=== PATIENT | female | born 1950 | race Caucasian/White ===

== ENCOUNTER 2018-04-22 16:20 | Inpatient (IN) ==
[2018-04-22] MEDS ORDERED: Morphine Inj 4 MG/ML Vial IV.PUSH ONE ×2 (17:26→19:42)
[2018-04-22] MEDS ORDERED: Sod Chloride 0.9% Inj 1,000 ML IV.SIG ONE ×2 (17:26→19:05)
[2018-04-22 17:47] LABS: Baso # (Auto) 0.1 th/mm3 (0.0-0.2); Baso % (Auto) 0.5 % (0.0-2.0); Eos # (Auto) 0.5 th/mm3 (0.0-0.4); Eos % (Auto) 2.9 % (0.0-4.0); Hematocrit 35.6 % (35.0-46.0); Hemoglobin 11.8 gm/dL (11.6-15.3); Lymph # (Auto) 0.8 th/mm3 (1.0-4.8); Lymph % (Auto) 5.2 % (9.0-44.0); Mean Corpuscular HGB Conc 33.1 % (32.0-36.0); Mean Corpuscular Hemoglobin 27.6 pg (27.0-34.0); Mean Corpuscular Volume 83.3 fL (80.0-100.0); Mean Platelet Volume 8.6 fL (7.0-11.0); Mono # (Auto) 0.9 th/mm3 (0.0-0.9); Mono % (Auto) 5.7 % (0.0-8.0); Neut # (Auto) 13.2 th/mm3 (1.8-7.7); Neut % (Auto) 85.7 % (16.0-70.0); Platelet Count 235 th/mm3 (150-450); Red Blood Count 4.27 mil/mm3 (4.00-5.30); Red Cell Distribution Width 14.3 % (11.6-17.2); White Blood Count 15.4 th/mm3 (4.0-11.0)
[2018-04-22 18:40] LABS: Alanine Aminotransferase 31 U/L (10-53)
[2018-04-22 18:42] LABS: Alkaline Phosphatase 118 U/L (45-117); Total Protein 6.7 g/dL (6.4-8.2)
[2018-04-22 18:46] LABS: Bacteria,Urine Rare /hpf; Bilirubin,Urine Negative (Negative); Clarity,Urine Turbid (Clear); Color,Urine Amber (Yellw/Straw); Glucose,Urine (UA) 50 mg/dL (Negative); Leukocyte Esterase,Urine Negative (Negative); Nitrite,Urine Negative (Negative); Specific Gravity,Urine 1.024 (1.002-1.035)
[2018-04-22 18:52] LABS: Albumin 2.7 g/dL (3.4-5.0); Anion Gap 14 meq/L (5-15); Aspartate Aminotransferase 235 U/L (15-37); Blood Urea Nitrogen 43 mg/dL (7-18); Calcium 10.7 mg/dL (8.5-10.1); Carbon Dioxide 20.8 meq/L (21.0-32.0); Chloride 103 meq/L (98-107); Glomerular Filtration Rate 25 mL/min (>89); Glucose,Random 86 mg/dL (74-106); Lipase 77 U/L (73-393); Potassium 3.9 meq/L (3.5-5.1); Sodium 138 meq/L (136-145)
--- NOTE | 2018-04-22 19:17 | ED ---
HPI General Chief Complaint: Abdominal Pain Stated Complaint: Evac/Abd Pain Time Seen by Provider: 04/22/18 17:02 Source: patient Mode of arrival: ambulatory Limitations: no limitations History of Present Illness HPI narrative: Patient is a 67-year-old female, recently diagnosed with cervical cancer, who presents with complaint of abdominal pain. She states that she was diagnosed with cervical cancer after pelvic exam 2 months ago and has been unable to see a marketing reporting analyst specialist. She has had worsening abdominal pain and states she just cannot take it anymore. She has started to have nausea and nonbilious, nonbloody emesis over the last several days and has not had a bowel movement in the last 5 days. She is still passing flatus. No fever nor chills. No chest pain or shortness of breath. MD complaint: abdominal pain Onset (ago): month(s) Pain Consistency: constant Location: diffuse Severity: mild Quality: fullness Radiation: none Migration to: no migration Relieving factors: nothing Exacerbating factors: nothing Associated symptoms: denies other symptoms Related Data Home Medications Medication Instructions Recorded Confirmed oxycodone 10 mg PO Q4-6H PRN 04/22/18 04/22/18 Allergies Allergy/AdvReac Type Severity Reaction Status Date / Time penicillin G Allergy Severe causes Verified 04/22/18 16:55 hives Sulfa (Sulfonamide Allergy Severe hives Verified 04/22/18 16:55 Antibiotics) Review of Systems ROS: all other systems reviewed are negative Constitutional Denies chills and Denies fever(s) Eyes Denies blurry vision ENT Denies nasal congestion Cardiovascular Denies chest pain Respiratory Denies dyspnea Gastrointestinal Reports abdominal pain, Denies diarrhea, Reports nausea and Reports vomiting Genitourinary Denies dysuria Musculoskeletal Denies back pain Integumentary/Breasts Denies rash Neurologic Denies headache(s) Psychiatric Reports anxiety and Denies confusion Endocrine Reports fatigue PMF Medical History Medical History Breast CA (Acute) Cervical ca (Acute) Gallstone (Acute) Surgical History Surgical History S/P breast lumpectomy (Acute) S/P dilatation and curettage (Acute) Family History Family History Other Diabetes mellitus Social History Social History Substance History: No History of Abuse Second Hand Smoke Exposure: No Smoking Status: Never smoker How Often Do You Have a Drink Containing Alcohol: Never Recent Travel in [facility] within the Last 8 Weeks: No Recent Out of Country Travel within the Last 8 Weeks: No Substance Abuse Detail Marijuana: Substance Use Status: Active Route Used Substance Abuse: By Mouth Immunization History Tetanus Immunization: Unsure Hx Influenza Vaccine This Season: No Exam Narrative Exam Narrative: GENERAL: Well-appearing female in no acute distress SKIN: Focused skin assessment warm/dry. No rashes. HEAD: Atraumatic. Normocephalic. EYES: Pupils equal and round. No scleral icterus. No injection or drainage. ENT: No nasal bleeding or discharge. Mucous membranes pink and moist. NECK: Trachea midline. No JVD. CARDIOVASCULAR: Regular rate and rhythm. No murmur appreciated. RESPIRATORY: No accessory muscle use. Clear to auscultation. Breath sounds equal bilaterally. GASTROINTESTINAL: Abdomen soft, tenderness present in the lower abdomen, mass palpated, nondistended. Hepatic and splenic margins not palpable. MUSCULOSKELETAL: No obvious deformities. No clubbing. No cyanosis. No edema. NEUROLOGICAL: Awake and alert. No obvious cranial nerve deficits. Motor grossly within normal limits. Normal speech. PSYCHIATRIC: Anxious and tearful Course Initial Documented Vital Signs Temperature 98.1 F 04/22/18 16:56 Pulse Rate 91 H 04/22/18 16:56 Respiratory Rate 17 04/22/18 16:56 Blood Pressure 146/86 H 04/22/18 16:56 Pulse Oximetry 94 L 04/22/18 16:56 Last Documented Vital Signs Temperature 98.5 F 04/23/18 05:35 Pulse Rate 80 04/23/18 03:00 Respiratory Rate 18 04/23/18 05:35 Blood Pressure 161/92 H 04/23/18 05:35 Pulse Oximetry 95 04/23/18 05:35 Sign Out Sign Out Data: Patient Sign Out occurred on 04/22/18 at 19:39. Patient's care was discussed, and care was transferred from Guillermina Smith MD to Lisa Belle. Sign Out Comment: CT pending. Plan for admission. Last updated by Guillermina Smith MD at 04/22/18 19:20 Medical Decision Making MDM Narrative Medical decision making narrative: Patient is a 67-year-old female recently diagnosed with cervical cancer who presents with complaint of worsening abdominal pain, nausea, vomiting and constipation. Labs revealed leukocytosis and an elevated creatinine consistent with acute kidney injury. CT pending at time of checkup. Differential Diagnosis Differential Diagnosis: Differential diagnosis includes but is not limited to small bowel obstruction, impaction, cancer pain. Medical Records Medical records reviewed: Yes I reviewed the patient's medical records. Lab Data Lab results reviewed: Yes I reviewed the patient's lab results. Lab results narrative: Labs revealed leukocytosis and acute kidney injury. Result diagrams: 04/23/18 04:57 04/22/18 17:34 Lab Results 04/22/18 04/22/18 04/22/18 Range/Units 17:33 17:34 17:34 WBC 15.4 H (4.0-11.0) th/mm3 RBC 4.27 (4.00-5.30) mil/mm3 Hgb 11.8 (11.6-15.3) gm/dL Hct 35.6 (35.0-46.0) % MCV 83.3 (80.0-100.0) fL MCH 27.6 (27.0-34.0) pg MCHC 33.1 (32.0-36.0) % RDW 14.3 (11.6-17.2) % Plt Count 235 (150-450) th/mm3 MPV 8.6 (7.0-11.0) fL Prelim Diff (Auto) Neut % (Auto) 85.7 H (16.0-70.0) % Lymph % (Auto) 5.2 L (9.0-44.0) % Banks % (Auto) 5.7 (0.0-8.0) % Eos % (Auto) 2.9 (0.0-4.0) % Baso % (Auto) 0.5 (0.0-2.0) % Neut # (Auto) 13.2 H (1.8-7.7) th/mm3 Lymph # (Auto) 0.8 L (1.0-4.8) th/mm3 [place] # (Auto) 0.9 (0.0-0.9) th/mm3 Eos # (Auto) 0.5 H (0.0-0.4) th/mm3 Baso # (Auto) 0.1 (0.0-0.2) th/mm3 WBC Differential . Differential Comment Auto diff final Sodium 138 (136-145) meq/L Potassium 3.9 (3.5-5.1) meq/L Chloride 103 (98-107) meq/L Carbon Dioxide 20.8 L (21.0-32.0) meq/L Anion Gap 14 (5-15) meq/L BUN 43 H (7-18) mg/dL Creatinine 2.02 H (0.50-1.00) mg/dL Estimated GFR 25 L (>89) mL/min Random Glucose 86 (74-106) mg/dL Calcium 10.7 H (8.5-10.1) mg/dL Total Bilirubin 0.3 (0.2-1.0) mg/dL AST 235 H (15-37) U/L ALT 31 (10-53) U/L Alkaline Phosphatase 118 H (45-117) U/L Total Protein 6.7 (6.4-8.2) g/dL Albumin 2.7 L (3.4-5.0) g/dL Lipase 77 (73-393) U/L Urine Color Mame (Yellw/Straw) Urine Clarity Turbid H (Clear) Urine pH 6.0 (5.0-8.5) Ur Specific [place] 1.024 (1.002-1.035) Urine Protein 100 H (Neg-Trace) mg/dL Urine Glucose (UA) 50 (Negative) mg/dL Urine Ketones Trace H (Negative) mg/dL Urine Occult Blood Large H (Negative) Urine Nitrate Negative (Negative) Urine Bilirubin Negative (Negative) Urine Urobilinogen Less than 2 (Less than 2) mg/dL Ur Leukocyte Esterase Negative (Negative) Urine RBC (0-3) /hpf Urine WBC (0-5) /hpf Urine Bacteria Rare H (None) /hpf Micro UA Comment Culture indicated Urine Culture Comments Culture indicated 04/23/18 Range/Units 04:57 WBC 13.3 H (4.0-11.0) th/mm3 RBC 3.94 L (4.00-5.30) mil/mm3 Hgb 10.8 L (11.6-15.3) gm/dL Hct 33.2 L (35.0-46.0) % MCV 84.2 (80.0-100.0) fL MCH 27.5 (27.0-34.0) pg MCHC 32.7 (32.0-36.0) % RDW 14.4 (11.6-17.2) % Plt Count 220 (150-450) th/mm3 MPV 8.1 (7.0-11.0) fL Prelim Diff (Auto) Slide review pending Neut % (Auto) 77.7 H (16.0-70.0) % Lymph % (Auto) 8.0 L (9.0-44.0) % Banks % (Auto) 7.5 (0.0-8.0) % Eos % (Auto) 3.9 (0.0-4.0) % Baso % (Auto) 2.9 H (0.0-2.0) % Neut # (Auto) 10.3 H (1.8-7.7) th/mm3 Lymph # (Auto) 1.1 (1.0-4.8) th/mm3 [place] # (Auto) 1.0 H (0.0-0.9) th/mm3 Eos # (Auto) 0.5 H (0.0-0.4) th/mm3 Baso # (Auto) 0.4 H (0.0-0.2) th/mm3 WBC Differential Differential Comment . Sodium (136-145) meq/L Potassium (3.5-5.1) meq/L Chloride (98-107) meq/L Carbon Dioxide (21.0-32.0) meq/L Anion Gap (5-15) meq/L BUN (7-18) mg/dL Creatinine (0.50-1.00) mg/dL Estimated GFR (>89) mL/min Random Glucose (74-106) mg/dL Calcium (8.5-10.1) mg/dL Total Bilirubin (0.2-1.0) mg/dL AST (15-37) U/L ALT (10-53) U/L Alkaline Phosphatase (45-117) U/L Total Protein (6.4-8.2) g/dL Albumin (3.4-5.0) g/dL Lipase (73-393) U/L Urine Color (Yellw/Straw) Urine Clarity (Clear) Urine pH (5.0-8.5) Ur Specific [place] (1.002-1.035) Urine Protein (Neg-Trace) mg/dL Urine Glucose (UA) (Negative) mg/dL Urine Ketones (Negative) mg/dL Urine Occult Blood (Negative) Urine Nitrate (Negative) Urine Bilirubin (Negative) Urine Urobilinogen (Less than 2) mg/dL Ur Leukocyte Esterase (Negative) Urine RBC (0-3) /hpf Urine WBC (0-5) /hpf Urine Bacteria (None) /hpf Micro UA Comment Urine Culture Comments Imaging Data Radiologist's impression: Abdomen/Pelvis CT 04/22/18 17:26 CONCLUSION: 1. Enlarged uterus and cervix. 2. Retroperitoneal metastatic lymphadenopathy. 3. Metastatic disease of the visualized lung bases. 4. Metastatic lytic lesion of the right pubic bone with a nondisplaced pathologic fracture. 5. Large mass or blood/debris in the urinary bladder. 6. 17 mm hypodensity of the liver is probably benign. There has slight fatty infiltration. 7. Large gallstone without associated complication. Discharge Plan Discharge Disposition Patient Disposition: 30 Still Patient Discharge Condition Condition: Stable Discharge Details Diagnosis: KALI (acute kidney injury) Physicians Team ED Provider: Lisa Belle Primary Care Provider: UNKNOWN, Attending Provider: Brock Smiley Other Providers: Hernan Lux ; [employer] Status ED Status: Left Department Discharge Information Discharge Date/Time: 04/23/18 01:22
--- NOTE | 2018-04-22 19:49 | CT ---
EXAM DATE: 04/22/2018 7:24 PM EDT AGE/SEX: 67 years / Female INDICATIONS: Pelvic pain for five days. CLINICAL DATA: This is the patient's initial encounter. Patient reports that signs and symptoms have been present for 4 - 6 days and indicates a pain score of 5/10. MEDICAL/SURGICAL HISTORY: Carcinoma, breast. Carcinoma, cervical. . Lumpectomy. RADIATION DOSE: 15.48 CTDI (mGy) COMPARISON: No prior exams available for comparison. TECHNIQUE: Multiple contiguous axial images were obtained through the abdomen. Images were obtained using multiple row detector helical technique. Using automated exposure control and adjustment of the mA and/or kV according to patient size, radiation dose was kept as low as reasonably achievable to o btain optimal diagnostic quality images. DICOM format image data is available electronically for rev iew and comparison. FINDINGS: Multiple nodules are seen in the visualized lung bases measuring up to 18 mm on the left and up to 24 mm on the right. 22 mm paraesophageal lymph node is seen just above the GE junction. 17 mm hypodensity seen at the dome of the right hepatic lobe, probably benign. Liver is mild fatty in filtrated but no other focal hepatic lesions are demonstrated. Noncontrast appearance of the spleen, pancreas and adrenal glands within normal limits. Intermediate attenuation mass measuring approximately 11 mm seen posteriorly upper pole of the left k idney. The kidneys are otherwise within normal limits. Enlarged aortocaval lymph nodes are present measuring up to 36 mm in size. There is iliac lymphadenop athy as well, for example on the left measuring 29 x 40 mm on series 2 image 56. Uterus and cervix enlarged. No well-defined mass. There is intermediate attenuation material or mass within the urinary bladder measuring 3.9 x 6.8 x 2.2 cm. Mesenteric lymph node versus a peritoneal nodule seen in the right lower quadrant measures 1.2 cm. No obstruction or acute inflammatory changes are seen of the gastrointestinal tract. No free fluid or free air. 2 cm gallstone. No associated inflammatory changes. No duct stone or ductal dilatation. Ill-defined lytic lesion seen of the right pubic bone just lateral to the symphysis measuring approxi mately 3.6 cm. There is an associated nondisplaced pathologic fracture evident on series 601 image 59 . No other perceptible bone lesion. CONCLUSION: 1. Enlarged uterus and cervix. 2. Retroperitoneal metastatic lymphadenopathy. 3. Metastatic disease of the visualized lung bases. 4. Metastatic lytic lesion of the right pubic bone with a nondisplaced pathologic fracture. 5. Large mass or blood/debris in the urinary bladder. 6. 17 mm hypodensity of the liver is probably benign. There has slight fatty infiltration. 7. Large gallstone without associated complication. Electronically signed by: Michi Griffiths MD 04/22/2018 7:47 PM EDT
[2018-04-22] MEDS ORDERED: Bisacodyl 10 MG Supp RECTAL PRN (21:00)
[2018-04-22] MEDS ORDERED: Temazepam 15 MG Capsule PO PRN (21:00)
--- NOTE | 2018-04-22 21:18 | P.HP ---
History of Present Illness Service: [facility] Primary Care Physician: UNKNOWN History of Present Illness: 67-year-old female with a known history of cervical cancer presents to the emergency department for the evaluation of pelvic pain and vaginal bleeding. The patient reports she had a D&C with her mail deliverer at which time she was diagnosed with cervical cancer. She reports she has been trying to see Dr. Worley however has been unable to do so secondary to issues with referrals. The patient reports that she has started to have nausea and vomiting over the past several days and last bowel movement was 5 days ago. She denies any fevers or chills. No chest pain or shortness of breath. Severe abdominal/ pelvic pain. No diarrhea. No lateralizing signs/symptoms. The patient reports low back pain for the last 2-3 days. Review of Systems All other systems reviewed negative except as stated in [facility] - History History Provided By: Patient - Medical History Medical History: Medical History (Last Reviewed 04/22/18 @ 19:12 by Guillermina Smith MD) Breast CA Cervical ca - Surgical History Surgical History: Surgical History (Last Reviewed 04/22/18 @ 19:12 by Guillermina Smith MD) S/P breast lumpectomy - Family History Family History: Family History (Last Updated 04/22/18 @ 21:11 by Gabbie Gomez MD) Other Diabetes mellitus - Tobacco History Second Hand Smoke Exposure: No Tobacco Use In Past 30 Days: No Smoking Status: Never smoker - Alcohol History How Often Do You Have a Drink Containing Alcohol: Never - Substance Use History Substance History: No History of Abuse - Substance Use Type Marijuana Status: Active Route Used: By Mouth - Travel History Recent Travel in the [place] Within the Last 8 Weeks: No Recent Travel Out of the Country Within the Last 8 Weeks: No - Immunization History Tetanus Immunization: Unsure Hx Influenza Vaccine This Season: No Medications and Allergies Active Medications: Active Medications Acetaminophen (Tylenol) 650 mg PO Q4H PRN PRN Reason: Temp > 100.4 Al Hydroxide/Mg Hydroxide (Milk Of Magnesia Liq) 30 ml PO Q12H PRN PRN Reason: Mild Constipation Bisacodyl (Dulcolax Supp) 10 mg RECTAL DAILY PRN PRN Reason: SEVERE CONSITIPATION Hydromorphone HCl (Dilaudid Pf Inj) 1 mg IV.PUSH Q4H PRN PRN Reason: breakthrough pain Ceftriaxone Sodium 1,000 mg/ (Sodium Chloride) 100 mls @ 200 mls/hr IV.SIG Q24H ALOK Sodium Chloride (Ns Inj) 1,000 mls @ 100 mls/hr IV.CONT .Q10H ALOK Lactulose (Lactulose Liq) 30 ml PO DAILY PRN PRN Reason: SEVERE CONSITIPATION Ondansetron HCl (Zofran Inj) 4 mg IV.PUSH Q6H PRN PRN Reason: NAUSEA OR VOMITING Oxycodone HCl (Roxicodone) 10 mg PO Q4H PRN PRN Reason: pain 6-10 Senna/Docusate Sodium (Marta-Colace) 1 tab PO BID ALOK Sennosides (Senokot) 17.2 mg PO Q12H PRN PRN Reason: Moderate Constipation Sodium Chloride (Ns Flush) 2 ml IV.FLUSH PRN PRN PRN Reason: FLUSH AFTER USING IV ACCESS Temazepam (Restoril) 15 mg PO HS PRN PRN Reason: INSOMNIA Allergies Allergy/AdvReac Type Severity Reaction Status Date / Time penicillin G Allergy Severe causes Verified 04/22/18 16:55 hives Sulfa (Sulfonamide Allergy Severe hives Verified 04/22/18 16:55 Antibiotics) Home Medications Medication Instructions Recorded Confirmed Type oxycodone 10 mg PO Q4-6H PRN 04/22/18 04/22/18 History Exam Vital signs: Vital Signs 04/22/18 16:56 04/22/18 17:45 04/22/18 18:00 Temperature 98.1 F Pulse Rate 91 H 83 Respiratory Rate 17 16 17 Blood Pressure 146/86 H 169/80 H Pulse Oximetry 94 L 93 L 04/22/18 19:34 Temperature Pulse Rate 87 Respiratory Rate 18 Blood Pressure 165/89 H Pulse Oximetry 94 L Intake & Output 04/22/18 04/22/18 04/23/18 06:59 18:59 06:59 Weight 87.09 kg Narrative: Gen.: No acute distress Head: Normocephalic. Atraumatic. EENT: Pupils equal round and reactive to light. Nose without drainage. Airway intact. Throat without injection. Cardiovascular: Regular rate and rhythm. No murmurs, rubs or gallops. Respiratory: Lungs clear to auscultation bilaterally. No wheezes or rhonchi. Abdomen: Soft, tender to palpation worse in the pelvic region, nondistended. No peritoneal signs. Musculoskeletal: No gross deformities. No edema. Skin: No obvious rashes or erythema. Neuro: Sensory and motor grossly intact. Cranial nerves II through XII grossly intact. Results - Labs CBC & Chem 7: 04/22/18 17:34 04/22/18 17:34 Labs: Laboratory Results - last 24 hr 04/22/18 04/22/18 04/22/18 17:33 17:34 17:34 WBC 15.4 H RBC 4.27 Hgb 11.8 Hct 35.6 MCV 83.3 MCH 27.6 MCHC 33.1 RDW 14.3 Plt Count 235 MPV 8.6 Neut % (Auto) 85.7 H Lymph % (Auto) 5.2 L [place] % (Auto) 5.7 Eos % (Auto) 2.9 Baso % (Auto) 0.5 Neut # (Auto) 13.2 H Lymph # (Auto) 0.8 L [place] # (Auto) 0.9 Eos # (Auto) 0.5 H Baso # (Auto) 0.1 WBC Differential . Differential Comment Auto diff final Sodium 138 Potassium 3.9 Chloride 103 Carbon Dioxide 20.8 L Anion Gap 14 BUN 43 H Creatinine 2.02 H Estimated GFR 25 L Random Glucose 86 Calcium 10.7 H Total Bilirubin 0.3 AST 235 H ALT 31 Alkaline Phosphatase 118 H Total Protein 6.7 Albumin 2.7 L Lipase 77 Urine Color Mame Urine Clarity Turbid H Urine pH 6.0 Ur Specific [employer] 1.024 Urine Protein 100 H Urine Glucose (UA) 50 Urine Ketones Trace H Urine Occult Blood Large H Urine Nitrate Negative Urine Bilirubin Negative Urine Urobilinogen Less than 2 Ur Leukocyte Esterase Negative Urine RBC Urine WBC Urine Bacteria Rare H Micro UA Comment Culture indicated Urine Culture Comments Culture indicated - Imaging Impressions Abdomen/Pelvis CT 04/22/18 17:26 CONCLUSION: 1. Enlarged uterus and cervix. 2. Retroperitoneal metastatic lymphadenopathy. 3. Metastatic disease of the visualized lung bases. 4. Metastatic lytic lesion of the right pubic bone with a nondisplaced pathologic fracture. 5. Large mass or blood/debris in the urinary bladder. 6. 17 mm hypodensity of the liver is probably benign. There has slight fatty infiltration. 7. Large gallstone without associated complication. Caprini VTE Risk Assessment Caprini VTE Risk Assessment: Moderate/High Risk (score >= 2) Caprini Risk Assessment Model: Point Value = 1 Point Value = 2 Point Value = 3 Point Value = 5 Age 41-60 Minor surgery BMI > 25 kg/m2 Swollen legs Varicose veins or History of unexplained or recurrent spontaneous Oral contraceptives or hormone replacement Sepsis (< 1 month) Serious lung disease, including pneumonia (< 1 month) Abnormal pulmonary function Acute myocardial infarction Congestive heart failure (< 1 month) History of inflammatory bowel disease Medical patient at bed rest Age 61-74 Arthroscopic surgery Major open surgery (> 45 min) Laparoscopic surgery (> 45 min) Malignancy Confined to bed (> 72 hours) Immobilizing plaster cast Central venous access Age >= 75 History of VTE Family history of VTE Factor V Leiden Prothrombin 22243L Lupus anticoagulant Anticardiolipin antibodies Elevated serum homocysteine Heparin-induced thrombocytopenia Other congenital or acquired thrombophilia Stroke (< 1 month) Elective arthroplasty Hip, pelvis, or leg fracture Acute spinal cord injury (< 1 month) Prophylaxis Regimen: Total Risk Factor Score Risk Level Prophylaxis Regimen 0-1 Low Early ambulation 2 Moderate Order ONE of the following: *Sequential Compression Device (SCD) *Heparin 5000 units SQ BID 3-4 Higher Order ONE of the following medications: *Heparin 5000 units SQ TID *Enoxaparin/Lovenox 40 mg SQ daily (WT < 150 kg, CrCl > 30 mL/min) *Enoxaparin/Lovenox 30 mg SQ daily (WT < 150 kg, CrCl > 10-29 mL/min) *Enoxaparin/Lovenox 30 mg SQ BID (WT < 150 kg, CrCl > 30 mL/min) AND/OR *Sequential Compression Device (SCD) 5 or more Highest Order ONE of the following medications: *Heparin 5000 units SQ TID (Preferred with Epidurals) *Enoxaparin/Lovenox 40 mg SQ daily (WT < 150 kg, CrCl > 30 mL/min) *Enoxaparin/Lovenox 30 mg SQ daily (WT < 150 kg, CrCl > 10-29 mL/min) *Enoxaparin/Lovenox 30 mg SQ BID (WT < 150 kg, CrCl > 30 mL/min) AND *Sequential Compression Device (SCD) Assessment and Plan - Plan Assessment/plan: 1. Cervical cancer with metastatic disease Patient reports she has not previously had imaging done. T of the abdomen/ pelvis significant for retroperitoneal metastatic lymphadenopathy, metastatic disease of the visualized lung bases, metastatic lytic lesion of the right pubic bone with nondisplaced pathologic fracture and a large mass in the urinary bladder. The patient was made aware of her CT scan findings. Oncology consulted, preferred service delivery consultant Dr. Worley, appreciate recommendations 2. Urinary tract infection UA consistent with UTI Rocephin Urine culture pending 3. Acute kidney injury Creatinine 2.02, no baseline for comparison IV fluid hydration Monitor renal function 4. Pain control Oxycodone 10 mg every 4 hours as needed 1 mg Dilaudid for breakthrough pain FEN N.p.o. after midnight Electrolytes: Monitor and replete as needed NS at 100 cc/hour Holding pharmacologic anticoagulation for possible procedure
[2018-04-22] MEDS: Sod Chloride 0.9% Inj 1,000 ML IV.CONT SCH (22:02)
[2018-04-22] MEDS: Senna/Docusate Sodium 8.6/50 MG Tablet PO SCH (22:03)
[2018-04-23] MEDS: HYDROmorphone PF Inj 2 MG/ML Vial IV.PUSH PRN ×5 (01:23→21:43)
[2018-04-23 06:34] LABS: Baso # (Auto) 0.4 th/mm3 (0.0-0.2); Baso % (Auto) 2.9 % (0.0-2.0); Eos # (Auto) 0.5 th/mm3 (0.0-0.4); Eos % (Auto) 3.9 % (0.0-4.0); Hematocrit 33.2 % (35.0-46.0); Hemoglobin 10.8 gm/dL (11.6-15.3); Lymph # (Auto) 1.1 th/mm3 (1.0-4.8); Mean Corpuscular HGB Conc 32.7 % (32.0-36.0); Mean Corpuscular Hemoglobin 27.5 pg (27.0-34.0); Mean Corpuscular Volume 84.2 fL (80.0-100.0); Mean Platelet Volume 8.1 fL (7.0-11.0); Mono % (Auto) 7.5 % (0.0-8.0); Neut # (Auto) 10.3 th/mm3 (1.8-7.7); Neut % (Auto) 77.7 % (16.0-70.0); Platelet Count 220 th/mm3 (150-450); Red Blood Count 3.94 mil/mm3 (4.00-5.30); Red Cell Distribution Width 14.4 % (11.6-17.2); White Blood Count 13.3 th/mm3 (4.0-11.0)
[2018-04-23 06:59] LABS: Carbon Dioxide 21.1 meq/L (21.0-32.0)
[2018-04-23 07:46] LABS: Eosinophils 3 % (0-4); Lymphocytes 5 % (9-44); Monocytes 4 % (0-8); Platelet Estimate Normal (Normal); Platelet Morphology Normal (Normal)
[2018-04-23] MEDS: Senna/Docusate Sodium 8.6/50 MG Tablet PO SCH (08:17)
[2018-04-23] MEDS: Sod Chloride 0.9% Inj 1,000 ML IV.CONT SCH ×2 (08:30→20:16)
--- NOTE | 2018-04-23 15:04 | MB ---
cc: Hernan Lux MD, Kelly L MD DATE: 04/23/2018 REASON FOR CONSULTATION: New diagnosis of cervical cancer. PATIENT PROFILE: The patient is a 67-year-old white female. She is . Her of lung cancer. She was born in [place], [place]. She has 2 children, both sons. She lives alone. Her companions are a Kazakh Humphrey, cat, and 2 parrots. She stopped smoking 20 years ago and had smoked 1/2 a pack of cigarettes per day for approximately 20 years. 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 HISTORY OF PRESENT ILLNESS: The patient's history dates back to approximately 3 months ago when she developed suprapubic discomfort. She was treated for a urinary tract infection by her primary care physician. The discomfort did not resolve and worsened. She then underwent a pelvic examination by her primary care physician and was found to have an abnormal cervix. She was referred to Ondina Blanco, who is a educational audiologist. Dr. Blanco planned on doing a biopsy of the cervix, but according to the patient, she was not able to do this, but did a Pap smear approximately 2 months ago which identified a cervical cancer. I do not have the pathology report. The patient was subsequently referred to Dr. Worley. There were issues with insurance and paperwork which delayed the appointment. During the past week she is having significant vaginal bleeding and the pain has worsened. For this reason, she went to the emergency room and a consultation was placed with oncology. PAST SURGICAL HISTORY: 1. Approximately 2 months ago D and C and Pap smear establishing diagnosis of cervical cancer. 2. Approximately 10 years ago the patient had a right lumpectomy performed by Dr. Noam Bartholomew. She states that she was found to have a small breast cancer and did not require any treatment, including radiation. 3. Tonsillectomy. PAST MEDICAL HISTORY: No previous medical problems. MEDICATIONS: She takes multiple vitamins. ALLERGIES: PENICILLIN AND SULFA. FAMILY HISTORY: Mother at age 87 of old age. Father at age 82 of myocardial infarction. The patient has a sister who smoked and of lung cancer at the age of 74. REVIEW OF SYSTEMS: Notable only for the recent events with the suprapubic pain and vaginal bleeding. There is no upper abdominal pain, shortness of breath, chest pain, cough. LABORATORY DATA: When the patient presented to the emergency room she had imaging studies which included a CT scan of the abdomen and pelvis. I have personally reviewed these findings. This was done without IV contrast due to an elevated creatinine. She was found to have multiple nodules in the lung bases measuring up to 18 mm on the left and 24 mm on the right. There is a 22 mm paraesophageal lymph node. There appears to be a single metastatic lesion involving the liver. There are enlarged aortocaval lymph nodes measuring up to 36 mm. There is iliac lymphadenopathy as well, measuring up to 40 mm. The uterus and cervix are large, forming what appears to be almost a single mass measuring 3.9 x 6.8 x 2.2 cm. There is an ill-defined lytic lesion in the right pubic bone lateral to the symphysis measuring 3.6 cm. There is no mention of any ureteral obstruction. There was an 11 mm mass in the upper pole of the left kidney. LABORATORY STUDIES: Hemoglobin today 10.8, white count 13,000, platelets 220,000. Differential was unremarkable. BUN 41, creatinine is 1.9. AST 235, ALT 31, alkaline phosphatase 118, albumin 2.7. PHYSICAL EXAMINATION: GENERAL: The patient appears well, she is overweight. VITAL SIGNS: Blood pressure 160/95, O2 saturation 93%, respiratory rate 18, pulse 90, afebrile. HEENT: Head is normocephalic. Sclerae and conjunctivae are normal. Oropharynx unremarkable. NECK: There is no cervical, supraclavicular, axillary, or inguinal adenopathy. BREASTS: Without masses. HEART: Regular rate and rhythm. LUNGS: Clear. ABDOMEN: Soft. There is a suprapubic mass which is palpable and tender and I believe is an extension of the cervix and uterus. EXTREMITIES: Reveals trace edema. MUSCULOSKELETAL: No bone pain. NEUROLOGIC: No focal weakness. Cognition and affect are normal. ASSESSMENT AND PLAN: The patient is a 67-year-old female with stage IV cervical cancer. I suspect this is a squamous cell cancer, but it will be necessary to obtain the pathology. She has significant locally advanced disease with bleeding and will probably require radiation therapy with chemotherapy and then further chemotherapy after this with a [place] and taxane based regimen plus or minus avastin. She may also eventually be a candidate for immunotherapy. In order to expedite things I have contacted the gynecologic oncology service and spoke with Mat Anderson. I have placed a consultation with radiation oncology, interventional radiology for a port, and I have ordered a CT scan of the thorax without contrast. MD OANH Ennis/devi , 02:33 PM , 02:46 PM [email or web address]
--- NOTE | 2018-04-23 16:00 | P.PNIM ---
Subjective Interval history: Patient reports lower abdominal pain is under control. Denies any chest pain shortness of breath. Physical Exam Vital signs: Vital Signs 04/22/18 16:56 04/22/18 17:45 04/22/18 18:00 Temperature 98.1 F Pulse Rate 91 H 83 Respiratory Rate 17 16 17 Blood Pressure 146/86 H 169/80 H Pulse Oximetry 94 L 93 L 04/22/18 19:34 04/22/18 21:00 04/23/18 01:38 Temperature 98.6 F Pulse Rate 87 87 84 Respiratory Rate 18 18 16 Blood Pressure 165/89 H 163/92 H Pulse Oximetry 94 L 97 95 04/23/18 01:53 04/23/18 03:00 04/23/18 05:35 Temperature 98.5 F Pulse Rate 80 Respiratory Rate 16 18 Blood Pressure 161/92 H Pulse Oximetry 95 04/23/18 07:35 04/23/18 12:00 Temperature 98.1 F 98.9 F Pulse Rate 85 89 Respiratory Rate 16 18 Blood Pressure 155/87 H 166/96 H Pulse Oximetry 96 93 L Intake & Output 04/22/18 04/23/18 04/23/18 18:59 06:59 18:59 Intake Total 1000 / 1000 1100 / 1100 1000 / 1000 Balance 1000 / 1000 1100 / 1100 1000 / 1000 Weight 87.09 kg 87.1 kg 90.6 kg Intake: IV 1000 / 1000 1100 / 1100 1000 / 1000 NS Inj 1,000 ML @ 100 mls/hr IV 1000 / 1000 .CONT .Q10H ALOK Rx#:[id number] NS Inj 1,000 ML @ Wide Open IV. 1000 / 1000 1000 / 1000 SIG BOLUS ONE Rx#:[id number] Rocephin Inj 1,000 MG In NS Inj 100 / 100 100 ML @ 200 mls/hr IV.SIG Q24H ALOK Rx#:[id number] Other: # Voids 1 Date of Last Bowel Movement 04/18/18 Weight On Admission 87.1 kg Narrative: GENERAL: Patient sitting up in bed. Appears comfortable. SKIN: Warm and dry. HEAD: Normocephalic. EYES: No scleral icterus. No injection or drainage. NECK: Supple, trachea midline. No JVD. CARDIOVASCULAR: Regular rate and rhythm without murmurs, gallops, or rubs. RESPIRATORY: Breath sounds equal bilaterally. No accessory muscle use. GASTROINTESTINAL: Abdomen soft, non-tender, nondistended. Some mild discomfort in the lower abdomen. MUSCULOSKELETAL: No cyanosis, or edema. BACK: Nontender without obvious deformity. No CVA tenderness. Results - Labs CBC & Chem 7: 04/23/18 04:57 04/23/18 04:57 Laboratory Results - last 24 hr 04/22/18 04/22/18 04/22/18 17:33 17:34 17:34 WBC 15.4 H RBC 4.27 Hgb 11.8 Hct 35.6 MCV 83.3 MCH 27.6 MCHC 33.1 RDW 14.3 Plt Count 235 MPV 8.6 Prelim Diff (Auto) Neut % (Auto) 85.7 H Lymph % (Auto) 5.2 L [place] % (Auto) 5.7 Eos % (Auto) 2.9 Baso % (Auto) 0.5 Neut # (Auto) 13.2 H Lymph # (Auto) 0.8 L [place] # (Auto) 0.9 Eos # (Auto) 0.5 H Baso # (Auto) 0.1 WBC Differential . Seg Neuts % (Manual) Band Neuts % (Manual) Lymphocytes % (Manual) Monocytes % (Manual) Eosinophils % (Manual) Abs Neuts (Manual) Differential Comment Auto diff final Platelet Estimate Platelet Morphology Sodium 138 Potassium 3.9 Chloride 103 Carbon Dioxide 20.8 L Anion Gap 14 BUN 43 H Creatinine 2.02 H Estimated GFR 25 L Random Glucose 86 Calcium 10.7 H Total Bilirubin 0.3 AST 235 H ALT 31 Alkaline Phosphatase 118 H Total Protein 6.7 Albumin 2.7 L Lipase 77 Urine Color Mame Urine Clarity Turbid H Urine pH 6.0 Ur Specific Crawford 1.024 Urine Protein 100 H Urine Glucose (UA) 50 Urine Ketones Trace H Urine Occult Blood Large H Urine Nitrate Negative Urine Bilirubin Negative Urine Urobilinogen Less than 2 Ur Leukocyte Esterase Negative Urine RBC Urine WBC Urine Bacteria Rare H Micro UA Comment Culture indicated Urine Culture Comments Culture indicated 04/23/18 04/23/18 04:57 04:57 WBC 13.3 H RBC 3.94 L Hgb 10.8 L Hct 33.2 L MCV 84.2 MCH 27.5 MCHC 32.7 RDW 14.4 Plt Count 220 MPV 8.1 Prelim Diff (Auto) Slide review pending Neut % (Auto) 77.7 H Lymph % (Auto) 8.0 L [place] % (Auto) 7.5 Eos % (Auto) 3.9 Baso % (Auto) 2.9 H Neut # (Auto) 10.3 H Lymph # (Auto) 1.1 [place] # (Auto) 1.0 H Eos # (Auto) 0.5 H Baso # (Auto) 0.4 H WBC Differential Manual diff final Seg Neuts % (Manual) 75 H Band Neuts % (Manual) 13 H Lymphocytes % (Manual) 5 L Monocytes % (Manual) 4 Eosinophils % (Manual) 3 Abs Neuts (Manual) 11.7 H Differential Comment . Platelet Estimate Normal Platelet Morphology Normal Sodium 141 Potassium 4.0 Chloride 108 H Carbon Dioxide 21.1 Anion Gap 12 BUN 41 H Creatinine 1.90 H Estimated GFR 26 L Random Glucose 79 Calcium 10.0 Total Bilirubin AST ALT Alkaline Phosphatase Total Protein Albumin Lipase Urine Color Urine Clarity Urine pH Ur Specific Crawford Urine Protein Urine Glucose (UA) Urine Ketones Urine Occult Blood Urine Nitrate Urine Bilirubin Urine Urobilinogen Ur Leukocyte Esterase Urine RBC Urine WBC Urine Bacteria Micro UA Comment Urine Culture Comments Microbiology 04/22/18 17:33 Clean Catch Urine Urine Culture - Preliminary Immature growth - reincubate - Imaging Impressions Abdomen/Pelvis CT 04/22/18 17:26 CONCLUSION: 1. Enlarged uterus and cervix. 2. Retroperitoneal metastatic lymphadenopathy. 3. Metastatic disease of the visualized lung bases. 4. Metastatic lytic lesion of the right pubic bone with a nondisplaced pathologic fracture. 5. Large mass or blood/debris in the urinary bladder. 6. 17 mm hypodensity of the liver is probably benign. There has slight fatty infiltration. 7. Large gallstone without associated complication. Assessment and Plan - Plan //Cervical cancer with metastatic disease Patient reports she has not previously had imaging done. T of the abdomen/ pelvis significant for retroperitoneal metastatic lymphadenopathy, metastatic disease of the visualized lung bases, metastatic lytic lesion of the right pubic bone with nondisplaced pathologic fracture and a large mass in the urinary bladder. The patient was made aware of her CT scan findings. Oncology consulted, preferred cassandra consultant Dr. Worley, appreciate recommendations = Appreciate oncology assistance. Port placement, CT chest, radiation oncology consult. Continue pain management. //Urinary tract infection UA consistent with UTI Rocephin Urine culture pending = Continue antibiotics and follow-up urine culture //Acute kidney injury Creatinine 2.02, no baseline for comparison IV fluid hydration Monitor renal function = Slight improvement. Creatinine 1.9. Continue IV fluids. //Pain control Oxycodone 10 mg every 4 hours as needed 1 mg Dilaudid for breakthrough pain FEN N.p.o. after midnight Electrolytes: Monitor and replete as needed NS at 100 cc/hour Holding pharmacologic anticoagulation for possible procedure Discharge Planning: Pending oncology clearance.
--- NOTE | 2018-04-23 17:12 | CT ---
EXAM DATE: 04/23/2018 5:06 PM EDT AGE/SEX: 67 years / Female INDICATIONS: Shortness of breath. CLINICAL DATA: This is the patient's initial encounter. Patient reports that signs and symptoms have been present for 1 day and indicates a pain score of 0/10. MEDICAL/SURGICAL HISTORY: Carcinoma, breast. Carcinoma, cervical. . lumpectomy RADIATION DOSE: 9.59 CTDI (mGy) COMPARISON: No prior exams available for comparison. TECHNIQUE: Multiple contiguous axial images were obtained through the chest without contrast. Image s were obtained in suspended respiration using multiple row detector helical technique. Using automa keo exposure control and adjustment of the mA and/or kV according to patient size, radiation dose was kept as low as reasonably achievable to obtain optimal diagnostic quality images. DICOM format imag e data is available electronically for review and comparison. FINDINGS: Lungs: There are multiple pulmonary nodules are of both lung jorgensen consistent with diffuse pulmonar y metastatic disease. There is a right hilar mass measuring 2.5 cm. No acute pulmonary infiltrates ar e demonstrated. Mediastinum: There is diffuse mediastinal adenopathy. Prominent subcarinal adenopathy is demonstrate d. There is diffuse right hilar adenopathy. This is all consistent with neoplastic disease. Pleurae: No evidence of pleural effusions. Axillae: Unremarkable. Bony Structures: Bony degenerative changes. No grossly lytic or blastic lesions. Miscellaneous: The examination was extended to include the upper abdomen, and both adrenal glands ar e normal in size and configuration. Gallstone in the gallbladder. Diffuse para-aortic adenopathy. CONCLUSION: 1. Diffuse bilateral lung metastatic disease. 2. Diffuse hilar and mediastinal adenopathy consistent with neoplastic disease. 3. Diffuse para-aortic adenopathy in the abdomen. Electronically signed by: Jason Selby MD 04/23/2018 5:10 PM EDT
[2018-04-24] MEDS: Senna/Docusate Sodium 8.6/50 MG Tablet PO SCH ×3 (01:10→22:25)
[2018-04-24] MEDS: HYDROmorphone PF Inj 2 MG/ML Vial IV.PUSH PRN ×5 (01:37→22:10)
[2018-04-24] MEDS: Sod Chloride 0.9% Inj 1,000 ML IV.CONT SCH ×3 (04:30→20:39)
[2018-04-24 06:56] LABS: Baso # (Auto) 0.4 th/mm3 (0.0-0.2); Baso % (Auto) 2.7 % (0.0-2.0); Eos # (Auto) 0.8 th/mm3 (0.0-0.4); Eos % (Auto) 5.5 % (0.0-4.0); Hematocrit 32.1 % (35.0-46.0); Hemoglobin 10.7 gm/dL (11.6-15.3); Lymph % (Auto) 7.4 % (9.0-44.0); Mean Corpuscular HGB Conc 33.2 % (32.0-36.0); Mean Corpuscular Hemoglobin 27.8 pg (27.0-34.0); Mean Corpuscular Volume 83.7 fL (80.0-100.0); Mean Platelet Volume 7.9 fL (7.0-11.0); Mono # (Auto) 1.2 th/mm3 (0.0-0.9); Mono % (Auto) 8.3 % (0.0-8.0); Neut # (Auto) 10.7 th/mm3 (1.8-7.7); Neut % (Auto) 76.1 % (16.0-70.0); Platelet Count 216 th/mm3 (150-450); Red Blood Count 3.84 mil/mm3 (4.00-5.30); Red Cell Distribution Width 14.6 % (11.6-17.2)
[2018-04-24 07:13] LABS: Albumin 2.3 g/dL (3.4-5.0); Calcium 10.2 mg/dL (8.5-10.1); Carbon Dioxide 19.9 meq/L (21.0-32.0); Phosphorus 4.7 mg/dL (2.5-4.9); Potassium 4.3 meq/L (3.5-5.1)
[2018-04-24 08:18] LABS: Eosinophils 3 % (0-4); Lymphocytes 5 % (9-44); Monocytes 5 % (0-8); Promyelocyte 3 % (0-0)
[2018-04-24 08:19] LABS: Platelet Estimate Normal (Normal); Platelet Morphology Normal (Normal)
--- NOTE | 2018-04-24 09:10 | P.CON ---
History of Present Illness Service: dish person/onc Consult date: 04/24/18 Requesting Physician: Hernan Lux Reason for Consult: vaginal bleeding, enlarge cervix/uterus Primary Care Provider: UNKNOWN Chief Complaint: vaginal bleeding and pelvic pain History of Present Illness: This is a 67 year old female who presented to [facility] for abdominal/pelvic pain and vaginal bleeding. She states that she was seen and evaluated by Dr. Blanco where bx was attempted but not completed, but she states a pap smear done at the time of exam shown cancer arising from the cervix. She was referred to dish person/onc but we have yet to receive referral. She states pain and vaginal bleeding started a week ago. She also reports nausea/vomiting and constipation X 5 days. Mrs. Casanova also reports that it has been about 5 years since her last dish person exam, with no PMH of abnormal pap smears. She presented to her PCP to update physical and pap, and her PCP referred her to CARDIAC CATH TECHNICIAN because of the concern of abnormal findings during exam. Patient has PMH of breast cancer treated with lumpectomy. She admits she is not up to date on MMGs. Patient is seen in consultation for the above findings. She states her pain is controlled at this time but she still did have some vomiting yesterday. She states she is still having vaginal bleeding, bright red blood and it is constant. She was recently tx for UTI but that did not help the bleeding. She denies fevers. She was seen by Dr. Lux in Hem/Onc and he has ordered infusa port placement and radiation consult. I explained the results of CT scans, that it shown the uterus and cervix to be enlarged. Ct also comments of mass in bladder and adenopathy including mets to lungs, possible liver and adenopathy to mediastinum. I explained that we need to confirm where the primary sit is coming from, because cancers that arise from bladder, cervix, uterus or recurrent breast cancer are not necessarily treated the same. I will contact our referral dept and see if her information is awaiting approval and/or Dr. Blanco's office for records. If we can get the information we need to appropriately treat then we will discuss with her treatment recommendation. I explained that Dr. Worley may have to gain more information by taking her for EUA, D&C, cystoscopy and scope of the rectum as well to determine primary site. Patient is agreeable. Discussion ensured and questions answered. Review of Systems All other systems reviewed negative except as stated in HPI PMFSH - History History Provided By: Patient - Medical History Medical History: Medical History (Last Reviewed 04/23/18 @ 09:50 by Earle Rodríguez) Breast CA Cervical ca Gallstone - Surgical History Surgical History: Surgical History (Last Reviewed 04/23/18 @ 09:51 by Earle Rodríguez) S/P breast lumpectomy S/P dilatation and curettage - Family History Family History: Family History (Last Reviewed 04/23/18 @ 09:51 by Earle Rodríguez) Other Diabetes mellitus - Tobacco History Second Hand Smoke Exposure: No Tobacco Use In Past 30 Days: No Smoking Status: Never smoker - Alcohol History How Often Do You Have a Drink Containing Alcohol: Never - Substance Use History Substance History: No History of Abuse - Substance Use Type Marijuana Status: Active Route Used: By Mouth - Travel History Recent Travel in the [facility] Within the Last 8 Weeks: No Recent Travel Out of the Country Within the Last 8 Weeks: No - Immunization History Tetanus Immunization: Unsure Hx Influenza Vaccine This Season: No Medications and Allergies Active Medications: Active Medications Acetaminophen (Tylenol) 650 mg PO Q4H PRN PRN Reason: Temp > 100.4 Al Hydroxide/Mg Hydroxide (Milk Of Magnesia Liq) 30 ml PO Q12H PRN PRN Reason: Mild Constipation Bisacodyl (Dulcolax Supp) 10 mg RECTAL DAILY PRN PRN Reason: SEVERE CONSITIPATION Hydromorphone HCl (Dilaudid Pf Inj) 1 mg IV.PUSH Q4H PRN PRN Reason: breakthrough pain Last Admin: 04/24/18 06:23 Dose: 1 mg Ceftriaxone Sodium 1,000 mg/ (Sodium Chloride) 100 mls @ 200 mls/hr IV.SIG Q24H ALOK Last Admin: 04/23/18 20:20 Dose: 125 mls/hr Sodium Chloride (Ns Inj) 1,000 mls @ 100 mls/hr IV.CONT .Q10H ALOK Last Admin: 04/24/18 06:31 Dose: 100 mls/hr Lactulose (Lactulose Liq) 30 ml PO DAILY PRN PRN Reason: SEVERE CONSITIPATION Ondansetron HCl (Zofran Inj) 4 mg IV.PUSH Q6H PRN PRN Reason: NAUSEA OR VOMITING Last Admin: 04/24/18 06:23 Dose: 4 mg Oxycodone HCl (Roxicodone) 10 mg PO Q4H PRN PRN Reason: pain 6-10 Last Admin: 04/23/18 08:17 Dose: 10 mg Senna/Docusate Sodium (Marta-Colace) 1 tab PO BID ALOK Last Admin: 04/24/18 01:10 Dose: Not Given Sennosides (Senokot) 17.2 mg PO Q12H PRN PRN Reason: Moderate Constipation Sodium Chloride (Ns Flush) 2 ml IV.FLUSH PRN PRN PRN Reason: FLUSH AFTER USING IV ACCESS Last Admin: 04/24/18 01:38 Dose: 2 ml Temazepam (Restoril) 15 mg PO HS PRN PRN Reason: INSOMNIA Allergies Allergy/AdvReac Type Severity Reaction Status Date / Time penicillin G Allergy Severe causes Verified 04/22/18 16:55 hives Sulfa (Sulfonamide Allergy Severe hives Verified 04/22/18 16:55 Antibiotics) Home Medications Medication Instructions Recorded Confirmed Type oxycodone 10 mg PO Q4-6H PRN 04/22/18 04/22/18 History Physical Exam Vital signs: Vital Signs 04/23/18 09:00 04/23/18 12:00 04/23/18 16:00 Temperature 98.9 F Pulse Rate 96 H 84 97 H Respiratory Rate 18 Blood Pressure 166/96 H Pulse Oximetry 93 L 04/23/18 19:52 04/23/18 19:53 04/23/18 22:57 Temperature 96.9 F L Pulse Rate 90 93 H 130 H Respiratory Rate Blood Pressure 165/92 H Pulse Oximetry 94 L 04/23/18 23:21 04/24/18 00:55 04/24/18 04:00 Temperature 97.9 F 97 F L Pulse Rate 98 H 90 89 Respiratory Rate 18 16 Blood Pressure 163/92 H 156/92 H Pulse Oximetry 97 97 04/24/18 04:02 04/24/18 07:26 Temperature Pulse Rate 89 90 Respiratory Rate Blood Pressure Pulse Oximetry Intake & Output 04/23/18 04/24/18 04/24/18 18:59 06:59 18:59 Intake Total 1999 1240 / 1240 Output Total 200 / 200 Balance 1800 / 1799 1240 / 1240 Weight 90.6 kg 90.6 kg Intake: IV 1999 1000 / 1000 NS Inj 1,000 ML @ 100 mls/hr IV 1999 1000 / 1000 .CONT .Q10H ALOK Rx#:[id number] Oral 240 / 240 Output: Urine 200 / 200 Other: # Voids 7 Date of Last Bowel Movement 04/18/18 04/18/18 # Bowel Movements 0 - Constitutional no acute distress - Routine HEENT Exam Head: Present: normocephalic, atraumatic Eye: Present: EOMI, PERRL, normal accommodation - Routine Neck Exam Present: supple - Routine Respiratory Exam Present: CTA bilaterally - Routine Cardiovascular Exam Present: RRR - Routine Abdominal Exam Present: soft, tenderness - Routine Skin Exam Present: intact - Routine Neurological Exam Present: alert, oriented X3 - Detailed Neurological Exam: Coma Scale Eye Opening: Spontaneous Verbal Response: Oriented - Routine Psychiatric Exam Present: normal affect, normal thought process Assessment and Plan - Assessment (1) KALI (acute kidney injury) Code(s): N17.9 - Acute kidney failure, unspecified Status: Acute Plan: continue hydration \ creat worse overnight, consider urology consult patient is currently NPO for possible port placement will need significant improvement in creat to start IV chemotherapy (2) Vaginal bleeding, abnormal Code(s): N93.9 - Abnormal uterine and vaginal bleeding, unspecified Status: Acute Plan: concerning for cervical cancer will obtain records from Dr. Blanco may need EUA D&C cysto/procto to determine primary site future management determined by pathology results infusa port to be placed today radiation consulted to help with treatment options and management of vaginal bleeding. Thank you Dr. Lux for consult, will continue to follow.
[2018-04-24 09:33] LABS: Activated Partial Thrombo Time 25.4 sec (24.3-30.1); INR 1.2 Ratio; Prothrombin Time 12.1 sec (9.8-11.6)
[2018-04-24] MEDS ORDERED: Promethazine 25 MG Supp RECTAL PRN (10:47)
[2018-04-24] MEDS ORDERED: Vancomycin Inj 1,000 MG in Sodium Chlor 0.9% Inj 250 ML IV.SIG SCH (12:00)
[2018-04-24] MEDS ORDERED: Sod Chloride 0.9% Inj 1,000 ML IV.SIG ONE (13:26)
[2018-04-24] MEDS ORDERED: fentaNYL Citrate Inj 250 MCG/5 ML Ampul ONE (14:00)
[2018-04-24] MEDS ORDERED: Lidocaine 1%/Epinephrine 1:100,000 Inj 20 ML Vial ONE (14:06)
[2018-04-24] MEDS ORDERED: *Heparin Central Flush 100 UNIT/ML 5 ML Vial PERIprocedural ONLY IV.FLUSH ONE (14:07)
[2018-04-24] MEDS ORDERED: Heparin Central Flush 100 UNIT/ML 5 ML Vial IV.FLUSH PRN ×2 (15:00)
--- NOTE | 2018-04-24 15:03 | P.RAD ---
Post Procedure Progress Note - Pre Procedure Diagnosis (1) Cervical cancer - Post Procedure Diagnosis (1) Cervical cancer - Procedure Information Procedure Date: 04/24/18 Supervising Radiologist: Carlin Persaud MD Estimated blood loss (mL): 3 Anesthesia: Local, Conscious Sedation - Plan of Activity Patient to Unit: ROPU Patient Condition: Fair Additional Comments: Port placed via the left IJ Catheter in good position OK for use See PACS Report for procedural detail/treatment.
--- NOTE | 2018-04-24 15:30 | MB ---
cc: Irma Worley MD,Hernan Smiley,Brock Barcenas MD DATE: 04/24/2018 PHYSICIANS REQUESTING CONSULT: Dr. Brock Smiley and Dr. Hernan Lux REASON FOR CONSULTATION: Postmenopausal bleeding, recent abnormal Pap smear, radiographically and clinically abnormal appearing uterus and cervix. HISTORY OF PRESENT ILLNESS: She is seen. Her findings are reviewed. She is counseled by me and examined by me in conjunction with our nurse practitioner (Mat Anderson). I agree with her findings, assessment, and plan of care. This is a 67-year-old female who reports that she was feeling reasonably well 4-5 weeks ago, was doing water aerobics and did not have much in the way of symptomatology. However, during the last few weeks, she has had progressive hematuria and pain with urination. She has had postmenopausal bleeding. She has had constipation, but without noticing bright red blood or melenic stool change. She was seen recently and started on antibiotic, which has decreased her urinary symptoms some, but has not resolved the pain or the bleeding. She was referred to Dr. Ondina Blanco who is office report suggests a grossly abnormal-appearing cervix that is suspicious for neoplasm. She had an atypical glandular cell Pap smear, but the endocervical curetting itself was benign. We have no results regarding biopsies from the cervix. Her symptoms worsened. She presented and is now admitted to the hospital for further evaluation and management. Imaging of the chest shows mediastinal hilar and bilateral pulmonary nodules, all highly suspicious for metastatic disease. CT scan of the abdomen and pelvis show the uterus and cervix to be markedly enlarged with an abnormal contour to the lower uterine segment and cervix. There is retroperitoneal pelvic adenopathy and fixed enlarged periaortic adenopathy measuring just below 4 cm in greatest dimension. There is also a lytic lesion in the right pubic bone. Other objective findings include abnormal labs will renal function today abnormal at 51 and 3.76, for BUN and creatinine. AST elevated at 235. CBC shows a white count of 14,000, H and H of 10.7 and 32.1, INR 1.2. The past medical history, surgical history, medications, family history, review of systems were all as are documented in the chart. Nothing additional to add, although she reports it has been an estimated 5 years since her prior gynecologic exam until recently. She also is a bit tearful when recalling that her from lung cancer, but she was grateful for the rapid transition as he passed just approximately 1 week after he was diagnosed. Mixed information in some part of the record which suggests she had a diagnosis of cervix cancer 2 months ago. Most recent evaluation notes and biopsies do not confirm this. It is unclear if she was evaluated elsewhere. She also had a lumpectomy for local breast cancer that did not require any additional treatment. She also has a history of gallstone which was seen on imaging. FAMILY HISTORY: Diabetes. PHYSICAL EXAMINATION: VITAL SIGNS: She is afebrile, pulse 67-98, respirations 18, blood pressure 165/93, O2 saturations 97% on room air. GENERAL: She was resting comfortably, actually sleeping when I met to wake her, but she has some mild discomfort, in no acute distress at the moment. Breathing unlabored. HEENT: Pupils equal, round and reactive to light. Extraocular movements intact. NECK: No overt supraclavicular or cervical adenopathy on preliminary exam. LUNGS: Clear to auscultation bilaterally. CARDIOVASCULAR: Regular rate and rhythm. ABDOMEN: There is some tenderness in the right and left lower quadrant, most noted in the right. Discomfort on deep exam without overt rebound or guarding. PELVIC: Deferred until examination under anesthesia. EXTREMITIES: Nontender. No palpable cords. Time was spent in discussing with her reviewing the findings in her case to date. The reason for [employer] oncology consultation is explained. I summarized the findings and concerns thus far. I explained that her constellation of findings is suspicious for malignancy with the possibility of it arising from the gynecologic organs. However, as of now, we do not have confirmation of malignancy on any records that we have available and we need to clarify the diagnosis to try and clarify the origin of the problem, as imaging suggests it is fairly extensive. I recommended an examination under anesthesia. We can get an optimal exam without discomfort to her, obtain cervical biopsies, possible dilation and curettage, look in the bladder to evaluate the anatomy, get a biopsy in the bladder if it appears abnormal as CAT scan would suggest, and also a rigid proctosigmoidoscopy. The rationale for each of those steps was explained. That will help clarify if this appears to be originating from the gynecologic organs, from the bladder, or elsewhere. It will also help clarify to what extent it has extended within the pelvis, and I explained that imaging suggests that it is extended to the abdomen in the retroperitoneum and into the lungs and mediastinum. She is asking questions regarding prognosis and outcome. I explained that additional information is needed before we could try to address those questions. I explained that there are different probabilities with respect to how different types of cancers might response to treatment, and the treatment may vary depending on the diagnosis and extent of the problem. She has already been set for a venous access port, which is scheduled later today and we have this aforementioned procedure scheduled tomorrow afternoon at 1 p.m. Discussion ensued. Questions were answered. She understands it is an information gathering only procedure. It will not treat the problem, but will help give us information to guide decision making and treatment recommendations. She expressed good understanding and agrees. ASSESSMENT: 1. Enlarged abnormal-appearing cervix, with postmenopausal bleeding and reportedly recent abnormal Pap smear. 2. Retroperitoneal adenopathy. Mediastinal, hilar, and pulmonary nodules, all suspicious for widespread metastatic disease. 4. Mass or blood clot within the bladder with a recent history of hematuria in addition to postmenopausal bleeding 5. Pain, decreased performance status, failure to thrive. 6. Abnormal renal function with some mild hydronephrosis on the CAT scan, but quite possibly due to bilateral extrinsic compression to some extent from the pelvic mass. 7. Extensive discussion. PLAN: 1. Continue present management. Grateful for excellent medical care. 2. Move forward with venous access port placement as scheduled this afternoon. 3. N.p.o. after midnight with plans for examination under anesthesia, cervix biopsies, fractional dilation and curettage, cystoscopy, proctoscopy with additional biopsies as needed. Scheduled tomorrow afternoon at 1 p.m. MD ANNABELLE Monten[place]/segun , 01:47 PM , 02:04 PM
--- NOTE | 2018-04-24 16:07 | P.PNIM ---
Subjective Interval history: patient sein in ROPU s/o Moe placement. reportas continued low abd pain. reports hematuria, denies difficulty urinating. Physical Exam Vital signs: Vital Signs 04/23/18 19:52 04/23/18 19:53 04/23/18 22:57 Temperature 96.9 F L Pulse Rate 90 93 H 130 H Respiratory Rate Blood Pressure 165/92 H Pulse Oximetry 94 L 04/23/18 23:21 04/24/18 00:55 04/24/18 04:00 Temperature 97.9 F 97 F L Pulse Rate 98 H 90 89 Respiratory Rate 18 16 Blood Pressure 163/92 H 156/92 H Pulse Oximetry 97 97 04/24/18 04:02 04/24/18 07:26 04/24/18 09:18 Temperature 97.4 F L Pulse Rate 89 90 67 Respiratory Rate 18 Blood Pressure 165/93 H Pulse Oximetry 97 04/24/18 12:03 04/24/18 12:04 04/24/18 15:16 Temperature 97.9 F Pulse Rate 98 H 100 H Respiratory Rate 18 20 Blood Pressure 149/82 H Pulse Oximetry 92 L 04/24/18 15:46 Temperature Pulse Rate 91 H Respiratory Rate 20 Blood Pressure 151/78 H Pulse Oximetry 96 Intake & Output 04/23/18 04/24/18 04/24/18 18:59 06:59 18:59 Intake Total 1999 1340 / 1340 Output Total 200 / 200 Balance 1800 / 1800 1340 / 1340 Weight 90.6 kg 90.6 kg Intake: IV 1999 1100 / 1100 NS Inj 1,000 ML @ 100 mls/hr IV 1999 1000 / 1000 .CONT .Q10H [facility]OK Rx#:[id number] Rocephin Inj 1,000 MG In NS Inj 100 / 100 100 ML @ 200 mls/hr IV.SIG Q24H [facility]OK Rx#:[id number] Oral 240 / 240 Output: Urine 200 / 200 Other: # Voids 7 Date of Last Bowel Movement 04/18/18 04/18/18 # Bowel Movements 0 Narrative: GENERAL: Patient sitting up in bed. Appears comfortable. SKIN: Warm and dry. HEAD: Normocephalic. EYES: No scleral icterus. No injection or drainage. NECK: Supple, trachea midline. No JVD. CARDIOVASCULAR: Regular rate and rhythm without murmurs, gallops, or rubs. RESPIRATORY: Breath sounds equal bilaterally. No accessory muscle use. GASTROINTESTINAL: Abdomen soft, non-tender, nondistended. Some mild discomfort in the lower abdomen, as before. MUSCULOSKELETAL: No cyanosis, or edema. BACK: Nontender without obvious deformity. No CVA tenderness. Results - Labs CBC & Chem 7: 04/24/18 06:19 04/24/18 06:19 Laboratory Results - last 24 hr 04/24/18 04/24/18 04/24/18 06:19 06:19 09:15 WBC 14.0 H RBC 3.84 L Hgb 10.7 L Hct 32.1 L MCV 83.7 MCH 27.8 MCHC 33.2 RDW 14.6 Plt Count 216 MPV 7.9 Prelim Diff (Auto) Slide review pending Neut % (Auto) 76.1 H Lymph % (Auto) 7.4 L [place] % (Auto) 8.3 H Eos % (Auto) 5.5 H Baso % (Auto) 2.7 H Neut # (Auto) 10.7 H Lymph # (Auto) 1.0 [place] # (Auto) 1.2 H Eos # (Auto) 0.8 H Baso # (Auto) 0.4 H WBC Differential Manual diff final Seg Neuts % (Manual) 78 H Band Neuts % (Manual) 5 Lymphocytes % (Manual) 5 L Monocytes % (Manual) 5 Eosinophils % (Manual) 3 Basophils % (Manual) 1 Promyelocytes % (Man) 3 H Abs Neuts (Manual) 12.0 H Differential Comment . Platelet Estimate Normal Platelet Morphology Normal PT 12.1 H INR 1.2 APTT 25.4 Sodium 142 Potassium 4.3 Chloride 109 H Carbon Dioxide 19.9 L Anion Gap 13 BUN 51 H Creatinine 3.76 H Estimated GFR 12 L Random Glucose 80 Calcium 10.2 H Phosphorus 4.7 Magnesium 2.0 Albumin 2.3 L Microbiology 04/22/18 17:33 Clean Catch Urine Urine Culture - Final 50-100,000 cfu/mL mixed gram positive [place] (probable contaminants) - Imaging Impressions Chest CT 04/23/18 00:00 CONCLUSION: 1. Diffuse bilateral lung metastatic disease. 2. Diffuse hilar and mediastinal adenopathy consistent with neoplastic disease. 3. Diffuse para-aortic adenopathy in the abdomen. Assessment and Plan - Plan //Cervical cancer with metastatic disease Patient reports she has not previously had imaging done. T of the abdomen/ pelvis significant for retroperitoneal metastatic lymphadenopathy, metastatic disease of the visualized lung bases, metastatic lytic lesion of the right pubic bone with nondisplaced pathologic fracture and a large mass in the urinary bladder. The patient was made aware of her CT scan findings. Oncology consulted, preferred warehouse consultant Dr. Worley, appreciate recommendations = Appreciate oncology assistance. Port placement, CT chest, radiation oncology consult. Continue pain management. =04/24 s/p Port placement //Urinary tract infection UA consistent with UTI Rocephin Urine culture pending = Continue antibiotics and follow-up urine culture =mixed hol[place]. will //Acute kidney injury Creatinine 2.02, no baseline for comparison IV fluid hydration Monitor renal function = Slight improvement. Creatinine 1.9. Continue IV fluids. =worsened CR CR 3.6. recheck UA. place gallagher, order renal US, consult Nephrology. //Pain control Oxycodone 10 mg every 4 hours as needed 1 mg Dilaudid for breakthrough pain prophy : holding AC for now due to hematuria Discharge Planning: Pending oncology clearance.
--- NOTE | 2018-04-24 16:14 | IR ---
EXAM DATE: 04/24/2018 3:06 PM EDT AGE/SEX: 67 years / Female INDICATIONS: Patient with a history cervical cancer. CLINICAL DATA: This is the patient's subsequent encounter. Patient reports that signs and symptoms h ave been present for 2 days and indicates a pain score of 4/10. MEDICAL/SURGICAL HISTORY: Carcinoma, breast. Carcinoma, cervical. Right breast lumpectomy COMPARISON: No prior exams available for comparison. FLUORO TIME (min): 2.35 IMAGE SERIES: SEDATION TIME (min): 30 MEDICATION(S): 2mg midazolam (Versed) IV 100mcg fentanyl (Sublimaze) IV Prophylactic antibiotics were administered with appropriate pre-procedure timing. DEVICE(S): Left [id number] . . PROCEDURE : 1. Continuous pulse oximetry and EKG monitoring. 2. Intravenous conscious sedation. 3. Ultrasound guidance for venous access. 4. Fluoroscopic guided implantable central venous port placement. The patient was placed supine. The left chest and neck was prepped in sterile fashion. Full sterile technique was used, including cap, mask, sterile gloves and gown, and a large sterile sheet. Hand hy giene and 2% chlorhexidine Betadine was utilized per protocol for cutaneous antisepsis with appropria te dry time for site. Sterile gel and sterile probe cover were utilized for ultrasound guidance. T he skin and subcutaneous tissues were infiltrated with local anesthetic solution. Under direct ultrasound guidance, central venous access was accomplished via the left internal jugula r vein. The ultrasound images depicting access guidance were stored and saved to PACS for permanent record. A subcutaneous pocket was created using blunt dissection. The port was introduced to the po cket. The catheter tubing was fed through a subcutaneous tunnel to the venotomy site. The catheter tubing was cut to a suitable length and then was introduced through a valved Peel-Away sheath and pos itioned with catheter tubing tip at the cavo-atrial junction level. The pocket incision was closed w ith subcuticular Vicryl suture. Steri-Strips were applied. The port was flushed and locked with hep gill solution per protocol. Sterile dressing was applied to the site. The patient tolerated the pro cedure well. Conscious sedation was performed with the prescribed dosages and duration as above in the presence of an independent trained radiology nurse to assist in the monitoring of the patient. EKG and oximetry remained stable throughout the procedure. The patient tolerated the procedure well and there were no complications. The patient was sent to post anesthesia recovery in stable condition. CONCLUSION: 1. Uncomplicated ultrasound and fluoroscopic guided implanted central venous port catheter placement as described in detail above. The port was placed via the left internal jugular vein. An 8 [place] P ower port was placed. Electronically signed by: Carlin Persaud MD 04/24/2018 4:13 PM EDT
--- NOTE | 2018-04-24 18:15 | P.CON ---
History of Present Illness Service: Radiation oncology Consult date: 04/24/18 Requesting Physician: Hernan Lux Reason for Consult: Pelvic pain, abnormal bleeding, abnormal cervix mass Primary Care Provider: UNKNOWN Chief Complaint: vaginal bleeding and pelvic pain History of Present Illness: 67-year-old white female which states, that about 4-5 months ago she started having spotting which progressively got worse. She stated that 4-5 weeks ago things started to get worse, she went to urgent care for back pain and painful urination, according to her she was told she had a kidney stone as well as possible UTI. Following this as she visited with her primary care physician and was asked when was the last time she had a Pap smear, due to the fact that she had not had a recent when she was referred to Dr. Ondina Blanco, which according to the patient I did a Pap smear or perhaps a D&C the patient does not recall was told that this was abnormal. Following exam the patient started having more bleeding and pain, for which reason she came into the hospital and was admitted for further evaluation. She has seen Dr. Lux as well as Dr. Worley, I have discussed the case with both of them today. A consult has been requested for evaluation regarding possible radiation therapy for palliation of pain as well as bleeding. Patient to have an exam under anesthesia tomorrow, which I plan to attend if possible. Review of Systems Constitutional: Reports body ache(s), Reports fatigue, Reports lack of energy, Reports malaise Eyes: Denies blind spots, Denies blurry vision, Denies bulging eyes, Denies change in vision, Denies double vision, Denies discharge, Denies dry eyes, Denies floaters, Denies irritation, Denies itchy eyes, Denies loss of vision, Denies pain, Denies requires corrective lenses, Denies sensitivity to light, Denies other Ears, Nose, Mouth, and Throat: Reports dry mouth Cardiovascular: Denies chest pain, Denies chest pain at rest, Denies chest pain with activity, Denies excessive sweating, Denies fainting, Denies fast heart rate, Denies foot swelling, Denies generalized swelling, Denies irregular heart rhythm, Denies leg pain with activity, Denies leg sores, Denies leg swelling, Denies lightheadedness, Denies radiating jaw, neck or arm pain, Denies rapid, pounding, or irregular heartbeat, Denies shortness of breath, Denies shortness of breath with activity, Denies shortness of breath when lying down, Denies shortness of breath causing sudden awakening, Denies slow heart rate, Denies other Respiratory: Denies change in phlegm color, Denies chest congestion, Denies cough, Denies coughing up blood, Denies excessive phlegm production, Denies pain on inspiration, Denies pain with cough, Denies shortness of breath, Denies shortness of breath with activity, Denies snoring, Denies stridor, Denies wheezing, Denies other Gastrointestinal: Reports abdominal pain, Reports constipation Genitourinary: Reports abnormal periods, Reports abnormal vaginal bleeding, Reports bleeding between periods, Reports blood in urine, Reports painful urination, Reports pelvic pain Musculoskeletal: Reports back pain, Reports body aches, Reports joint pain, Reports stiffness Skin/Breast: Denies acne, Denies bleeding lesions, Denies boil, Denies breast swelling, Denies breast skin changes, Denies breast pain, Denies breast lump, Denies change in breast shape, Denies change in hair, Denies change in skin color, Denies changing lesions, Denies dry skin, Denies excessive hair growth, Denies hair loss, Denies itching, Denies lesions, Denies nail changes, Denies new lesions, Denies nipple discharge, Denies non-healing lesions, Denies redness , Denies sensitivity to light, Denies rash, Denies skin pain, Denies skin ulcer , Denies sores, Denies stretch antonio, Denies unusual bruising, Denies wounds, Denies yellowing of the skin, Denies other Neurologic: Denies abnormal hearing, Denies abnormal movements, Denies abnormal speech, Denies abnormal walking, Denies behavioral changes, Denies burning sensations, Denies confusion, Denies dizziness, Denies fainting, Denies frequent falls, Denies headache(s), Denies lack of coordination, Denies localized weakness, Denies loss of vision, Denies memory loss, Denies numbness, Denies other visual disturbances, Denies radiating pain, Denies restless legs, Denies convulsions, Denies seizure-like activity, Denies sensory deficit, Denies tingling, Denies tingling/numbness/burning sensations, Denies tremor(s), Denies unsteadiness, Denies weakness, Denies other Psychiatric: Denies abnormal sleep pattern, Denies anxiety, Denies behavioral changes, Denies change in appetite, Denies change in sex drive, Denies confusion , Denies depression, Denies difficulty concentrating, Denies hearing things others do not hear, Denies hopelessness, Denies irritability, Denies lack of enjoyment, Denies memory loss, Denies mood swings, Denies panic attacks, Denies paranoia, Denies seeing things others do not see, Denies sensing things others do not sense, Denies tactile hallucinations, Denies thoughts of hurting/killing others, Denies thoughts of hurting/killing yourself, Denies other Endocrine: Denies cold intolerance, Denies excessive sweating, Denies flushing, Denies heat intolerance, Denies increased hunger, Denies increased thirst, Denies increased urination, Denies rapid, pounding, or irregular heartbeat, Denies other Hematologic/Lymphatic: Denies easy bleeding, Denies easy bruising, Denies enlarged lymph nodes, Denies other Allergic/Immunologic: Denies GI upset with certain foods, Denies hives, Denies itchy eyes, Denies lip swelling, Denies seasonal runny nose, Denies throat swelling, Denies tongue swelling, Denies wheezing, Denies other PMFSH - History History Provided By: Patient - Medical History Medical History: Medical History (Last Reviewed 04/23/18 @ 09:50 by Earle Rodríguez) Breast CA Cervical ca Gallstone - Surgical History Surgical History: Surgical History (Last Reviewed 04/23/18 @ 09:51 by Earle Rodríguez) S/P breast lumpectomy S/P dilatation and curettage - Family History Family History: Family History (Last Reviewed 04/23/18 @ 09:51 by Earle Rodríguez) Other Diabetes mellitus - Tobacco History Second Hand Smoke Exposure: No Tobacco Use In Past 30 Days: No Smoking Status: Never smoker - Alcohol History How Often Do You Have a Drink Containing Alcohol: Never - Substance Use History Substance History: No History of Abuse - Substance Use Type Marijuana Status: Active Route Used: By Mouth - Travel History Recent Travel in the [facility] Within the Last 8 Weeks: No Recent Travel Out of the Country Within the Last 8 Weeks: No - Immunization History Tetanus Immunization: Unsure Hx Influenza Vaccine This Season: No Medications and Allergies Active Medications: Active Medications Acetaminophen (Tylenol) 650 mg PO Q4H PRN PRN Reason: Temp > 100.4 Al Hydroxide/Mg Hydroxide (Milk Of Magnesia Liq) 30 ml PO Q12H PRN PRN Reason: Mild Constipation Bisacodyl (Dulcolax Supp) 10 mg RECTAL DAILY PRN PRN Reason: SEVERE CONSITIPATION Clonidine HCl (Catapres) 0.1 mg PO Q6H PRN PRN Reason: SBP>160, DBP>90 Last Admin: 04/24/18 17:31 Dose: 0.1 mg Heparin Sodium (Porcine) (Heparin Central Flush) 500 unit IV.FLUSH PRN PRN PRN Reason: Flush infusaport Heparin Sodium (Porcine) (Heparin Central Flush) 250 unit IV.FLUSH PRN PRN PRN Reason: Flush Infusapot Hydromorphone HCl (Dilaudid Pf Inj) 1 mg IV.PUSH Q4H PRN PRN Reason: breakthrough pain Last Admin: 04/24/18 17:12 Dose: 1 mg Sodium Chloride (Ns Inj) 1,000 mls @ 150 mls/hr IV.CONT .[facility]6H40M [facility] Last Admin: 04/24/18 06:31 Dose: 100 mls/hr Vancomycin HCl 1,000 mg/ (Sodium Chloride) 250 mls @ 200 mls/hr IV.[facility] Last Admin: 04/24/18 13:34 Dose: 200 mls/hr Lactulose (Lactulose Liq) 30 ml PO DAILY PRN PRN Reason: SEVERE CONSITIPATION Ondansetron HCl (Zofran Odt) 4 mg PO Q6H PRN PRN Reason: NAUSEA OR VOMITING Ondansetron HCl (Zofran Inj) 4 mg IV.PUSH Q4HR [facility] Last Admin: 04/24/18 17:11 Dose: 4 mg Oxycodone HCl (Roxicodone) 10 mg PO Q4H PRN PRN Reason: pain 6-10 Last Admin: 04/23/18 08:17 Dose: 10 mg Promethazine HCl (Phenergan) 25 mg PO Q6H PRN PRN Reason: NAUSEA OR VOMITING Promethazine HCl (Phenergan Supp) 25 mg RECTAL Q6H PRN PRN Reason: NAUSEA OR VOMITING Senna/Docusate Sodium (Marta-Colace) 1 tab PO BID [facility]OK Last Admin: 04/24/18 15:56 Dose: Not Given Sennosides (Senokot) 17.2 mg PO Q12H PRN PRN Reason: Moderate Constipation Sodium Chloride (Ns Flush) 2 ml IV.FLUSH PRN PRN PRN Reason: FLUSH AFTER USING IV ACCESS Last Admin: 04/24/18 01:38 Dose: 2 ml Sodium Chloride (Ns Flush) 5 ml IV.FLUSH PRN PRN PRN Reason: Flush Infusaport Temazepam (Restoril) 15 mg PO HS PRN PRN Reason: INSOMNIA Allergies Allergy/AdvReac Type Severity Reaction Status Date / Time penicillin G Allergy Severe causes Verified 04/22/18 16:55 hives Sulfa (Sulfonamide Allergy Severe hives Verified 04/22/18 16:55 Antibiotics) Home Medications Medication Instructions Recorded Confirmed Type oxycodone 10 mg PO Q4-6H PRN 04/22/18 04/22/18 History Physical Exam Vital signs: Vital Signs 04/23/18 19:52 04/23/18 19:53 04/23/18 22:57 Temperature 96.9 F L Pulse Rate 90 93 H 130 H Respiratory Rate Blood Pressure 165/92 H Pulse Oximetry 94 L 04/23/18 23:21 04/24/18 00:55 04/24/18 04:00 Temperature 97.9 F 97 F L Pulse Rate 98 H 90 89 Respiratory Rate 18 16 Blood Pressure 163/92 H 156/92 H Pulse Oximetry 97 97 04/24/18 04:02 04/24/18 07:26 04/24/18 09:18 Temperature 97.4 F L Pulse Rate 89 90 67 Respiratory Rate 18 Blood Pressure 165/93 H Pulse Oximetry 97 04/24/18 12:03 04/24/18 12:04 04/24/18 15:16 Temperature 97.9 F Pulse Rate 98 H 100 H Respiratory Rate 18 20 Blood Pressure 149/82 H Pulse Oximetry 92 L 04/24/18 15:46 04/24/18 17:26 Temperature 97.8 F Pulse Rate 91 H 92 H Respiratory Rate 20 16 Blood Pressure 151/78 H 162/87 H Pulse Oximetry 96 96 Intake & Output 04/23/18 04/24/18 04/24/18 18:59 06:59 18:59 Intake Total 1999 1340 / 1340 Output Total 200 / 200 Balance 1800 / 1800 1340 / 1340 Weight 90.6 kg 90.6 kg Intake: IV 1999 1100 / 1100 NS Inj 1,000 ML @ 100 mls/hr IV 1999 1000 / 1000 .CONT .Q10H [facility] Rx#:[id number] Rocephin Inj 1,000 MG In NS Inj 100 / 100 100 ML @ 200 mls/hr IV.SIG Q24H [facility] Rx#:[id number] Oral 240 / 240 Output: Urine 200 / 200 Other: # Voids 7 Date of Last Bowel Movement 04/18/18 04/18/18 # Bowel Movements 0 - Constitutional moderate distress, morbidly obese, cooperative, somnolent - Routine HEENT Exam Head: Present: normocephalic, atraumatic Eye: Present: EOMI ENT: Present: mucous membranes moist - Routine Neck Exam Present: supple, trachea midline - Routine Respiratory Exam Comments: To auscultation her lungs are clear bilaterally with decreased ventilatory and respiratory effort which is equal bilateral - Routine Cardiovascular Exam Comments: Heart is in regular rate and rhythm with no murmurs - Routine Abdominal Exam Present: soft, normoactive bowel sounds Comments: There is a pain in the upper pelvic area and lower abdomen. No masses were palpated. No hepato-or splenomegaly. No periumbilical lymph node - Routine Exam Comments: Palpation bilateral inguinal areas are free with no lymph nodes. - Routine Extremities Exam Present: edema Comments: Lower extremity edema 1+ on the left lower leg with no clinical signs symptoms of DVT. - Routine Skin Exam Present: intact - Routine Neurological Exam Present: alert, oriented X3, moving all extremities, normal tone, vision grossly intact, hearing grossly intact, normal speech - Routine Psychiatric Exam Present: normal affect, normal thought process, cooperative, good insight, good judgment Assessment and Plan - Assessment (1) Vaginal bleeding, abnormal Code(s): N93.9 - Abnormal uterine and vaginal bleeding, unspecified Status: Acute (2) Cervical cancer Code(s): C53.9 - Malignant neoplasm of cervix uteri, unspecified Status: Acute - Plan Assessment: 67-year-old white female with the diagnosis of locally advanced cervical carcinoma with possible bony metastatic disease as well as long metastatic disease. Patient being evaluated for palliative or therapy treatment options for pain and bleeding. Plan: I have independently reviewed the images for the long as well as for the pelvis. I have discussed this case today with Dr. Worley. At this time I agree that the patient may have a locally advanced [employer] carcinoma type to be determined. Patient of note has a previous history of invasive breast carcinoma back in 2009. If there are concerns of 2 types of tumors patient may have a biopsy of the lung to confirm same diagnosis. I advised the patient that radiation therapy may be needed in her case for pain control in the pelvis area as well as bleeding control. I discussed the merits and side effects and complications of radiotherapy with the patient. Pelvic side effects to include but limited to weakness and fatigue, decreased blood counts, necrosis of the skin, erythema of the skin, loss of pelvic hair which will be permanent, bone damage and fracture, pain of the treated area, swelling of the lower extremities , bowel and bladder damage, bowel and bladder bleeding, bowel and bladder incontinence, hemorrhoidal flareup, vaginal dryness, vaginal strictures which may require the use of dilators, nausea and vomiting, diarrhea. If possible I will attend the exam under anesthesia with Dr. Worley. Patient advised that we will proceed accordingly. All her questions were answered. She was advised if I could be of any further assistance or to please let me know. Dr. Lux thank you very much for the referral of this patient and allowing me to participate in her care. Should you have any further questions concerns please do not hesitate to contact me. Discussed Condition With: Dr. Lux and Dr. Worley
--- NOTE | 2018-04-24 19:56 | P.CONNP ---
History of Present Illness Service: Nephrology Consult date: 04/24/18 Requesting Physician: Brock Smiley Reason for Consult: Acute renal failure Primary Care Provider: UNKNOWN Chief Complaint: vaginal bleeding and pelvic pain History of Present Illness: Patient is a 67-year-old female with a history of newly diagnosed cervical cancer and metastatic disease including lung involvement, patient is undergoing evaluation and possibly need radiation treatment, she had a port placement as well patient was having some difficulty in voiding bleeding per vagina, she has been followed by Dr. Worley who has suggested radiation treatment palliative care until we get confirmation on the biopsy. Meanwhile her creatinine did fluctuate and then it was 2-1.9 and then went up to 3.7 Review of Systems Constitutional: Reports anorexia, Reports body ache(s), Reports other Eyes: Denies blind spots, Denies blurry vision, Denies bulging eyes, Denies change in vision, Denies double vision, Denies discharge, Denies dry eyes, Denies floaters, Denies irritation, Denies itchy eyes, Denies loss of vision, Denies pain, Denies requires corrective lenses, Denies sensitivity to light, Denies other Ears, Nose, Mouth, and Throat: Denies abnormal hearing, Denies bleeding gums, Denies bad breath, Denies change in voice, Denies dental pain, Denies difficulty swallowing, Denies dizziness, Denies dry mouth, Denies ear discharge , Denies ear pain, Denies facial pain, Denies headache(s), Denies hearing loss, Denies hoarseness, Denies lip swelling, Denies nosebleed, Denies mouth lesions, Denies mouth pain, Denies nasal congestion, Denies nasal discharge, Denies nasal obstruction, Denies nasal trauma, Denies neck lump, Denies neck pain, Denies nose pain, Denies pain with swallowing, Denies poor balance, Denies post nasal drip, Denies ringing in the ears, Denies sinus pain, Denies sinus pressure , Denies sore throat, Denies throat swelling, Denies tongue swelling, Denies other Respiratory: Denies change in phlegm color, Denies chest congestion, Denies cough, Denies coughing up blood, Denies excessive phlegm production, Denies pain on inspiration, Denies pain with cough, Denies shortness of breath, Denies shortness of breath with activity, Denies snoring, Denies stridor, Denies wheezing, Denies other Gastrointestinal: Reports abdominal pain, Reports cramping, Reports nausea Genitourinary: Reports pelvic pain Musculoskeletal: Reports abnormal walking, Reports back pain, Reports body aches Neurologic: Reports weakness Psychiatric: Reports anxiety Allergic/Immunologic: Reports GI upset with certain foods PMFSH - History History Provided By: Patient - Medical History Medical History: Medical History (Last Reviewed 04/23/18 @ 09:50 by Earle Rodríguez) Breast CA Cervical ca Gallstone - Surgical History Surgical History: Surgical History (Last Reviewed 04/23/18 @ 09:51 by Earle Rodríguez) S/P breast lumpectomy S/P dilatation and curettage - Family History Family History: Family History (Last Reviewed 04/23/18 @ 09:51 by Earle Rodríguez) Other Diabetes mellitus - Tobacco History Second Hand Smoke Exposure: No Tobacco Use In Past 30 Days: No Smoking Status: Never smoker - Alcohol History How Often Do You Have a Drink Containing Alcohol: Never - Substance Use History Substance History: No History of Abuse - Substance Use Type Marijuana Status: Active Route Used: By Mouth - Travel History Recent Travel in the [place] Within the Last 8 Weeks: No Recent Travel Out of the Country Within the Last 8 Weeks: No - Immunization History Tetanus Immunization: Unsure Hx Influenza Vaccine This Season: No Medications and Allergies Active Medications: Active Medications Acetaminophen (Tylenol) 650 mg PO Q4H PRN PRN Reason: Temp > 100.4 Al Hydroxide/Mg Hydroxide (Milk Of Latoya Marshall) 30 ml PO Q12H PRN PRN Reason: Mild Constipation Bisacodyl (Dulcolax Supp) 10 mg RECTAL DAILY PRN PRN Reason: SEVERE CONSITIPATION Clonidine HCl (Catapres) 0.1 mg PO Q6H PRN PRN Reason: SBP>160, DBP>90 Last Admin: 04/24/18 17:31 Dose: 0.1 mg Heparin Sodium (Porcine) (Heparin Central Flush) 500 unit IV.FLUSH PRN PRN PRN Reason: Flush infusaport Heparin Sodium (Porcine) (Heparin Central Flush) 250 unit IV.FLUSH PRN PRN PRN Reason: Flush Infusapot Hydromorphone HCl (Dilaudid Pf Inj) 1 mg IV.PUSH Q4H PRN PRN Reason: breakthrough pain Last Admin: 04/24/18 17:12 Dose: 1 mg Sodium Chloride (Ns Inj) 1,000 mls @ 150 mls/hr IV.CONT .Q6H40M [facility] Last Admin: 04/24/18 06:31 Dose: 100 mls/hr Vancomycin HCl 1,000 mg/ (Sodium Chloride) 250 mls @ 200 mls/hr IV.SIG [facility] Last Admin: 04/24/18 13:34 Dose: 200 mls/hr Lactulose (Lactulose Liq) 30 ml PO DAILY PRN PRN Reason: SEVERE CONSITIPATION Ondansetron HCl (Zofran Odt) 4 mg PO Q6H PRN PRN Reason: NAUSEA OR VOMITING Ondansetron HCl (Zofran Inj) 4 mg IV.PUSH Q4HR [facility] Last Admin: 04/24/18 17:11 Dose: 4 mg Oxycodone HCl (Roxicodone) 10 mg PO Q4H PRN PRN Reason: pain 6-10 Last Admin: 04/23/18 08:17 Dose: 10 mg Promethazine HCl (Phenergan) 25 mg PO Q6H PRN PRN Reason: NAUSEA OR VOMITING Promethazine HCl (Phenergan Supp) 25 mg RECTAL Q6H PRN PRN Reason: NAUSEA OR VOMITING Senna/Docusate Sodium (Marta-Colace) 1 tab PO BID [facility] Last Admin: 04/24/18 15:56 Dose: Not Given Sennosides (Senokot) 17.2 mg PO Q12H PRN PRN Reason: Moderate Constipation Sodium Chloride (Ns Flush) 2 ml IV.FLUSH PRN PRN PRN Reason: FLUSH AFTER USING IV ACCESS Last Admin: 04/24/18 01:38 Dose: 2 ml Sodium Chloride (Ns Flush) 5 ml IV.FLUSH PRN PRN PRN Reason: Flush Infusaport Temazepam (Restoril) 15 mg PO HS PRN PRN Reason: INSOMNIA Allergies Allergy/AdvReac Type Severity Reaction Status Date / Time penicillin G Allergy Severe causes Verified 04/22/18 16:55 hives Sulfa (Sulfonamide Allergy Severe hives Verified 04/22/18 16:55 Antibiotics) Home Medications Medication Instructions Recorded Confirmed Type oxycodone 10 mg PO Q4-6H PRN 04/22/18 04/22/18 History Exam Vital signs: Vital Signs 04/23/18 19:52 04/23/18 19:53 04/23/18 22:57 Temperature 96.9 F L Pulse Rate 90 93 H 130 H Respiratory Rate Blood Pressure 165/92 H Pulse Oximetry 94 L 04/23/18 23:21 04/24/18 00:55 04/24/18 04:00 Temperature 97.9 F 97 F L Pulse Rate 98 H 90 89 Respiratory Rate 18 16 Blood Pressure 163/92 H 156/92 H Pulse Oximetry 97 97 04/24/18 04:02 04/24/18 07:26 04/24/18 09:18 Temperature 97.4 F L Pulse Rate 89 90 67 Respiratory Rate 18 Blood Pressure 165/93 H Pulse Oximetry 97 04/24/18 12:03 04/24/18 12:04 04/24/18 15:16 Temperature 97.9 F Pulse Rate 98 H 100 H Respiratory Rate 18 20 Blood Pressure 149/82 H Pulse Oximetry 92 L 04/24/18 15:46 04/24/18 16:00 04/24/18 17:26 Temperature 97.8 F Pulse Rate 91 H 97 H 92 H Respiratory Rate 20 16 Blood Pressure 151/78 H 162/87 H Pulse Oximetry 96 96 Intake & Output 04/24/18 04/24/18 04/25/18 06:59 18:59 06:59 Intake Total 1340 / 1340 Balance 1340 / 1340 Weight 90.6 kg Intake: IV 1100 / 1100 NS Inj 1,000 ML @ 100 mls/hr IV 1000 / 1000 .CONT .Q10H [facility] Rx#:[id number] Rocephin Inj 1,000 MG In NS Inj 100 / 100 100 ML @ 200 mls/hr IV.SIG Q24H [facility] Rx#:[id number] Oral 240 / 240 Other: # Voids 7 3 Date of Last Bowel Movement 04/18/18 04/18/18 # Bowel Movements 0 - Constitutional no acute distress - Routine HEENT Exam Head: Present: normocephalic Eye: Present: EOMI - Routine Neck Exam Present: supple - Routine Respiratory Exam Present: decreased breath sounds (At the bases) - Routine Cardiovascular Exam Present: RRR - Routine Abdominal Exam Present: soft, normoactive bowel sounds - Routine Extremities Exam Present: edema - Routine Neurological Exam Present: alert, oriented X3 Results - Lab Results 04/25/18 04:30 04/25/18 04:30 Most recent lab results Calcium 10.2 mg/dL (8.5-10.1) H 04/24/18 06:19 Phosphorus 4.7 mg/dL (2.5-4.9) 04/24/18 06:19 Magnesium 2.0 mg/dL (1.5-2.5) 04/24/18 06:19 Assessment and Plan - Assessment (1) KALI (acute kidney injury) Code(s): N17.9 - Acute kidney failure, unspecified Status: Acute (2) Cervical cancer Code(s): C53.9 - Malignant neoplasm of cervix uteri, unspecified Status: Acute - Plan Patient appears to have extensive carcinoma involving the lung as well radiation is being planned however she may need a lung biopsy Her kidney functions are fluctuating and getting worse, give her fluids, get kidney ultrasound to rule out obstruction Patient has lymphadenopathy in this may cause pressure on the ureters leading to hydronephrosis Avoid nephrotoxins Follow BMP We will continue to monitor renal functions
--- NOTE | 2018-04-24 22:45 | US ---
EXAM DATE: 04/24/2018 10:38 PM EDT AGE/SEX: 67 years / Female INDICATIONS: Abnormal labs. CLINICAL DATA: This is the patient's initial encounter. Patient reports that signs and symptoms have been present for 3 days and indicates a pain score of 10/10. MEDICAL/SURGICAL HISTORY: . Breast cancer. Cervical cancer with metastatic disease. Cholelithia sis. . Breast lumpectomy. Dilatation and curettage. COMPAR[place] [facility] [place]/O CONTRAST, 04/22/2018. . MEASUREMENTS: Right Kidney:__11.0 x 6.1 x 5.3 cm Left Kidney:__11.0 x 6.2 x 6.2 cm FINDINGS: Right Kidney: The right kidney is normal in size and shape. The echogenicity of the cortex is increas ed in equal to that of the adjacent liver. Mild hydronephrosis is noted with dilatation of the collec ting system. There are no renal calculi or mass. Left Kidney: The left kidney is normal in size and shape with increased echogenicity. There is mild h ydronephrosis. There is no distinct calculi or mass. Small mass seen on the CT is not identified. Bladder: There is a hyperechoic mass in the posterior bladder measuring up to 6.7 x 4.8 x 2.6 cm. Thi s demonstrates no color flow. The mass is lobular Other: None. CONCLUSION: 1. Large lobular mass in the bladder of concern for bladder carcinoma. 2. Bilateral hydronephrosis. 3. The echogenicity kidneys is increased and equal to that of the liver decreasing medical renal dis ease. 4. The small mass in the left kidney seen on CT is not visualized. Electronically signed by: Ant Cartagena MD 04/24/2018 10:44 PM EDT
[2018-04-25] MEDS: Sod Chloride 0.9% Inj 1,000 ML IV.CONT SCH ×4 (03:27→19:25)
[2018-04-25] MEDS: HYDROmorphone PF Inj 2 MG/ML Vial IV.PUSH PRN ×2 (04:31→10:11)
[2018-04-25 06:17] LABS: Baso # (Auto) 0.2 th/mm3 (0.0-0.2); Baso % (Auto) 1.4 % (0.0-2.0); Eos # (Auto) 0.6 th/mm3 (0.0-0.4); Eos % (Auto) 4.3 % (0.0-4.0); Hematocrit 30.3 % (35.0-46.0); Hemoglobin 9.9 gm/dL (11.6-15.3); Lymph % (Auto) 7.4 % (9.0-44.0); Mean Corpuscular HGB Conc 32.8 % (32.0-36.0); Mean Corpuscular Hemoglobin 27.9 pg (27.0-34.0); Mean Corpuscular Volume 85.1 fL (80.0-100.0); Mono # (Auto) 1.1 th/mm3 (0.0-0.9); Mono % (Auto) 7.8 % (0.0-8.0); Neut # (Auto) 11.2 th/mm3 (1.8-7.7); Neut % (Auto) 79.1 % (16.0-70.0); Platelet Count 199 th/mm3 (150-450); Red Blood Count 3.56 mil/mm3 (4.00-5.30); Red Cell Distribution Width 14.9 % (11.6-17.2); White Blood Count 14.2 th/mm3 (4.0-11.0)
[2018-04-25] MEDS ORDERED: Chlorhexidine Gluconate 2% 1 Pack (2 Cloths) TOPICAL SCH (06:30)
[2018-04-25] MEDS ORDERED: Metoprolol Tartrate 25 MG Tablet PO SCH (06:30)
[2018-04-25] MEDS ORDERED: Sodium Chlor 0.9% Inj 500 ML IV.SIG SCH (07:00)
[2018-04-25 07:13] LABS: Albumin 2.2 g/dL (3.4-5.0); Calcium 9.7 mg/dL (8.5-10.1); Carbon Dioxide 16.3 meq/L (21.0-32.0); Magnesium 1.9 mg/dL (1.5-2.5); Phosphorus 5.2 mg/dL (2.5-4.9); Potassium 4.2 meq/L (3.5-5.1)
--- NOTE | 2018-04-25 08:14 | ECG ---
Date Performed: 04/25/2018 Time Performed: 06:33:36 PTAGE: 67 years EKG: Sinus rhythm Normal ECG PREVIOUS TRACING : 11/27/2009 12.25 No significant change from prior electrocardiogram. DOCTOR: Nikunj Meier Interpretating Date/Time 04/25/2018 08:14:19
[2018-04-25] MEDS: Senna/Docusate Sodium 8.6/50 MG Tablet PO SCH ×2 (08:26→22:11)
--- NOTE | 2018-04-25 11:44 | P.CONURO ---
History of Present Illness Service: urology Consult date: 04/25/18 Requesting Physician: Yuliana Wren Reason for Consult: possible Bladder mass, mild hydro Primary Care Provider: UNKNOWN Chief Complaint: vaginal bleeding and pelvic pain History of Present Illness: Patient is a 67-year-old female with a history of newly diagnosed cervical cancer and metastatic disease including lung, liver and LN involvement, patient is undergoing evaluation and possibly need radiation treatment. Her Cr went up recently to 5.5 and nephrology is evaluating her too. On CT scan she also found to have a pelvic bone lesion and well as possible debries/blood clot at her bladder vs a mass but it can be also her cervical /pelvis mass effecting her bladder. Recent Renal US showed b/l mild hydro vs renal pelvis dilation can be due to enlarged LN and pelvic mass. Urology consulted When came to see pt she was not in a room, as per Nurse she was taken to OR by Dr Worley and Dr Grajeda for EUA D&C cysto/procto, ? poss. stent placement to determine primary site and deal with hydro Review of Systems All other systems reviewed negative except as stated in HPI PMFSH - History History Provided By: Patient - Medical History Medical History: Medical History (Last Reviewed 04/23/18 @ 09:50 by Earle Rodríguez) Breast CA Cervical ca Gallstone - Surgical History Surgical History: Surgical History (Last Reviewed 04/23/18 @ 09:51 by Earle Rodríguez) S/P breast lumpectomy S/P dilatation and curettage - Family History Family History: Family History (Last Reviewed 04/23/18 @ 09:51 by Earle Rodríguez) Other Diabetes mellitus - Tobacco History Second Hand Smoke Exposure: No Tobacco Use In Past 30 Days: No Smoking Status: Never smoker - Alcohol History How Often Do You Have a Drink Containing Alcohol: Never - Substance Use History Substance History: No History of Abuse - Substance Use Type Marijuana Status: Active Route Used: By Mouth - Travel History Recent Travel in the [place] Within the Last 8 Weeks: No Recent Travel Out of the Country Within the Last 8 Weeks: No - Immunization History Tetanus Immunization: Unsure Hx Influenza Vaccine This Season: No Medications and Allergies Active Medications: Active Medications Acetaminophen (Tylenol) 650 mg PO Q4H PRN PRN Reason: Temp > 100.4 Al Hydroxide/Mg Hydroxide (Milk Of Magnesia Liq) 30 ml PO Q12H PRN PRN Reason: Mild Constipation Bisacodyl (Dulcolax Supp) 10 mg RECTAL DAILY PRN PRN Reason: SEVERE CONSITIPATION Chlorhexidine Gluconate (Chlorhexidine 2% Cloth) 3 pack TOPICAL INCOME TAX ADVISOR [facility] Stop: 04/28/18 06:23 Clonidine HCl (Catapres) 0.1 mg PO Q6H PRN PRN Reason: SBP>160, DBP>90 Last Admin: 04/24/18 17:31 Dose: 0.1 mg Heparin Sodium (Porcine) (Heparin Central Flush) 500 unit IV.FLUSH PRN PRN PRN Reason: Flush infusaport Heparin Sodium (Porcine) (Heparin Central Flush) 250 unit IV.FLUSH PRN PRN PRN Reason: Flush Infusapot Hydromorphone HCl (Dilaudid Pf Inj) 1 mg IV.PUSH Q4H PRN PRN Reason: breakthrough pain Last Admin: 04/25/18 10:11 Dose: 1 mg Sodium Chloride (Ns Inj) 1,000 mls @ 150 mls/hr IV.CONT .Q6H40M [facility] Last Admin: 04/25/18 10:11 Dose: 100 mls/hr Vancomycin HCl 1,000 mg/ (Sodium Chloride) 250 mls @ 200 mls/hr IV.SIG INCOME TAX ADVISOR [facility] Last Admin: 04/24/18 13:34 Dose: 200 mls/hr Lactated Ringer's (Lr 1000 Ml Inj) 1,000 mls @ 30 mls/hr IV.SIG .Q24H [facility] Stop: 04/28/18 06:23 Sodium Chloride (Ns Inj) 500 mls @ 30 mls/hr IV.SIG .Q10H [facility] Stop: 04/28/18 06:23 Lactulose (Lactulose Liq) 30 ml PO DAILY PRN PRN Reason: SEVERE CONSITIPATION Metoprolol Tartrate (Lopressor) 25 mg PO INCOME TAX ADVIS[facility] Stop: 04/28/18 06:23 Ondansetron HCl (Zofran Odt) 4 mg PO Q6H PRN PRN Reason: NAUSEA OR VOMITING Ondansetron HCl (Zofran Inj) 4 mg IV.PUSH Q4HR [facility] Last Admin: 04/25/18 07:48 Dose: 4 mg Oxycodone HCl (Roxicodone) 10 mg PO Q4H PRN PRN Reason: pain 6-10 Last Admin: 04/23/18 08:17 Dose: 10 mg Povidone Iodine (Betadine 5% Antisepsis Kit) 1 applicatio EACH NARE INCOME TAX ADVISOR [facility] Stop: 04/28/18 06:23 Promethazine HCl (Phenergan) 25 mg PO Q6H PRN PRN Reason: NAUSEA OR VOMITING Promethazine HCl (Phenergan Supp) 25 mg RECTAL Q6H PRN PRN Reason: NAUSEA OR VOMITING Senna/Docusate Sodium (Marta-Colace) 1 tab PO BID [facility] Last Admin: 04/25/18 08:26 Dose: Not Given Sennosides (Senokot) 17.2 mg PO Q12H PRN PRN Reason: Moderate Constipation Sodium Chloride (Ns Flush) 2 ml IV.FLUSH PRN PRN PRN Reason: FLUSH AFTER USING IV ACCESS Last Admin: 04/24/18 01:38 Dose: 2 ml Sodium Chloride (Ns Flush) 5 ml IV.FLUSH PRN PRN PRN Reason: Flush Infusaport Temazepam (Restoril) 15 mg PO HS PRN PRN Reason: INSOMNIA Allergies Allergy/AdvReac Type Severity Reaction Status Date / Time penicillin G Allergy Severe causes Verified 04/22/18 16:55 hives Sulfa (Sulfonamide Allergy Severe hives Verified 04/22/18 16:55 Antibiotics) Home Medications Medication Instructions Recorded Confirmed Type oxycodone 10 mg PO Q4-6H PRN 04/22/18 04/22/18 History Physical Exam Vital Signs - 24 hr 04/24/18 12:03 04/24/18 12:04 04/24/18 15:16 Temperature 97.9 F Pulse Rate 98 H 100 H Respiratory Rate 18 20 Blood Pressure 149/82 H Pulse Oximetry 92 L 04/24/18 15:46 04/24/18 16:00 04/24/18 17:26 Temperature 97.8 F Pulse Rate 91 H 97 H 92 H Respiratory Rate 20 16 Blood Pressure 151/78 H 162/87 H Pulse Oximetry 96 96 04/24/18 20:14 04/24/18 20:43 04/24/18 23:55 Temperature 100 F H 99.8 F H Pulse Rate 105 H 98 H 88 Respiratory Rate 16 18 Blood Pressure 160/89 H 150/89 H Pulse Oximetry 94 L 98 04/25/18 00:20 04/25/18 03:57 04/25/18 04:25 Temperature 98.7 F Pulse Rate 88 112 H 86 Respiratory Rate 16 Blood Pressure 154/87 H Pulse Oximetry 97 04/25/18 07:53 04/25/18 10:00 04/25/18 10:49 Temperature 98.2 F Pulse Rate 92 H 88 Respiratory Rate 15 18 Blood Pressure 158/83 H Pulse Oximetry 95 Physical Exam: . Laboratory Results - last 24 hr 04/25/18 04/25/18 04:30 04:30 WBC 14.2 H RBC 3.56 L Hgb 9.9 L Hct 30.3 L MCV 85.1 MCH 27.9 MCHC 32.8 RDW 14.9 Plt Count 199 MPV 8.0 Neut % (Auto) 79.1 H Lymph % (Auto) 7.4 L [place] % (Auto) 7.8 Eos % (Auto) 4.3 H Baso % (Auto) 1.4 Neut # (Auto) 11.2 H Lymph # (Auto) 1.0 [place] # (Auto) 1.1 H Eos # (Auto) 0.6 H Baso # (Auto) 0.2 WBC Differential . Differential Comment Auto diff final Sodium 143 Potassium 4.2 Chloride 112 H Carbon Dioxide 16.3 L Anion Gap 15 BUN 63 H Creatinine 5.05 H Estimated GFR 9 L Random Glucose 79 Calcium 9.7 Phosphorus 5.2 H Magnesium 1.9 Albumin 2.2 L Microbiology 04/22/18 17:33 Urine Culture - Final Clean Catch Urine 50-100,000 cfu/mL mixed gram positive [place] (probable contaminants) Result Diagrams: 04/25/18 04:30 04/25/18 04:30 Imaging: ITS Impressions Abdomen/Pelvis CT 04/22/18 17:26 CONCLUSION: 1. Enlarged uterus and cervix. 2. Retroperitoneal metastatic lymphadenopathy. 3. Metastatic disease of the visualized lung bases. 4. Metastatic lytic lesion of the right pubic bone with a nondisplaced pathologic fracture. 5. Large mass or blood/debris in the urinary bladder. 6. 17 mm hypodensity of the liver is probably benign. There has slight fatty infiltration. 7. Large gallstone without associated complication. Chest CT 04/23/18 00:00 CONCLUSION: 1. Diffuse bilateral lung metastatic disease. 2. Diffuse hilar and mediastinal adenopathy consistent with neoplastic disease. 3. Diffuse para-aortic adenopathy in the abdomen. Abdomen/Bladder Ultrasound 04/24/18 00:00 CONCLUSION: 1. Large lobular mass in the bladder of concern for bladder carcinoma. 2. Bilateral hydronephrosis. 3. The echogenicity kidneys is increased and equal to that of the liver decreasing medical renal disease. 4. The small mass in the left kidney seen on CT is not visualized. Port Line Insertion 04/24/18 00:00 CONCLUSION: 1. Uncomplicated ultrasound and fluoroscopic guided implanted central venous port catheter placement as described in detail above. The port was placed via the left internal jugular vein. An 8 [place] Power port was placed. Assessment and Plan - Plan 67y.o F with metastatic cervical cancer,, possibly will go for radiation Also her renal function got worse, Cr Jumped to 5.5. She found to have a ?? bladder mass and posiibly b/l hydro vs dialated renal pelvis - Continue care as per primary team and other consulted teams - No acute intervention needed now - If ureteral stents would not be placed by Dr Grajeda, Pt will benefit from b/ l nephrostomies placement with antegrade studies for obstruction and internalization with stents in the future. - Consult IR for placement of PCNs - Further urological care and recommendations as per Dr Grajeda Discussed Condition With: Dr Deonte HILL attending who agrees with this plan
[2018-04-25] MEDS ORDERED: Lidocaine PF 1% Inj 5 ML Syringe INFILTRATN ONE (12:00)
--- NOTE | 2018-04-25 13:25 | P.PNIM ---
Subjective Interval history: Patient reports that bilateral lower abdominal pain continues. Denies any chest pain or shortness of breath. Says she has not urinated. Physical Exam Vital signs: Vital Signs 04/24/18 15:16 04/24/18 15:46 04/24/18 16:00 Temperature 97.9 F Pulse Rate 100 H 91 H 97 H Respiratory Rate 20 20 Blood Pressure 149/82 H 151/78 H Pulse Oximetry 92 L 96 04/24/18 17:26 04/24/18 20:14 04/24/18 20:43 Temperature 97.8 F 100 F H Pulse Rate 92 H 105 H 98 H Respiratory Rate 16 16 Blood Pressure 162/87 H 160/89 H Pulse Oximetry 96 94 L 04/24/18 23:55 04/25/18 00:20 04/25/18 03:57 Temperature 99.8 F H Pulse Rate 88 88 112 H Respiratory Rate 18 Blood Pressure 150/89 H Pulse Oximetry 98 04/25/18 04:25 04/25/18 07:53 04/25/18 10:00 Temperature 98.7 F 98.2 F Pulse Rate 86 92 H 88 Respiratory Rate 16 15 Blood Pressure 154/87 H 158/83 H Pulse Oximetry 97 95 04/25/18 10:49 04/25/18 12:00 Temperature 97.4 F L Pulse Rate 93 H Respiratory Rate 18 20 Blood Pressure 151/81 H Pulse Oximetry 94 L Intake & Output 04/24/18 04/25/18 04/25/18 18:59 06:59 18:59 Intake Total 1000 / 1000 1000 / 1000 1000 / 1000 Output Total 350 / 350 Balance 1000 / 1000 650 / 650 1000 / 1000 Weight 94.2 kg Intake: IV 1000 / 1000 1000 / 1000 1000 / 1000 NS Inj 1,000 ML @ 150 mls/hr IV 1000 / 1000 1000 / 1000 1000 / 1000 .CONT .Q6H40M ALOK Rx#:[id number] Output: Urine 350 / 350 Other: # Voids 3 1 Date of Last Bowel Movement 04/18/18 04/18/18 04/18/18 Narrative: GENERAL: Patient sleeping, wakes of her exam. Appears uncomfortable. SKIN: Warm and dry. HEAD: Normocephalic. EYES: No scleral icterus. No injection or drainage. NECK: Supple, trachea midline. No JVD. CARDIOVASCULAR: Regular rate and rhythm without murmurs, gallops, or rubs. RESPIRATORY: Breath sounds equal bilaterally. No accessory muscle use. GASTROINTESTINAL: Abdomen soft, non-tender, nondistended. Some mild discomfort in the lower abdomen, as before. MUSCULOSKELETAL: No cyanosis, or edema. BACK: Nontender without obvious deformity. No CVA tenderness. Results - Labs CBC & Chem 7: 04/25/18 04:30 04/25/18 04:30 Laboratory Results - last 24 hr 04/25/18 04/25/18 04:30 04:30 WBC 14.2 H RBC 3.56 L Hgb 9.9 L Hct 30.3 L MCV 85.1 MCH 27.9 MCHC 32.8 RDW 14.9 Plt Count 199 MPV 8.0 Neut % (Auto) 79.1 H Lymph % (Auto) 7.4 L [place] % (Auto) 7.8 Eos % (Auto) 4.3 H Baso % (Auto) 1.4 Neut # (Auto) 11.2 H Lymph # (Auto) 1.0 [place] # (Auto) 1.1 H Eos # (Auto) 0.6 H Baso # (Auto) 0.2 WBC Differential . Differential Comment Auto diff final Sodium 143 Potassium 4.2 Chloride 112 H Carbon Dioxide 16.3 L Anion Gap 15 BUN 63 H Creatinine 5.05 H Estimated GFR 9 L Random Glucose 79 Calcium 9.7 Phosphorus 5.2 H Magnesium 1.9 Albumin 2.2 L Microbiology 04/22/18 17:33 Clean Catch Urine Urine Culture - Final 50-100,000 cfu/mL mixed gram positive [place] (probable contaminants) - Imaging Impressions Abdomen/Bladder Ultrasound 04/24/18 00:00 CONCLUSION: 1. Large lobular mass in the bladder of concern for bladder carcinoma. 2. Bilateral hydronephrosis. 3. The echogenicity kidneys is increased and equal to that of the liver decreasing medical renal disease. 4. The small mass in the left kidney seen on CT is not visualized. Port Line Insertion 04/24/18 00:00 CONCLUSION: 1. Uncomplicated ultrasound and fluoroscopic guided implanted central venous port catheter placement as described in detail above. The port was placed via the left internal jugular vein. An 8 [place] Power port was placed. Assessment and Plan - Plan //Cervical cancer with metastatic disease Patient reports she has not previously had imaging done. T of the abdomen/ pelvis significant for retroperitoneal metastatic lymphadenopathy, metastatic disease of the visualized lung bases, metastatic lytic lesion of the right pubic bone with nondisplaced pathologic fracture and a large mass in the urinary bladder. The patient was made aware of her CT scan findings. Oncology consulted, preferred databases software consultant Dr. Worley, appreciate recommendations = Appreciate oncology assistance. Port placement, CT chest, radiation oncology consult. Continue pain management. =04/24 s/p Port placement = 04/25. Discussed with gynecology/oncology. For surgical intervention. Appreciate assistance. //Urinary tract infection UA consistent with UTI Rocephin Urine culture pending = Continue antibiotics and follow-up urine culture =mixed holland. will //Acute kidney injury Creatinine 2.02, no baseline for comparison IV fluid hydration Monitor renal function = Slight improvement. Creatinine 1.9. Continue IV fluids. =worsened CR CR 3.6. recheck UA. place gallagher, order renal US, consult Nephrology. //Pain control Oxycodone 10 mg every 4 hours as needed 1 mg Dilaudid for breakthrough pain prophy : holding AC for now due to hematuria Discharge Planning: Pending oncology clearance.
--- NOTE | 2018-04-25 15:09 | P.PNNP ---
Subjective Interval history: Patient with metastatic disease along with bilateral hydronephrosis due to large bladder mass Physical Exam Vital signs: Vital Signs 04/24/18 15:16 04/24/18 15:46 04/24/18 16:00 Temperature 97.9 F Pulse Rate 100 H 91 H 97 H Respiratory Rate 20 20 Blood Pressure 149/82 H 151/78 H Pulse Oximetry 92 L 96 04/24/18 17:26 04/24/18 20:14 04/24/18 20:43 Temperature 97.8 F 100 F H Pulse Rate 92 H 105 H 98 H Respiratory Rate 16 16 Blood Pressure 162/87 H 160/89 H Pulse Oximetry 96 94 L 04/24/18 23:55 04/25/18 00:20 04/25/18 03:57 Temperature 99.8 F H Pulse Rate 88 88 112 H Respiratory Rate 18 Blood Pressure 150/89 H Pulse Oximetry 98 04/25/18 04:25 04/25/18 07:53 04/25/18 10:00 Temperature 98.7 F 98.2 F Pulse Rate 86 92 H 88 Respiratory Rate 16 15 Blood Pressure 154/87 H 158/83 H Pulse Oximetry 97 95 04/25/18 10:49 04/25/18 12:00 04/25/18 13:43 Temperature 97.4 F L 97.4 F L Pulse Rate 93 H 93 H Respiratory Rate 18 20 20 Blood Pressure 151/81 H 151/81 H Pulse Oximetry 94 L 94 L Intake & Output 04/24/18 04/25/18 04/25/18 18:59 06:59 18:59 Intake Total 1000 / 1000 1000 / 1000 1000 / 1000 Output Total 350 / 350 Balance 1000 / 1000 650 / 650 1000 / 1000 Weight 94.2 kg Intake: IV 1000 / 1000 1000 / 1000 1000 / 1000 NS Inj 1,000 ML @ 150 mls/hr IV 1000 / 1000 1000 / 1000 1000 / 1000 .CONT .Q6H40M [facility] Rx#:[id number] Output: Urine 350 / 350 Other: # Voids 3 1 Date of Last Bowel Movement 04/18/18 04/18/18 04/18/18 - Constitutional no acute distress - Routine HEENT Exam Head: Present: normocephalic Eye: Present: EOMI - Routine Respiratory Exam Present: decreased breath sounds - Routine Cardiovascular Exam Present: RRR - Routine Abdominal Exam Present: soft - Routine Neurological Exam Present: alert Assessment and Plan - Assessment (1) KALI (acute kidney injury) Code(s): N17.9 - Acute kidney failure, unspecified Status: Acute (2) Cervical cancer Code(s): C53.9 - Malignant neoplasm of cervix uteri, unspecified Status: Acute - Plan Patient has large bladder mass Hydronephrosis Creatinine 5 Follow-up with urology Possible nephrostomies
--- NOTE | 2018-04-25 17:36 | P.OP ---
- Preoperative Diagnosis (1) Cervical mass - Postoperative Diagnosis (1) Cervical mass Date of procedure: 04/26/18 Procedure: Urethral dilation, cystoscopy and attempted bilateral ureteral stent placement Anesthesia: GETA Surgeon: Kwabena Grajeda MD Estimated blood loss (mL): 20 Pathology: other (Refer to Dr. Worley report) Operation and Findings: Urologic indication for procedures: Consulted intraoperatively to place bilateral ureteral stents in this 67-year-old female with likely metastatic cervical cancer and increasing serum creatinine levels. Urologic procedures in detail: An examination under anesthesia demonstrated a firm mass involving the anterior vaginal wall extending from a necrotic appearing cervix inferiorly down to the expected location of the external meatus. The external meatus cannot be clearly visualized due to compression from the infiltrating tumor. I gently probed the likely location of the meatus with female sounds and was able to gently dilate the urethra starting at 16 [place] and dilating to 22 [place]. The rigid cystoscope with the 20 [place] sheath and 30 lens was then utilized and upon passing the instrument and removing the obturator several small clots and bloody urine was evacuated. Total volume was maybe 50 cc. I then inserted the 30 lens and proceeded with cystoscopic evaluation. The exam was rather limited due to ongoing bloody oozing from a irregular mass causing market elevation of the bladder neck and totally obliterating the trigone. The location of the ureteral orifices could not be clearly identified. I attempted to pass a sensor 0.035 wire at the expected location site of the ureteral orifices without success. I then proceeded with placing a 16 [place] 10 cc Roa catheter and connected this to gravity drainage. The plan will be to observe for ongoing urine output now that the Roa has been placed and monitoring of the BUN and creatinine levels. If there is no significant improvement with catheter drainage then the patient will need to have bilateral nephrostomy tubes placed by interventional radiology. This completes the urologic surgery portion of combined procedures on this patient.
[2018-04-25] MEDS ORDERED: fentaNYL Citrate Inj 100 MCG/2 ML Ampul ONE ×2 (17:53→18:20)
[2018-04-25] MEDS ORDERED: *morphine SULFATE 4 MG/ML PERIprocedure ONLY ONE (17:54)
[2018-04-25] MEDS ORDERED: Morphine Inj 4 MG/ML Vial ONE (17:54)
[2018-04-25] MEDS ORDERED: *Meperidine Inj 25 MG/ML Vial PERIprocedural Use ONLY ONE (18:08)
[2018-04-25] MEDS: *Labetalol HCl Inj 100 MG/20 ML Vial PERIprocedural Use ONLY IV.PUSH ONE ×2 (18:37→19:13)
[2018-04-26] MEDS: Sod Chloride 0.9% Inj 1,000 ML IV.CONT SCH ×2 (02:32→09:23)
[2018-04-26 03:52] LABS: Bilirubin,Urine Negative (Negative); Clarity,Urine Hazy (Clear); Glucose,Urine (UA) Negative (Negative); Leukocyte Esterase,Urine Negative (Negative); Nitrite,Urine Negative (Negative); Specific Gravity,Urine 1.014 (1.002-1.035)
[2018-04-26 03:53] LABS: Color,Urine Red (Yellw/Straw)
[2018-04-26 05:14] LABS: Baso # (Auto) 0.3 th/mm3 (0.0-0.2); Eos # (Auto) 0.1 th/mm3 (0.0-0.4); Eos % (Auto) 0.6 % (0.0-4.0); Hemoglobin 10.2 gm/dL (11.6-15.3); Lymph # (Auto) 0.5 th/mm3 (1.0-4.8); Lymph % (Auto) 3.1 % (9.0-44.0); Mean Corpuscular HGB Conc 33.1 % (32.0-36.0); Mean Corpuscular Hemoglobin 27.8 pg (27.0-34.0); Mean Corpuscular Volume 84.1 fL (80.0-100.0); Mean Platelet Volume 8.1 fL (7.0-11.0); Mono # (Auto) 0.6 th/mm3 (0.0-0.9); Mono % (Auto) 4.2 % (0.0-8.0); Neut # (Auto) 13.8 th/mm3 (1.8-7.7); Neut % (Auto) 90.1 % (16.0-70.0); Platelet Count 182 th/mm3 (150-450); Red Blood Count 3.68 mil/mm3 (4.00-5.30); Red Cell Distribution Width 14.7 % (11.6-17.2); White Blood Count 15.3 th/mm3 (4.0-11.0)
[2018-04-26 05:41] LABS: Albumin 2.1 g/dL (3.4-5.0); Calcium 9.2 mg/dL (8.5-10.1); Carbon Dioxide 16.4 meq/L (21.0-32.0); Phosphorus 5.2 mg/dL (2.5-4.9); Potassium 4.8 meq/L (3.5-5.1)
[2018-04-26] MEDS: Senna/Docusate Sodium 8.6/50 MG Tablet PO SCH ×2 (09:29→20:07)
--- NOTE | 2018-04-26 09:55 | P.PNONC ---
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 discussed treatment at this time is going to be radiation and Dr. Fulton is aware of surgical findings once final pathology is resulted then we will be able to give her more of an idea what IV chemotherapy will be considered. I also explained that our hopes are with the gallagher in place that her kidney function will improve, if it does not then we will have IR place percutaneous nephrostomy tubes. Patient and son stated understanding. Objective Vital Signs/Intake & Output: Vital Signs 04/25/18 10:00 04/25/18 10:49 04/25/18 12:00 Temperature 97.4 F L Pulse Rate 88 93 H Respiratory Rate 18 20 Blood Pressure 151/81 H Pulse Oximetry 94 L 04/25/18 13:43 04/25/18 16:00 04/25/18 17:41 Temperature 97.4 F L Pulse Rate 93 H 96 H Respiratory Rate 20 16 Blood Pressure 151/81 H Pulse Oximetry 94 L 04/25/18 17:45 04/25/18 18:00 04/25/18 18:15 Temperature Pulse Rate 96 H 80 88 Respiratory Rate 18 14 16 Blood Pressure 179/90 H 174/97 H 176/97 H Pulse Oximetry 99 96 93 L 04/25/18 18:30 04/25/18 18:44 04/25/18 18:52 Temperature 98.4 F Pulse Rate 89 81 81 Respiratory Rate 16 17 16 Blood Pressure 189/94 H 178/85 H 173/84 H Pulse Oximetry 93 L 92 L 93 L 04/25/18 19:26 04/25/18 19:38 04/25/18 20:01 Temperature 98.6 F Pulse Rate 84 85 82 Respiratory Rate 20 16 Blood Pressure 161/100 H 152/92 H Pulse Oximetry 96 97 04/25/18 23:09 04/26/18 00:00 04/26/18 00:02 Temperature 97.5 F L Pulse Rate 85 81 Respiratory Rate 18 16 Blood Pressure 155/88 H Pulse Oximetry 96 04/26/18 04:08 04/26/18 04:09 04/26/18 08:00 Temperature 97.8 F 98 F Pulse Rate 86 85 86 Respiratory Rate 16 18 Blood Pressure 159/89 H 160/88 H Pulse Oximetry 97 97 Intake & Output 04/25/18 04/26/1804/26/18 18:59 06:59 18:59 Intake Total 1850 / 1850 2200 / 2200 1999 Output Total 950 / 950 Balance 1820 / 1820 1250 / 1250 1999 Weight 94.4 kg Intake: IV 1000 / 1000 1999 NS Inj 1,000 ML @ 150 mls/hr IV 1000 / 1000 1999 1000 / 1000 .CONT .Q6H40M [facility] Rx#:[id number] Oral 200 / 200 Anesthesia Amount 850 / 850 Output: Urine 550 / 550 Estimated Blood Loss Urine Amount (Catheter) 400 / 400 Indwelling Urethral Catheter 400 / 400 Other: Date of Last Bowel Movement 04/18/18 04/18/18 04/18/18 Result Diagrams: 04/26/18 04:00 04/26/18 04:00 Laboratory Results: Laboratory Results - last 24 hr 04/25/18 04/26/18 04/26/18 19:55 04:00 04:00 WBC 15.3 H RBC 3.68 L Hgb 10.2 L Hct 31.0 L MCV 84.1 MCH 27.8 MCHC 33.1 RDW 14.7 Plt Count 182 MPV 8.1 Neut % (Auto) 90.1 H Lymph % (Auto) 3.1 L [place] % (Auto) 4.2 Eos % (Auto) 0.6 Baso % (Auto) 2.0 Neut # (Auto) 13.8 H Lymph # (Auto) 0.5 L [place] # (Auto) 0.6 Eos # (Auto) 0.1 Baso # (Auto) 0.3 H WBC Differential . Differential Comment Auto diff final Sodium 146 H Potassium 4.8 Chloride 116 H Carbon Dioxide 16.4 L Anion Gap 14 BUN 58 H Creatinine 3.66 H Estimated GFR 12 L Random Glucose 90 Calcium 9.2 Phosphorus 5.2 H Magnesium 2.0 Albumin 2.1 L Urine Color Red H Urine Clarity Hazy H Urine pH 6.0 Ur Specific [place] 1.014 Urine Protein 100 H Urine Glucose (UA) Negative Urine Ketones Negative Urine Occult Blood Large H Urine Nitrate Negative Urine Bilirubin Negative Urine Urobilinogen Less than 2 Ur Leukocyte Esterase Negative Urine RBC Urine WBC Culture Results: Microbiology 04/22/18 17:33 Urine Culture - Final Clean Catch Urine 50-100,000 cfu/mL mixed gram positive holland (probable contaminants) Medications: Active Medications Generic Name Dose Route Start Last Admin Trade Name Freq PRN Reason Stop Dose Admin Clonidine HCl 0.1 mg 04/24/18 15:37 04/25/18 19:24 Catapres PO 0.1 mg Q6H PRN Administration SBP>160, DBP>90 Hydromorphone HCl 1 mg 04/22/18 21:02 04/25/18 10:11 Dilaudid Pf Inj IV.PUSH 1 mg Q4H PRN Administration breakthrough pain Sodium Chloride 1,000 mls @ 150 mls/hr 04/22/18 21:00 04/26/18 09:23 Ns Inj IV.CONT 150 mls/hr .Q6H40M ALOK Administration Vancomycin HCl 1,000 mg/ 250 mls @ 200 mls/hr 04/24/18 12:00 04/24/18 13:34 Sodium Chloride IV.SIG 200 mls/hr E [employer] ARCHITECT ALOK Administration Lactated Ringer's 1,000 mls @ 30 mls/hr 04/25/18 06:30 04/26/18 07:04 Lr 1000 Ml Inj IV.SIG 04/28/18 06:23 Not Given .Q24H ALOK Ondansetron HCl 4 mg 04/24/18 12:00 04/26/18 09:21 Zofran Inj IV.PUSH 4 mg Q4HR ALOK Administration Oxycodone HCl 10 mg 04/22/18 21:01 04/26/18 06:21 Roxicodone PO 10 mg Q4H PRN Administration pain 6-10 Povidone Iodine 1 applicatio 04/25/18 06:30 04/25/18 14:00 Betadine 5% Antisepsis Kit EACH NARE 04/28/18 06:23 1 applicatio E [employer] ARCHITECT ALOK Administration Senna/Docusate Sodium 1 tab 04/22/18 21:00 04/26/18 09:29 Marta-Colace PO 1 tab BID ALOK Administration Sodium Chloride 2 ml 04/22/18 17:26 04/24/18 01:38 Ns Flush IV.FLUSH 2 ml PRN PRN Administration FLUSH AFTER USING IV ACCESS Objective Remarks: GENERAL: Well-nourished, well-developed patient. SKIN: Warm and dry. HEAD: Normocephalic. EYES: No scleral icterus. No injection or drainage. NECK: Supple EXTREMITIES: No cyanosis, or edema. MUSCULOSKELETAL: Adequate muscle tone. NEUROLOGICAL: No obvious focal deficit. Awake, alert, and oriented x3. PSYCHIATRIC: Appropriate mood and affect; insight and judgment normal. Assessment/Plan (1) KALI (acute kidney injury) Code(s): N17.9 - Acute kidney failure, unspecified Status: Acute (2) Vaginal bleeding, abnormal Code(s): N93.9 - Abnormal uterine and vaginal bleeding, unspecified Status: Acute - Plan s/p EUA D/C with bx final pathology pending primary cervix vs. bladder Dr. Fulton to start radiation for pelvic tumor then consideration of IV chemo for metastatic disease once kidney function has improved. Gallagher in place, urology following creat improved, percutaneous nephrostomy tubes if needed for poor kidney function daily labs continue IVF and supportive care
[2018-04-26] MEDS: Sodium Chloride 0.45 % Inj 1,000 ML IV.CONT SCH ×2 (14:20→20:25)
--- NOTE | 2018-04-26 14:24 | P.PNIM ---
Subjective Interval history: Patient says she is feeling better today. Denies any chest pain shortness of breath. Reports Physical Exam Vital signs: Vital Signs 04/25/18 16:00 04/25/18 17:41 04/25/18 17:45 Temperature Pulse Rate 96 H 96 H Respiratory Rate 16 18 Blood Pressure 179/90 H Pulse Oximetry 99 04/25/18 18:00 04/25/18 18:15 04/25/18 18:30 Temperature Pulse Rate 80 88 89 Respiratory Rate 14 16 16 Blood Pressure 174/97 H 176/97 H 189/94 H Pulse Oximetry 96 93 L 93 L 04/25/18 18:44 04/25/18 18:52 04/25/18 19:26 Temperature 98.4 F Pulse Rate 81 81 84 Respiratory Rate 17 16 20 Blood Pressure 178/85 H 173/84 H 161/100 H Pulse Oximetry 92 L 93 L 96 04/25/18 19:38 04/25/18 20:01 04/25/18 23:09 Temperature 98.6 F 97.5 F L Pulse Rate 85 82 85 Respiratory Rate 16 18 Blood Pressure 152/92 H 155/88 H Pulse Oximetry 97 96 04/26/18 00:00 04/26/18 00:02 04/26/18 04:08 Temperature Pulse Rate 81 86 Respiratory Rate 16 Blood Pressure Pulse Oximetry 04/26/18 04:09 04/26/18 08:00 Temperature 97.8 F 98 F Pulse Rate 85 86 Respiratory Rate 16 18 Blood Pressure 159/89 H 160/88 H Pulse Oximetry 97 97 Intake & Output 04/25/18 04/26/18 04/26/18 18:59 06:59 18:59 Intake Total 1850 / 1850 2200 / 2200 1999 Output Total 30 / 30 950 / 950 Balance 1820 / 1820 1250 / 1250 1999 Weight 94.4 kg Intake: IV 1000 / 1000 1999 NS Inj 1,000 ML @ 150 mls/hr IV 1000 / 1000 1999 1000 / 999 .CONT .Q6H40M [facility] Rx#:[id number] Oral 200 / 200 Anesthesia Amount 850 / 850 Output: Urine 550 / 550 Estimated Blood Loss 30 / 30 Urine Amount (Catheter) 400 / 400 Indwelling Urethral Catheter 400 / 400 Other: Date of Last Bowel Movement 04/18/18 04/18/1818 Narrative: GENERAL: Patient sleeping, wakes of her exam. Appears comfortable. Hematuria in Gallagher bag. SKIN: Warm and dry. HEAD: Normocephalic. EYES: No scleral icterus. No injection or drainage. NECK: Supple, trachea midline. No JVD. CARDIOVASCULAR: Regular rate and rhythm without murmurs, gallops, or rubs. RESPIRATORY: Breath sounds equal bilaterally. No accessory muscle use. GASTROINTESTINAL: Abdomen soft, non-tender, nondistended. Some mild discomfort in the lower abdomen, as before. MUSCULOSKELETAL: No cyanosis, or edema. BACK: Nontender without obvious deformity. No CVA tenderness. - Urinary Catheter Management Indwelling Urethral Catheter Cath placed during this visit: yes Reason for continuing: Gross Hematuria Insertion date: 04/25/18 Results - Labs CBC & Chem 7: 04/26/18 04:00 04/26/18 04:00 Laboratory Results - last 24 hr 04/25/18 04/26/18 04/26/18 19:55 04:00 04:00 WBC 15.3 H RBC 3.68 L Hgb 10.2 L Hct 31.0 L MCV 84.1 MCH 27.8 MCHC 33.1 RDW 14.7 Plt Count 182 MPV 8.1 Neut % (Auto) 90.1 H Lymph % (Auto) 3.1 L Bertie % (Auto) 4.2 Eos % (Auto) 0.6 Baso % (Auto) 2.0 Neut # (Auto) 13.8 H Lymph # (Auto) 0.5 L Bertie # (Auto) 0.6 Eos # (Auto) 0.1 Baso # (Auto) 0.3 H WBC Differential . Differential Comment Auto diff final Sodium 146 H Potassium 4.8 Chloride 116 H Carbon Dioxide 16.4 L Anion Gap 14 BUN 58 H Creatinine 3.66 H Estimated GFR 12 L Random Glucose 90 Calcium 9.2 Phosphorus 5.2 H Magnesium 2.0 Albumin 2.1 L Urine Color Red H Urine Clarity Hazy H Urine pH 6.0 Ur Specific [place] 1.014 Urine Protein 100 H Urine Glucose (UA) Negative Urine Ketones Negative Urine Occult Blood Large H Urine Nitrate Negative Urine Bilirubin Negative Urine Urobilinogen Less than 2 Ur Leukocyte Esterase Negative Urine RBC Urine WBC Assessment and Plan - Plan //Cervical cancer with metastatic disease Patient reports she has not previously had imaging done. T of the abdomen/ pelvis significant for retroperitoneal metastatic lymphadenopathy, metastatic disease of the visualized lung bases, metastatic lytic lesion of the right pubic bone with nondisplaced pathologic fracture and a large mass in the urinary bladder. The patient was made aware of her CT scan findings. Oncology consulted, preferred rehabilitation consultant Dr. Worley, appreciate recommendations = Appreciate oncology assistance. Port placement, CT chest, radiation oncology consult. Continue pain management. =04/24 s/p Port placement = 04/25. Discussed with gynecology/oncology. For surgical intervention. Appreciate assistance. = 04/26. Status post surgery on 04/25. Appreciate Mckayla on [place], urology assistance. Continues with Gallagher. //Urinary tract infection UA consistent with UTI Rocephin Urine culture pending = Continue antibiotics and follow-up urine culture = 04/26 mixed holland. Due to severity of presentation on admission, we will continue antibiotics for now. //Acute kidney injury Creatinine 2.02, no baseline for comparison IV fluid hydration Monitor renal function = Slight improvement. Creatinine 1.9. Continue IV fluids. =worsened CR CR 3.6. recheck UA. place gallagher, order renal US, consult Nephrology. = 04/26. Creatinine worsened up to 5 yesterday, improved today to 3.6. Continue Gallagher. Continue IV fluids. Continue to monitor. //Pain control Oxycodone 10 mg every 4 hours as needed 1 mg Dilaudid for breakthrough pain prophy : holding AC for now due to hematuria Discharge Planning: Pending oncology clearance.
--- NOTE | 2018-04-26 16:16 | P.PNURO ---
Subjective Patient symptoms today: Reports pain adequately controlled. Roa catheter has been draining grossly bloody urine. Objective Vital Signs: Vital Signs 04/25/18 17:41 04/25/18 17:45 04/25/18 18:00 Temperature Pulse Rate 96 H 80 Respiratory Rate 16 18 14 Blood Pressure 179/90 H 174/97 H Pulse Oximetry 99 96 04/25/18 18:15 04/25/18 18:30 04/25/18 18:44 Temperature Pulse Rate 88 89 81 Respiratory Rate 16 16 17 Blood Pressure 176/97 H 189/94 H 178/85 H Pulse Oximetry 93 L 93 L 92 L 04/25/18 18:52 04/25/18 19:26 04/25/18 19:38 Temperature 98.4 F 98.6 F Pulse Rate 81 84 85 Respiratory Rate 16 20 16 Blood Pressure 173/84 H 161/100 H 152/92 H Pulse Oximetry 93 L 96 97 04/25/18 20:01 04/25/18 23:09 04/26/18 00:00 Temperature 97.5 F L Pulse Rate 82 85 Respiratory Rate 18 16 Blood Pressure 155/88 H Pulse Oximetry 96 04/26/18 00:02 04/26/18 04:08 04/26/18 04:09 Temperature 97.8 F Pulse Rate 81 86 85 Respiratory Rate 16 Blood Pressure 159/89 H Pulse Oximetry 97 04/26/18 08:00 Temperature 98 F Pulse Rate 86 Respiratory Rate 18 Blood Pressure 160/88 H Pulse Oximetry 97 Intake & Output 04/25/18 04/26/18 04/26/18 18:59 06:59 18:59 Intake Total 1850 / 1850 2200 / 2200 1999 Output Total 30 / 30 950 / 950 Balance 1820 / 1820 1250 / 1250 1999 Weight 94.4 kg Intake: IV 1000 / 1000 1999 / 1999 NS Inj 1,000 ML @ 150 mls/hr IV 1000 / 1000 1999 1000 / 1000 .CONT .Q6H40M [facility] Rx#:[id number] Oral 200 / 200 Anesthesia Amount 850 / 850 Output: Urine 550 / 550 Estimated Blood Loss 30 / 30 Urine Amount (Catheter) 400 / 400 Indwelling Urethral Catheter 400 / 400 Other: Date of Last Bowel Movement 04/18/18 04/18/18 04/18/18 Result Diagrams: 04/26/18 04:00 04/26/18 04:00 Medications and IVs: Active Medications Generic Name Dose Route Start Last Admin Trade Name Freq PRN Reason Stop Dose Admin Acetaminophen 650 mg 04/22/18 21:00 Tylenol PO Q4H PRN Temp > 100.4 Al Hydroxide/Mg Hydroxide 30 ml 04/22/18 21:00 Milk Of Magnesia Liq PO Q12H PRN Mild Constipation Bisacodyl 10 mg 04/22/18 21:00 Dulcolax Supp RECTAL DAILY PRN SEVERE CONSITIPATION Chlorhexidine Gluconate 3 pack 04/25/18 06:30 Chlorhexidine 2% Cloth TOPICAL 04/28/18 06:23 CARE TRANSPORT NURSE ALOK Clonidine HCl 0.1 mg 04/24/18 15:37 04/25/18 19:24 Catapres PO 0.1 mg Q6H PRN Administration SBP>160, DBP>90 Heparin Sodium (Porcine) 500 unit 04/24/18 15:00 Heparin Central Flush IV.FLUSH PRN PRN Flush infusaport Heparin Sodium (Porcine) 250 unit 04/24/18 15:00 Heparin Central Flush IV.FLUSH PRN PRN Flush Infusapot Hydromorphone HCl 1 mg 04/22/18 21:02 04/25/18 10:11 Dilaudid Pf Inj IV.PUSH 1 mg Q4H PRN Administration breakthrough pain Vancomycin HCl 1,000 mg/ 250 mls @ 200 mls/hr 04/24/18 12:00 04/24/18 13:34 Sodium Chloride IV.SIG 200 mls/hr CARE TRANSPORT NURSE ALOK Administration Lactated Ringer's 1,000 mls @ 30 mls/hr 04/25/18 06:30 04/26/18 07:04 Lr 1000 Ml Inj IV.SIG 04/28/18 06:23 Not Given .Q24H ALOK Sodium Chloride 500 mls @ 30 mls/hr 04/25/18 07:00 Ns Inj IV.SIG 04/28/18 06:23 .Q10H ALOK Sodium Chloride 1,000 mls @ 125 mls/hr 04/26/18 10:45 04/26/18 14:20 1/2 Normal Saline Inj IV.CONT 125 mls/hr .Q8H ALOK Administration Lactulose 30 ml 04/22/18 21:00 Lactulose Liq PO DAILY PRN SEVERE CONSITIPATION Metoprolol Tartrate 25 mg 04/25/18 06:30 Lopressor PO 04/28/18 06:23 CARE TRANSPORT NURSE [facility] Miscellaneous Information 1 each 04/25/18 17:37 Mis Nursing Information OTHER 04/26/18 17:36 UNSCH PRN SEE LABEL COMMENTS Ondansetron HCl 4 mg 04/24/18 10:47 Zofran Odt PO Q6H PRN NAUSEA OR VOMITING Ondansetron HCl 4 mg 04/24/18 12:00 04/26/18 14:20 Zofran Inj IV.PUSH 4 mg Q4HR ALOK Administration Oxycodone HCl 10 mg 04/22/18 21:01 04/26/18 06:21 Roxicodone PO 10 mg Q4H PRN Administration pain 6-10 Povidone Iodine 1 applicatio 04/25/18 06:30 04/25/18 14:00 Betadine 5% Antisepsis Kit EACH NARE 04/28/18 06:23 1 applicatio CARE TRANSPORT NURSE [facility] Administration Promethazine HCl 25 mg 04/24/18 10:47 Phenergan PO Q6H PRN NAUSEA OR VOMITING Promethazine HCl 25 mg 04/24/18 10:47 Phenergan Supp RECTAL Q6H PRN NAUSEA OR VOMITING Senna/Docusate Sodium 1 tab 04/22/18 21:00 04/26/18 09:29 Marta-Colace PO 1 tab BID [facility] Administration Sennosides 17.2 mg 04/22/18 21:00 Senokot PO Q12H PRN Moderate Constipation Sodium Chloride 2 ml 04/22/18 17:26 04/24/18 01:38 Ns Flush IV.FLUSH 2 ml PRN PRN Administration FLUSH AFTER USING IV ACCESS Sodium Chloride 5 ml 04/24/18 15:00 Ns Flush IV.FLUSH PRN PRN Flush Infusaport Temazepam 15 mg 04/22/18 21:00 Restoril PO HS PRN INSOMNIA Objective Remarks: Bladder not distended. Roa in place draining medium red urine without clots. Assessment and Plan - Assessment (1) Bladder mass Code(s): N32.89 - Other specified disorders of bladder Status: Acute - Plan Urologic impression: 1. Bladder mass with obliteration of the trigone likely related to extension of cervical cancer 2. Bladder outlet obstruction related to the bladder mass now relieved with an indwelling Roa catheter with improving renal parameters. Plan: 1. Continue with indwelling Roa catheter and irrigate as needed 2. Follow-up on pathology results 3. If renal parameters continue to improve with the indwelling Roa then nephrostomy tubes will not be indicated at the present time.
--- NOTE | 2018-04-26 17:48 | P.PNNP ---
Subjective Interval history: Patient has Roa catheter in place obstructive uropathy with cervical cancer Physical Exam Vital signs: Vital Signs 04/25/18 17:45 04/25/18 18:00 04/25/18 18:15 Temperature Pulse Rate 96 H 80 88 Respiratory Rate 18 14 16 Blood Pressure 179/90 H 174/97 H 176/97 H Pulse Oximetry 99 96 93 L 04/25/18 18:30 04/25/18 18:44 04/25/18 18:52 Temperature 98.4 F Pulse Rate 89 81 81 Respiratory Rate 16 17 16 Blood Pressure 189/94 H 178/85 H 173/84 H Pulse Oximetry 93 L 92 L 93 L 04/25/18 19:26 04/25/18 19:38 04/25/18 20:01 Temperature 98.6 F Pulse Rate 84 85 82 Respiratory Rate 20 16 Blood Pressure 161/100 H 152/92 H Pulse Oximetry 96 97 04/25/18 23:09 04/26/18 00:00 04/26/18 00:02 Temperature 97.5 F L Pulse Rate 85 81 Respiratory Rate 18 16 Blood Pressure 155/88 H Pulse Oximetry 96 04/26/18 04:08 04/26/18 04:09 04/26/18 08:00 Temperature 97.8 F 98 F Pulse Rate 86 85 86 Respiratory Rate 16 18 Blood Pressure 159/89 H 160/88 H Pulse Oximetry 97 97 Intake & Output 04/25/18 04/26/18 04/26/18 18:59 06:59 18:59 Intake Total 1850 / 1850 2200 / 2200 1999 Output Total 30 / 30 950 / 950 Balance 1820 / 1820 1250 / 1250 1999 Weight 94.4 kg Intake: IV 1000 / 1000 1999 / 1999 NS Inj 1,000 ML @ 150 mls/hr IV 1000 / 1000 1999 / 1999 999 / 999 .CONT .Q6H40M [facility] Rx#:[id number] Oral 200 / 200 Anesthesia Amount 850 / 850 Output: Urine 550 / 550 Estimated Blood Loss 30 / 30 Urine Amount (Catheter) 400 / 400 Indwelling Urethral Catheter 400 / 400 Other: Date of Last Bowel Movement 04/18/18 04/18/18 04/18/18 - Constitutional no acute distress - Routine HEENT Exam Head: Present: hematoma - Routine Respiratory Exam Present: CTA bilaterally - Routine Cardiovascular Exam Present: RRR - Routine Abdominal Exam Present: soft - Routine Extremities Exam Present: pulses intact - Urinary Catheter Management Indwelling Urethral Catheter Cath placed during this visit: yes Reason for continuing: Gross Hematuria Insertion date: 04/25/18 Assessment and Plan - Assessment (1) KALI (acute kidney injury) Code(s): N17.9 - Acute kidney failure, unspecified Status: Acute (2) Cervical cancer Code(s): C53.9 - Malignant neoplasm of cervix uteri, unspecified Status: Acute - Plan Patient has large bladder mass Hydronephrosis Creatinine 3.6 declined with Roa catheter placement Follow-up with urology
[2018-04-27] MEDS: Sodium Chloride 0.45 % Inj 1,000 ML IV.CONT SCH ×3 (04:28→23:58)
[2018-04-27 06:24] LABS: Baso # (Auto) 0.5 th/mm3 (0.0-0.2); Baso % (Auto) 2.7 % (0.0-2.0); Eos # (Auto) 0.9 th/mm3 (0.0-0.4); Eos % (Auto) 4.8 % (0.0-4.0); Hemoglobin 9.9 gm/dL (11.6-15.3); Lymph % (Auto) 5.4 % (9.0-44.0); Mean Corpuscular HGB Conc 31.8 % (32.0-36.0); Mean Corpuscular Hemoglobin 27.4 pg (27.0-34.0); Mean Corpuscular Volume 86.3 fL (80.0-100.0); Mean Platelet Volume 8.2 fL (7.0-11.0); Mono # (Auto) 1.5 th/mm3 (0.0-0.9); Mono % (Auto) 7.5 % (0.0-8.0); Neut # (Auto) 15.4 th/mm3 (1.8-7.7); Neut % (Auto) 79.6 % (16.0-70.0); Platelet Count 182 th/mm3 (150-450); Red Cell Distribution Width 15.6 % (11.6-17.2); White Blood Count 19.3 th/mm3 (4.0-11.0)
[2018-04-27 06:53] LABS: Calcium 9.1 mg/dL (8.5-10.1); Magnesium 2.2 mg/dL (1.5-2.5)
[2018-04-27 08:23] LABS: Eosinophils 5 % (0-4); Lymphocytes 2 % (9-44); Monocytes 2 % (0-8); Myelocytes 1 % (0-0)
[2018-04-27 08:24] LABS: Ovalocytes 1+; Platelet Estimate Normal (Normal); Platelet Morphology Normal (Normal)
[2018-04-27] MEDS: Senna/Docusate Sodium 8.6/50 MG Tablet PO SCH ×2 (09:27→20:19)
--- NOTE | 2018-04-27 11:06 | P.PNIM ---
Subjective Interval history: Patient reports that lower abdominal discomfort continues. Denies any chest pain or shortness of breath. Denies nausea or vomiting. Physical Exam Vital signs: Vital Signs 04/26/18 12:00 04/26/18 16:00 04/26/18 19:39 Temperature 97.9 F Pulse Rate 82 87 99 H Respiratory Rate 18 18 Blood Pressure 152/70 H Pulse Oximetry 04/26/18 20:00 04/26/18 20:51 04/27/18 00:10 Temperature 97.7 F Pulse Rate 97 H 98 H Respiratory Rate 16 Blood Pressure 159/83 H Pulse Oximetry 97 04/27/18 00:45 04/27/18 01:25 04/27/18 03:54 Temperature 98.8 F Pulse Rate 99 H 94 H Respiratory Rate 18 16 Blood Pressure 168/88 H Pulse Oximetry 92 L 04/27/18 04:33 04/27/18 08:00 Temperature 97.8 F 98.8 F Pulse Rate 98 H 105 H Respiratory Rate 16 20 Blood Pressure 150/87 H 173/95 H Pulse Oximetry 94 L 97 Intake & Output 04/26/18 04/27/18 04/27/18 18:59 06:59 18:59 Intake Total 4050 / 4050 2200 / 2200 Output Total 430 / 430 500 / 500 Balance 3620 / 3620 1700 / 1700 Weight 87.2 kg Intake: IV 3000 / 3000 2000 / 2000 NS Inj 1,000 ML @ 150 mls/hr IV 1000 / 1000 .CONT .Q6H40M [facility] Rx#:[id number] 1/2 Normal Saline Inj 1,000 ML 2000 / 2000 @ 125 mls/hr IV.CONT .Q8H [facility] Rx#:[id number] Oral 200 / 200 200 / 200 Anesthesia Amount 850 / 850 Output: Urine 500 / 500 Estimated Blood Loss 30 / 30 Urine Amount (Catheter) 400 / 400 Indwelling Urethral Catheter 400 / 400 Other: Date of Last Bowel Movement 04/18/18 # Bowel Movements 0 Narrative: GENERAL: Patient sleeping, wakes of her exam. Appears comfortable. Hematuria in Gallagher bag as before, minimal urine output. SKIN: Warm and dry. HEAD: Normocephalic. EYES: No scleral icterus. No injection or drainage. NECK: Supple, trachea midline. No JVD. CARDIOVASCULAR: Regular rate and rhythm without murmurs, gallops, or rubs. RESPIRATORY: Breath sounds equal bilaterally. No accessory muscle use. GASTROINTESTINAL: Abdomen soft, non-tender, nondistended. Some mild tenderness in the lower abdomen, as before. MUSCULOSKELETAL: No cyanosis, or edema. BACK: Nontender without obvious deformity. No CVA tenderness. - Urinary Catheter Management Indwelling Urethral Catheter Cath placed during this visit: yes Reason for continuing: Gross Hematuria Insertion date: 04/25/18 Results - Labs CBC & Chem 7: 04/27/18 04:40 04/27/18 04:40 Laboratory Results - last 24 hr 04/27/18 04/27/18 04:40 04:40 WBC 19.3 H RBC 3.60 L Hgb 9.9 L Hct 31.0 L MCV 86.3 MCH 27.4 MCHC 31.8 L RDW 15.6 Plt Count 182 MPV 8.2 Prelim Diff (Auto) Slide review pending Neut % (Auto) 79.6 H Lymph % (Auto) 5.4 L [place] % (Auto) 7.5 Eos % (Auto) 4.8 H Baso % (Auto) 2.7 H Neut # (Auto) 15.4 H Lymph # (Auto) 1.0 [place] # (Auto) 1.5 H Eos # (Auto) 0.9 H Baso # (Auto) 0.5 H WBC Differential Manual diff final Seg Neuts % (Manual) 83 H Band Neuts % (Manual) 6 Lymphocytes % (Manual) 2 L Monocytes % (Manual) 2 Eosinophils % (Manual) 5 H Basophils % (Manual) 1 Myelocytes % (Man) 1 H Abs Neuts (Manual) 17.4 H Differential Comment . Platelet Estimate Normal Platelet Morphology Normal Ovalocytes 1+ H Sodium 144 Potassium 5.0 Chloride 117 H Carbon Dioxide 14.0 L Anion Gap 13 BUN 76 H Creatinine 5.27 H Estimated GFR 8 L Random Glucose 84 Calcium 9.1 Phosphorus 5.0 H Magnesium 2.2 Albumin 2.0 L Assessment and Plan - Plan //Cervical cancer with metastatic disease Patient reports she has not previously had imaging done. T of the abdomen/ pelvis significant for retroperitoneal metastatic lymphadenopathy, metastatic disease of the visualized lung bases, metastatic lytic lesion of the right pubic bone with nondisplaced pathologic fracture and a large mass in the urinary bladder. The patient was made aware of her CT scan findings. Oncology consulted, preferred specialty sales consultant Dr. Worley, appreciate recommendations = Appreciate oncology assistance. Port placement, CT chest, radiation oncology consult. Continue pain management. =04/24 s/p Port placement = 04/25. Discussed with gynecology/oncology. For surgical intervention. Appreciate assistance. = 04/26. Status post surgery on 04/25. Appreciate [place]/ONC, urology assistance. Continues with Gallagher. = 04/27. Worsening urinary function. Consult IR for possible nephrostomy tubes. //Urinary tract infection UA consistent with UTI Rocephin Urine culture pending = Continue antibiotics and follow-up urine culture = 04/26 mixed holland. Due to severity of presentation on admission, we will continue antibiotics for now. //Leukocytosis of 19. Could be secondary infection versus likely secondary to pain //Acute kidney injury Creatinine 2.02, no baseline for comparison IV fluid hydration Monitor renal function = Slight improvement. Creatinine 1.9. Continue IV fluids. =worsened CR CR 3.6. recheck UA. place gallagher, order renal US, consult Nephrology. = 04/26. Creatinine worsened up to 5 yesterday, improved today to 3.6. Continue Gallagher. Continue IV fluids. Continue to monitor. = 04/27. Worsening creatinine to 5 today despite Gallagher. Consult IR for bilateral nephrostomy tubes. Recheck urinalysis continue antibiotics //Pain control Oxycodone 10 mg every 4 hours as needed 1 mg Dilaudid for breakthrough pain prophy : holding AC for now due to hematuria Discharge Planning: Pending oncology clearance.
--- NOTE | 2018-04-27 11:11 | P.PNNP ---
Subjective Interval history: #Lower abdominal discomfort Physical Exam Vital signs: Vital Signs 04/26/18 12:00 04/26/18 16:00 04/26/18 19:39 Temperature 97.9 F Pulse Rate 82 87 99 H Respiratory Rate 18 18 Blood Pressure 152/70 H Pulse Oximetry 04/26/18 20:00 04/26/18 20:51 04/27/18 00:10 Temperature 97.7 F Pulse Rate 97 H 98 H Respiratory Rate 16 Blood Pressure 159/83 H Pulse Oximetry 97 04/27/18 00:45 04/27/18 01:25 04/27/18 03:54 Temperature 98.8 F Pulse Rate 99 H 94 H Respiratory Rate 18 16 Blood Pressure 168/88 H Pulse Oximetry 92 L 04/27/18 04:33 04/27/18 08:00 Temperature 97.8 F 98.8 F Pulse Rate 98 H 105 H Respiratory Rate 16 20 Blood Pressure 150/87 H 173/95 H Pulse Oximetry 94 L 97 Intake & Output 04/26/18 04/27/18 04/27/18 18:59 06:59 18:59 Intake Total 4050 / 4050 2200 / 2200 Output Total 430 / 430 500 / 500 Balance 3620 / 3620 1700 / 1700 Weight 87.2 kg Intake: IV 3000 / 3000 2000 / 2000 NS Inj 1,000 ML @ 150 mls/hr IV 1000 / 1000 .CONT .Q6H40M [facility] Rx#:[id number] 1/2 Normal Saline Inj 1,000 ML 2000 / 2000 @ 125 mls/hr IV.CONT .Q8H [facility] Rx#:[id number] Oral 200 / 200 200 / 200 Anesthesia Amount 850 / 850 Output: Urine 500 / 500 Estimated Blood Loss 30 / 30 Urine Amount (Catheter) 400 / 400 Indwelling Urethral Catheter 400 / 400 Other: Date of Last Bowel Movement 04/18/18 # Bowel Movements 0 - Constitutional no acute distress - Routine HEENT Exam Eye: Present: EOMI - Routine Respiratory Exam Present: CTA bilaterally - Routine Cardiovascular Exam Present: RRR - Routine Abdominal Exam Present: soft, distended - Routine Extremities Exam Present: full ROM - Urinary Catheter Management Indwelling Urethral Catheter Cath placed during this visit: yes Reason for continuing: Gross Hematuria Insertion date: 04/25/18 Assessment and Plan - Assessment (1) KALI (acute kidney injury) Code(s): N17.9 - Acute kidney failure, unspecified Status: Acute (2) Cervical cancer Code(s): C53.9 - Malignant neoplasm of cervix uteri, unspecified Status: Acute - Plan Patient has large bladder mass Hydronephrosis Creatinine again increased with Roa catheter placement Percutaneous nephrostomy plan Follow-up with urology
--- NOTE | 2018-04-27 12:57 | P.PNURO ---
Subjective Patient symptoms today: Continues to complain of lower abdominal discomfort. Reports having her first session with radiation oncology today. Objective Vital Signs: Vital Signs 04/26/18 16:00 04/26/18 19:39 04/26/18 20:00 Temperature 97.9 F 97.7 F Pulse Rate 87 99 H 97 H Respiratory Rate 18 Blood Pressure 152/70 H 159/83 H Pulse Oximetry 97 04/26/18 20:51 04/27/18 00:10 04/27/18 00:45 Temperature 98.8 F Pulse Rate 98 H 99 H Respiratory Rate 16 18 Blood Pressure 168/88 H Pulse Oximetry 92 L 04/27/18 01:25 04/27/18 03:54 04/27/18 04:33 Temperature 97.8 F Pulse Rate 94 H 98 H Respiratory Rate 16 16 Blood Pressure 150/87 H Pulse Oximetry 94 L 04/27/18 08:00 04/27/18 12:00 Temperature 98.8 F 98.4 F Pulse Rate 105 H 101 H Respiratory Rate 20 16 Blood Pressure 173/95 H 167/87 H Pulse Oximetry 97 92 L Intake & Output 04/26/18 04/27/18 04/27/18 18:59 06:59 18:59 Intake Total 4050 / 4050 2200 / 2200 Output Total 430 / 430 500 / 500 Balance 3620 / 3620 1700 / 1700 Weight 87.2 kg Intake: IV 3000 / 3000 2000 / 2000 NS Inj 1,000 ML @ 150 mls/hr IV 1000 / 1000 .CONT .Q6H40M [facility] Rx#:[id number] 1/2 Normal Saline Inj 1,000 ML 2000 / 2000 @ 125 mls/hr IV.CONT .Q8H [facility] Rx#:[id number] Oral 200 / 200 200 / 200 Anesthesia Amount 850 / 850 Output: Urine 500 / 500 Estimated Blood Loss 30 / 30 Urine Amount (Catheter) 400 / 400 Indwelling Urethral Catheter 400 / 400 Other: Date of Last Bowel Movement 04/18/18 # Bowel Movements 0 Result Diagrams: 04/27/18 04:40 04/27/18 04:40 Medications and IVs: Active Medications Generic Name Dose Route Start Last Admin Trade Name Freq PRN Reason Stop Dose Admin Acetaminophen 650 mg 04/22/18 21:00 Tylenol PO Q4H PRN Temp > 100.4 Al Hydroxide/Mg Hydroxide 30 ml 04/22/18 21:00 Milk Of Magnesia Liq PO Q12H PRN Mild Constipation Bisacodyl 10 mg 04/22/18 21:00 Dulcolax Supp RECTAL DAILY PRN SEVERE CONSITIPATION Chlorhexidine Gluconate 3 pack 04/25/18 06:30 Chlorhexidine 2% Cloth TOPICAL 04/28/18 06:23 AMMUNITION SPECIALIST [facility] Clonidine HCl 0.1 mg 04/24/18 15:37 04/25/18 19:24 Catapres PO 0.1 mg Q6H PRN Administration SBP>160, DBP>90 Heparin Sodium (Porcine) 500 unit 04/24/18 15:00 Heparin Central Flush IV.FLUSH PRN PRN Flush infusaport Heparin Sodium (Porcine) 250 unit 04/24/18 15:00 Heparin Central Flush IV.FLUSH PRN PRN Flush Infusapot Hydromorphone HCl 1 mg 04/22/18 21:02 04/25/18 10:11 Dilaudid Pf Inj IV.PUSH 1 mg Q4H PRN Administration breakthrough pain Vancomycin HCl 1,000 mg/ 250 mls @ 200 mls/hr 04/24/18 12:00 04/24/18 13:34 Sodium Chloride IV.SIG 200 mls/hr AMMUNITION SPECIALIST ALOK Administration Lactated Ringer's 1,000 mls @ 30 mls/hr 04/25/18 06:30 04/27/18 07:25 Lr 1000 Ml Inj IV.SIG 04/28/18 06:23 Not Given .Q24H [facility] Sodium Chloride 500 mls @ 30 mls/hr 04/25/18 07:00 Ns Inj IV.SIG 04/28/18 06:23 .Q10H ALOK Sodium Chloride 1,000 mls @ 125 mls/hr 04/26/18 10:45 04/27/18 04:28 1/2 Normal Saline Inj IV.CONT 125 mls/hr .Q8H ALOK Administration Lactulose 30 ml 04/22/18 21:00 Lactulose Liq PO DAILY PRN SEVERE CONSITIPATION Metoprolol Tartrate 25 mg 04/25/18 06:30 Lopressor PO 04/28/18 06:23 AMMUNITION SPECIALIST [facility] Ondansetron HCl 4 mg 04/24/18 10:47 Zofran Odt PO Q6H PRN NAUSEA OR VOMITING Ondansetron HCl 4 mg 04/24/18 12:00 04/27/18 12:30 Zofran Inj IV.PUSH 4 mg Q4HR ALOK Administration Oxycodone HCl 10 mg 04/22/18 21:01 04/27/18 09:34 Roxicodone PO 10 mg Q4H PRN Administration pain 6-10 Povidone Iodine 1 applicatio 04/25/18 06:30 04/25/18 14:00 Betadine 5% Antisepsis Kit EACH NARE 04/28/18 06:23 1 applicatio AMMUNITION SPECIALIST ALOK Administration Promethazine HCl 25 mg 04/24/18 10:47 Phenergan PO Q6H PRN NAUSEA OR VOMITING Promethazine HCl 25 mg 04/24/18 10:47 Phenergan Supp RECTAL Q6H PRN NAUSEA OR VOMITING Senna/Docusate Sodium 1 tab 04/22/18 21:00 04/27/18 09:27 Marta-Colace PO 1 tab BID ALOK Administration Sennosides 17.2 mg 04/22/18 21:00 Senokot PO Q12H PRN Moderate Constipation Sodium Chloride 2 ml 04/22/18 17:26 04/24/18 01:38 Ns Flush IV.FLUSH 2 ml PRN PRN Administration FLUSH AFTER USING IV ACCESS Sodium Chloride 5 ml 04/24/18 15:00 Ns Flush IV.FLUSH PRN PRN Flush Infusaport Temazepam 15 mg 04/22/18 21:00 Restoril PO HS PRN INSOMNIA Objective Remarks: Bladder not distended. Roa in place draining medium red urine without clots. Assessment and Plan - Assessment (1) Bladder mass Code(s): N32.89 - Other specified disorders of bladder Status: Acute - Plan Urologic impression: 1. Bladder mass with obliteration of the trigone likely related to extension of cervical cancer 2. Bladder outlet obstruction related to the bladder mass with deterioration in renal function despite Roa catheter drainage. Plan: 1. Continue with indwelling Roa catheter and irrigate as needed 2. Follow-up on pathology results 3. Order has already been placed for interventional radiology to place bilateral nephrostomy tubes.
[2018-04-27 16:31] LABS: Amorphous Sediment,Urine Few /hpf; Bacteria,Urine Rare /hpf; Bilirubin,Urine Negative (Negative); Color,Urine Red (Yellw/Straw); Glucose,Urine (UA) 50 mg/dL (Negative); Leukocyte Esterase,Urine Negative (Negative); Nitrite,Urine Negative (Negative); Specific Gravity,Urine 1.016 (1.002-1.035)
[2018-04-27 16:33] LABS: Clarity,Urine Moderate (Clear)
[2018-04-28 06:09] LABS: Baso # (Auto) 0.5 th/mm3 (0.0-0.2); Baso % (Auto) 2.2 % (0.0-2.0); Eos # (Auto) 0.7 th/mm3 (0.0-0.4); Eos % (Auto) 3.2 % (0.0-4.0); Hematocrit 30.4 % (35.0-46.0); Lymph # (Auto) 0.8 th/mm3 (1.0-4.8); Lymph % (Auto) 3.5 % (9.0-44.0); Mean Corpuscular HGB Conc 32.8 % (32.0-36.0); Mean Corpuscular Hemoglobin 27.8 pg (27.0-34.0); Mean Corpuscular Volume 84.7 fL (80.0-100.0); Mean Platelet Volume 8.4 fL (7.0-11.0); Mono # (Auto) 1.2 th/mm3 (0.0-0.9); Mono % (Auto) 5.8 % (0.0-8.0); Neut # (Auto) 18.2 th/mm3 (1.8-7.7); Neut % (Auto) 85.3 % (16.0-70.0); Platelet Count 155 th/mm3 (150-450); Red Blood Count 3.59 mil/mm3 (4.00-5.30); Red Cell Distribution Width 15.6 % (11.6-17.2); White Blood Count 21.3 th/mm3 (4.0-11.0)
[2018-04-28 06:29] LABS: Calcium 9.6 mg/dL (8.5-10.1); Carbon Dioxide 13.3 meq/L (21.0-32.0); Magnesium 2.4 mg/dL (1.5-2.5); Phosphorus 6.5 mg/dL (2.5-4.9); Potassium 5.1 meq/L (3.5-5.1)
[2018-04-28] MEDS: Senna/Docusate Sodium 8.6/50 MG Tablet PO SCH ×2 (08:06→11:10)
[2018-04-28] MEDS: Sodium Chloride 0.45 % Inj 1,000 ML IV.CONT SCH ×2 (08:10→11:53)
[2018-04-28] MEDS ORDERED: Metoprolol Inj 5 MG/5 ML Vial IV.PUSH ONE (08:25)
[2018-04-28] MEDS ORDERED: fentaNYL Citrate Inj 250 MCG/5 ML Ampul ONE (08:26)
[2018-04-28] MEDS ORDERED: Levofloxacin 500 mg Premix Inj 500 MG/100 ML PIGGYBACK IV.SIG ONE (08:26)
[2018-04-28 09:11] LABS: Eosinophils 1 % (0-4); Lymphocytes 5 % (9-44); Monocytes 4 % (0-8)
[2018-04-28 09:12] LABS: Ovalocytes 1+; Platelet Estimate Normal (Normal); Platelet Morphology Normal (Normal)
[2018-04-28] MEDS ORDERED: Iohexol 350 MG/ML 50 ML Vial (for Rad Diag) IVCONTRAST ONE (10:00)
--- NOTE | 2018-04-28 11:53 | IR ---
EXAM DATE: 04/28/2018 11:03 AM EDT AGE/SEX: 67 years / Female INDICATIONS: 67-year-old female with history of cervical cancer and pelvic adenopathy. Patient now pr esents with bladder mass/hemorrhage and bilateral hydronephrosis with urosepsis. Retrograde attempt w as unsuccessful due to nonvisualization of the ureteral orifices. Therefore, percutaneous nephrostomy has been requested. CLINICAL DATA: This is the patient's initial encounter. Patient reports that signs and symptoms have been present for 4 - 6 days and indicates a pain score of Nonresponsive. MEDICAL/SURGICAL HISTORY: Cervical cancer with metastatic disease involving the lung, Vaginal bleedin g, Breast cancer, Gallstones Breast lumpectomy, Port placement, D&C COMPARISON: [facility] [place] & PELVIS W/O CONTRAST, 04/22/2018. . FLUORO TIME (min): 6.5 IMAGE SERIES: 5 SEDATION TIME (min): 45 CONTRAST (cc): 30cc Omnipaque (iohexol) 350 MEDICATION(S): 2.5mg midazolam (Versed) IV 125mcg fentanyl (Sublimaze) IV Prophylactic antibiotics were administered with appropriate pre-procedure timing. Vancomycin within 2 hrs of procedure, Ancef (or alternative) within 1 hr of procedure. DEVICE(S): 8 Cymro nephrostomy catheter Expel 25cm 8 Cymro nephrostomy catheter Expel 25cm . . PROCEDURE : 1. Ultrasound-guided puncture of the kidney. 2. Antegrade percutaneous pyelogram. 3. Percutaneous nephrostomy placement. 4. Conscious sedation with continuous EKG and oximetry monitoring. The risks, benefits and alternatives to the procedure were explained and verbal and written consent w as obtained. The site was prepped in sterile fashion. Full sterile technique was used, including ca p, mask, sterile gloves and gown and a large sterile sheet. Hand hygiene and 2% chlorhexidine and/or betadine/alcohol prep was utilized per protocol for cutaneous antisepsis. Sterile gel and sterile probe cover were utilized for ultrasound guidance. The skin and subcutaneous tissues were infiltrate d with local anesthetic solution. With ultrasound and fluoroscopic guidance the selected kidney was punctured and a percutaneous antegr yuriy pyelogram was performed demonstrating a dilated collecting system. Serial dilatation was perform ed and a prescribed nephrostomy tube was placed within the renal pelvis and sutured in place. This wa s repeated on the right side. Conscious sedation was performed with the prescribed dosages and duration as above in the presence of an independent trained radiology nurse to assist in the monitoring of the patient. EKG and oximetry remained stable throughout the procedure. The patient tolerated the procedure well and there were n o complications. The patient was sent to post anesthesia recovery in stable condition. CONCLUSION: 1. Uncomplicated bilateral nephrostomy tube placement as above. Electronically signed by: Tremayne Mercado MD 04/28/2018 11:51 AM EDT
--- NOTE | 2018-04-28 12:59 | P.PNIM ---
Subjective Interval history: Patient seen following IR procedure. Sleeping, wakes up for exam. She reports continued abdominal pain, however slightly improved. Physical Exam Vital signs: Vital Signs 04/27/18 20:00 04/28/18 00:00 04/28/18 04:00 Temperature 99.4 F 98.2 F 98.0 F Pulse Rate 108 H 101 H 95 H Respiratory Rate 20 20 20 Blood Pressure 163/91 H 163/86 H 152/88 H Pulse Oximetry 92 L 93 L 93 L 04/28/18 08:00 04/28/18 10:40 04/28/18 10:55 Temperature 96.5 F L 97.6 F Pulse Rate 107 H 102 H 103 H Respiratory Rate 20 16 16 Blood Pressure 183/96 H 149/74 H 155/99 H Pulse Oximetry 99 91 L 94 L 04/28/18 11:44 04/28/18 12:00 Temperature 96.7 F L Pulse Rate 101 H 99 H Respiratory Rate 16 18 Blood Pressure 152/82 H 158/87 H Pulse Oximetry 95 91 L Intake & Output 04/27/18 04/28/18 04/28/18 18:59 06:59 18:59 Intake Total 1480 / 1480 370 / 370 1100 / 1100 Output Total 75 / 75 Balance 1480 / 1480 295 / 295 1100 / 1100 Weight 87.3 kg Intake: IV 1000 / 1000 250 / 250 1100 / 1100 1/2 Normal Saline Inj 1,000 ML 1000 / 1000 1000 / 1000 @ 125 mls/hr IV.CONT .Q8H [facility] Rx#:[id number] Levaquin 500 mg Premix Inj 500 100 / 100 mg In 100 ml @ 0 mls/hr IV.SIG .STK-MED ONE Rx#:[id number] Vancomycin Inj 1,000 MG In NS 250 / 250 Inj 250 ML @ 200 mls/hr IV.SIG STATIONARY ENGINEER SUPERVISOR [facility] Rx#:[id number] Oral 480 / 480 120 / 120 Output: Urine Amount (Catheter) 75 / 75 Indwelling Urethral Catheter 75 / 75 Other: Date of Last Bowel Movement 04/18/18 04/18/18 # Bowel Movements 0 Narrative: GENERAL: Patient sleeping, wakes of her exam. Appears comfortable. Hematuria continues in Gallagher bag as before, minimal urine output. Nephrostomy in place with straw-colored urine. SKIN: Warm and dry. HEAD: Normocephalic. EYES: No scleral icterus. No injection or drainage. NECK: Supple, trachea midline. No JVD. CARDIOVASCULAR: Regular rate and rhythm without murmurs, gallops, or rubs. RESPIRATORY: Breath sounds equal bilaterally. No accessory muscle use. GASTROINTESTINAL: Abdomen soft, non-tender, nondistended. Some mild tenderness in the lower abdomen, as before. MUSCULOSKELETAL: No cyanosis, or edema. BACK: Nontender without obvious deformity. No CVA tenderness. - Urinary Catheter Management Indwelling Urethral Catheter Cath placed during this visit: yes Reason for continuing: Gross Hematuria Insertion date: 04/25/18 Results - Labs CBC & Chem 7: 04/28/18 04:15 04/28/18 04:15 Laboratory Results - last 24 hr 04/27/18 04/28/18 04/28/18 12:30 04:15 04:15 WBC 21.3 H RBC 3.59 L Hgb 10.0 L Hct 30.4 L MCV 84.7 MCH 27.8 MCHC 32.8 RDW 15.6 Plt Count 155 MPV 8.4 Prelim Diff (Auto) Slide review pending Neut % (Auto) 85.3 H Lymph % (Auto) 3.5 L Elliott % (Auto) 5.8 Eos % (Auto) 3.2 Baso % (Auto) 2.2 H Neut # (Auto) 18.2 H Lymph # (Auto) 0.8 L Elliott # (Auto) 1.2 H Eos # (Auto) 0.7 H Baso # (Auto) 0.5 H WBC Differential Manual diff final Seg Neuts % (Manual) 76 H Band Neuts % (Manual) 13 H Lymphocytes % (Manual) 5 L Monocytes % (Manual) 4 Eosinophils % (Manual) 1 Basophils % (Manual) 1 Abs Neuts (Manual) 19.0 H Differential Comment . Platelet Estimate Normal Platelet Morphology Normal Ovalocytes 1+ H Keratocytes 1+ H Sodium 142 Potassium 5.1 Chloride 114 H Carbon Dioxide 13.3 L Anion Gap 15 BUN 90 H Creatinine 6.67 H Estimated GFR 6 L Random Glucose 96 Calcium 9.6 Phosphorus 6.5 H D Magnesium 2.4 Albumin 2.0 L Urine Color Red Urine Clarity Moderate H Urine pH 7.0 Ur Specific [place] 1.016 Urine Protein 100 H Urine Glucose (UA) 50 Urine Ketones Trace H Urine Occult Blood Large H Urine Nitrate Negative Urine Bilirubin Negative Urine Urobilinogen Less than 2 Ur Leukocyte Esterase Negative Urine RBC Urine WBC Urine WBC Clumps Rare H Amorphous Sediment Few H Urine Bacteria Rare H Micro UA Comment Cath-culture ind Urine Culture Comments Cath-cult indicated - Imaging Impressions Nephrostomy 04/28/18 00:00 CONCLUSION: 1. Uncomplicated bilateral nephrostomy tube placement as above. Assessment and Plan - Plan //Cervical cancer with metastatic disease Patient reports she has not previously had imaging done. T of the abdomen/ pelvis significant for retroperitoneal metastatic lymphadenopathy, metastatic disease of the visualized lung bases, metastatic lytic lesion of the right pubic bone with nondisplaced pathologic fracture and a large mass in the urinary bladder. The patient was made aware of her CT scan findings. Oncology consulted, preferred erp implementation consultant Dr. Worley, appreciate recommendations = Appreciate oncology assistance. Port placement, CT chest, radiation oncology consult. Continue pain management. =04/24 s/p Port placement = 04/25. Discussed with gynecology/oncology. For surgical intervention. Appreciate assistance. = 04/26. Status post surgery on 04/25. Appreciate Retail Account Representative/ONC, urology assistance. Continues with Gallagher. = 04/27. Worsening urinary function. Consult IR for possible nephrostomy tubes. = 04/28. Bilateral nephrostomy tubes placed. Worsening creatinine to 6, however expect improved with bilateral nephrostomies draining urine. //Urinary tract infection UA consistent with UTI Rocephin Urine culture pending = Continue antibiotics and follow-up urine culture = 04/26 mixed holland. Due to severity of presentation on admission, we will continue antibiotics for now. = 04/28. Due to elevated white count of 21, will consult infectious disease //Leukocytosis of 19. Could be secondary infection versus likely secondary to pain = ID to follow. Appreciate assistance. //Acute kidney injury Creatinine 2.02, no baseline for comparison IV fluid hydration Monitor renal function = Slight improvement. Creatinine 1.9. Continue IV fluids. =worsened CR CR 3.6. recheck UA. place gallagher, order renal US, consult Nephrology. = 04/26. Creatinine worsened up to 5 yesterday, improved today to 3.6. Continue Gallagher. Continue IV fluids. Continue to monitor. = 04/27. Worsening creatinine to 5 today despite Gallagher. Consult IR for bilateral nephrostomy tubes. Recheck urinalysis continue antibiotics = Worsening. 6.7 today. Expect to improve with bilateral nephrostomy tubes. Continue to monitor. Nephrology and urology following. //Pain control Oxycodone 10 mg every 4 hours as needed 1 mg Dilaudid for breakthrough pain //prophy : SCDs. Holding AC for now due to hematuria Discharge Planning: Biopsy pending Pending oncology clearance. Pending nephrology clearance
--- NOTE | 2018-04-28 13:31 | P.PNURO ---
Subjective Patient symptoms today: Sedated. S/P placement of bilateral nephrostomy tubes this morning by IR Objective Vital Signs: Vital Signs 04/27/18 20:00 04/28/18 00:00 04/28/18 04:00 Temperature 99.4 F 98.2 F 98.0 F Pulse Rate 108 H 101 H 95 H Respiratory Rate 20 20 20 Blood Pressure 163/91 H 163/86 H 152/88 H Pulse Oximetry 92 L 93 L 93 L 04/28/18 08:00 04/28/18 10:40 04/28/18 10:55 Temperature 96.5 F L 97.6 F Pulse Rate 107 H 102 H 103 H Respiratory Rate 20 16 16 Blood Pressure 183/96 H 149/74 H 155/99 H Pulse Oximetry 99 91 L 94 L 04/28/18 11:44 04/28/18 12:00 Temperature 96.7 F L Pulse Rate 101 H 99 H Respiratory Rate 16 18 Blood Pressure 152/82 H 158/87 H Pulse Oximetry 95 91 L Intake & Output 04/27/18 04/28/18 04/28/18 18:59 06:59 18:59 Intake Total 1480 / 1480 370 / 370 1100 / 1100 Output Total 75 / 75 Balance 1480 / 1480 295 / 295 1100 / 1100 Weight 87.3 kg Intake: IV 1000 / 1000 250 / 250 1100 / 1100 1/2 Normal Saline Inj 1,000 ML 1000 / 1000 1000 / 1000 @ 125 mls/hr IV.CONT .Q8H [facility] Rx#:[id number] Levaquin 500 mg Premix Inj 500 100 / 100 mg In 100 ml @ 0 mls/hr IV.SIG .STK-MED ONE Rx#:[id number] Vancomycin Inj 1,000 MG In NS 250 / 250 Inj 250 ML @ 200 mls/hr IV.SIG FIRE TECHNOLOGY INSTRUCTOR [facility] Rx#:[id number] Oral 480 / 480 120 / 120 Output: Urine Amount (Catheter) 75 / 75 Indwelling Urethral Catheter 75 / 75 Other: Date of Last Bowel Movement 04/18/18 04/18/18 # Bowel Movements 0 Result Diagrams: 04/28/18 04:15 04/28/18 04:15 Imaging: Impressions Nephrostomy 04/28/18 00:00 CONCLUSION: 1. Uncomplicated bilateral nephrostomy tube placement as above. Medications and IVs: Active Medications Generic Name Dose Route Start Last Admin Trade Name Freq PRN Reason Stop Dose Admin Acetaminophen 650 mg 04/22/18 21:00 Tylenol PO Q4H PRN Temp > 100.4 Al Hydroxide/Mg Hydroxide 30 ml 04/22/18 21:00 Milk Of Magnesia Liq PO Q12H PRN Mild Constipation Bisacodyl 10 mg 04/22/18 21:00 Dulcolax Supp RECTAL DAILY PRN SEVERE CONSITIPATION Clonidine HCl 0.1 mg 04/24/18 15:37 04/27/18 20:25 Catapres PO 0.1 mg Q6H PRN Administration SBP>160, DBP>90 Heparin Sodium (Porcine) 500 unit 04/24/18 15:00 Heparin Central Flush IV.FLUSH PRN PRN Flush infusaport Heparin Sodium (Porcine) 250 unit 04/24/18 15:00 Heparin Central Flush IV.FLUSH PRN PRN Flush Infusapot Hydromorphone HCl 1 mg 04/22/18 21:02 04/25/18 10:11 Dilaudid Pf Inj IV.PUSH 1 mg Q4H PRN Administration breakthrough pain Vancomycin HCl 1,000 mg/ 250 mls @ 200 mls/hr 04/24/18 12:00 04/27/18 20:02 Sodium Chloride IV.SIG Infused FIRE TECHNOLOGY INSTRUCTOR [facility] Infusion Sodium Chloride 1,000 mls @ 125 mls/hr 04/26/18 10:45 04/28/18 11:53 1/2 Normal Saline Inj IV.CONT Not Given .Q8H ALOK Lactulose 30 ml 04/22/18 21:00 Lactulose Liq PO DAILY PRN SEVERE CONSITIPATION Ondansetron HCl 4 mg 04/24/18 10:47 Zofran Odt PO Q6H PRN NAUSEA OR VOMITING Ondansetron HCl 4 mg 04/24/18 12:00 04/28/18 12:46 Zofran Inj IV.PUSH 4 mg Q4HR ALOK Administration Oxycodone HCl 10 mg 04/22/18 21:01 04/27/18 18:43 Roxicodone PO 10 mg Q4H PRN Administration pain 6-10 Promethazine HCl 25 mg 04/24/18 10:47 Phenergan PO Q6H PRN NAUSEA OR VOMITING Promethazine HCl 25 mg 08/13/18 10:47 Phenergan Supp RECTAL Q6H PRN NAUSEA OR VOMITING Senna/Docusate Sodium 1 tab 04/22/18 21:00 04/28/18 11:10 Marta-Colace PO Not Given BID ALOK Sennosides 17.2 mg 04/22/18 21:00 Senokot PO Q12H PRN Moderate Constipation Sodium Chloride 2 ml 04/22/18 17:26 04/24/18 01:38 Ns Flush IV.FLUSH 2 ml PRN PRN Administration FLUSH AFTER USING IV ACCESS Sodium Chloride 5 ml 04/24/18 15:00 Ns Flush IV.FLUSH PRN PRN Flush Infusaport Temazepam 15 mg 04/22/18 21:00 Restoril PO HS PRN INSOMNIA Objective Remarks: Bladder not distended. Roa in place draining small amount grossly bloody urine. Bilateral nephrostomy tubes with excellent output. Urine medium red without clots. Assessment and Plan - Assessment (1) Bladder mass Code(s): N32.89 - Other specified disorders of bladder Status: Acute - Plan Urologic impression: 1. Bladder mass with obliteration of the trigone c/w extension of cervical cancer 2. Bladder outlet obstruction related to the bladder mass. 3. S/P uncomplicated bilateral nephrostomy tube placement by IR. Plan: 1. Continue with indwelling Roa catheter 2. Bilateral nephrostomy tubes to gravity drainage. 3. Con't to monitor BUN/Cr levels.
--- NOTE | 2018-04-28 14:36 | P.DCO ---
- Physical Therapy Order: Evaluate and treat - Home Health Nursing Order: Medical education, Nursing assessment with vital signs - Home Health Aide Order: To assist in: Bathing and personal care - Gun Barrel Finisher Order: To evaluate: Living conditions/environment Order: To provide: Long range planning - Certification I have seen patient Karen Casanova on 04/28/18. My clinical findings support the need for the requested home health care services because: Limited ability to care for self I certify that my clinical findings support that this patient is homebound because: Unsafe to leave home unassisted
--- NOTE | 2018-04-28 14:39 | P.CONID ---
History of Present Illness Service: Infectious disease Consult date: 04/28/18 Requesting Physician: Brock Smiley Reason for Consult: Evaluate patient with leukocytosis Primary Care Provider: UNKNOWN Chief Complaint: vaginal bleeding and pelvic pain History of Present Illness: Patient seen and examined. Records. Patient is a 67-year-old female, with known history of cervical cancer, presented to the hospital complaining of pelvic pain, and vaginal bleeding. She is also had problem with nausea and vomiting over the last several days as well as constipation. She has not had any fever chills or sweats. Since admission she has had workup. Her creatinine has been increasing. She was found to have a mass which was felt to be causing obstruction. She had undergone cystoscopy and attempted placement of a ureteral stent which was not successful. 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 Her urine output has been low, and her creatinine continues to rise. Today patient underwent placement of bilateral nephrostomy. She has not been febrile. Her white count however continues to rise and 21,000 today. Patient received Levaquin for the procedure. At the time my exam, patient is lethargic due to the procedure. She has a left nephrostomy that has light yellow urine. Has a right nephrostomy with bloody urine. She also has a Gallagher and that has gross hematuria. She has not been febrile. She awakens easily and follows commands. Infectious disease consultation has been requested to evaluate the patient with worsening leukocytosis. Review of Systems Constitutional: Denies chills, Denies fever(s) Eyes: Denies discharge Ears, Nose, Mouth, and Throat: Reports dry mouth, Denies sore throat Cardiovascular: Denies chest pain, Denies shortness of breath Gastrointestinal: Reports abdominal pain Genitourinary: Reports abnormal vaginal bleeding, Reports blood in urine Musculoskeletal: Reports joint swelling Skin/Breast: Denies rash PMFSH - History History Provided By: Patient - Medical History Medical History: Medical History (Last Reviewed 04/28/18 @ 14:33 by Mei Griffith MD) Breast CA Cervical ca Gallstone - Surgical History Surgical History: Surgical History (Last Reviewed 04/28/18 @ 14:33 by Mei Griffith MD) S/P breast lumpectomy S/P dilatation and curettage - Family History Family History: Family History (Last Reviewed 04/23/18 @ 09:51 by Earle Rodríguez) Other Diabetes mellitus - Tobacco History Second Hand Smoke Exposure: No Tobacco Use In Past 30 Days: No Smoking Status: Never smoker - Alcohol History How Often Do You Have a Drink Containing Alcohol: Never - Substance Use History Substance History: No History of Abuse - Substance Use Type Marijuana Status: Active Route Used: By Mouth - Travel History Recent Travel in the [place] Within the Last 8 Weeks: No Recent Travel Out of the Country Within the Last 8 Weeks: No - Immunization History Tetanus Immunization: Unsure Hx Influenza Vaccine This Season: No Medications and Allergies Active Medications: Active Medications Acetaminophen (Tylenol) 650 mg PO Q4H PRN PRN Reason: Temp > 100.4 Al Hydroxide/Mg Hydroxide (Milk Of Magnesia Liq) 30 ml PO Q12H PRN PRN Reason: Mild Constipation Bisacodyl (Dulcolax Supp) 10 mg RECTAL DAILY PRN PRN Reason: SEVERE CONSITIPATION Clonidine HCl (Catapres) 0.1 mg PO Q6H PRN PRN Reason: SBP>160, DBP>90 Last Admin: 04/27/18 20:25 Dose: 0.1 mg Heparin Sodium (Porcine) (Heparin Central Flush) 500 unit IV.FLUSH PRN PRN PRN Reason: Flush infusaport Heparin Sodium (Porcine) (Heparin Central Flush) 250 unit IV.FLUSH PRN PRN PRN Reason: Flush Infusapot Hydromorphone HCl (Dilaudid Pf Inj) 1 mg IV.PUSH Q4H PRN PRN Reason: breakthrough pain Last Admin: 04/25/18 10:11 Dose: 1 mg Vancomycin HCl 1,000 mg/ (Sodium Chloride) 250 mls @ 200 mls/hr IV.SIG [employer] [facility] Last Infusion: 04/27/18 20:02 Dose: Infused Sodium Chloride (1/2 Normal Saline Inj) 1,000 mls @ 125 mls/hr IV.CONT .Q8H [facility] Last Admin: 04/28/18 11:53 Dose: Not Given Lactulose (Lactulose Liq) 30 ml PO DAILY PRN PRN Reason: SEVERE CONSITIPATION Ondansetron HCl (Zofran Odt) 4 mg PO Q6H PRN PRN Reason: NAUSEA OR VOMITING Ondansetron HCl (Zofran Inj) 4 mg IV.PUSH Q4HR ALOK Last Admin: 04/28/18 12:46 Dose: 4 mg Oxycodone HCl (Roxicodone) 10 mg PO Q4H PRN PRN Reason: pain 6-10 Last Admin: 04/27/18 18:43 Dose: 10 mg Promethazine HCl (Phenergan) 25 mg PO Q6H PRN PRN Reason: NAUSEA OR VOMITING Promethazine HCl (Phenergan Supp) 25 mg RECTAL Q6H PRN PRN Reason: NAUSEA OR VOMITING Senna/Docusate Sodium (Marta-Colace) 1 tab PO BID [facility] Last Admin: 04/28/18 11:10 Dose: Not Given Sennosides (Senokot) 17.2 mg PO Q12H PRN PRN Reason: Moderate Constipation Sodium Chloride (Ns Flush) 2 ml IV.FLUSH PRN PRN PRN Reason: FLUSH AFTER USING IV ACCESS Last Admin: 04/24/18 01:38 Dose: 2 ml Sodium Chloride (Ns Flush) 5 ml IV.FLUSH PRN PRN PRN Reason: Flush Infusaport Temazepam (Restoril) 15 mg PO HS PRN PRN Reason: INSOMNIA Allergies Allergy/AdvReac Type Severity Reaction Status Date / Time penicillin G Allergy Severe causes Verified 04/22/18 16:55 hives Sulfa (Sulfonamide Allergy Severe hives Verified 04/22/18 16:55 Antibiotics) Home Medications Medication Instructions Recorded Confirmed Type oxycodone 10 mg PO Q4-6H PRN 04/22/18 04/22/18 History Exam Vital signs: Vital Signs 04/27/18 20:00 04/28/18 00:00 04/28/18 04:00 Temperature 99.4 F 98.2 F 98.0 F Pulse Rate 108 H 101 H 95 H Respiratory Rate 20 20 20 Blood Pressure 163/91 H 163/86 H 152/88 H Pulse Oximetry 92 L 93 L 93 L 04/28/18 08:00 04/28/18 10:40 04/28/18 10:55 Temperature 96.5 F L 97.6 F Pulse Rate 107 H 102 H 103 H Respiratory Rate 20 16 16 Blood Pressure 183/96 H 149/74 H 155/99 H Pulse Oximetry 99 91 L 94 L 04/28/18 11:44 04/28/18 12:00 Temperature 96.7 F L Pulse Rate 101 H 99 H Respiratory Rate 16 18 Blood Pressure 152/82 H 158/87 H Pulse Oximetry 95 91 L Intake & Output 04/27/18 04/28/18 04/28/18 18:59 06:59 18:59 Intake Total 1480 / 1480 370 / 370 1100 / 1100 Output Total 75 / 75 Balance 1480 / 1480 295 / 295 1100 / 1100 Weight 87.3 kg Intake: IV 1000 / 1000 250 / 250 1100 / 1100 1/2 Normal Saline Inj 1,000 ML 1000 / 1000 1000 / 1000 @ 125 mls/hr IV.CONT .Q8H [facility] Rx#:[id number] Levaquin 500 mg Premix Inj 500 100 / 100 mg In 100 ml @ 0 mls/hr IV.SIG .[facility] Rx#:[id number] Vancomycin Inj 1,000 MG In NS 250 / 250 Inj 250 ML @ 200 mls/hr IV.SIG [employer] [facility] Rx#:[id number] Oral 480 / 480 120 / 120 Output: Urine Amount (Catheter) Indwelling Urethral Catheter Other: Date of Last Bowel Movement 04/18/18 04/18/18 # Bowel Movements 0 Narrative: Physical Examination GENERAL: Patient is a well-nourished, well-developed female, medicated for procedure, does awaken some and follows commands, not in respiratory distress. SKIN: Cool and dry. No generalized rash. Edematous HEAD: Atraumatic. Normocephalic. No temporal wasting, or tenderness. EYES: Pale conjunctiva. No petechia or hemorrhage. Pupils equal, round and reactive to light. No scleral icterus. No injection or drainage. EARS, NOSE AND THROAT: Nose without bleeding or purulent nasal discharge. No sinus tenderness. Very dry oral mucosa. NECK: Trachea midline. Supple and not tender, no meningeal signs CARDIOVASCULAR: Regular rate and rhythm. No murmurs, rubs or gallops heard RESPIRATORY: Clear to auscultation. Breath sounds equal bilaterally. No rales , wheezing or rhonchi ABDOMEN: Soft, non-tender, nondistended. Bowel sounds present and normoactive. No guarding. No rebound. No organomegaly. EXTREMITIES: No clubbing, cyanosis. Has edema hands and feet. No calf tenderness. Well perfused and warm. NEUROLOGICAL: Lethargic but awakens easily and following commands. Moves all extremities. No babinski, no clonus. PSYCHIATRIC: cooperative. LINE: No evidence of infection : Has L nephrostomy with yellow urine. Has R nephrostomy with blood tinged urine. Has gallagher, with gross hematuria Results - Labs CBC & Chem 7: 04/28/18 04:15 04/28/18 04:15 Labs: Laboratory Results - last 24 hr 04/27/18 04/28/18 04/28/18 12:30 04:15 04:15 WBC 21.3 H RBC 3.59 L Hgb 10.0 L Hct 30.4 L MCV 84.7 MCH 27.8 MCHC 32.8 RDW 15.6 Plt Count 155 MPV 8.4 Prelim Diff (Auto) Slide review pending Neut % (Auto) 85.3 H Lymph % (Auto) 3.5 L [place] % (Auto) 5.8 Eos % (Auto) 3.2 Baso % (Auto) 2.2 H Neut # (Auto) 18.2 H Lymph # (Auto) 0.8 L [place] # (Auto) 1.2 H Eos # (Auto) 0.7 H Baso # (Auto) 0.5 H WBC Differential Manual diff final Seg Neuts % (Manual) 76 H Band Neuts % (Manual) 13 H Lymphocytes % (Manual) 5 L Monocytes % (Manual) 4 Eosinophils % (Manual) 1 Basophils % (Manual) 1 Abs Neuts (Manual) 19.0 H Differential Comment . Platelet Estimate Normal Platelet Morphology Normal Ovalocytes 1+ H Keratocytes 1+ H Sodium 142 Potassium 5.1 Chloride 114 H Carbon Dioxide 13.3 L Anion Gap 15 BUN 90 H Creatinine 6.67 H Estimated GFR 6 L Random Glucose 96 Calcium 9.6 Phosphorus 6.5 H D Magnesium 2.4 Albumin 2.0 L Urine Color Red Urine Clarity Moderate H Urine pH 7.0 Ur Specific [place] 1.016 Urine Protein 100 H Urine Glucose (UA) 50 Urine Ketones Trace H Urine Occult Blood Large H Urine Nitrate Negative Urine Bilirubin Negative Urine Urobilinogen Less than 2 Ur Leukocyte Esterase Negative Urine RBC Urine WBC Urine WBC Clumps Rare H Amorphous Sediment Few H Urine Bacteria Rare H Micro UA Comment Cath-culture ind Urine Culture Comments Cath-cult indicated - Imaging Impressions Nephrostomy 04/28/18 00:00 CONCLUSION: 1. Uncomplicated bilateral nephrostomy tube placement as above. Assessment and Plan - Plan Impression Worsening leukocytosis, likely due to her malignancy - ?, has obstruction due to the mass Squamous cell CA, known cervical CA Recommendation Get 2 BC Send specimen from the nephrostomy tubes Follow C/S Levaquin and Diflucan Follow CBC Monitor progress I will follow along with you Thank you for this consultation Spoke with sons
--- NOTE | 2018-04-28 16:27 | P.PNONC ---
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 She will continue treatment with radiation but until her kidney function improves and she recovers from recent onset of confusion/lethargy we will hold any IV chemotherapy. I offered Palliative Care consult as her son Dion expresses the need to "get things in order" I told him that is a good idea, as she has a difficult rome ahead of her. If she recovers from this recent confusion and lethargy then we will have to address chemo with continued radiation and also her her systemic disease. I explained she is at a high risk of recurrent disease, and then treatment would be Palliative. Her son stated understanding and will consider Palliative consult. I explained at this point we dont know if her current mental status is because of infection or increased BUN/Creat...ID has been consulted and is following. She was started on Flagyl and Levaquin, blood cultures have been ordered. She is getting good urine return from her nephrostomies. discussion ensured and questions answered to the best of my abilities Objective Vital Signs/Intake & Output: Vital Signs 04/27/18 20:00 04/28/18 00:00 04/28/18 04:00 Temperature 99.4 F 98.2 F 98.0 F Pulse Rate 108 H 101 H 95 H Respiratory Rate 20 20 20 Blood Pressure 163/91 H 163/86 H 152/88 H Pulse Oximetry 92 L 93 L 93 L 04/28/18 08:00 04/28/18 10:40 04/28/18 10:55 Temperature 96.5 F L 97.6 F Pulse Rate 107 H 102 H 103 H Respiratory Rate 20 16 16 Blood Pressure 183/96 H 149/74 H 155/99 H Pulse Oximetry 99 91 L 94 L 04/28/18 11:44 04/28/18 12:00 Temperature 96.7 F L Pulse Rate 101 H 99 H Respiratory Rate 16 18 Blood Pressure 152/82 H 158/87 H Pulse Oximetry 95 91 L Intake & Output 04/27/18 04/28/18 04/28/18 18:59 06:59 18:59 Intake Total 1480 / 1480 370 / 370 1100 / 1100 Output Total 75 / 75 Balance 1480 / 1480 295 / 295 1100 / 1100 Weight 87.3 kg Intake: IV 1000 / 1000 250 / 250 1100 / 1100 1/2 Normal Saline Inj 1,000 ML 1000 / 1000 1000 / 1000 @ 125 mls/hr IV.CONT .Q8H [facility] Rx#:[id number] Levaquin 500 mg Premix Inj 500 100 / 100 mg In 100 ml @ 0 mls/hr IV.SIG .STK-MED ONE Rx#:[id number] Vancomycin Inj 1,000 MG In NS 250 / 250 Inj 250 ML @ 200 mls/hr IV.SIG GROUP WORK[employer] [facility] Rx#:[id number] Oral 480 / 480 120 / 120 Output: Urine Amount (Catheter) 75 / 75 Indwelling Urethral Catheter 75 / 75 Other: Date of Last Bowel Movement 04/18/18 04/18/18 # Bowel Movements 0 Result Diagrams: 04/28/18 04:15 04/28/18 04:15 Laboratory Results: Laboratory Results - last 24 hr 04/27/18 04/28/18 04/28/18 12:30 04:15 04:15 WBC 21.3 H RBC 3.59 L Hgb 10.0 L Hct 30.4 L MCV 84.7 MCH 27.8 MCHC 32.8 RDW 15.6 Plt Count 155 MPV 8.4 Prelim Diff (Auto) Slide review pending Neut % (Auto) 85.3 H Lymph % (Auto) 3.5 L [place] % (Auto) 5.8 Eos % (Auto) 3.2 Baso % (Auto) 2.2 H Neut # (Auto) 18.2 H Lymph # (Auto) 0.8 L [place] # (Auto) 1.2 H Eos # (Auto) 0.7 H Baso # (Auto) 0.5 H WBC Differential Manual diff final Seg Neuts % (Manual) 76 H Band Neuts % (Manual) 13 H Lymphocytes % (Manual) 5 L Monocytes % (Manual) 4 Eosinophils % (Manual) 1 Basophils % (Manual) 1 Abs Neuts (Manual) 19.0 H Differential Comment . Platelet Estimate Normal Platelet Morphology Normal Ovalocytes 1+ H Keratocytes 1+ H Sodium 142 Potassium 5.1 Chloride 114 H Carbon Dioxide 13.3 L Anion Gap 15 BUN 90 H Creatinine 6.67 H Estimated GFR 6 L Random Glucose 96 Calcium 9.6 Phosphorus 6.5 H D Magnesium 2.4 Albumin 2.0 L Urine Color Red Urine Clarity Moderate H Urine pH 7.0 Ur Specific [place] 1.016 Urine Protein 100 H Urine Glucose (UA) 50 Urine Ketones Trace H Urine Occult Blood Large H Urine Nitrate Negative Urine Bilirubin Negative Urine Urobilinogen Less than 2 Ur Leukocyte Esterase Negative Urine RBC Urine WBC Urine WBC Clumps Rare H Amorphous Sediment Few H Urine Bacteria Rare H Micro UA Comment Cath-culture ind Urine Culture Comments Cath-cult indicated Culture Results: Microbiology 04/27/18 12:30 Urine Culture - Preliminary Catheterized Urine No growth in 24 hours Imaging Studies: Impressions Nephrostomy 04/28/18 00:00 CONCLUSION: 1. Uncomplicated bilateral nephrostomy tube placement as above. 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 ALOK Infusion Sodium Chloride 1,000 mls @ 125 mls/hr 04/26/18 10:45 04/28/18 11:53 1/2 Normal Saline Inj IV.CONT Not Given .Q8H ALOK Ondansetron HCl 4 mg 04/24/18 12:00 04/28/18 12:46 Zofran Inj IV.PUSH 4 mg Q4HR ALOK Administration Oxycodone HCl 10 mg 04/22/18 21:01 04/27/18 18:43 Roxicodone PO 10 mg Q4H PRN Administration pain 6-10 Senna/Docusate Sodium 1 tab 04/22/18 21:00 04/28/18 11:10 Marta-Colace PO Not Given BID ALOK Sodium Chloride 2 ml 04/22/18 17:26 04/24/18 01:38 Ns Flush IV.FLUSH 2 ml PRN PRN Administration FLUSH AFTER USING IV ACCESS Objective Remarks: GENERAL: confused and lethargic SKIN: Warm and dry. HEAD: Normocephalic. EYES: closed NECK: Supple, trachea midline. No JVD or lymphadenopathy. RESPIRATORY:No accessory muscle use. EXTREMITIES:teds and scds MUSCULOSKELETAL: Adequate muscle tone. NEUROLOGICAL: confused, not verbal Assessment/Plan (1) KALI (acute kidney injury) Code(s): N17.9 - Acute kidney failure, unspecified Status: Acute (2) Vaginal bleeding, abnormal Code(s): N93.9 - Abnormal uterine and vaginal bleeding, unspecified Status: Acute - Plan s/p EUA D/C with bx final pathology pending primary cervix vs. bladder Dr. Fulton to start radiation for pelvic tumor then consideration of IV chemo for metastatic disease once kidney function has improved. Roa in place, urology following creat improved, percutaneous nephrostomy tubes if needed for poor kidney function daily labs continue IVF and supportive care 04/28/18: patient declined overnight with lethargy and confusion worsening BUN/Creat, percutaneous nephrostomy tubes placed, with good urine output extensive conversation with her son Dion day #2 radiation any IV chemotherapy in the future will be based on patient's overall improved in performance status and kidney function daily labs IV hydration consideration of Palliative Care consult, will discuss again on Tuesday urology and nephrology following ID following, IV abx: Flagy and Levaquin, cultures ordered.
--- NOTE | 2018-04-28 16:41 | P.PNNP ---
Subjective Interval history: patient confused lethargic Physical Exam Vital signs: Vital Signs 04/27/18 20:00 04/28/18 00:00 04/28/18 04:00 Temperature 99.4 F 98.2 F 98.0 F Pulse Rate 108 H 101 H 95 H Respiratory Rate 20 20 20 Blood Pressure 163/91 H 163/86 H 152/88 H Pulse Oximetry 92 L 93 L 93 L 04/28/18 08:00 04/28/18 10:40 04/28/18 10:55 Temperature 96.5 F L 97.6 F Pulse Rate 107 H 102 H 103 H Respiratory Rate 20 16 16 Blood Pressure 183/96 H 149/74 H 155/99 H Pulse Oximetry 99 91 L 94 L 04/28/18 11:44 04/28/18 12:00 Temperature 96.7 F L Pulse Rate 101 H 99 H Respiratory Rate 16 18 Blood Pressure 152/82 H 158/87 H Pulse Oximetry 95 91 L Intake & Output 04/27/18 04/28/18 04/28/18 18:59 06:59 18:59 Intake Total 1480 / 1480 370 / 370 1100 / 1100 Output Total 75 / 75 Balance 1480 / 1480 295 / 295 1100 / 1100 Weight 87.3 kg Intake: IV 1000 / 1000 250 / 250 1100 / 1100 1/2 Normal Saline Inj 1,000 ML 1000 / 1000 1000 / 1000 @ 125 mls/hr IV.CONT .Q8H [facility] Rx#:[id number] Levaquin 500 mg Premix Inj 500 100 / 100 mg In 100 ml @ 0 mls/hr IV.SIG .STK-MED ONE Rx#:[id number] Vancomycin Inj 1,000 MG In NS 250 / 250 Inj 250 ML @ 200 mls/hr IV.SIG [employer] SUPER[employer] [facility] Rx#:[id number] Oral 480 / 480 120 / 120 Output: Urine Amount (Catheter) 75 / 75 Indwelling Urethral Catheter 75 / 75 Other: Date of Last Bowel Movement 04/18/18 04/18/18 # Bowel Movements 0 - Constitutional no acute distress - Routine HEENT Exam Eye: Present: EOMI - Routine Respiratory Exam Present: CTA bilaterally - Routine Cardiovascular Exam Present: RRR - Routine Abdominal Exam Present: soft - Routine Extremities Exam Present: edema - Urinary Catheter Management Indwelling Urethral Catheter Cath placed during this visit: yes Reason for continuing: Gross Hematuria Insertion date: 04/25/18 Assessment and Plan - Assessment (1) KALI (acute kidney injury) Code(s): N17.9 - Acute kidney failure, unspecified Status: Acute (2) Cervical cancer Code(s): C53.9 - Malignant neoplasm of cervix uteri, unspecified Status: Acute - Plan Patient has large bladder mass, cervical cancer Hydronephrosis Creatinine again increased with Roa catheter placement Percutaneous nephrostomy done creatinine is still high Acidosis and sodium bicarbonate Half-normal saline with 2 A of sodium bicarbonate 125 cc an hour possibility of dialysis discussed with son, explained procedure Follow Renal panel
[2018-04-28] MEDS: HYDROmorphone PF Inj 2 MG/ML Vial IV.PUSH PRN (19:37)
[2018-04-28 20:04] LABS: Bilirubin,Urine Negative (Negative); Clarity,Urine Cloudy (Clear); Color,Urine Yellow (Yellw/Straw); Glucose,Urine (UA) Negative (Negative); Leukocyte Esterase,Urine Trace (Negative); Nitrite,Urine Negative (Negative); Specific Gravity,Urine 1.013 (1.002-1.035)
[2018-04-28 20:09] LABS: Bilirubin,Urine Negative (Negative); Clarity,Urine Cloudy (Clear); Glucose,Urine (UA) Negative (Negative); Leukocyte Esterase,Urine Trace (Negative); Nitrite,Urine Negative (Negative); Specific Gravity,Urine 1.013 (1.002-1.035); Uric Acid Crystals,Urine Few /hpf
[2018-04-28 20:14] LABS: Color,Urine Orange (Yellw/Straw)
[2018-04-28] MEDS: Sodium Bicarbonate 8.4% Inj 100 MEQ in Sodium Chloride 0.45 % Inj 1,000 ML IV.CONT SCH (21:13)
[2018-04-29] MEDS: Senna/Docusate Sodium 8.6/50 MG Tablet PO SCH ×3 (00:49→23:47)
[2018-04-29 05:49] LABS: Baso # (Auto) 0.6 th/mm3 (0.0-0.2); Baso % (Auto) 3.1 % (0.0-2.0); Eos # (Auto) 0.5 th/mm3 (0.0-0.4); Eos % (Auto) 2.7 % (0.0-4.0); Hematocrit 28.5 % (35.0-46.0); Hemoglobin 9.2 gm/dL (11.6-15.3); Lymph # (Auto) 0.4 th/mm3 (1.0-4.8); Lymph % (Auto) 2.4 % (9.0-44.0); Mean Corpuscular HGB Conc 32.1 % (32.0-36.0); Mean Corpuscular Hemoglobin 27.4 pg (27.0-34.0); Mean Corpuscular Volume 85.2 fL (80.0-100.0); Mean Platelet Volume 8.4 fL (7.0-11.0); Mono % (Auto) 5.4 % (0.0-8.0); Neut # (Auto) 16.3 th/mm3 (1.8-7.7); Neut % (Auto) 86.4 % (16.0-70.0); Platelet Count 125 th/mm3 (150-450); Red Blood Count 3.34 mil/mm3 (4.00-5.30); Red Cell Distribution Width 15.8 % (11.6-17.2); White Blood Count 18.8 th/mm3 (4.0-11.0)
[2018-04-29] MEDS: Sodium Bicarbonate 8.4% Inj 100 MEQ in Sodium Chloride 0.45 % Inj 1,000 ML IV.CONT SCH ×2 (05:53→18:34)
[2018-04-29 06:04] LABS: Albumin 1.8 g/dL (3.4-5.0); Calcium 9.1 mg/dL (8.5-10.1); Carbon Dioxide 18.1 meq/L (21.0-32.0); Magnesium 1.8 mg/dL (1.5-2.5); Phosphorus 3.7 mg/dL (2.5-4.9); Potassium 4.1 meq/L (3.5-5.1)
[2018-04-29 07:41] LABS: Eosinophils 1 % (0-4); Metamyelocytes 1 % (0-1); Monocytes 1 % (0-8)
[2018-04-29 07:42] LABS: Platelet Morphology Normal (Normal)
[2018-04-29] MEDS: HYDROmorphone PF Inj 2 MG/ML Vial IV.PUSH PRN (08:46)
[2018-04-29] MEDS: Fluconazole 100 MG Tablet PO SCH (08:48)
--- NOTE | 2018-04-29 09:59 | P.PNNP ---
Subjective Interval history: Lethargic, given dilaudid this morning. S/P bilateral nephrostomy tubes Physical Exam Vital signs: Vital Signs 04/28/18 10:40 04/28/18 10:55 04/28/18 11:44 Temperature 97.6 F Pulse Rate 102 H 103 H 101 H Respiratory Rate 16 16 16 Blood Pressure 149/74 H 155/99 H 152/82 H Pulse Oximetry 91 L 94 L 95 04/28/18 12:00 04/28/18 12:41 04/28/18 12:56 Temperature 96.7 F L Pulse Rate 99 H 97 H 103 H Respiratory Rate 18 18 Blood Pressure 158/87 H 158/87 H 168/91 H Pulse Oximetry 91 L 91 L 87 L 04/28/18 13:26 04/28/18 13:56 04/28/18 16:00 Temperature Pulse Rate 101 H 112 H 97 H Respiratory Rate 18 Blood Pressure 161/81 H 148/82 H 164/93 H Pulse Oximetry 86 L 89 L 91 L 04/28/18 19:41 04/28/18 20:07 04/28/18 20:08 Temperature 98.2 F Pulse Rate 105 H 128 H Respiratory Rate 18 18 Blood Pressure 136/80 Pulse Oximetry 96 04/29/18 00:00 04/29/18 00:07 04/29/18 02:47 Temperature 99.4 F Pulse Rate 108 H 113 H Respiratory Rate 20 16 Blood Pressure 158/96 H Pulse Oximetry 96 04/29/18 04:00 04/29/18 04:14 Temperature 98.5 F Pulse Rate 109 H 118 H Respiratory Rate 20 Blood Pressure 135/80 Pulse Oximetry 94 L Intake & Output 04/28/18 04/29/18 04/29/18 18:59 06:59 18:59 Intake Total 1800 / 1800 1340 / 1340 Output Total 3640 / 3640 Balance 1800 / 1800 -2300 / -2300 Weight 100.3 kg Intake: IV 1800 / 1800 1100 / 1100 Sodium Bicarbonate 8.4% Inj 100 1100 / 1100 MEQ In 1/2 Normal Saline Inj 1 ,000 ML @ 125 mls/hr IV.CONT . Q8H[facility] Rx#:[id number] 1/2 Normal Saline Inj 1,000 ML 1700 / 1700 @ 125 mls/hr IV.CONT .Q8H [facility] Rx#:[id number] Levaquin 500 mg Premix Inj 500 100 / 100 mg In 100 ml @ 0 mls/hr IV.SIG [facility] Rx#:[id number] Oral 240 / 240 Output: Urine Amount (Catheter) 150 / 150 Indwelling Urethral Catheter 150 / 150 Wound Drainage 3490 / 3490 Left Nephrostomy 1800 / 1800 right nephrostomy 1690 / 1690 Other: Date of Last Bowel Movement 04/18/18 04/18/18 - Constitutional no acute distress - Routine HEENT Exam Head: Present: normocephalic - Routine Neck Exam Present: supple - Routine Respiratory Exam Present: decreased breath sounds - Routine Cardiovascular Exam Present: RRR - Routine Abdominal Exam Present: soft - Routine Extremities Exam Present: edema (trace) - Routine Skin Exam Present: intact - Detailed Neurological Exam: Coma Scale Eye Opening: Spontaneous - Urinary Catheter Management Indwelling Urethral Catheter Cath placed during this visit: yes Reason for continuing: Gross Hematuria Insertion date: 04/25/18 Assessment and Plan - Assessment (1) KALI (acute kidney injury) Code(s): N17.9 - Acute kidney failure, unspecified Status: Acute (2) Cervical cancer Code(s): C53.9 - Malignant neoplasm of cervix uteri, unspecified Status: Acute - Plan Patient has large bladder mass, cervical cancer Hydronephrosis Bilateral percutaneous nephrostomy tubes placed with 4.4 L UOP/ 24 hours. Cretinine improving. Continues on 1/2 NS with sodium bicarbonate at 125 cc an hour No need for HD at this point, given excellent UOP. Continue IVFs for now, may consider to decrease rate tomorrow depending on UOP and renal function. Follow Renal panel
--- NOTE | 2018-04-29 11:12 | P.PNIM ---
Subjective Interval history: Patient still complaining of significant abdominal pain. Dilaudid makes her lethargic. Physical Exam Vital signs: Vital Signs 04/28/18 11:44 04/28/18 12:00 04/28/18 12:41 Temperature 96.7 F L Pulse Rate 101 H 99 H 97 H Respiratory Rate 16 18 18 Blood Pressure 152/82 H 158/87 H 158/87 H Pulse Oximetry 95 91 L 91 L 04/28/18 12:56 04/28/18 13:26 04/28/18 13:56 Temperature Pulse Rate 103 H 101 H 112 H Respiratory Rate Blood Pressure 168/91 H 161/81 H 148/82 H Pulse Oximetry 87 L 86 L 89 L 04/28/18 16:00 04/28/18 19:41 04/28/18 20:07 Temperature 98.2 F Pulse Rate 97 H 105 H Respiratory Rate 18 18 18 Blood Pressure 164/93 H 136/80 Pulse Oximetry 91 L 96 04/28/18 20:08 04/29/18 00:00 04/29/18 00:07 Temperature 99.4 F Pulse Rate 128 H 108 H 113 H Respiratory Rate 20 Blood Pressure 158/96 H Pulse Oximetry 96 04/29/18 02:47 04/29/18 04:00 04/29/18 04:14 Temperature 98.5 F Pulse Rate 109 H 118 H Respiratory Rate 16 20 Blood Pressure 135/80 Pulse Oximetry 94 L 04/29/18 10:00 Temperature 98.1 F Pulse Rate 102 H Respiratory Rate 18 Blood Pressure 197/104 H Pulse Oximetry 93 L Intake & Output 04/28/18 04/29/18 04/29/18 18:59 06:59 18:59 Intake Total 1800 / 1800 1340 / 1340 Output Total 3640 / 3640 Balance 1800 / 1800 -2300 / -2300 Weight 100.3 kg Intake: IV 1800 / 1800 1100 / 1100 Sodium Bicarbonate 8.4% Inj 100 1100 / 1100 MEQ In 1/2 Normal Saline Inj 1 ,000 ML @ 125 mls/hr IV.CONT . Q8H48M [facility]OK Rx#:[id number] 1/2 Normal Saline Inj 1,000 ML 1700 / 1700 @ 125 mls/hr IV.CONT .Q8H [facility]OK Rx#:[id number] Levaquin 500 mg Premix Inj 500 100 / 100 mg In 100 ml @ 0 mls/hr IV.SIG .[facility] Rx#:[id number] Oral 240 / 240 Output: Urine Amount (Catheter) 150 / 150 Indwelling Urethral Catheter 150 / 150 Wound Drainage 3490 / 3490 Left Nephrostomy 1800 / 1800 right nephrostomy 1690 / 1690 Other: Date of Last Bowel Movement 04/18/18 04/18/18 Narrative: GENERAL: Patient sleeping, woke up for exam. Appears comfortable. Hematuria continues in Roa bag as before, minimal urine output. Nephrostomy in place with straw-colored urine. CARDIOVASCULAR: Regular rate and rhythm without murmurs, gallops, or rubs. RESPIRATORY: Breath sounds equal bilaterally. No accessory muscle use. GASTROINTESTINAL: Abdomen soft, tender to palpation diffusely. MUSCULOSKELETAL: No cyanosis, or edema. - Urinary Catheter Management Indwelling Urethral Catheter Cath placed during this visit: yes Reason for continuing: Gross Hematuria Insertion date: 04/25/18 Results - Labs CBC & Chem 7: 04/29/18 05:27 04/29/18 05:27 Laboratory Results - last 24 hr 04/28/18 04/28/18 04/28/18 18:50 18:50 23:06 WBC RBC Hgb Hct MCV MCH MCHC RDW Plt Count MPV Prelim Diff (Auto) Neut % (Auto) Lymph % (Auto) [place] % (Auto) Eos % (Auto) Baso % (Auto) Neut # (Auto) Lymph # (Auto) [place] # (Auto) Eos # (Auto) Baso # (Auto) WBC Differential Seg Neuts % (Manual) Band Neuts % (Manual) Monocytes % (Manual) Eosinophils % (Manual) Basophils % (Manual) Metamyelocytes % (Man) Abs Neuts (Manual) Differential Comment Platelet Estimate Platelet Morphology Sodium Potassium Chloride Carbon Dioxide Anion Gap BUN Creatinine Estimated GFR POC Glucose 94 Random Glucose Calcium Phosphorus Magnesium Albumin Urine Color [place] H Yellow Urine Clarity Cloudy H Cloudy H Urine pH 6.0 5.0 Ur Specific [place] 1.013 1.013 Urine Protein 100 H 30 H Urine Glucose (UA) Negative Negative Urine Ketones Trace H Negative Urine Occult Blood Large H Large H Urine Nitrate Negative Negative Urine Bilirubin Negative Negative Urine Urobilinogen Less than 2 Less than 2 Ur Leukocyte Esterase Trace H Trace H Urine RBC 100 H Urine WBC 1 Uric Acid Crystals Few H Micro UA Comment Culture not ind Culture not ind Urine Culture Comments Culture not ind Culture not ind 04/29/18 04/29/18 05:27 05:27 WBC 18.8 H RBC 3.34 L Hgb 9.2 L Hct 28.5 L MCV 85.2 MCH 27.4 MCHC 32.1 RDW 15.8 Plt Count 125 L MPV 8.4 Prelim Diff (Auto) Slide review pending Neut % (Auto) 86.4 H Lymph % (Auto) 2.[address] [place] % (Auto) 5.4 Eos % (Auto) 2.7 Baso % (Auto) 3.1 H Neut # (Auto) 16.3 H Lymph # (Auto) 0.[address] # (Auto) 1.0 H Eos # (Auto) 0.5 H Baso # (Auto) 0.6 H WBC Differential Manual diff final Seg Neuts % (Manual) 92 H Band Neuts % (Manual) 4 Monocytes % (Manual) 1 Eosinophils % (Manual) 1 Basophils % (Manual) 1 Metamyelocytes % (Man) 1 Abs Neuts (Manual) 18.2 H Differential Comment . Platelet Estimate Low L Platelet Morphology Normal Sodium 151 H Potassium 4.1 D Chloride 122 H D Carbon Dioxide 18.1 L Anion Gap 11 BUN 61 H Creatinine 2.08 H Estimated GFR 24 L POC Glucose Random Glucose 106 Calcium 9.1 Phosphorus 3.7 D Magnesium 1.8 D Albumin 1.8 L Urine Color Urine Clarity Urine pH Ur Specific [place] Urine Protein Urine Glucose (UA) Urine Ketones Urine Occult Blood Urine Nitrate Urine Bilirubin Urine Urobilinogen Ur Leukocyte Esterase Urine RBC Urine WBC Uric Acid Crystals Micro UA Comment Urine Culture Comments Microbiology 04/28/18 16:40 Blood - Peripheral Aerobic Blood Culture - Preliminary No growth in 1 day 04/28/18 16:40 Blood - Peripheral Anaerobic Blood Culture - Final QNS - See aerobic report. 04/28/18 16:35 Blood - Peripheral Aerobic Blood Culture - Preliminary No growth in 1 day 04/28/18 16:35 Blood - Peripheral Anaerobic Blood Culture - Final QNS - See aerobic report. 04/27/18 12:30 Catheterized Urine Urine Culture - Final No growth in 48 hours - Imaging Impressions Nephrostomy 04/28/18 00:00 CONCLUSION: 1. Uncomplicated bilateral nephrostomy tube placement as above. Assessment and Plan - Plan 67-year-old female with: Cervical cancer with metastatic disease: Invasive squamous cell carcinoma. Patient reports she has not previously had imaging done. T of the abdomen/ pelvis significant for retroperitoneal metastatic lymphadenopathy, metastatic disease of the visualized lung bases, metastatic lytic lesion of the right pubic bone with nondisplaced pathologic fracture and a large mass in the urinary bladder. The patient was made aware of her CT scan findings. 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 Status post surgery on . Appreciate [employer] Former/ONC, urology assistance. Continues with [facility].04/28. Bilateral nephrostomy tubes placed. - Radiation therapy ongoing -Renal functions improving. Abnormal urinalysis: Negative. Patient was put on empiric antibiotics. Leukocytosis persisting. ID following. Leukocytosis of 19. 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 Infectious disease following. On Levaquin and Diflucan. Discontinue vancomycin. Further plans per ID. Acute kidney injury secondary to obstructive uropathy: Much improved status post bilateral nephrostomy tubes. Creatinine 2.02, no baseline for comparison IV fluid hydration Monitor renal function Continue to monitor. Nephrology and urology following. Intractable abdominal pain: Pain not well controlled. However she gets over sedated with Dilaudid. -Change pain medications to Percocet as needed, scheduled oral morphine and IV morphine for breakthrough pain. prophy : SCDs. Holding AC for now due to hematuria Discharge Planning: Will likely need home health versus SNF placement.
[2018-04-29] MEDS: Morphine Inj 4 MG/ML Vial IV.PUSH PRN ×3 (11:48→20:55)
[2018-04-29] MEDS: Levofloxacin 250 mg Premix Inj 250 MG/50 ML PIGGYBACK IV.SIG SCH (11:54)
[2018-04-29] MEDS: Morphine Sulfate 15 MG SR Tablet PO SCH ×2 (13:56→23:31)
[2018-04-29] MEDS: Belladonna Alkaloid/Opium 60 MG Supp RECTAL PRN (21:09)
[2018-04-30] MEDS: Morphine Inj 4 MG/ML Vial IV.PUSH PRN ×4 (01:33→21:37)
[2018-04-30] MEDS: Sodium Bicarbonate 8.4% Inj 100 MEQ in Sodium Chloride 0.45 % Inj 1,000 ML IV.CONT SCH ×2 (04:38→04:42)
[2018-04-30] MEDS: oxyCODONE/Acetaminophen 10/325 Tablet PO PRN ×2 (04:42→10:03)
[2018-04-30] MEDS: Morphine Sulfate 15 MG SR Tablet PO SCH ×3 (05:46→15:08)
[2018-04-30 06:13] LABS: Baso # (Auto) 0.2 th/mm3 (0.0-0.2); Eos # (Auto) 0.7 th/mm3 (0.0-0.4); Eos % (Auto) 4.4 % (0.0-4.0); Hematocrit 27.5 % (35.0-46.0); Hemoglobin 8.9 gm/dL (11.6-15.3); Lymph # (Auto) 0.5 th/mm3 (1.0-4.8); Lymph % (Auto) 3.3 % (9.0-44.0); Mean Corpuscular HGB Conc 32.5 % (32.0-36.0); Mean Corpuscular Hemoglobin 27.5 pg (27.0-34.0); Mean Corpuscular Volume 84.6 fL (80.0-100.0); Mean Platelet Volume 9.2 fL (7.0-11.0); Mono # (Auto) 0.9 th/mm3 (0.0-0.9); Mono % (Auto) 5.6 % (0.0-8.0); Neut # (Auto) 14.4 th/mm3 (1.8-7.7); Neut % (Auto) 85.7 % (16.0-70.0); Platelet Count 121 th/mm3 (150-450); Red Blood Count 3.25 mil/mm3 (4.00-5.30); Red Cell Distribution Width 15.6 % (11.6-17.2); White Blood Count 16.8 th/mm3 (4.0-11.0)
[2018-04-30 07:04] LABS: Alanine Aminotransferase 49 U/L (10-53); Albumin 1.7 g/dL (3.4-5.0); Alkaline Phosphatase 194 U/L (45-117); Anion Gap 10 meq/L (5-15); Aspartate Aminotransferase 353 U/L (15-37); Blood Urea Nitrogen 39 mg/dL (7-18); Calcium 9.1 mg/dL (8.5-10.1); Carbon Dioxide 24.4 meq/L (21.0-32.0); Chloride 122 meq/L (98-107); Glomerular Filtration Rate 64 mL/min (>89); Glucose,Random 101 mg/dL (74-106); Magnesium 1.7 mg/dL (1.5-2.5); Phosphorus 2.4 mg/dL (2.5-4.9); Potassium 3.7 meq/L (3.5-5.1)
[2018-04-30 07:17] LABS: Sodium 156 meq/L (136-145)
--- NOTE | 2018-04-30 09:20 | P.PNNP ---
Subjective Interval history: excellent UOP Tired today Physical Exam Vital signs: Vital Signs 04/29/18 10:00 04/29/18 12:21 04/29/18 17:15 Temperature 98.1 F 98.9 F 99.3 F Pulse Rate 102 H 102 H 102 H Respiratory Rate 18 20 18 Blood Pressure 197/104 H 149/86 H 111/78 Pulse Oximetry 93 L 93 L 91 L 04/29/18 20:51 04/29/18 20:57 04/29/18 23:51 Temperature 97.7 F 98.4 F Pulse Rate 98 H 103 H Respiratory Rate 20 18 22 Blood Pressure 173/99 H 179/88 H Pulse Oximetry 95 94 L 04/30/18 00:00 04/30/18 00:13 04/30/18 01:53 Temperature Pulse Rate Respiratory Rate 20 18 Blood Pressure 160/89 H Pulse Oximetry 04/30/18 04:40 04/30/18 05:12 04/30/18 05:44 Temperature 98.5 F Pulse Rate 108 H 101 H Respiratory Rate 22 20 20 Blood Pressure 180/91 H 141/87 H Pulse Oximetry 93 L 94 L 04/30/18 06:16 04/30/18 07:56 Temperature Pulse Rate 96 H Respiratory Rate 18 Blood Pressure Pulse Oximetry Intake & Output 04/29/18 04/30/18 04/30/18 18:59 06:59 18:59 Intake Total 1510 / 1510 1100 / 1100 Output Total 1275 / 1275 1100 / 1100 Balance 235 / 235 0 / 0 Weight 97.5 kg Intake: IV 1150 / 1150 1100 / 1100 Sodium Bicarbonate 8.4% Inj 100 1100 / 1100 1100 / 1100 MEQ In 1/2 Normal Saline Inj 1 ,000 ML @ 125 mls/hr IV.CONT . Q8H48M [facility] Rx#:[id number] Levaquin 250 mg Premix Inj 250 50 / 50 mg In 50 ml @ 50 mls/hr IV.SIG Q24H [facility] Rx#:[id number] Oral 360 / 360 Output: Urine 650 / 650 Urine Amount (Catheter) 120 / 120 Indwelling Urethral Catheter 120 / 120 Wound Drainage 625 / 625 980 / 980 Left Nephrostomy 525 / 525 480 / 480 right nephrostomy 100 / 100 500 / 500 Other: # Incontinent Voids 3 - Constitutional no acute distress - Routine HEENT Exam Head: Present: normocephalic Eye: Present: EOMI ENT: Present: mucous membranes moist - Routine Neck Exam Present: supple - Routine Respiratory Exam Present: CTA bilaterally - Routine Cardiovascular Exam Present: RRR - Routine Abdominal Exam Present: soft - Routine Skin Exam Present: intact - Detailed Neurological Exam: Coma Scale Eye Opening: Spontaneous - Routine Psychiatric Exam Present: unable to assess - Urinary Catheter Management Indwelling Urethral Catheter Cath placed during this visit: yes Reason for continuing: Gross Hematuria Insertion date: 04/25/18 Assessment and Plan - Assessment (1) KALI (acute kidney injury) Code(s): N17.9 - Acute kidney failure, unspecified Status: Acute (2) Cervical cancer Code(s): C53.9 - Malignant neoplasm of cervix uteri, unspecified Status: Acute - Plan Patient has large bladder mass, cervical cancer Hydronephrosis Bilateral percutaneous nephrostomy tubes placed with exelleent UOP. Creatinine improved to 0.88 now.. High volume UOP with relative urinary free water losses - Na 156 now. Will change IVFs to D5W at 100cc/hour. Continue to follow Renal panel
[2018-04-30] MEDS: Levofloxacin 250 mg Premix Inj 250 MG/50 ML PIGGYBACK IV.SIG SCH (10:03)
[2018-04-30] MEDS: Fluconazole 100 MG Tablet PO SCH (10:04)
[2018-04-30] MEDS: Senna/Docusate Sodium 8.6/50 MG Tablet PO SCH ×2 (10:04→20:18)
[2018-04-30] MEDS: Dextrose 5% in Water Inj 1,000 ML IV.CONT SCH (10:21)
--- NOTE | 2018-04-30 10:21 | P.PNIM ---
Subjective Interval history: Pain better controlled this morning. Na is elevated. Physical Exam Vital signs: Vital Signs 04/29/18 12:21 04/29/18 17:15 04/29/18 20:51 Temperature 98.9 F 99.3 F 97.7 F Pulse Rate 102 H 102 H 98 H Respiratory Rate 20 18 20 Blood Pressure 149/86 H 111/78 173/99 H Pulse Oximetry 93 L 91 L 95 04/29/18 20:57 04/29/18 23:51 04/30/18 00:00 Temperature 98.4 F Pulse Rate 103 H Respiratory Rate 18 22 20 Blood Pressure 179/88 H Pulse Oximetry 94 L 04/30/18 00:13 04/30/18 01:53 04/30/18 04:40 Temperature 98.5 F Pulse Rate 108 H Respiratory Rate 18 22 Blood Pressure 160/89 H 180/91 H Pulse Oximetry 93 L 04/30/18 05:12 04/30/18 05:44 04/30/18 06:16 Temperature Pulse Rate 101 H Respiratory Rate 20 20 18 Blood Pressure 141/87 H Pulse Oximetry 94 L 04/30/18 07:56 04/30/18 08:00 Temperature 98.7 F Pulse Rate 96 H 105 H Respiratory Rate 20 Blood Pressure 168/89 H Pulse Oximetry 95 Intake & Output 04/29/18 04/30/18 04/30/18 18:59 06:59 18:59 Intake Total 1510 / 1510 1100 / 1100 Output Total 1275 / 1275 1100 / 1100 Balance 235 / 235 0 / 0 Weight 97.5 kg Intake: IV 1150 / 1150 1100 / 1100 Sodium Bicarbonate 8.4% Inj 100 1100 / 1100 1100 / 1100 MEQ In 1/2 Normal Saline Inj 1 ,000 ML @ 125 mls/hr IV.CONT . Q8H48M [facility] Rx#:[id number] Levaquin 250 mg Premix Inj 250 50 / 50 mg In 50 ml @ 50 mls/hr IV.SIG Q24H [facility] Rx#:[id number] Oral 360 / 360 Output: Urine 650 / 650 Urine Amount (Catheter) 120 / 120 Indwelling Urethral Catheter 120 / 120 Wound Drainage 625 / 625 980 / 980 Left Nephrostomy 525 / 525 480 / 480 right nephrostomy 100 / 100 500 / 500 Other: # Incontinent Voids 3 Narrative: GENERAL: Patient sleeping, woke up for exam. Hematuria continues in Roa bag as before, minimal urine output. Nephrostomy in place with straw-colored urine on the left and pink on the right. CARDIOVASCULAR: Regular rate and rhythm without murmurs, gallops, or rubs. RESPIRATORY: Breath sounds equal bilaterally. No accessory muscle use. GASTROINTESTINAL: Abdomen soft, tender to palpation diffusely. MUSCULOSKELETAL: No cyanosis, or edema. - Urinary Catheter Management Indwelling Urethral Catheter Cath placed during this visit: yes Reason for continuing: Gross Hematuria Insertion date: 04/25/18 Results - Labs CBC & Chem 7: 04/30/18 05:55 04/30/18 05:55 Laboratory Results - last 24 hr 04/30/18 04/30/18 05:55 05:55 WBC 16.8 H RBC 3.25 L Hgb 8.9 L Hct 27.5 L MCV 84.6 MCH 27.5 MCHC 32.5 RDW 15.6 Plt Count 121 L MPV 9.2 Neut % (Auto) 85.7 H Lymph % (Auto) 3.3 L [place] % (Auto) 5.6 Eos % (Auto) 4.4 H Baso % (Auto) 1.0 Neut # (Auto) 14.4 H Lymph # (Auto) 0.5 L [place] # (Auto) 0.9 Eos # (Auto) 0.7 H Baso # (Auto) 0.2 WBC Differential . Differential Comment Auto diff final Sodium 156 H* Potassium 3.7 Chloride 122 H Carbon Dioxide 24.4 Anion Gap 10 BUN 39 H Creatinine 0.88 Estimated GFR 64 L Random Glucose 101 Calcium 9.1 Phosphorus 2.4 L D Magnesium 1.7 Total Bilirubin 0.4 AST 353 H ALT 49 Alkaline Phosphatase 194 H Total Protein 5.0 L Albumin 1.7 L Microbiology 04/28/18 16:40 Blood - Peripheral Aerobic Blood Culture - Preliminary No growth in 1 day 04/28/18 16:40 Blood - Peripheral Anaerobic Blood Culture - Final QNS - See aerobic report. 04/28/18 16:35 Blood - Peripheral Aerobic Blood Culture - Preliminary No growth in 1 day 04/28/18 16:35 Blood - Peripheral Anaerobic Blood Culture - Final QNS - See aerobic report. 04/27/18 12:30 Catheterized Urine Urine Culture - Final No growth in 48 hours Assessment and Plan - Plan 67-year-old female with: Cervical cancer with metastatic disease: Invasive squamous cell carcinoma. Patient reports she has not previously had imaging done. T of the abdomen/ pelvis significant for retroperitoneal metastatic lymphadenopathy, metastatic disease of the visualized lung bases, metastatic lytic lesion of the right pubic bone with nondisplaced pathologic fracture and a large mass in the urinary bladder. The patient was made aware of her CT scan findings. 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 Status post surgery on . Appreciate Income Tax Manager/ONC, urology assistance. Continues with [facility].04/28. Bilateral nephrostomy tubes placed. - Radiation therapy ongoing -Renal functions improving. Abnormal urinalysis: Negative. Patient was put on empiric antibiotics. Leukocytosis persisting. ID following. Leukocytosis: Likely secondary to malignancy and obstructive uropathy. Infectious disease following. On Levaquin and Diflucan. Discontinue vancomycin. Further plans per ID. Leukocytosis improving. Continue to monitor Acute kidney injury secondary to obstructive uropathy: Much improved status post bilateral nephrostomy tubes. Cr down to 0.8 IV fluid hydration Monitor renal function Continue to monitor. Nephrology and urology following. Hypernatremia: - Appreciate nephrology input. IV changed to D5 free water. - Follow labs in AM. Anemia secondary to blood loss: Ongoing blood loss from hematuria - Continue to monitor H&H. Transfuse for hemoglobin less than 7. Intractable abdominal pain: Pain better controlled with new regimen -Continue Percocet as needed, scheduled oral morphine and IV morphine for breakthrough pain. prophy : SCDs. Holding AC for now due to hematuria Discharge Planning: Will likely need home health versus SNF placement.
[2018-04-30] MEDS ORDERED: Potassium Phosphate Inj 30 MMOL in Sodium Chlor 0.9% Inj 250 ML IV.SIG ONE (11:00)
--- NOTE | 2018-04-30 17:02 | P.DIET ---
Nutritional Evaluation Type of nutrition evaluation: initial Nutrition consult regarding: Diet Evaluation (MDC for Poor PO Intake) Subjective Oral Diet Tolerance Assessment Indicates: Nausea, Vomiting, Poor intake due to pain Subjective Comments: Pt moaning in pain on my visit. Son and adopted daughter in room and able to answer questions. Pt was able to answer questions when pain temporarily subsided. Pt is not eating and family confirms this. Pt states she cannot eat because it's too painful. She c/o N/V/C. No trouble chewing/swallowing. Family brought in a smoothie for her and she took a small sip, but that was all. Requested ice chips when I was in room, which daughter provided her. Objective - Diagnosis Acute Kidney Injury, UTI, Cancer - Objective % IBW: 153 (DXR=504#) Body Weight Used for Calculations: Upper end of IBW (62.5kg) Energy Needs - Lower Range (kCal/kg): 28 Energy Needs - Upper Range (kCal/kg): 32 Lower Limit kCal/kg (kCals): 1,750 Upper Limit kCal/kg (kCals): 2,000 Lower Limit Protein Factor (Grams per Kg): 1.1 Upper Limit Protein Factor (Grams per Kg): 1.4 Lower Protein Needs (Protein): 69 Upper Protein Needs (Protein): 88 Fluid Factor (ml/kg): 30 Estimated Fluid Needs (ml): 1,875 Dietitian Reviewed in Medical Record: Current diet, Curent medications, Intake & Output, Labs, Medical history Diet Order: Full Liquids Oral Diet Intake Amount: Poor <50% Objective Comments: Meds: Zofran Labs: Na 156, Phosphorus 2.4, AST 353 (-) BM 04/27 XRT initiated, SCC arising from cervix Assessment Assessment: Pt admitted for KALI, UTI, and cancer. Pt diagnosed w/ squamous cell carcinoma arising from the cervix. She has bilateral nephrostomy tubes in place. Has c/o N /V/C. She says she does not feel hungry and does not want to eat b/c she is in too much pain. Pt has initiated XRT w/ possible chemo in the future per son. Pt is currently at high nutritional risk r/t new dx of cervical cancer, XRT and possible chemotherapy treatments, N/V, and very poor PO intake. If goals of care are aggressive, I would recommend nutrition support be initiated. Recommend enteral nutrition if medically able, otherwise recommend parenteral nutrition. Pt is not eating anything by mouth and is at nutritional risk when/ if chemotherapy is initiated. She will receive Ensure TID on her trays automatically since she's on a full liquid diet, but she states she does not want to drink them. Dietitian will continue to follow. Recommendations: 1. Recommend initiation of nutrition support. Enteral over parenteral if medically able. 2. Ensure TID automatically while on Full Liquids. Dietitian to Monitor: Lab values, Supplement acceptance, Intake & Output, Diet tolerance, Weight change, PO Intake, Diet advancement, Medical course
[2018-04-30] MEDS: Morphine Sulfate Oral Liq 10 MG/0.5 ML Syringe PO SCH ×2 (17:55→20:18)
[2018-05-01] MEDS: Morphine Sulfate Oral Liq 10 MG/0.5 ML Syringe PO SCH ×4 (00:23→13:15)
[2018-05-01] MEDS: Belladonna Alkaloid/Opium 60 MG Supp RECTAL PRN (00:24)
[2018-05-01] MEDS: Dextrose 5% in Water Inj 1,000 ML IV.CONT SCH ×3 (02:56→16:40)
[2018-05-01 05:57] LABS: Hematocrit 26.7 % (35.0-46.0); Hemoglobin 8.6 gm/dL (11.6-15.3); Mean Corpuscular HGB Conc 32.3 % (32.0-36.0); Mean Corpuscular Hemoglobin 27.7 pg (27.0-34.0); Mean Corpuscular Volume 85.6 fL (80.0-100.0); Mean Platelet Volume 9.1 fL (7.0-11.0); Platelet Count 108 th/mm3 (150-450); Red Blood Count 3.12 mil/mm3 (4.00-5.30); Red Cell Distribution Width 16.1 % (11.6-17.2); White Blood Count 15.1 th/mm3 (4.0-11.0)
[2018-05-01 06:19] LABS: Alanine Aminotransferase 49 U/L (10-53); Albumin 1.6 g/dL (3.4-5.0); Alkaline Phosphatase 189 U/L (45-117); Anion Gap 7 meq/L (5-15); Aspartate Aminotransferase 322 U/L (15-37); Blood Urea Nitrogen 29 mg/dL (7-18); Calcium 8.8 mg/dL (8.5-10.1); Carbon Dioxide 27.6 meq/L (21.0-32.0); Chloride 121 meq/L (98-107); Glomerular Filtration Rate 72 mL/min (>89); Glucose,Random 124 mg/dL (74-106); Magnesium 1.7 mg/dL (1.5-2.5); Phosphorus 2.5 mg/dL (2.5-4.9); Potassium 3.8 meq/L (3.5-5.1); Total Protein 4.8 g/dL (6.4-8.2)
[2018-05-01 06:39] LABS: Sodium 156 meq/L (136-145)
[2018-05-01] MEDS: Fluconazole 100 MG Tablet PO SCH (09:10)
[2018-05-01] MEDS: Levofloxacin 250 mg Premix Inj 250 MG/50 ML PIGGYBACK IV.SIG SCH (09:11)
[2018-05-01] MEDS: Senna/Docusate Sodium 8.6/50 MG Tablet PO SCH ×2 (09:12→20:42)
--- NOTE | 2018-05-01 09:13 | P.PNONC ---
Subjective Interval history: diet aide/onc progress note patient resting in bed with granddaughter at bedside states her pain is controlled at this time She is much more awake and answering questions today compared to last Tuesday Her granddaughter states she was still lethargic and confused over the weekend but she agrees she is much improved today Palliative Care has been consulted to help clarify goals, help with pain management, and help patient/family establish health care surrogate. questions answered Objective Vital Signs/Intake & Output: Vital Signs 04/30/18 11:47 04/30/18 12:00 04/30/18 15:06 Temperature 98.0 F 99.1 F Pulse Rate 92 H 92 H 100 H Respiratory Rate 20 20 Blood Pressure 144/84 H 165/90 H Pulse Oximetry 97 95 04/30/18 16:00 04/30/18 20:00 04/30/18 20:17 Temperature 97.6 F Pulse Rate 95 H 93 H 93 H Respiratory Rate 20 20 Blood Pressure 167/90 H Pulse Oximetry 96 04/30/18 22:13 05/01/18 00:00 05/01/18 00:07 Temperature 97.6 F Pulse Rate 102 H 98 H Respiratory Rate 18 22 Blood Pressure 163/91 H Pulse Oximetry 95 05/01/18 00:53 05/01/18 04:00 05/01/18 04:10 Temperature 97.5 F L Pulse Rate 103 H 106 H Respiratory Rate 19 20 Blood Pressure 153/84 H Pulse Oximetry 95 05/01/18 05:45 05/01/18 07:38 Temperature 98.3 F Pulse Rate 97 H Respiratory Rate 18 20 Blood Pressure 164/87 H Pulse Oximetry 95 Intake & Output 04/30/18 05/01/18 05/01/18 18:59 06:59 18:59 Intake Total 310 / 310 2340 / 2340 Output Total 750 / 750 900 / 900 Balance -440 / -440 1440 / 1440 Weight 99.8 kg Intake: IV 310 / 310 2100 / 2100 D5W Inj 1,000 ML @ 100 mls/hr 1000 / 1000 IV.CONT .Q10H ALOK Rx#:[id number] Levaquin 250 mg Premix Inj 250 50 / 50 mg In 50 ml @ 50 mls/hr IV.SIG Q24H ALOK Rx#:[id number] Potassium Phosphate Inj 30 MMOL 260 / 260 In NS Inj 250 ML @ 43.333 mls/ hr IV.SIG ONCE ONE Rx#:[id number] Oral 240 / 240 Output: Urine Amount (Catheter) 125 / 125 Indwelling Urethral Catheter 125 / 125 Wound Drainage 750 / 750 775 / 775 Left Nephrostomy 350 / 350 325 / 325 right nephrostomy 400 / 400 450 / 450 Result Diagrams: 05/01/18 05:28 05/01/18 05:28 Laboratory Results: Laboratory Results - last 24 hr 05/01/18 05/01/18 05:28 05:28 WBC 15.1 H RBC 3.12 L Hgb 8.6 L Hct 26.7 L MCV 85.6 MCH 27.7 MCHC 32.3 RDW 16.1 Plt Count 108 L MPV 9.1 Sodium 156 H* Potassium 3.8 Chloride 121 H Carbon Dioxide 27.6 Anion Gap 7 BUN 29 H Creatinine 0.80 Estimated GFR 72 L Random Glucose 124 H Calcium 8.8 Phosphorus 2.5 Magnesium 1.7 Total Bilirubin 0.3 AST 322 H ALT 49 Alkaline Phosphatase 189 H Total Protein 4.8 L Albumin 1.6 L Culture Results: Microbiology 04/28/18 16:40 Aerobic Blood Culture - Preliminary Blood - Peripheral No growth in 2 days Anaerobic Blood Culture - Final QNS - See aerobic report. 04/28/18 16:35 Aerobic Blood Culture - Preliminary Blood - Peripheral No growth in 2 days Anaerobic Blood Culture - Final QNS - See aerobic report. 04/27/18 12:30 Urine Culture - Final Catheterized Urine No growth in 48 hours Medications: Active Medications Generic Name Dose Route Start Last Admin Trade Name Freq PRN Reason Stop Dose Admin Belladonna Alkaloids/Opium 60 mg 04/29/18 20:31 05/01/18 00:24 B & O Supp RECTAL 60 mg Q6HR PRN Administration BLADDER SPASM Clonidine HCl 0.1 mg 04/24/18 15:37 05/01/18 00:24 Catapres PO 0.1 mg Q6H PRN Administration SBP>160, DBP>90 Fluconazole 100 mg 04/29/18 09:00 04/30/18 10:04 Diflucan PO 100 mg DAILY ALOK Administration Levofloxacin/Dextrose 250 mg in 50 mls @ 50 mls/hr 04/29/18 09:00 04/30/18 11 :03 Levaquin 250 Mg Premix Inj IV.SIG Infused Q24H ALOK Infusion Dextrose 1,000 mls @ 100 mls/hr 04/30/18 09:30 05/01/18 05:29 D5w Inj IV.CONT Not Given .Q10H ALOK Morphine Sulfate 5 mg 04/30/18 16:15 05/01/18 05:16 Roxanol Liq PO 5 mg Q4HR ALOK Administration Morphine Sulfate 4 mg 04/30/18 16:28 04/30/18 21:37 Morphine Inj IV.PUSH 4 mg Q3H PRN Administration BREAKTHROUGH PAIN Ondansetron HCl 4 mg 04/24/18 12:00 05/01/18 05:16 Zofran Inj IV.PUSH 4 mg Q4HR ALOK Administration Oxycodone/Acetaminophen 1 tab 04/29/18 11:16 04/30/18 10:03 Percocet 10/325 Mg PO 1 tab Q4H PRN Administration PAIN SCALE 6 TO 10 Senna/Docusate Sodium 1 tab 04/22/18 21:00 04/30/18 20:18 Marta-Colace PO 1 tab BID ALOK Administration Sodium Chloride 2 ml 04/22/18 17:26 04/24/18 01:38 Ns Flush IV.FLUSH 2 ml PRN PRN Administration FLUSH AFTER USING IV ACCESS Objective Remarks: GENERAL: Well-nourished, well-developed patient. SKIN: Warm and dry. HEAD: Normocephalic. EYES: No scleral icterus. No injection or drainage. CARDIOVASCULAR: Regular rate and rhythm without murmurs. RESPIRATORY: Breath sounds equal bilaterally. No accessory muscle use. EXTREMITIES: SCDs MUSCULOSKELETAL: Adequate muscle tone. NEUROLOGICAL: No obvious focal deficit. Awake, alert, and oriented x3. PSYCHIATRIC: Appropriate mood and affect; insight and judgment normal. Assessment/Plan (1) KALI (acute kidney injury) Code(s): N17.9 - Acute kidney failure, unspecified Status: Acute (2) Vaginal bleeding, abnormal Code(s): N93.9 - Abnormal uterine and vaginal bleeding, unspecified Status: Acute - Plan s/p EUA D/C with bx final pathology pending primary cervix vs. bladder Dr. Fulton to start radiation for pelvic tumor then consideration of IV chemo for metastatic disease once kidney function has improved. Roa in place, urology following creat improved, percutaneous nephrostomy tubes if needed for poor kidney function daily labs continue IVF and supportive care 8/17/18: patient declined overnight with lethargy and confusion worsening BUN/Creat, percutaneous nephrostomy tubes placed, with good urine output extensive conversation with her son Dion day #2 radiation any IV chemotherapy in the future will be based on patient's overall improved in performance status and kidney function daily labs IV hydration consideration of Palliative Care consult, will discuss again on Tuesday urology and nephrology following ID following, IV abx: Flagy and Levaquin, cultures ordered. 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
--- NOTE | 2018-05-01 09:44 | P.CONPAL ---
Consult Service: Palliative Care Requesting Physician: Aziza Saul Reason for Consult: a. To assist with evaluation and management of symptoms including: pain, nausea , constipation b. To assist medical decision maker(s) with: better understanding of current medical conditions; weighing benefits/burdens of medical treatment options; making medical treatment decisions. Primary Care Provider: UNKNOWN History of Present Illness History of Present Illness: Ms. Casanova is a 67 year old female with cervical cancer who presented to [facility] ED on 04/22/2018 with complaints of abdominal pain with vaginal bleeding. She was diagnosed with cervical cancer approximately 2 months ago but has not yet seen [facility]. Patient reported progressively worsening abdominal pain that had become intolerable as well as lower back pain. Abdominal pain was described as constant, diffuse cramping and fullness. The patient also reported nausea and vomiting for several days; no bowel movement 5 days. Additional diagnostic data: * Vital signs: Pulse 91, respirations 17, BP 146/86, oxygen saturation 94% on room air and oral temperature of 98.1 * WBC: 15.4, hemoglobin 11.8, hematocrit 35.6, platelets 235, neutrophils 85.7% * Sodium: 138, potassium 3.9, chloride 103, glucose 86, calcium 10.7 * BUN: 43, creatinine 2.02, GFR 25 * Total bilirubin: 0.3, AST 235, ALT 31, alkaline phosphatase 118 * Total protein: 6.7, albumin 2.7 * UA consistent with UTI; subsequent urine culture was negative. * CT chest revealed diffuse bilateral metastatic disease in the lungs; diffuse hilar and mediastinal adenopathy consistent with neoplastic disease; diffuse para-aortic adenopathy in the abdomen. * CT abdomen/pelvis showed an enlarged uterus and cervix; retroperitoneal metastatic lymphadenopathy; metastatic disease is visualized and lung bases; metastatic lytic lesion was noted on the right pubic bone with a nondisplaced pathological fracture; large mass or blood/debris in the urinary bladder; 17 mm hypodensity of the liver is probably benign. There is slight fatty infiltration. Large gallstone without associated complication. Patient was admitted for further evaluation and medical management of cervical cancer with metastatic disease, suspected UTI (started on Rocephin), and acute kidney injury (creatinine 2.02) as well as pain control (started on oxycodone 10 mg every 4 hours PRN) Radiation oncologist, Dr. Stout evaluated the patient to discuss palliative radiation for management of pain in the pelvic area as well as bleeding control; patient wanted to proceed accordingly. Nephrology was consulted when the patient's creatinine increased from 2.02 admission to 3.7. An ultrasound of the abdomen on 04/24/2018 showed a large lobular mass in the bladder concerning for bladder carcinoma; bilateral hydronephrosis. Urology was consulted. The patient was taken to the OR on 04/25/2018; Mayur Worley ([facility]), Dr. Fulton (radiation oncology) and Dr Grajeda (urology) were in attendance. Initial exam, under anesthesia, showed an obvious tumor mass blocking the outflow of the urethra. The visual and palpable portion of the mass was approximately 2 cm but there was nodularity and tumor infiltration along the vesicovaginal septum at the apex of the vagina. There was a large volume of necrotic tumor that had essentially replaced the cervix and upper vagina. There was also implanted in the distal vagina and in the upper rectovaginal septum. Cystoscopy revealed marked abnormalities throughout the bladder; unable to place bilateral ureteral stents. Multiple of the vagina, periurethral tissue and cervix revealed extensively necrotic tissue with invasive squamous cell carcinoma. Patient underwent bilateral nephrostomy tube placement on 04/28/2018. IV antibiotics were administer prophylactically prior to the procedure. Afebrile; however WBC trending upward at 21,000. Infectious disease was consulted for recommendations. Patient was started on Levaquin and Diflucan. Blood and urine cultures were negative Patient appears painful on exam, grimacing and moaning. She reports ongoing severe, diffuse abdominal pain rated 10/10. Patient was unable to describe the pain at the time of exam. We discussed changing her medications in an attempt to improve symptom management of pain; patient was amenable to changes. Percocet and scheduled morphine were discontinued. The patient was started on methadone 5 mg PO q12 hours ATC. PRN medications were changed to morphine 5 mg PO (pain rated 1-5) or 10mg PO (pain rated 6-10) q3 hours PRN and IV morphine 5mg q3 hours for pain that is not managed with oral medications. Patient also complaining of intermittent nausea and constipation which are being managed with medication. Briefly discussed the importance of her advance directives. Healthcare designation form and living will were left at the patient's bedside to review. Function/Cognitive Trajectory: Patient was living independently in her own home prior to this hospitalization. Review of Systems other (Limited ROS due to patient;s severe pain) Constitutional: Reports other (Decreased appetite) Ears, Nose, Mouth, and Throat: Denies mouth lesions, Denies mouth pain Cardiovascular: Denies shortness of breath Gastrointestinal: Reports abdominal pain, Reports constipation, Reports nausea Genitourinary: Reports blood in urine Psychiatric: Reports anxiety [facility] - History History Provided By: Patient - Medical History Medical History: Medical History (Last Updated 05/01/18 @ 09:43 by CHEVY Alexis) Arthritis Breast CA Cervical ca Fibromyalgia Gallstone History of migraine - Surgical History Surgical History: Surgical History (Last Updated 05/01/18 @ 09:42 by CHEVY Alexis) Status post wrist surgery (Acute) History of tonsillectomy (Acute) S/P breast lumpectomy S/P dilatation and curettage - Family History Family History: Family History (Last Reviewed 04/23/18 @ 09:51 by Earle Rodríguez) Other Diabetes mellitus - Tobacco History Second Hand Smoke Exposure: No Tobacco Use In Past 30 Days: No Smoking Status: Former smoker (Remote smoking history. 35 pack year smoking history, quit in 2006) - Alcohol History How Often Do You Have a Drink Containing Alcohol: Never - Substance Use History Substance History: No History of Abuse - Substance Use Type Marijuana Status: Active Route Used: By Mouth - Travel History Recent Travel in the [place] Within the Last 8 Weeks: No Recent Travel Out of the Country Within the Last 8 Weeks: No - Immunization History Tetanus Immunization: Unsure Hx Influenza Vaccine This Season: No Medications and Allergies Active Medications: Active Medications Acetaminophen (Tylenol) 650 mg PO Q4H PRN PRN Reason: Temp > 100.4 Al Hydroxide/Mg Hydroxide (Milk Of Magnesia Liq) 30 ml PO Q12H PRN PRN Reason: Mild Constipation Belladonna Alkaloids/Opium (B & O Supp) 60 mg RECTAL Q6HR PRN PRN Reason: BLADDER SPASM Last Admin: 05/01/18 00:24 Dose: 60 mg Bisacodyl (Dulcolax Supp) 10 mg RECTAL DAILY PRN PRN Reason: SEVERE CONSITIPATION Clonidine HCl (Catapres) 0.1 mg PO Q6H PRN PRN Reason: SBP>160, DBP>90 Last Admin: 05/01/18 00:24 Dose: 0.1 mg Fluconazole (Diflucan) 100 mg PO DAILY [facility] Last Admin: 05/01/18 09:10 Dose: 100 mg Heparin Sodium (Porcine) (Heparin Central Flush) 500 unit IV.FLUSH PRN PRN PRN Reason: Flush infusaport Heparin Sodium (Porcine) (Heparin Central Flush) 250 unit IV.FLUSH PRN PRN PRN Reason: Flush Infusapot Levofloxacin/Dextrose (Levaquin 250 Mg Premix Inj) 250 mg in 50 mls @ 50 mls/ hr IV.SIG Q24H [facility] Last Admin: 05/01/18 09:11 Dose: 100 mls/hr Dextrose (D5w Inj) 1,000 mls @ 100 mls/hr IV.CONT .Q10H [facility] Last Admin: 05/01/18 05:29 Dose: Not Given Lactulose (Lactulose Liq) 30 ml PO DAILY PRN PRN Reason: SEVERE CONSITIPATION Last Admin: 05/01/18 09:10 Dose: 30 ml Morphine Sulfate (Roxanol Liq) 5 mg PO Q4HR [facility] Last Admin: 05/01/18 09:10 Dose: 5 mg Morphine Sulfate (Morphine Inj) 4 mg IV.PUSH Q3H PRN PRN Reason: BREAKTHROUGH PAIN Last Admin: 04/30/18 21:37 Dose: 4 mg Ondansetron HCl (Zofran Odt) 4 mg PO Q6H PRN PRN Reason: NAUSEA OR VOMITING Ondansetron HCl (Zofran Inj) 4 mg IV.PUSH Q4HR [facility] Last Admin: 05/01/18 09:11 Dose: 4 mg Oxycodone/Acetaminophen (Percocet 10/325 Mg) 1 tab PO Q4H PRN PRN Reason: PAIN SCALE 6 TO 10 Last Admin: 04/30/18 10:03 Dose: 1 tab Promethazine HCl (Phenergan) 25 mg PO Q6H PRN PRN Reason: NAUSEA OR VOMITING Promethazine HCl (Phenergan Supp) 25 mg RECTAL Q6H PRN PRN Reason: NAUSEA OR VOMITING Senna/Docusate Sodium (Marta-Colace) 1 tab PO BID [facility] Last Admin: 05/01/18 09:12 Dose: 1 tab Sennosides (Senokot) 17.2 mg PO Q12H PRN PRN Reason: Moderate Constipation Sodium Chloride (Ns Flush) 2 ml IV.FLUSH PRN PRN PRN Reason: FLUSH AFTER USING IV ACCESS Last Admin: 04/24/18 01:38 Dose: 2 ml Sodium Chloride (Ns Flush) 5 ml IV.FLUSH PRN PRN PRN Reason: Flush Infusaport Temazepam (Restoril) 15 mg PO HS PRN PRN Reason: INSOMNIA Allergies Allergy/AdvReac Type Severity Reaction Status Date / Time penicillin G Allergy Severe causes Verified 04/22/18 16:55 hives Sulfa (Sulfonamide Allergy Severe hives Verified 04/22/18 16:55 Antibiotics) Home Medications Medication Instructions Recorded Confirmed Type oxycodone 10 mg PO Q4-6H PRN 04/22/18 04/22/18 History Advance Directives Ethical and Legal Issues: Per [place] statutes, in the absence of her advanced directives healthcare proxy decision making falls to the patient's 2 adult sons. Physical Exam Vital Signs: Vital Signs - 24 hr 04/30/18 11:47 04/30/18 12:00 04/30/18 15:06 Temperature 98.0 F 99.1 F Pulse Rate 92 H 92 H 100 H Respiratory Rate 20 20 Blood Pressure 144/84 H 165/90 H Pulse Oximetry 97 95 04/30/18 16:00 04/30/18 20:00 04/30/18 20:17 Temperature 97.6 F Pulse Rate 95 H 93 H 93 H Respiratory Rate 20 20 Blood Pressure 167/90 H Pulse Oximetry 96 04/30/18 22:13 05/01/18 00:00 05/01/18 00:07 Temperature 97.6 F Pulse Rate 102 H 98 H Respiratory Rate 18 22 Blood Pressure 163/91 H Pulse Oximetry 95 05/01/18 00:53 05/01/18 04:00 05/01/18 04:10 Temperature 97.5 F L Pulse Rate 103 H 106 H Respiratory Rate 19 20 Blood Pressure 153/84 H Pulse Oximetry 95 05/01/18 05:45 05/01/18 07:38 Temperature 98.3 F Pulse Rate 97 H Respiratory Rate 18 20 Blood Pressure 164/87 H Pulse Oximetry 95 I&O: Intake & Output 04/29/18 04/30/18 05/01/18 05/02/18 06:59 06:59 06:59 06:59 Intake Total 3140 / 3140 2610 / 2610 2650 / 2650 Output Total 3640 / 3640 2375 / 2375 1650 / 1650 350 / 350 Balance -500 / -500 235 / 235 1000 / 1000 -350 / -350 Weight 100.3 kg 97.5 kg 99.8 kg Physical Exam: CONSTITUTIONAL/GENERAL: This is an adequately nourished patient, in no apparent distress. TUBES/LINES/DRAINS: SKIN: No jaundice, rashes, or lesions. Ecchymoses on upper extremities. No wounds seen anteriorly. Skin temperature appropriate. Not diaphoretic. HEAD: Atraumatic. Normocephalic. EYES: Pupils equal and round and reactive. Extraocular motions intact. No scleral icterus. No injection or drainage. Fundi not examined. ENT: Hearing grossly normal. Nose without bleeding or purulent drainage. Throat without visible erythema, exudates, masses, or lesions. NECK: Trachea midline. Supple, nontender. No palpable thyroid enlargement or nodularity. CARDIOVASCULAR: Regular rate and rhythm without murmurs, gallops, or rubs. No JVD. Peripheral pulses symmetric. RESPIRATORY/CHEST: Symmetric, unlabored respirations. Clear to auscultation. Breath sounds equal bilaterally. No wheezes, rales, or rhonchi. GASTROINTESTINAL: Abdomen soft, non-tender, nondistended. No hepato-splenomegaly , or palpable masses. No guarding. Bowel sounds present. GENITOURINARY: Without palpable bladder distension. Roa catheter in place. MUSCULOSKELETAL: Extremities without clubbing, cyanosis, or edema. No joint tenderness or effusion noted. No calf tenderness. No mottling or clubbing. LYMPHATICS: No palpable cervical or supraclavicular adenopathy. NEUROLOGICAL: Awake and alert. Motor and sensory grossly within normal limits. Follows commands. Cognitively sharp. Moves all extremities. PSYCHIATRIC: No obvious anxiety/depression. no apparent hallucinations or other psychotic thought process. Diagnostic Tests Laboratory: Laboratory Results - last 72 hr 04/28/18 04/28/18 04/28/18 18:50 18:50 23:06 WBC RBC Hgb Hct MCV MCH MCHC RDW Plt Count MPV Prelim Diff (Auto) Neut % (Auto) Lymph % (Auto) [place] % (Auto) Eos % (Auto) Baso % (Auto) Neut # (Auto) Lymph # (Auto) [place] # (Auto) Eos # (Auto) Baso # (Auto) WBC Differential Seg Neuts % (Manual) Band Neuts % (Manual) Monocytes % (Manual) Eosinophils % (Manual) Basophils % (Manual) Metamyelocytes % (Man) Abs Neuts (Manual) Differential Comment Platelet Estimate Platelet Morphology Sodium Potassium Chloride Carbon Dioxide Anion Gap BUN Creatinine Estimated GFR POC Glucose 94 Random Glucose Calcium Phosphorus Magnesium Total Bilirubin AST ALT Alkaline Phosphatase Total Protein Albumin Urine Color [place] H Yellow Urine Clarity Cloudy H Cloudy H Urine pH 6.0 5.0 Ur Specific [place] 1.013 1.013 Urine Protein 100 H 30 H Urine Glucose (UA) Negative Negative Urine Ketones Trace H Negative Urine Occult Blood Large H Large H Urine Nitrate Negative Negative Urine Bilirubin Negative Negative Urine Urobilinogen Less than 2 Less than 2 Ur Leukocyte Esterase Trace H Trace H Urine RBC 100 H Urine WBC 1 Uric Acid Crystals Few H Micro UA Comment Culture not ind Culture not ind Urine Culture Comments Culture not ind Culture not ind 04/29/18 04/29/18 04/30/18 05:27 05:27 05:55 WBC 18.8 H RBC 3.34 L Hgb 9.2 L Hct 28.5 L MCV 85.2 MCH 27.4 MCHC 32.1 RDW 15.8 Plt Count 125 L MPV 8.4 Prelim Diff (Auto) Slide review pending Neut % (Auto) 86.4 H Lymph % (Auto) 2.4 L [place] % (Auto) 5.4 Eos % (Auto) 2.7 Baso % (Auto) 3.1 H Neut # (Auto) 16.3 H Lymph # (Auto) 0.4 L [place] # (Auto) 1.0 H Eos # (Auto) 0.5 H Baso # (Auto) 0.6 H WBC Differential Manual diff final Seg Neuts % (Manual) 92 H Band Neuts % (Manual) 4 Monocytes % (Manual) 1 Eosinophils % (Manual) 1 Basophils % (Manual) 1 Metamyelocytes % (Man) 1 Abs Neuts (Manual) 18.2 H Differential Comment . Platelet Estimate Low L Platelet Morphology Normal Sodium 151 H 156 H* Potassium 4.1 D 3.7 Chloride 122 H D 122 H Carbon Dioxide 18.1 L 24.4 Anion Gap 11 10 BUN 61 H 39 H Creatinine 2.08 H 0.88 Estimated GFR 24 L 64 L POC Glucose Random Glucose 106 101 Calcium 9.1 9.1 Phosphorus 3.7 D 2.4 L D Magnesium 1.8 D 1.7 Total Bilirubin 0.4 AST 353 H ALT 49 Alkaline Phosphatase 194 H Total Protein 5.0 L Albumin 1.8 L 1.7 L Urine Color Urine Clarity Urine pH Ur Specific [place] Urine Protein Urine Glucose (UA) Urine Ketones Urine Occult Blood Urine Nitrate Urine Bilirubin Urine Urobilinogen Ur Leukocyte Esterase Urine RBC Urine WBC Uric Acid Crystals Micro UA Comment Urine Culture Comments 04/30/18 05/01/18 05/01/18 05:55 05:28 05:28 WBC 16.8 H 15.1 H RBC 3.25 L 3.12 L Hgb 8.9 L 8.6 L Hct 27.5 L 26.7 L MCV 84.6 85.6 MCH 27.5 27.7 MCHC 32.5 32.3 RDW 15.6 16.1 Plt Count 121 L 108 L MPV 9.2 9.1 Prelim Diff (Auto) Neut % (Auto) 85.7 H Lymph % (Auto) 3.3 L [place] % (Auto) 5.6 Eos % (Auto) 4.4 H Baso % (Auto) 1.0 Neut # (Auto) 14.4 H Lymph # (Auto) 0.5 L [place] # (Auto) 0.9 Eos # (Auto) 0.7 H Baso # (Auto) 0.2 WBC Differential . Seg Neuts % (Manual) Band Neuts % (Manual) Monocytes % (Manual) Eosinophils % (Manual) Basophils % (Manual) Metamyelocytes % (Man) Abs Neuts (Manual) Differential Comment Auto diff final Platelet Estimate Platelet Morphology Sodium 156 H* Potassium 3.8 Chloride 121 H Carbon Dioxide 27.6 Anion Gap 7 BUN 29 H Creatinine 0.80 Estimated GFR 72 L POC Glucose Random Glucose 124 H Calcium 8.8 Phosphorus 2.5 Magnesium 1.7 Total Bilirubin 0.3 AST 322 H ALT 49 Alkaline Phosphatase 189 H Total Protein 4.8 L Albumin 1.6 L Urine Color Urine Clarity Urine pH Ur Specific [place] Urine Protein Urine Glucose (UA) Urine Ketones Urine Occult Blood Urine Nitrate Urine Bilirubin Urine Urobilinogen Ur Leukocyte Esterase Urine RBC Urine WBC Uric Acid Crystals Micro UA Comment Urine Culture Comments Result Diagrams: 05/01/18 05:28 05/01/18 05:28 Microbiology: Microbiology 04/28/18 16:40 Aerobic Blood Culture - Preliminary Blood - Peripheral No growth in 2 days Anaerobic Blood Culture - Final QNS - See aerobic report. 04/28/18 16:35 Aerobic Blood Culture - Preliminary Blood - Peripheral No growth in 2 days Anaerobic Blood Culture - Final QNS - See aerobic report. 04/27/18 12:30 Urine Culture - Final Catheterized Urine No growth in 48 hours Imaging: Abdomen/Pelvis CT 04/22/18 17:26 CONCLUSION: 1. Enlarged uterus and cervix. 2. Retroperitoneal metastatic lymphadenopathy. 3. Metastatic disease of the visualized lung bases. 4. Metastatic lytic lesion of the right pubic bone with a nondisplaced pathologic fracture. 5. Large mass or blood/debris in the urinary bladder. 6. 17 mm hypodensity of the liver is probably benign. There has slight fatty infiltration. 7. Large gallstone without associated complication. Chest CT 04/23/18 00:00 CONCLUSION: 1. Diffuse bilateral lung metastatic disease. 2. Diffuse hilar and mediastinal adenopathy consistent with neoplastic disease. 3. Diffuse para-aortic adenopathy in the abdomen. Abdomen/Bladder Ultrasound 04/24/18 00:00 CONCLUSION: 1. Large lobular mass in the bladder of concern for bladder carcinoma. 2. Bilateral hydronephrosis. 3. The echogenicity kidneys is increased and equal to that of the liver decreasing medical renal disease. 4. The small mass in the left kidney seen on CT is not visualized. Port Line Insertion 04/24/18 00:00 CONCLUSION: 1. Uncomplicated ultrasound and fluoroscopic guided implanted central venous port catheter placement as described in detail above. The port was placed via the left internal jugular vein. An 8 [place] [employer] port was placed. Nephrostomy 04/28/18 00:00 CONCLUSION: 1. Uncomplicated bilateral nephrostomy tube placement as above. Procedures: 04/24/18: Left sided port placement 04/25/18: Urethral dilatation, cystoscopy and attempted bilateral ureteral stent placement 04/28/18: Bilateral nephrostomy tube placement Patient/Family Conference Present at Family Conference: Spoke to patient and stepdaughter in law (Trung) at bedside. Later spoke with patient's son (Dion) via telephone. Family Conference Location: Bedside, Telephone Issues Discussed: * Palliative care role, purpose, approach * Additional medical, psychosocial, and spiritual history * Patients general health, functional status, and cognitive changes in the months leading up to the current hospitalization * Questions answered to the best of my ability * Palliative care contact information provided Assessment and Plan - Disease Oriented Problem List (1) Primary cervical cancer with metastasis to other site (2) Leukocytosis Comment: 05/01/2018: CBC trending downward at 15.1 (3) KALI (acute kidney injury) - Symptom Scale (1) Abdominal pain 0-10 Scale: 10 Comment: =05/01/18 Started patient on methadone 5mg PO q12 hours. =Rapid titration guidelines used for other opioids do not apply to methadone; in general, do not increase dosage more frequently than every 4 days. = Methadone in moderate to high doses can prolong the QTc interval and increase the risk of potentially lethal torsades de points arrhythmia QTc: 387 (2) Nausea 0-10 Scale: 5 Comment: =PRN Phenergan and Ondansetron. (3) Constipation 0-10 Scale: 5 Comment: =Receiving Marta-Colace 1 tablet PO BID. =PRN Milk of magnesia,Dulcolax suppository, Lactulose, and Sennosides are available as well. =Lactulose administer today. 05/01/18. Pertinent Non-Medical Issues: Psychosocial: Patient is originally from [place], [place] but has lived in the [place] for many years. She has been for 4 years. She has 2 adult sons (Dion and Mark). 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 Ethical issues impacting care: Important Contacts: Dion Garcia, son: [phone] . 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 Currently receiving palliative radiation. May consider chemotherapy if patient's functional status improves. She is at high risk for ongoing decline in complications. If the patient's medical treatment goals become comfort oriented, she would be hospice appropriate. Code Status: Full Code Plan: * FULL CODE * Per [place] statutes, in the absence of her advanced directives healthcare proxy decision making would fall to the patient's 2 adult sons (Dion and Mark) . * Briefly discussed advanced directives. Healthcare designation form and living will were left at the patient's bedside for the patient and family to review. * Goals remain aggressive at this time * Discussed patient with RN and CHEVY Ritchie ([facility]) * Tentative family meeting tomorrow 05/02/2018 at 9:30 AM. Palliative care will readdress CODE STATUS at that time. * Symptom management: == Pain: Patient diagnosed with extensive squamous cell carcinoma of cervix with metastatic disease, appearance and ongoing intractable abdominal pain rated 10/10. Unable to describe pain. We discussed changing her medications in an attempt to improve symptom management of pain; patient was amenable to changes. Percocet and scheduled morphine were discontinued. The patient was started on methadone 5 mg PO q12 hours ATC. PRN medications were changed to morphine 5 mg PO (pain rated 1-5) or 10mg PO (pain rated 6-10) q3 hours PRN and IV morphine 5mg q3 hours for pain that is not managed with oral medications. Rapid titration guidelines used for other opioids do not apply to methadone; in general, do not increase dosage more frequently than every 4 days. Methadone in moderate to high doses can prolong the QTc interval and increase the risk of potentially lethal torsades de points arrhythmia - QTc: 387 == Nausea:Ongoing intermittent nausea and vomiting reported. Most recent episode this morning 05/01/18. PRN Phenergan and Ondansetron. May consider starting the patient on low dose dexamethasone if nausea continue; dexamethasone may also assist with pain management by reducing inflammation in the abdomen/pelvis. == Constipation: Multifactorial. Contributing factors may include pain medication, decreased activity, poor nutrition/fluid intake, disease progression. Patient reporting no BM in 3 to 4 days. Receiving Marta-Colace 1 tablet PO BID. PRN Milk of magnesia, Dulcolax suppository, Lactulose, and Sennosides are available as well. Lactulose administer today. 05/01/18. Will continue to monitor. * Palliative care will continue to follow this patient throughout her hospitalization to establish trust, assist with symptom management and clarification of medical treatment goals Appreciation Thank you for the opportunity to participate in the care of Karen Velez Jocelyne. Attestation Attestation: To help prompt me to consider important information that might be impacting today's encounter and assessment, information from prior notes written by myself or my colleagues may have been "brought forward" into today's note. My signature on this note, however, is an attestation that I personally performed the exam, history, and/or decision-making noted today, and, unless otherwise indicated, the interactions with patient, family, and staff as well as the review of records all occurred today. I also attest that the listed assessment and stated plan reflect my best clinical judgment today based on the combination of historical information, prior notes, and today's exam/ interactions. When time spent is documented, it refers only to time spent today by the signer, or if indicated, combined time spent today by collaborating physician/nurse practitioner.
--- NOTE | 2018-05-01 10:07 | P.PNURO ---
Subjective Patient symptoms today: Resting quietly. Does not appear to be in any distress. Objective Vital Signs: Vital Signs 04/30/18 11:47 04/30/18 12:00 04/30/18 15:06 Temperature 98.0 F 99.1 F Pulse Rate 92 H 92 H 100 H Respiratory Rate 20 20 Blood Pressure 144/84 H 165/90 H Pulse Oximetry 97 95 04/30/18 16:00 04/30/18 20:00 04/30/18 20:17 Temperature 97.6 F Pulse Rate 95 H 93 H 93 H Respiratory Rate 20 20 Blood Pressure 167/90 H Pulse Oximetry 96 04/30/18 22:13 05/01/18 00:00 05/01/18 00:07 Temperature 97.6 F Pulse Rate 102 H 98 H Respiratory Rate 18 22 Blood Pressure 163/91 H Pulse Oximetry 95 05/01/18 00:53 05/01/18 04:00 05/01/18 04:10 Temperature 97.5 F L Pulse Rate 103 H 106 H Respiratory Rate 19 20 Blood Pressure 153/84 H Pulse Oximetry 95 05/01/18 05:45 05/01/18 07:38 Temperature 98.3 F Pulse Rate 97 H Respiratory Rate 18 20 Blood Pressure 164/87 H Pulse Oximetry 95 Intake & Output 04/30/18 05/01/18 05/01/18 18:59 06:59 18:59 Intake Total 310 / 310 2340 / 2340 Output Total 750 / 750 900 / 900 350 / 350 Balance -440 / -440 1440 / 1440 -350 / -350 Weight 99.8 kg Intake: IV 310 / 310 2100 / 2100 D5W Inj 1,000 ML @ 100 mls/hr 1000 / 1000 IV.CONT .Q10H [facility] Rx#:[id number] Levaquin 250 mg Premix Inj 250 50 / 50 mg In 50 ml @ 50 mls/hr IV.SIG Q24H [facility] Rx#:[id number] Potassium Phosphate Inj 30 MMOL 260 / 260 In NS Inj 250 ML @ 43.333 mls/ hr IV.SIG ONCE ONE Rx#:[id number] Oral 240 / 240 Output: Urine Amount (Catheter) 125 / 125 350 / 350 Indwelling Urethral Catheter 125 / 125 350 / 350 Wound Drainage 750 / 750 775 / 775 Left Nephrostomy 350 / 350 325 / 325 right nephrostomy 400 / 400 450 / 450 Result Diagrams: 05/01/18 05:28 05/01/18 05:28 Other Results: Bilateral nephrostomy tubes draining well. Small amount of grossly bloody urine Via Roa. Medications and IVs: Active Medications Generic Name Dose Route Start Last Admin Trade Name Freq PRN Reason Stop Dose Admin Acetaminophen 650 mg 04/22/18 21:00 Tylenol PO Q4H PRN Temp > 100.4 Al Hydroxide/Mg Hydroxide 30 ml 04/22/18 21:00 Milk Of Magnesia Liq PO Q12H PRN Mild Constipation Belladonna Alkaloids/Opium 60 mg 04/29/18 20:31 05/01/18 00:24 B & O Supp RECTAL 60 mg Q6HR PRN Administration BLADDER SPASM Bisacodyl 10 mg 04/22/18 21:00 Dulcolax Supp RECTAL DAILY PRN SEVERE CONSITIPATION Clonidine HCl 0.1 mg 04/24/18 15:37 05/01/18 00:24 Catapres PO 0.1 mg Q6H PRN Administration SBP>160, DBP>90 Fluconazole 100 mg 04/29/18 09:00 05/01/18 09:10 Diflucan PO 100 mg DAILY [facility] Administration Heparin Sodium (Porcine) 500 unit 04/24/18 15:00 Heparin Central Flush IV.FLUSH PRN PRN Flush infusaport Heparin Sodium (Porcine) 250 unit 04/24/18 15:00 Heparin Central Flush IV.FLUSH PRN PRN Flush Infusapot Levofloxacin/Dextrose 250 mg in 50 mls @ 50 mls/hr 04/29/18 09:00 05/01/18 09 :11 Levaquin 250 Mg Premix Inj IV.SIG 100 mls/hr Q24H [facility] Administration Dextrose 1,000 mls @ 100 mls/hr 04/30/18 09:30 05/01/18 05:29 D5w Inj IV.CONT Not Given .Q10H [facility] Lactulose 30 ml 04/22/18 21:00 05/01/18 09:10 Lactulose Liq PO 30 ml DAILY PRN Administration SEVERE CONSITIPATION Morphine Sulfate 5 mg 04/30/18 16:15 05/01/18 09:10 Roxanol Liq PO 5 mg Q4HR [facility] Administration Morphine Sulfate 4 mg 04/30/18 16:28 04/30/18 21:37 Morphine Inj IV.PUSH 4 mg Q3H PRN Administration BREAKTHROUGH PAIN Ondansetron HCl 4 mg 04/24/18 10:47 Zofran Odt PO Q6H PRN NAUSEA OR VOMITING Ondansetron HCl 4 mg 04/24/18 12:00 05/01/18 09:11 Zofran Inj IV.PUSH 4 mg Q4HR [facility] Administration Oxycodone/Acetaminophen 1 tab 04/29/18 11:16 04/30/18 10:03 Percocet 10/325 Mg PO 1 tab Q4H PRN Administration PAIN SCALE 6 TO 10 Promethazine HCl 25 mg 04/24/18 10:47 Phenergan PO Q6H PRN NAUSEA OR VOMITING Promethazine HCl 25 mg 04/24/18 10:47 Phenergan Supp RECTAL Q6H PRN NAUSEA OR VOMITING Senna/Docusate Sodium 1 tab 04/22/18 21:00 05/01/18 09:12 Marta-Colace PO 1 tab BID [facility] Administration Sennosides 17.2 mg 04/22/18 21:00 Senokot PO Q12H PRN Moderate Constipation Sodium Chloride 2 ml 04/22/18 17:26 04/24/18 01:38 Ns Flush IV.FLUSH 2 ml PRN PRN Administration FLUSH AFTER USING IV ACCESS Sodium Chloride 5 ml 04/24/18 15:00 Ns Flush IV.FLUSH PRN PRN Flush Infusaport Temazepam 15 mg 04/22/18 21:00 Restoril PO HS PRN INSOMNIA Assessment and Plan - Assessment (1) Bladder mass Code(s): N32.89 - Other specified disorders of bladder Status: Acute - Plan Urologic impression: 1. Bladder mass with obliteration of the trigone c/w extension of cervical cancer 2. Bladder outlet obstruction related to the bladder mass. 3. S/P uncomplicated bilateral nephrostomy tube placement by IR with subsequent normalization in renal function. Plan: 1. Continue with indwelling Roa catheter and change every 3-4 weeks. 2. Bilateral nephrostomy tubes to gravity drainage. 3. Nothing further to add at this time.
[2018-05-01] MEDS: Morphine Inj 4 MG/ML Vial IV.PUSH PRN (11:59)
--- NOTE | 2018-05-01 13:01 | P.PNIM ---
Subjective Interval history: Patient is more awake today. She woke up and talk to me. Pain is much better controlled. Physical Exam Vital signs: Vital Signs 04/30/18 15:06 04/30/18 16:00 04/30/18 20:00 Temperature 99.1 F Pulse Rate 100 H 95 H 93 H Respiratory Rate 20 20 Blood Pressure 165/90 H Pulse Oximetry 95 04/30/18 20:17 04/30/18 22:13 05/01/18 00:00 Temperature 97.6 F 97.6 F Pulse Rate 93 H 102 H Respiratory Rate 20 18 22 Blood Pressure 167/90 H 163/91 H Pulse Oximetry 96 95 05/01/18 00:07 05/01/18 00:53 05/01/18 04:00 Temperature 97.5 F L Pulse Rate 98 H 103 H Respiratory Rate 19 20 Blood Pressure 153/84 H Pulse Oximetry 95 05/01/18 04:10 05/01/18 05:45 05/01/18 07:38 Temperature 98.3 F Pulse Rate 106 H 97 H Respiratory Rate 18 20 Blood Pressure 164/87 H Pulse Oximetry 95 05/01/18 12:38 Temperature 98.2 F Pulse Rate 106 H Respiratory Rate 20 Blood Pressure 166/88 H Pulse Oximetry 95 Intake & Output 04/30/18 05/01/18 05/01/18 18:59 06:59 18:59 Intake Total 310 / 310 2340 / 2340 50 / 50 Output Total 750 / 750 900 / 900 350 / 350 Balance -440 / -440 1440 / 1440 -300 / -300 Weight 99.8 kg Intake: IV 310 / 310 2100 / 2100 50 / 50 D5W Inj 1,000 ML @ 100 mls/hr 1000 / 1000 IV.CONT .Q10H [facility] Rx#:[id number] Levaquin 250 mg Premix Inj 250 50 / 50 50 / 50 mg In 50 ml @ 50 mls/hr IV.SIG Q24H [facility] Rx#:[id number] Potassium Phosphate Inj 30 MMOL 260 / 260 In NS Inj 250 ML @ 43.333 mls/ hr IV.SIG ONCE ONE Rx#:[id number] Oral 240 / 240 Output: Urine Amount (Catheter) 125 / 125 350 / 350 Indwelling Urethral Catheter 125 / 125 350 / 350 Wound Drainage 750 / 750 775 / 775 Left Nephrostomy 350 / 350 325 / 325 right nephrostomy 400 / 400 450 / 450 Narrative: GENERAL: Patient sleeping, woke up for exam. Hematuria continues in Roa bag as before, minimal urine output. Nephrostomy in place with straw-colored urine on the left and pink on the right. CARDIOVASCULAR: Regular rate and rhythm without murmurs, gallops, or rubs. RESPIRATORY: Breath sounds equal bilaterally. No accessory muscle use. GASTROINTESTINAL: Abdomen soft, tender to palpation diffusely. MUSCULOSKELETAL: No cyanosis, or edema. - Urinary Catheter Management Indwelling Urethral Catheter Cath placed during this visit: yes Reason for continuing: Gross Hematuria Insertion date: 04/25/18 Results - Labs CBC & Chem 7: 05/01/18 05:28 05/01/18 05:28 Laboratory Results - last 24 hr 05/01/18 05/01/18 05:28 05:28 WBC 15.1 H RBC 3.12 L Hgb 8.6 L Hct 26.7 L MCV 85.6 MCH 27.7 MCHC 32.3 RDW 16.1 Plt Count 108 L MPV 9.1 Sodium 156 H* Potassium 3.8 Chloride 121 H Carbon Dioxide 27.6 Anion Gap 7 BUN 29 H Creatinine 0.80 Estimated GFR 72 L Random Glucose 124 H Calcium 8.8 Phosphorus 2.5 Magnesium 1.7 Total Bilirubin 0.3 AST 322 H ALT 49 Alkaline Phosphatase 189 H Total Protein 4.8 L Albumin 1.6 L Microbiology 04/28/18 16:40 Blood - Peripheral Aerobic Blood Culture - Preliminary No growth in 3 days 04/28/18 16:40 Blood - Peripheral Anaerobic Blood Culture - Final QNS - See aerobic report. 04/28/18 16:35 Blood - Peripheral Aerobic Blood Culture - Preliminary No growth in 3 days 04/28/18 16:35 Blood - Peripheral Anaerobic Blood Culture - Final QNS - See aerobic report. Assessment and Plan - Plan 67-year-old female with: Cervical cancer with metastatic disease: Invasive squamous cell carcinoma. Patient reports she has not previously had imaging done. T of the abdomen/ pelvis significant for retroperitoneal metastatic lymphadenopathy, metastatic disease of the visualized lung bases, metastatic lytic lesion of the right pubic bone with nondisplaced pathologic fracture and a large mass in the urinary bladder. The patient was made aware of her CT scan findings. [employer] oncology following, appreciate recommendations. Status post surgery on . Appreciate Operator Assistant I Cementing/ONC, urology assistance. Continues with Roa.04/28. Bilateral nephrostomy tubes placed. - Radiation therapy ongoing -Renal functions improving. Abnormal urinalysis: Negative. Patient was put on empiric antibiotics. Leukocytosis improving. ID following. Leukocytosis: Likely secondary to malignancy and obstructive uropathy. Infectious disease following. Patient treated empirically with vancomycin, Levaquin, and Diflucan. Leukocytosis improving. Antibiotics discontinued. Monitor off antibiotics per ID. Acute kidney injury secondary to obstructive uropathy: Much improved status post bilateral nephrostomy tubes. Cr down to 0.8 IV fluid hydration Monitor renal function Continue to monitor. Nephrology and urology following. Hypernatremia: - Appreciate nephrology input. IVF changed to D5 free water. - Follow labs in AM. Anemia secondary to blood loss: Ongoing blood loss from hematuria - Continue to monitor H&H. Transfuse for hemoglobin less than 7. Intractable abdominal pain: Pain better controlled with new regimen -Continue Percocet as needed, scheduled Roxanol and IV morphine for breakthrough pain. prophy : SCDs. Holding AC for now due to hematuria Discussed plan at length with the patient's family at bedside. Discharge Planning: Will likely need home health versus SNF placement.
[2018-05-01] MEDS ORDERED: Morphine Sulfate Inj 8 MG/ML Vial IV.PUSH PRN (13:59)
--- NOTE | 2018-05-01 14:08 | P.PNID ---
Subjective Remarks: Patient is a 67-year-old female, with known history of cervical cancer, presented to the hospital complaining of pelvic pain, and vaginal bleeding. She is also had problem with nausea and vomiting over the last several days as well as constipation. She has not had any fever chills or sweats. Since admission she has had workup. Her creatinine has been increasing. She was found to have a mass which was felt to be causing obstruction. She had undergone cystoscopy and attempted placement of a ureteral stent which was not successful. 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 Her urine output has been low, and her creatinine continues to rise. Today patient underwent placement of bilateral nephrostomy. She has not been febrile. Her white count however continues to rise and 21,000 today. Patient received Levaquin for the procedure. At the time my exam, patient is lethargic due to the procedure. She has a left nephrostomy that has light yellow urine. Has a right nephrostomy with bloody urine. She also has a Gallagher and that has gross hematuria. She has not been febrile. She awakens easily and follows commands. Infectious disease consultation has been requested to evaluate the patient with worsening leukocytosis. Notes reviewed Temps ok WBC improving Creatinine down to normal UA from adan nephrostomies ok BC negative C/O abdominal pain Palliative medicine seeing patient Antibiotics: Levaquin Diflucan Past Medical History: Breast CA Cervical ca Gallstone S/P breast lumpectomy S/P dilatation and curettage Allergies/Adverse Reactions: Allergies penicillin G Allergy (Severe, Verified 04/22/18 16:55) causes hives Sulfa (Sulfonamide Antibiotics) Allergy (Severe, Verified 04/22/18 16:55) hives Objective Vital Signs 04/30/18 15:06 04/30/18 16:00 04/30/18 20:00 Temperature 99.1 F Pulse Rate 100 H 95 H 93 H Respiratory Rate 20 20 Blood Pressure 165/90 H Pulse Oximetry 95 04/30/18 20:17 04/30/18 22:13 05/01/18 00:00 Temperature 97.6 F 97.6 F Pulse Rate 93 H 102 H Respiratory Rate 20 18 22 Blood Pressure 167/90 H 163/91 H Pulse Oximetry 96 95 05/01/18 00:07 05/01/18 00:53 05/01/18 04:00 Temperature 97.5 F L Pulse Rate 98 H 103 H Respiratory Rate 19 20 Blood Pressure 153/84 H Pulse Oximetry 95 05/01/18 04:10 05/01/18 05:45 05/01/18 07:38 Temperature 98.3 F Pulse Rate 106 H 97 H Respiratory Rate 18 20 Blood Pressure 164/87 H Pulse Oximetry 95 05/01/18 12:38 Temperature 98.2 F Pulse Rate 106 H Respiratory Rate 20 Blood Pressure 166/88 H Pulse Oximetry 95 Intake & Output 04/30/18 05/01/18 05/01/18 18:59 06:59 18:59 Intake Total 310 / 310 2340 / 2340 50 / 50 Output Total 750 / 750 900 / 900 350 / 350 Balance -440 / -440 1440 / 1440 -300 / -300 Weight 99.8 kg Intake: IV 310 / 310 2100 / 2100 50 / 50 D5W Inj 1,000 ML @ 100 mls/hr 1000 / 1000 IV.CONT .Q10H [facility] Rx#:[id number] Levaquin 250 mg Premix Inj 250 50 / 50 50 / 50 mg In 50 ml @ 50 mls/hr IV.SIG Q24H [facility] Rx#:[id number] Potassium Phosphate Inj 30 MMOL 260 / 260 In NS Inj 250 ML @ 43.333 mls/ hr IV.SIG ONCE ONE Rx#:[id number] Oral 240 / 240 Output: Urine Amount (Catheter) 125 / 125 350 / 350 Indwelling Urethral Catheter 125 / 125 350 / 350 Wound Drainage 750 / 750 775 / 775 Left Nephrostomy 350 / 350 325 / 325 right nephrostomy 400 / 400 450 / 450 04/28/18 16:40 Blood - Peripheral Aerobic Blood Culture - Preliminary No growth in 3 days 04/28/18 16:40 Blood - Peripheral Anaerobic Blood Culture - Final QNS - See aerobic report. 04/28/18 16:35 Blood - Peripheral Aerobic Blood Culture - Preliminary No growth in 3 days 04/28/18 16:35 Blood - Peripheral Anaerobic Blood Culture - Final QNS - See aerobic report. 04/27/18 12:30 Catheterized Urine Urine Culture - Final No growth in 48 hours Lab - Hematology Results 04/30/18 05/01/18 05:55 05:28 WBC 16.8 H 15.1 H RBC 3.25 L 3.12 L Hgb 8.9 L 8.6 L Hct 27.5 L 26.7 L MCV 84.6 85.6 MCH 27.5 27.7 MCHC 32.5 32.3 RDW 15.6 16.1 Plt Count 121 L 108 L MPV 9.2 9.1 Neut % (Auto) 85.7 H Lymph % (Auto) 3.3 L [place] % (Auto) 5.6 Eos % (Auto) 4.4 H Baso % (Auto) 1.0 Neut # (Auto) 14.4 H Lymph # (Auto) 0.5 L [place] # (Auto) 0.9 Eos # (Auto) 0.7 H Baso # (Auto) 0.2 WBC Differential . Differential Comment Auto diff final Lab - Chemistry Results 04/30/18 05/01/18 05:55 05:28 Sodium 156 H* 156 H* Potassium 3.7 3.8 Chloride 122 H 121 H Carbon Dioxide 24.4 27.6 Anion Gap 10 7 BUN 39 H 29 H Creatinine 0.88 0.80 Estimated GFR 64 L 72 L Random Glucose 101 124 H Calcium 9.1 8.8 Phosphorus 2.4 L D 2.5 Magnesium 1.7 1.7 Total Bilirubin 0.4 0.3 AST 353 H 322 H ALT 49 49 Alkaline Phosphatase 194 H 189 H Total Protein 5.0 L 4.8 L Albumin 1.7 L 1.6 L Imaging: ITS Impressions Abdomen/Pelvis CT 04/22/18 17:26 CONCLUSION: 1. Enlarged uterus and cervix. 2. Retroperitoneal metastatic lymphadenopathy. 3. Metastatic disease of the visualized lung bases. 4. Metastatic lytic lesion of the right pubic bone with a nondisplaced pathologic fracture. 5. Large mass or blood/debris in the urinary bladder. 6. 17 mm hypodensity of the liver is probably benign. There has slight fatty infiltration. 7. Large gallstone without associated complication. Chest CT 04/23/18 00:00 CONCLUSION: 1. Diffuse bilateral lung metastatic disease. 2. Diffuse hilar and mediastinal adenopathy consistent with neoplastic disease. 3. Diffuse para-aortic adenopathy in the abdomen. Abdomen/Bladder Ultrasound 04/24/18 00:00 CONCLUSION: 1. Large lobular mass in the bladder of concern for bladder carcinoma. 2. Bilateral hydronephrosis. 3. The echogenicity kidneys is increased and equal to that of the liver decreasing medical renal disease. 4. The small mass in the left kidney seen on CT is not visualized. Port Line Insertion 04/24/18 00:00 CONCLUSION: 1. Uncomplicated ultrasound and fluoroscopic guided implanted central venous port catheter placement as described in detail above. The port was placed via the left internal jugular vein. An 8 [employer] port was placed. Nephrostomy 04/28/18 00:00 CONCLUSION: 1. Uncomplicated bilateral nephrostomy tube placement as above. Physical Exam: GENERAL: Awaken some and follows commands, not in respiratory distress. SKIN: Cool and dry. No generalized rash. Edematous HEAD: Atraumatic. Normocephalic. No temporal wasting, or tenderness. EYES: Pale conjunctiva. No petechia or hemorrhage. Pupils equal, round and reactive to light. No scleral icterus. No injection or drainage. EARS, NOSE AND THROAT: Nose without bleeding or purulent nasal discharge. No sinus tenderness. Very dry oral mucosa. NECK: Trachea midline. Supple and not tender, no meningeal signs CARDIOVASCULAR: Regular rate and rhythm. No murmurs, rubs or gallops heard RESPIRATORY: Clear to auscultation. Breath sounds equal bilaterally. No rales , wheezing or rhonchi ABDOMEN: Soft, non-tender, nondistended. Bowel sounds present and normoactive. No guarding. No rebound. No organomegaly. EXTREMITIES: No clubbing, cyanosis. Has edema hands and feet. No calf tenderness. Well perfused and warm. NEUROLOGICAL: awakens easily and following commands. Moves all extremities. No babinski, no clonus. PSYCHIATRIC: cooperative. LINE: No evidence of infection : Has L nephrostomy with yellow urine. Has R nephrostomy with mild blood tinged urine. Has gallagher, with gross hematuria Assessment and Plan - Plan Impression Worsening leukocytosis, resolved - likely due to obstruction, and malignancy - no infection found and leukocytosis improving Hematuria due to mass bleeding Squamous cell CA, known cervical CA Recommendation Stop Levaquin and Diflucan Monitor off Abx Follow CBC Monitor progress Spoke with family member
[2018-05-01] MEDS: Morphine Sulfate Oral Liq 10 MG/0.5 ML Syringe PO PRN ×3 (16:28→23:20)
[2018-05-01] MEDS: Methadone Liq 10 MG/10 ML UDC PO SCH (16:29)
--- NOTE | 2018-05-01 18:31 | P.PNNP ---
Subjective Interval history: Patient tolerated Physical Exam Vital signs: Vital Signs 04/30/18 20:00 04/30/18 20:17 04/30/18 22:13 Temperature 97.6 F Pulse Rate 93 H 93 H Respiratory Rate 20 18 Blood Pressure 167/90 H Pulse Oximetry 96 05/01/18 00:00 05/01/18 00:07 05/01/18 00:53 Temperature 97.6 F Pulse Rate 102 H 98 H Respiratory Rate 22 19 Blood Pressure 163/91 H Pulse Oximetry 95 05/01/18 04:00 05/01/18 04:10 05/01/18 05:45 Temperature 97.5 F L Pulse Rate 103 H 106 H Respiratory Rate 20 18 Blood Pressure 153/84 H Pulse Oximetry 95 05/01/18 07:38 05/01/18 12:38 05/01/18 17:22 Temperature 98.3 F 98.2 F 98.5 F Pulse Rate 97 H 106 H 104 H Respiratory Rate 20 20 18 Blood Pressure 164/87 H 166/88 H 170/94 H Pulse Oximetry 95 95 94 L Intake & Output 04/30/18 05/01/18 05/01/18 18:59 06:59 18:59 Intake Total 310 / 310 2340 / 2340 1650 / 1650 Output Total 750 / 750 900 / 900 350 / 350 Balance -440 / -440 1440 / 1440 1300 / 1300 Weight 99.8 kg Intake: IV 310 / 310 2100 / 2100 1050 / 1050 D5W Inj 1,000 ML @ 100 mls/hr 1000 / 1000 1000 / 1000 IV.CONT .Q10H [facility] Rx#:[id number] Levaquin 250 mg Premix Inj 250 50 / 50 50 / 50 mg In 50 ml @ 50 mls/hr IV.SIG Q24H [facility] Rx#:[id number] Potassium Phosphate Inj 30 MMOL 260 / 260 In NS Inj 250 ML @ 43.333 mls/ hr IV.SIG ONCE ONE Rx#:[id number] Oral 240 / 240 600 / 600 Output: Urine Amount (Catheter) 125 / 125 350 / 350 Indwelling Urethral Catheter 125 / 125 350 / 350 Wound Drainage 750 / 750 775 / 775 Left Nephrostomy 350 / 350 325 / 325 right nephrostomy 400 / 400 450 / 450 - Constitutional no acute distress - Routine HEENT Exam Head: Present: normocephalic Eye: Present: EOMI - Routine Respiratory Exam Present: CTA bilaterally - Routine Cardiovascular Exam Present: RRR - Routine Abdominal Exam Present: soft, normoactive bowel sounds - Routine Extremities Exam Present: pulses intact - Urinary Catheter Management Indwelling Urethral Catheter Cath placed during this visit: yes Reason for continuing: Gross Hematuria Insertion date: 04/25/18 Assessment and Plan - Assessment (1) KALI (acute kidney injury) Code(s): N17.9 - Acute kidney failure, unspecified Status: Acute (2) Cervical cancer Code(s): C53.9 - Malignant neoplasm of cervix uteri, unspecified Status: Acute - Plan Patient has large bladder mass, cervical cancer Hydronephrosis Bilateral percutaneous nephrostomy tubes placed with excellent UOP. Creatinine improved to 0.88 now.. High volume UOP with relative urinary free water losses - Na 156 now. Will change IVFs to D5W at 100cc/hour. Continue to follow Renal panel Unchanged sodium otherwise acute renal failure resolved
[2018-05-02] MEDS: Methadone Liq 10 MG/10 ML UDC PO SCH ×2 (02:44→13:01)
[2018-05-02] MEDS: Morphine Sulfate Oral Liq 10 MG/0.5 ML Syringe PO PRN ×2 (02:44→10:22)
[2018-05-02] MEDS: Dextrose 5% in Water Inj 1,000 ML IV.CONT SCH ×2 (02:55→16:26)
[2018-05-02 06:44] LABS: Alanine Aminotransferase 54 U/L (10-53); Albumin 1.5 g/dL (3.4-5.0); Anion Gap 7 meq/L (5-15); Aspartate Aminotransferase 290 U/L (15-37); Blood Urea Nitrogen 22 mg/dL (7-18); Calcium 8.7 mg/dL (8.5-10.1); Carbon Dioxide 28.8 meq/L (21.0-32.0); Chloride 114 meq/L (98-107); Glomerular Filtration Rate 68 mL/min (>89); Glucose,Random 101 mg/dL (74-106); Magnesium 1.7 mg/dL (1.5-2.5); Phosphorus 2.2 mg/dL (2.5-4.9); Potassium 3.7 meq/L (3.5-5.1); Sodium 150 meq/L (136-145)
[2018-05-02 06:46] LABS: Alkaline Phosphatase 206 U/L (45-117); Total Protein 4.8 g/dL (6.4-8.2)
[2018-05-02 06:58] LABS: Hematocrit 26.3 % (35.0-46.0); Hemoglobin 8.5 gm/dL (11.6-15.3); Mean Corpuscular HGB Conc 32.4 % (32.0-36.0); Mean Corpuscular Hemoglobin 27.4 pg (27.0-34.0); Mean Corpuscular Volume 84.6 fL (80.0-100.0); Mean Platelet Volume 9.8 fL (7.0-11.0); Platelet Count 104 th/mm3 (150-450); Red Blood Count 3.11 mil/mm3 (4.00-5.30); Red Cell Distribution Width 16.1 % (11.6-17.2); White Blood Count 14.2 th/mm3 (4.0-11.0)
--- NOTE | 2018-05-02 10:01 | P.PNIM ---
Subjective Interval history: Patient is much better today. She is awake and can have a conversation with me today. Pain is much better controlled. She is eating a little more. Physical Exam Vital signs: Vital Signs 05/01/18 12:38 05/01/18 17:22 05/01/18 20:00 Temperature 98.2 F 98.5 F Pulse Rate 106 H 104 H 100 H Respiratory Rate 20 18 Blood Pressure 166/88 H 170/94 H Pulse Oximetry 95 94 L 05/01/18 20:29 05/01/18 21:12 05/01/18 23:24 Temperature 98.6 F 98.5 F Pulse Rate 99 H 101 H Respiratory Rate 20 18 20 Blood Pressure 170/96 H 160/92 H Pulse Oximetry 95 92 L 05/01/18 23:50 05/02/18 00:04 05/02/18 03:14 Temperature Pulse Rate 93 H Respiratory Rate 16 18 Blood Pressure Pulse Oximetry 05/02/18 03:45 05/02/18 04:08 05/02/18 04:40 Temperature 98.5 F Pulse Rate 95 H 105 H Respiratory Rate 18 20 Blood Pressure 147/78 H Pulse Oximetry 94 L 05/02/18 08:00 Temperature 98.0 F Pulse Rate 100 H Respiratory Rate 18 Blood Pressure 157/88 H Pulse Oximetry 93 L Intake & Output 05/01/18 05/02/18 05/02/18 18:59 06:59 18:59 Intake Total 1650 / 1650 1500 / 1500 Output Total 350 / 350 950 / 950 Balance 1300 / 1300 550 / 550 Weight 87.3 kg Intake: IV 1050 / 1050 1000 / 1000 D5W Inj 1,000 ML @ 100 mls/hr 1000 / 1000 1000 / 1000 IV.CONT .Q10H ALOK Rx#:[id number] Levaquin 250 mg Premix Inj 250 50 / 50 mg In 50 ml @ 50 mls/hr IV.SIG Q24H ALOK Rx#:[id number] Oral 600 / 600 500 / 500 Output: Urine 100 / 100 Urine Amount (Catheter) 350 / 350 Indwelling Urethral Catheter 350 / 350 Wound Drainage 850 / 850 Left Nephrostomy 400 / 400 right nephrostomy 450 / 450 Narrative: GENERAL: Appears more comfortable today. Awake and alert. Hematuria continues in Roa bag as before, minimal urine output. Nephrostomy in place with straw- colored urine on the left and pink on the right. CARDIOVASCULAR: Regular rate and rhythm without murmurs, gallops, or rubs. RESPIRATORY: Breath sounds equal bilaterally. No accessory muscle use. GASTROINTESTINAL: Abdomen soft, tender to palpation diffusely. MUSCULOSKELETAL: No cyanosis, or edema. - Urinary Catheter Management Indwelling Urethral Catheter Cath placed during this visit: yes Reason for continuing: Gross Hematuria Insertion date: 04/25/18 Results - Labs CBC & Chem 7: 05/02/18 05:50 05/02/18 05:50 Laboratory Results - last 24 hr 05/02/18 05/02/18 05:50 05:50 WBC 14.2 H RBC 3.11 L Hgb 8.5 L Hct 26.3 L MCV 84.6 MCH 27.4 MCHC 32.4 RDW 16.1 Plt Count 104 L MPV 9.8 Sodium 150 H Potassium 3.7 Chloride 114 H Carbon Dioxide 28.8 Anion Gap 7 BUN 22 H Creatinine 0.84 Estimated GFR 68 L Random Glucose 101 Calcium 8.7 Phosphorus 2.2 L Magnesium 1.7 Total Bilirubin 0.4 AST 290 H ALT 54 H Alkaline Phosphatase 206 H Total Protein 4.8 L Albumin 1.5 L Microbiology 04/28/18 16:40 Blood - Peripheral Aerobic Blood Culture - Preliminary No growth in 3 days 04/28/18 16:40 Blood - Peripheral Anaerobic Blood Culture - Final QNS - See aerobic report. 04/28/18 16:35 Blood - Peripheral Aerobic Blood Culture - Preliminary No growth in 3 days 04/28/18 16:35 Blood - Peripheral Anaerobic Blood Culture - Final QNS - See aerobic report. Assessment and Plan - Plan 67-year-old female with: Cervical cancer with metastatic disease: Invasive squamous cell carcinoma. Patient reports she has not previously had imaging done. T of the abdomen/ pelvis significant for retroperitoneal metastatic lymphadenopathy, metastatic disease of the visualized lung bases, metastatic lytic lesion of the right pubic bone with nondisplaced pathologic fracture and a large mass in the urinary bladder. The patient was made aware of her CT scan findings. 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 Status post surgery on . Appreciate Systems Engineer/ONC, urology assistance. Continues with Roa.04/28. Bilateral nephrostomy tubes placed. - Radiation therapy ongoing -Renal functions normalized -Appreciate palliative care following and managing pain medications Abnormal urinalysis: Negative. Patient was put on empiric antibiotics. Leukocytosis improving. ID following. Leukocytosis: Likely secondary to malignancy and obstructive uropathy. Infectious disease following. Patient treated empirically with vancomycin, Levaquin, and Diflucan. Leukocytosis improving. Antibiotics discontinued. Monitor off antibiotics per ID. Acute kidney injury secondary to obstructive uropathy: Much improved status post bilateral nephrostomy tubes. Cr down to 0.8 IV fluid hydration Monitor renal function Continue to monitor. Nephrology and urology following. Hypernatremia: - Appreciate nephrology input. IVF changed to D5 free water. - Follow labs in AM. - Improving Anemia secondary to blood loss: Ongoing blood loss from hematuria - Continue to monitor H&H. Transfuse for hemoglobin less than 7. Intractable abdominal pain: Pain better controlled with new regimen -Palliative care assisting with pain medications. Patient started on methadone. Roxanol as needed prophy : SCDs. Holding AC for now due to hematuria Discharge Planning: Will likely need SNF placement.
[2018-05-02] MEDS ORDERED: Cathflo Activase Inj 2 MG Vial I-CATHETER ONE (10:30)
--- NOTE | 2018-05-02 15:34 | P.PNPAL ---
Reason for Visit Reason for visit: a. To assist with evaluation and management of symptoms including: pain, nausea , constipation b. To assist medical decision maker(s) with: better understanding of current medical conditions; weighing benefits/burdens of medical treatment options; making medical treatment decisions. Subjective Subjective/Interval History: Patient seen and examined in room. SonDion and granddaughter, Joseline at bedside. Also present Suzanne Lyn LCSW. Clinical data: * Afebrile, tachycardic, respirations 20, BP 149/91. * WBC 14.2, hemoglobin 8.5, hematocrit 26.3, platelets 104 * Sodium 150, potassium 3.7, chloride 114, carbon dioxide 28.8, BUN 22, creatinine 0.84, GFR 68 * Total bilirubin 0.4, AST 290, ALT 54, alk phos 206 * Total protein 4.8, albumin 1.5 * 04/28/18 - blood cultures no growth in 4 days. Patient reports pain has improved since addition of Methadone 5mg PO every 12 hours started 05/01/18. On Roxanol 5-10mg PO/SL every 3 hours PRN pain/SOB (she has had a total of 45mg PO in the past 24 hours). No PRN IV Morphine has been given since Methadone was added. Patient reports intermittent severe abdominal lower pelvic pain. Currently rates pain 6/10. She reports decreased pain when using PRN Roxanol. She also feels the "more human today" not as drowsy. She and family are pleased with pain improvement today. Advised we will not see full effect of Methadone for about 72 hours. Briefly discussed the importance of her advance directives. She reports she "will fill out healthcare surrogate paperwork once she has a chance to read them." She does not want to do it right now and becomes agitated when questions. We left forms at bedside, family aware. Family/Friend Interactions: SonDion and granddaughterJoseline at bedside. Met with family for 1 hour. Palliative care role, purpose, approach Additional medical, psychosocial, and spiritual history Patient/family understanding of the current medical problems Patient/family understanding of prognosis Advanced Directives - at bedside patient will complete after she has a chance to read them and make decisions. Patients goals of medical treatment Questions answered to the best of my ability Palliative care contact information provided Family has a good understanding of current condition, the difficulties the patient may face during treatment, plan for pain management. Family asked reasonable questions. The family does not communicate well, so I suspect we will need to communicate with 2 sons separately. I offered a family meeting will children and other family members they politely declined. Later got a call from son Mark's girlfriend, Sakina (who is a nurse). Met with her and step daughter in law, Kit outside of room per their request. Listened to nursing concerns since admission which do not appear to be recent or current problems. Reviewed palliative care services, plan for symptom management, diagnosis, prognosis and plan for medical treatment. Sakina is most concerned about patient being "overmedicated." After conversation she is very appreciate of time spent and appears comfortable with current plan for symptom management and medical treatment plan. Advance Directives Living Will: Never completed Health Care Surrogate: Never completed Durable Power of Incident Manager: Never completed Significant change in goals:: FULL CODE. Goals remain aggressive to continue to get radiation therapy, hopes to get strong enough to get chemotherapy and desires adequate pain control. Objective Vital Signs: Vital Signs 05/01/18 17:22 05/01/18 20:00 05/01/18 20:29 Temperature 98.5 F 98.6 F Pulse Rate 104 H 100 H 99 H Respiratory Rate 18 20 Blood Pressure 170/94 H 170/96 H Pulse Oximetry 94 L 95 05/01/18 21:12 05/01/18 23:24 05/01/18 23:50 Temperature 98.5 F Pulse Rate 101 H Respiratory Rate 18 20 16 Blood Pressure 160/92 H Pulse Oximetry 92 L 05/02/18 00:04 05/02/18 03:14 05/02/18 03:45 Temperature Pulse Rate 93 H Respiratory Rate 18 18 Blood Pressure Pulse Oximetry 05/02/18 04:08 05/02/18 04:40 05/02/18 08:00 Temperature 98.5 F 98.0 F Pulse Rate 95 H 105 H 100 H Respiratory Rate 20 18 Blood Pressure 147/78 H 157/88 H Pulse Oximetry 94 L 93 L 05/02/18 12:00 Temperature 97.7 F Pulse Rate 105 H Respiratory Rate 20 Blood Pressure 149/91 H Pulse Oximetry 92 L Intake & Output 05/01/18 05/02/18 05/02/18 18:59 06:59 18:59 Intake Total 1650 / 1650 1500 / 1500 Output Total 350 / 350 950 / 950 Balance 1300 / 1300 550 / 550 Weight 87.3 kg Intake: IV 1050 / 1050 1000 / 1000 D5W Inj 1,000 ML @ 100 mls/hr 1000 / 1000 1000 / 1000 IV.CONT .Q10H ALOK Rx#:[id number] Levaquin 250 mg Premix Inj 250 50 / 50 mg In 50 ml @ 50 mls/hr IV.SIG Q24H ALOK Rx#:[id number] Oral 600 / 600 500 / 500 Output: Urine 100 / 100 Urine Amount (Catheter) 350 / 350 Indwelling Urethral Catheter 350 / 350 Wound Drainage 850 / 850 Left Nephrostomy 400 / 400 right nephrostomy 450 / 450 Physical Exam: CONSTITUTIONAL/GENERAL: This is an adequately nourished patient, in no apparent distress. TUBES/LINES/DRAINS:left port, bilateral nephrostomy tubes, Roa, SCDs. SKIN: No jaundice, rashes, or lesions. Ecchymoses on upper extremities. No wounds seen anteriorly. Skin temperature appropriate. Not diaphoretic. ENT: Hearing grossly normal. Nose without bleeding or purulent drainage. Throat without visible erythema, exudates, masses, or lesions. CARDIOVASCULAR: Regular rate and rhythm without murmurs, gallops, or rubs. RESPIRATORY/CHEST: Symmetric, unlabored respirations. Clear to auscultation. Breath sounds equal bilaterally. GASTROINTESTINAL: Abdomen soft, mildly tender, nondistended. No guarding. Bowel sounds present. Bilateral nephrostomy tubes in place. GENITOURINARY: Without palpable bladder distension. Roa catheter in place. MUSCULOSKELETAL: Extremities without clubbing, cyanosis, or edema. No joint tenderness or effusion noted. No calf tenderness. No mottling or clubbing. NEUROLOGICAL: Awakens easily. Follows commands. Cognitively sharp. Moves all extremities. PSYCHIATRIC: + anxiety intermittently. No apparent hallucinations or other psychotic thought process. Diagnostic Tests Laboratory: Laboratory Results - last 72 hr 04/30/18 04/30/18 05/01/18 05:55 05:55 05:28 WBC 16.8 H 15.1 H RBC 3.25 L 3.12 L Hgb 8.9 L 8.6 L Hct 27.5 L 26.7 L MCV 84.6 85.6 MCH 27.5 27.7 MCHC 32.5 32.3 RDW 15.6 16.1 Plt Count 121 L 108 L MPV 9.2 9.1 Neut % (Auto) 85.7 H Lymph % (Auto) 3.3 L [place] % (Auto) 5.6 Eos % (Auto) 4.4 H Baso % (Auto) 1.0 Neut # (Auto) 14.4 H Lymph # (Auto) 0.5 L [place] # (Auto) 0.9 Eos # (Auto) 0.7 H Baso # (Auto) 0.2 WBC Differential . Differential Comment Auto diff final Sodium 156 H* Potassium 3.7 Chloride 122 H Carbon Dioxide 24.4 Anion Gap 10 BUN 39 H Creatinine 0.88 Estimated GFR 64 L Random Glucose 101 Calcium 9.1 Phosphorus 2.4 L D Magnesium 1.7 Total Bilirubin 0.4 AST 353 H ALT 49 Alkaline Phosphatase 194 H Total Protein 5.0 L Albumin 1.7 L 05/01/18 05/02/18 05/02/18 05:28 05:50 05:50 WBC 14.2 H RBC 3.11 L Hgb 8.5 L Hct 26.3 L MCV 84.6 MCH 27.4 MCHC 32.4 RDW 16.1 Plt Count 104 L MPV 9.8 Neut % (Auto) Lymph % (Auto) [place] % (Auto) Eos % (Auto) Baso % (Auto) Neut # (Auto) Lymph # (Auto) [place] # (Auto) Eos # (Auto) Baso # (Auto) WBC Differential Differential Comment Sodium 156 H* 150 H Potassium 3.8 3.7 Chloride 121 H 114 H Carbon Dioxide 27.6 28.8 Anion Gap 7 7 BUN 29 H 22 H Creatinine 0.80 0.84 Estimated GFR 72 L 68 L Random Glucose 124 H 101 Calcium 8.8 8.7 Phosphorus 2.5 2.2 L Magnesium 1.7 1.7 Total Bilirubin 0.3 0.4 AST 322 H 290 H ALT 49 54 H Alkaline Phosphatase 189 H 206 H Total Protein 4.8 L 4.8 L Albumin 1.6 L 1.5 L Result Diagrams: 05/02/18 05:50 05/02/18 05:50 Microbiology: Microbiology 04/28/18 16:40 Aerobic Blood Culture - Preliminary Blood - Peripheral No growth in 4 days Anaerobic Blood Culture - Final QNS - See aerobic report. 04/28/18 16:35 Aerobic Blood Culture - Preliminary Blood - Peripheral No growth in 4 days Anaerobic Blood Culture - Final QNS - See aerobic report. Imaging: Abdomen/Pelvis CT 04/22/18 17:26 CONCLUSION: 1. Enlarged uterus and cervix. 2. Retroperitoneal metastatic lymphadenopathy. 3. Metastatic disease of the visualized lung bases. 4. Metastatic lytic lesion of the right pubic bone with a nondisplaced pathologic fracture. 5. Large mass or blood/debris in the urinary bladder. 6. 17 mm hypodensity of the liver is probably benign. There has slight fatty infiltration. 7. Large gallstone without associated complication. Chest CT 04/23/18 00:00 CONCLUSION: 1. Diffuse bilateral lung metastatic disease. 2. Diffuse hilar and mediastinal adenopathy consistent with neoplastic disease. 3. Diffuse para-aortic adenopathy in the abdomen. Abdomen/Bladder Ultrasound 04/24/18 00:00 CONCLUSION: 1. Large lobular mass in the bladder of concern for bladder carcinoma. 2. Bilateral hydronephrosis. 3. The echogenicity kidneys is increased and equal to that of the liver decreasing medical renal disease. 4. The small mass in the left kidney seen on CT is not visualized. Port Line Insertion 04/24/18 00:00 CONCLUSION: 1. Uncomplicated ultrasound and fluoroscopic guided implanted central venous port catheter placement as described in detail above. The port was placed via the left internal jugular vein. An 8 [place] Power port was placed. Nephrostomy 04/28/18 00:00 CONCLUSION: 1. Uncomplicated bilateral nephrostomy tube placement as above. Procedures: 04/24/18: Left sided port placement 04/25/18: Urethral dilatation, cystoscopy and attempted bilateral ureteral stent placement 04/28/18: Bilateral nephrostomy tube placement Assessment and Plan - Disease Oriented Problem List (1) Primary cervical cancer with metastasis to other site (2) Leukocytosis Comment: 05/01/2018: CBC trending downward at 15.1 (3) KALI (acute kidney injury) - Symptom Scale (1) Abdominal pain 0-10 Scale: 6 Comment: =05/01/18 Started patient on methadone 5mg PO q12 hours. =Rapid titration guidelines used for other opioids do not apply to methadone; in general, do not increase dosage more frequently than every 4 days. = Methadone in moderate to high doses can prolong the QTc interval and increase the risk of potentially lethal torsades de points arrhythmia QTc: 387 (2) Nausea 0-10 Scale: Unable to quantify (None today) Comment: =PRN Phenergan and Ondansetron. (3) Constipation 0-10 Scale: Unable to quantify Comment: =Receiving Marta-Colace 1 tablet PO BID. =PRN Milk of magnesia,Dulcolax suppository, Lactulose, and Sennosides are available as well. =Lactulose administer today. 05/01/18. Pertinent Non-Medical Issues: Psychosocial: Patient is originally from [place], [place] but has lived in the [place] for many years. She has been for 4 years. She has 2 adult sons (Dion and Mark). Dion lives in [place], and Mark lives in [place] Spiritual: Spirituality/yarsanism is not important to the patient who refuses parking lot attendant visits Legal: Prefer to statutes, in the absence of written advanced directives healthcare proxy decision making would fall to the patient's 2 adult sons. Ethical issues impacting care: No known concerns at this time. Important Contacts: * Dion Garcia, son: [phone] * Mark, son: * Joseline, granddaughter: [phone] * Mark Presley's girlfriend (a nurse): [phone] * Kit, bree daughter in law: . 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 Currently receiving palliative radiation. May consider chemotherapy if patient's functional status improves. She is at high risk for ongoing decline in complications. If the patient's medical treatment goals become comfort oriented, she would be hospice appropriate. Code Status: Full Code Plan: * FULL CODE * Per [place] statutes, in the absence of her advanced directives healthcare proxy decision making would fall to the patient's 2 adult sons (Dion and Mark) . Patient is considering completion of advanced directives, Living Will and Designation of Health Care Surrogate at bedside, not yet signed by patient. * Again discussed advanced directives. Healthcare designation form and living will were left at the patient's bedside for the patient and family to review. * Goals remain aggressive to continue to get radiation therapy, hopes to get strong enough to get chemotherapy and desires adequate pain control. Pleased with current pain control, has had improvement since addition of Methadone on . PRN Roxanol adequate to manage breakthrough pain at this time. Will monitor. * Symptom management: == Pain: Patient diagnosed with extensive squamous cell carcinoma of cervix with metastatic disease, appearance and ongoing intractable abdominal pain. 05/01/18: Started on Methadone 5 mg PO q12 hours ATC, PRN Roxanol 5 mg PO/SL (pain rated 1-5) or 10mg PO/SL (pain rated 6-10 ) q3 hours PRN breakthrough pain or SOB. Also has Morphine 5mg q3 hours PRN pain not relieved with oral medications. Rapid titration guidelines used for other opioids do not apply to methadone; in general, do not increase dosage more frequently than every 4 days. Methadone in moderate to high doses can prolong the QTc interval and increase the risk of potentially lethal torsades de points arrhythmia - QTc: 387 == Nausea:Ongoing intermittent nausea and vomiting reported. None reported . PRN Phenergan and Ondansetron. May consider starting the patient on low dose dexamethasone if nausea continue; dexamethasone may also assist with pain management by reducing inflammation in the abdomen/pelvis. == Constipation: Multifactorial. Contributing factors may include pain medication, decreased activity, poor nutrition/fluid intake, pelvic tumor burden and disease progression. Patient reporting no BM in 3 to 4 days. Receiving Marta-Colace 1 tablet PO BID. PRN Milk of magnesia, Dulcolax suppository, Lactulose, and Sennosides are available as well. Had Lactulose 05/01/18 and MOM 05/02/18. Will continue to monitor. * Palliative care will continue to follow this patient throughout her hospitalization to establish trust, assist with symptom management and clarification of medical treatment goals Attestation Attestation: To help prompt me to consider important information that might be impacting today's encounter and assessment, information from prior notes written by myself or my colleagues may have been "brought forward" into today's note. My signature on this note, however, is an attestation that I personally performed the exam, history, and/or decision-making noted today, and, unless otherwise indicated, the interactions with patient, family, and staff as well as the review of records all occurred today. I also attest that the listed assessment and stated plan reflect my best clinical judgment today based on the combination of historical information, prior notes, and today's exam/ interactions. When time spent is documented, it refers only to time spent today by the signer, or if indicated, combined time spent today by collaborating physician/nurse practitioner.
[2018-05-02] MEDS: Senna/Docusate Sodium 8.6/50 MG Tablet PO SCH ×2 (16:24→21:05)
[2018-05-02] MEDS: Morphine Inj 4 MG/ML Vial IV.PUSH PRN (18:54)
[2018-05-03] MEDS: Dextrose 5% in Water Inj 1,000 ML IV.CONT SCH ×3 (00:04→16:59)
[2018-05-03] MEDS: Methadone Liq 10 MG/10 ML UDC PO SCH ×2 (03:08→14:24)
[2018-05-03 05:48] LABS: Hematocrit 26.1 % (35.0-46.0); Hemoglobin 8.3 gm/dL (11.6-15.3); Mean Corpuscular HGB Conc 31.9 % (32.0-36.0); Mean Corpuscular Hemoglobin 27.3 pg (27.0-34.0); Mean Corpuscular Volume 85.5 fL (80.0-100.0); Mean Platelet Volume 10.1 fL (7.0-11.0); Platelet Count 98 th/mm3 (150-450); Red Blood Count 3.06 mil/mm3 (4.00-5.30); Red Cell Distribution Width 15.8 % (11.6-17.2); White Blood Count 13.2 th/mm3 (4.0-11.0)
[2018-05-03 06:27] LABS: Albumin 1.4 g/dL (3.4-5.0); Anion Gap 12 meq/L (5-15); Aspartate Aminotransferase 285 U/L (15-37); Blood Urea Nitrogen 23 mg/dL (7-18); Calcium 8.3 mg/dL (8.5-10.1); Carbon Dioxide 26.5 meq/L (21.0-32.0); Chloride 109 meq/L (98-107); Glomerular Filtration Rate 53 mL/min (>89); Glucose,Random 90 mg/dL (74-106); Magnesium 1.6 mg/dL (1.5-2.5); Potassium 3.8 meq/L (3.5-5.1); Sodium 147 meq/L (136-145)
[2018-05-03 06:29] LABS: Alanine Aminotransferase 54 U/L (10-53); Phosphorus 2.1 mg/dL (2.5-4.9)
[2018-05-03 06:30] LABS: Alkaline Phosphatase 226 U/L (45-117); Total Protein 4.7 g/dL (6.4-8.2)
--- NOTE | 2018-05-03 08:45 | MP ---
cc: Irma Worley MD,Rishi Smiley,Brock Grajeda,Kwabena Dumont,Martínez Lux,Hernan DOOLEY DATE OF OPERATION: 04/25/2018 DATE OF PROCEDURE: 04/25/2018 PREOPERATIVE DIAGNOSES: 1. Postmenopausal bleeding. 2. Uremia. 3. Pain. 4. Mass-like changes to the lower uterine segment cervix. 5. Adenopathy. 6. Pulmonary nodules, all suspicious for metastatic disease. POSTOPERATIVE DIAGNOSES: 1. Postmenopausal bleeding. 2. Uremia. 3. Pain. 4. Mass-like changes to the lower uterine segment cervix. 5. Adenopathy. 6. Pulmonary nodules, all suspicious for metastatic disease. PROCEDURE PERFORMED: Examination under anesthesia, biopsies of the vagina/periurethral area. SURGEON: Irma Worley MD ESTIMATED BLOOD LOSS: 20 mL INTRAOPERATIVE CONSULT: Dr. Kwabena Grajeda, urology. HISTORY: A 67-year-old female. Her history is well outlined in the chart. We met her as an inpatient when we were consulted with the aforementioned findings and concerns regarding possible malignancy of gynecologic origin. FINDINGS: On exam under anesthesia, there are no overtly enlarged inguinal lymph nodes. While inspecting the external genitalia, there is obviously a mass in the periurethral area, approximately 2 cm, that is suspicious for neoplasm. The vaginal canal is narrow and has a cobblestone palpable feel due to infiltration of tumor in the vagina and subvaginal tissue. The cervix and upper vagina are completely replaced with necrotic tumor, such that the cervix cannot be clearly identified. On rectovaginal exam, there is marked infiltration into the parametria with extension to the pelvic sidewalls bilaterally and fixation of tumor across the pelvis. Attempts at rigid proctosigmoidoscopy were not successful, as she had a large volume of obstipated stool, but on rectovaginal exam there was no obvious invasion in the anus or distal rectum; however, there was clearly fixed tumor invading into the rectovaginal septum without obvious tumor invasion, although exam was limited in its scope. On cystoscopy, please see Dr. Grajeda's findings, but essentially there was large volume of tumor replacing the trigone. The ureteral ostia could not be visualized due to the extensive tumor infiltration. Frozen section analysis of biopsies taken from the vagina and periurethral area showed high-grade carcinoma favoring invasive squamous cell. This op note is being re-dictated, as in review there is no security inspector in the system. The original op note was dictated on 04/25/2018. She was taken to the operating room and placed in dorsal lithotomy position, after laryngeal mask anesthesia was administered. A timeout was undertaken. She was identified by site recognition and hospital ID bracelet and the proposed procedure was reviewed and confirmed. Exam under anesthesia was performed with findings as described above. She was prepped and draped in sterile fashion. Biopsies were taken from the periurethral area, vaginal area, and upper vagina/cervix region, some of which were sent for frozen section analysis and some of which were set aside for permanent histopathologic analysis. The area was rendered hemostatic with topical Monsel's solution and then Surgicel SNoW was placed in the vaginal canal overlying the cervix and upper vagina to assist in continued hemostasis. Rectal exam had confirmed large volume of fixed stool in the vault, precluding visualization with proctosigmoidoscopy. The case was turned over to Dr. Kwabena Grajeda, who performed cystoscopy. Please see his note and findings. At the end of the case, a Roa catheter was placed to help alleviate the urethral obstruction and to see if that would help improve her worsening uremia. At the conclusion of the case preliminary and final counts were correct. There were no remaining foreign objects in the vagina, other than the intentionally placed hemostatic agent. Counts were correct. She was returned to dorsal supine position when I left the operating room to precede her to the postanesthesia care unit. MD ANNABELLE Montenegro/zunilda , 08:17 AM , 08:28 AM
[2018-05-03] MEDS: Senna/Docusate Sodium 8.6/50 MG Tablet PO SCH ×2 (09:13→21:29)
--- NOTE | 2018-05-03 09:24 | MB ---
cc: Irma Worley MD,Rishi Smiley,Brock Dumont,Martínez Lux,Hernan Griffith,Mei Rodriguez MD DATE: 05/03/2018 HISTORY OF PRESENT ILLNESS: I saw the patient. She is accompanied by her granddaughter, who is at the bedside. We already know from prior assessments she has had no problems from a recent minor procedure and after confirming she had no problems with the procedure, I had a discussion with her and her granddaughter. Fifteen minutes of this 15-minute [id number] encounter was spent in counseling and coordination of care. 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 Given the extent of the problem, however, the exact origin may not be clarified with certainty. I explained that the upper vagina, cervix, and parametria were replaced with tumor and that there was tumor in the bladder obstructing and the ureters were obstructed. There was tumor at the urethra obstructing outflow. I summarized a CAT scan showing adenopathy, pulmonary nodules. They were all concerning for metastatic disease. She has already initiated treatment to the pelvis, which is the area that needs most direct attention to avoid hemorrhage and to try to alleviate ureteral obstruction and pain. I explained the reason for the percutaneous nephrostomies and the urethral catheter to try to overcome the tumor-related obstruction. I explained that her kidney function was abnormal and the elevated BUN was contributing to mental status changes. Her renal function has now normalized, which is excellent, but there are still some periods of confusion or short-term memory deficit that cannot be explained by the uremia. Accordingly, I have explained that it may be helpful to consider getting imaging of the brain to ensure that there is no cancer-related changes to the brain. I had the opportunity to speak with Dr. Sherwin Persaud, who felt that the most detailed test to try to clarify this issue would be a brain MRI scan, and with permission of the patient and her granddaughter, we have ordered a brain MRI. I explained that I had talked with Dr. Fulton yesterday. He is to complete the high-dose initial radiation this week with plans to start the daily fractionated treatment on Tuesday of next week. I explained the rationale for using cisplatin chemotherapy to help enhance response to radiation and gave an overview of the anticipated benefits and side effects. Discussion ensued. Questions were answered. She is grateful for the care provided. She reports being comfortable. She was grateful for the input from palliative care as well and for help in managing her symptoms. More questions were asked and answered to the best of my capacity. They expressed good understanding. MD ANNABELLE Montenegro/zunilda , 08:38 AM , 08:46 AM
--- NOTE | 2018-05-03 12:48 | P.PNIM ---
Subjective Interval history: Patient reports she is feeling okay. Pain is controlled. States she ate better today compared to yesterday Physical Exam Vital signs: Vital Signs 05/02/18 16:00 05/02/18 20:00 05/03/18 00:00 Temperature 99.1 F 98.2 F 98.4 F Pulse Rate 100 H 108 H 101 H Respiratory Rate 18 16 15 Blood Pressure 158/87 H 148/90 H 135/79 Pulse Oximetry 92 L 98 94 L 05/03/18 04:00 05/03/18 12:00 Temperature 97.9 F 98.6 F Pulse Rate 102 H 104 H Respiratory Rate 17 16 Blood Pressure 152/85 H 147/82 H Pulse Oximetry 94 L 95 Intake & Output 05/02/18 05/03/18 05/03/18 18:59 06:59 18:59 Intake Total 1000 / 1000 1000 / 1000 1000 / 1000 Output Total 700 / 700 Balance 1000 / 1000 300 / 300 1000 / 1000 Weight 87.2 kg Intake: IV 1000 / 1000 1000 / 1000 1000 / 1000 D5W Inj 1,000 ML @ 100 mls/hr 1000 / 1000 1000 / 1000 1000 / 1000 IV.CONT .Q10H [facility] Rx#:[id number] Output: Urine Amount (Catheter) 25 / Indwelling Urethral Catheter 25 / Wound Drainage 675 / 675 Left Nephrostomy 425 / 425 right nephrostomy 250 / 250 Other: Date of Last Bowel Movement 04/18/18 04/18/18 Narrative: GENERAL: Appears comfortable today. Awake and alert. Hematuria continues in Roa bag as before, minimal urine output. Nephrostomy in place with straw- colored urine on the left and pink on the right. CARDIOVASCULAR: Regular rate and rhythm without murmurs, gallops, or rubs. RESPIRATORY: Breath sounds equal bilaterally. No accessory muscle use. GASTROINTESTINAL: Abdomen soft, tender to palpation diffusely. MUSCULOSKELETAL: No cyanosis, or edema. - Urinary Catheter Management Indwelling Urethral Catheter Cath placed during this visit: yes Reason for continuing: Gross Hematuria Insertion date: 04/25/18 Results - Labs CBC & Chem 7: 05/03/18 03:15 05/03/18 03:15 Laboratory Results - last 24 hr 05/03/18 05/03/18 03:15 03:15 WBC 13.2 H RBC 3.06 L Hgb 8.3 L Hct 26.1 L MCV 85.5 MCH 27.3 MCHC 31.9 L RDW 15.8 Plt Count 98 L MPV 10.1 Sodium 147 H Potassium 3.8 Chloride 109 H Carbon Dioxide 26.5 Anion Gap 12 BUN 23 H Creatinine 1.04 H Estimated GFR 53 L Random Glucose 90 Calcium 8.3 L Phosphorus 2.1 L Magnesium 1.6 Total Bilirubin 0.4 AST 285 H ALT 54 H Alkaline Phosphatase 226 H Total Protein 4.7 L Albumin 1.4 L Microbiology 04/28/18 16:40 Blood - Peripheral Aerobic Blood Culture - Final No growth in 5 days 04/28/18 16:40 Blood - Peripheral Anaerobic Blood Culture - Final QNS - See aerobic report. 04/28/18 16:35 Blood - Peripheral Aerobic Blood Culture - Final No growth in 5 days 04/28/18 16:35 Blood - Peripheral Anaerobic Blood Culture - Final QNS - See aerobic report. Assessment and Plan - Plan 67-year-old female with: Cervical cancer with metastatic disease: Invasive squamous cell carcinoma. Patient reports she has not previously had imaging done. T of the abdomen/ pelvis significant for retroperitoneal metastatic lymphadenopathy, metastatic disease of the visualized lung bases, metastatic lytic lesion of the right pubic bone with nondisplaced pathologic fracture and a large mass in the urinary bladder. The patient was made aware of her CT scan findings. [facility] oncology following, appreciate recommendations. Status post surgery on . Appreciate Docent Coordinator/ONC, urology assistance. Continues with Roa.04/28. Bilateral nephrostomy tubes placed. - Radiation therapy ongoing -Renal functions improved -Appreciate palliative care following and managing pain medications Abnormal urinalysis: Negative. Patient was put on empiric antibiotics. Leukocytosis improved. ID following. Leukocytosis: Likely secondary to malignancy and obstructive uropathy. Infectious disease following. Patient treated empirically with vancomycin, Levaquin, and Diflucan. Leukocytosis improving. Antibiotics discontinued. Monitor off antibiotics per ID. Acute kidney injury secondary to obstructive uropathy: Much improved status post bilateral nephrostomy tubes. Creatinine slightly worse today. Continue to monitor IV fluid hydration Monitor renal function Continue to monitor. Nephrology and urology following. Hypernatremia: - Appreciate nephrology input. IVF D5 free water. - Follow labs in AM. - Improving Anemia secondary to blood loss: Ongoing blood loss from hematuria - Continue to monitor H&H. Transfuse for hemoglobin less than 8. Intractable abdominal pain: Pain better controlled with new regimen -Palliative care assisting with pain medications. Patient started on methadone. Roxanol as needed prophy : SCDs. Holding AC for now due to hematuria Discharge Planning: Will likely need SNF placement.
--- NOTE | 2018-05-03 15:24 | P.PNPAL ---
Reason for Visit Reason for visit: a. To assist with evaluation and management of symptoms including: pain, nausea , constipation b. To assist medical decision maker(s) with: better understanding of current medical conditions; weighing benefits/burdens of medical treatment options; making medical treatment decisions. Subjective Subjective/Interval History: Patient seen and examined in room. Step-daughter and grand-daughter were at the bedside. Clinical data: * Afebrile, tachycardic, respirations 19, BP 147/82. * WBC 13.2, hemoglobin 8.3, hematocrit 26.1, platelets 98 * Sodium 150, potassium 3.7, chloride 114, carbon dioxide 28.8, BUN 22, creatinine 0.84, GFR 68 * Total bilirubin 0.4, AST 285, ALT 54, alkaline phosphatase 226 * Total protein 4.7, albumin 1.4 * 04/28/18 - blood cultures negative Patient reports overall pain has improved since addition of Methadone 5mg PO every 12 hours started 05/01/18, however at the time of examination she complains of of abdominal pain rated 10/10 described as "aching." RN notified. Roxanol 5-10mg PO/SL is ordered every 3 hours PRN pain/SOB; none has been administered in the past 24 hours. IV Morphine 5mg IV is ordered q3 hours PRN for pain not relived by oral morphine. Patient was administered IV morphine x1 in the past 24 hours. Patient still has not had a bowel movement. Nursing reports patient refusing PRN. Encouraged patient/family to utilize PRN medications as ordered; discussed factors that are contributing to patient's constipation. Patient's appetite remains poor; her family states she is primarily drinking fluids. Encouraged patient to eat when she can, suggesting small frequent meals. Nausea has resolved, but antiemetics are available if the patient needs them. Health care surrogate designation form and living will are at the patient's bedside. She has not yet completed these forms and became agitated when the subject of her advance directives was brought up. Forms were left at the patient's bedside, family is aware. Advance Directives Living Will: Never completed Health Care Surrogate: Never completed Durable Power of Coin Purse Assembler: Never completed Objective Vital Signs: Vital Signs 05/02/18 16:00 05/02/18 20:00 05/03/18 00:00 Temperature 99.1 F 98.2 F 98.4 F Pulse Rate 100 H 108 H 101 H Respiratory Rate 18 16 15 Blood Pressure 158/87 H 148/90 H 135/79 Pulse Oximetry 92 L 98 94 L 05/03/18 04:00 05/03/18 12:00 Temperature 97.9 F 98.6 F Pulse Rate 102 H 104 H Respiratory Rate 17 16 Blood Pressure 152/85 H 147/82 H Pulse Oximetry 94 L 95 Intake & Output 05/02/18 05/03/18 05/03/18 18:59 06:59 18:59 Intake Total 1000 / 1000 1000 / 1000 1000 / 1000 Output Total 700 / 700 Balance 1000 / 1000 300 / 300 1000 / 1000 Weight 87.2 kg Intake: IV 1000 / 1000 1000 / 1000 1000 / 1000 D5W Inj 1,000 ML @ 100 mls/hr 1000 / 1000 1000 / 1000 1000 / 1000 IV.CONT .Q10H [facility] Rx#:[id number] Output: Urine Amount (Catheter) Indwelling Urethral Catheter Wound Drainage 675 / 675 Left Nephrostomy 425 / 425 right nephrostomy 250 / 250 Other: Date of Last Bowel Movement 04/18/18 04/18/18 Physical Exam: CONSTITUTIONAL/GENERAL: This is an adequately nourished patient, in no apparent distress. TUBES/LINES/DRAINS:left port, bilateral nephrostomy tubes, Roa, SCDs. SKIN: No jaundice, rashes, or lesions. Ecchymoses on upper extremities. No wounds seen anteriorly. Skin temperature appropriate. Not diaphoretic. ENT: Hearing grossly normal. Nose without bleeding or purulent drainage. Throat without visible erythema, exudates, masses, or lesions. CARDIOVASCULAR: Tachycardic; regular rhythm without murmurs, gallops, or rubs. RESPIRATORY/CHEST: Symmetric, unlabored respirations. Clear to auscultation. Breath sounds equal bilaterally. GASTROINTESTINAL: Abdomen soft, mildly tender, nondistended. No guarding. Bowel sounds present. Bilateral nephrostomy tubes in place. GENITOURINARY: Without palpable bladder distension. Roa catheter in place. + Hematuria MUSCULOSKELETAL: Extremities without clubbing or cyanosis. 1+ pedal edema bilaterally. NEUROLOGICAL: Alert and awake. Irritable. Follows commands. Cognitively sharp. Moves all extremities. PSYCHIATRIC: + anxiety intermittently. No apparent hallucinations or other psychotic thought process. Diagnostic Tests Laboratory: Laboratory Results - last 72 hr 05/01/18 05/01/18 05/02/18 05:28 05:28 05:50 WBC 15.1 H 14.2 H RBC 3.12 L 3.11 L Hgb 8.6 L 8.5 L Hct 26.7 L 26.3 L MCV 85.6 84.6 MCH 27.7 27.4 MCHC 32.3 32.4 RDW 16.1 16.1 Plt Count 108 L 104 L MPV 9.1 9.8 Sodium 156 H* Potassium 3.8 Chloride 121 H Carbon Dioxide 27.6 Anion Gap 7 BUN 29 H Creatinine 0.80 Estimated GFR 72 L Random Glucose 124 H Calcium 8.8 Phosphorus 2.5 Magnesium 1.7 Total Bilirubin 0.3 AST 322 H ALT 49 Alkaline Phosphatase 189 H Total Protein 4.8 L Albumin 1.6 L 05/02/18 05/03/18 05/03/18 05:50 03:15 03:15 WBC 13.2 H RBC 3.06 L Hgb 8.3 L Hct 26.1 L MCV 85.5 MCH 27.3 MCHC 31.9 L RDW 15.8 Plt Count 98 L MPV 10.1 Sodium 150 H 147 H Potassium 3.7 3.8 Chloride 114 H 109 H Carbon Dioxide 28.8 26.5 Anion Gap 7 12 BUN 22 H 23 H Creatinine 0.84 1.04 H Estimated GFR 68 L 53 L Random Glucose 101 90 Calcium 8.7 8.3 L Phosphorus 2.2 L 2.1 L Magnesium 1.7 1.6 Total Bilirubin 0.4 0.4 AST 290 H 285 H ALT 54 H 54 H Alkaline Phosphatase 206 H 226 H Total Protein 4.8 L 4.7 L Albumin 1.5 L 1.4 L Result Diagrams: 05/03/18 03:15 05/03/18 03:15 Microbiology: Microbiology 04/28/18 16:40 Aerobic Blood Culture - Final Blood - Peripheral No growth in 5 days Anaerobic Blood Culture - Final QNS - See aerobic report. 04/28/18 16:35 Aerobic Blood Culture - Final Blood - Peripheral No growth in 5 days Anaerobic Blood Culture - Final QNS - See aerobic report. Imaging: Microbiology 04/28/18 16:40 Aerobic Blood Culture - Final Blood - Peripheral No growth in 5 days Anaerobic Blood Culture - Final QNS - See aerobic report. 04/28/18 16:35 Aerobic Blood Culture - Final Blood - Peripheral No growth in 5 days Anaerobic Blood Culture - Final QNS - See aerobic report. Procedures: 04/24/18: Left sided port placement 04/25/18: Urethral dilatation, cystoscopy and attempted bilateral ureteral stent placement 04/28/18: Bilateral nephrostomy tube placement Assessment and Plan - Disease Oriented Problem List (1) Primary cervical cancer with metastasis to other site (2) Leukocytosis Comment: 05/01/2018: CBC trending downward at 15.1 (3) KALI (acute kidney injury) - Symptom Scale (1) Abdominal pain 0-10 Scale: 10 Comment: =05/01/18 Started patient on methadone 5mg PO q12 hours. =Rapid titration guidelines used for other opioids do not apply to methadone; in general, do not increase dosage more frequently than every 3 to 4 days. = Methadone in moderate to high doses can prolong the QTc interval and increase the risk of potentially lethal torsades de points arrhythmia QTc: 387 (2) Nausea (3) Constipation 0-10 Scale: Unable to quantify Comment: =Receiving Marta-Colace 1 tablet PO BID. =PRN Milk of magnesia,Dulcolax suppository, Lactulose, and Sennosides are available as well. Pertinent Non-Medical Issues: Psychosocial: Patient is originally from [place], [place] but has lived in the [place] for many years. She has been for 4 years. She has 2 adult sons (Dion and Mark). Dion lives in [place], and Mark lives in [place] Spiritual: Spirituality/congregational is not important to the patient who refuses creel clerk visits Legal: Prefer to statutes, in the absence of written advanced directives healthcare proxy decision making would fall to the patient's 2 adult sons. Ethical issues impacting care: No known concerns at this time. Important Contacts: * Dion Garcia, son: [phone] * Mark, son: * Joseline, granddaughter: [phone] * Mark Presley's girlfriend (a nurse): [phone] * Trung, bree daughter in law: . 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 Currently receiving palliative radiation. May consider chemotherapy if patient's functional status improves. She is at high risk for ongoing decline in complications. If the patient's medical treatment goals become comfort oriented, she would be hospice appropriate. Code Status: Full Code Plan: * FULL CODE * Per [place] statutes, in the absence of her advanced directives healthcare proxy decision making would fall to the patient's 2 adult sons (Dion and Mark) . Patient is considering completion of advanced directives, Living Will and Designation of Health Care Surrogate at bedside, not yet signed by patient. * Again discussed advanced directives. Healthcare designation form and living will were left at the patient's bedside for the patient and family to review. * Goals remain aggressive to continue to get radiation therapy, hopes to get strong enough to get chemotherapy and desires adequate pain control. Pleased with current pain control, has had improvement since addition of Methadone on . PRN Roxanol adequate to manage breakthrough pain at this time. Will monitor. * Symptom management: == Pain: Patient diagnosed with extensive squamous cell carcinoma of cervix with metastatic disease, appearance and ongoing intractable abdominal pain. Patient reports overall pain has improved since addition of Methadone 5mg PO every 12 hours started 05/01/18, however at the time of examination she complains of of abdominal pain rated 10/10 described as "aching." Roxanol 5-10mg PO/SL is ordered every 3 hours PRN pain/SOB ; none has been administered in the past 24 hours. IV Morphine 5mg IV is ordered q3 hours PRN for pain not relived by oral morphine. Patient was administered IV morphine x1 in the past 24 hours. Rapid titration guidelines used for other opioids do not apply to methadone; in general, do not increase dosage more frequently than every 4 days. Methadone in moderate to high doses can prolong the QTc interval and increase the risk of potentially lethal torsades de points arrhythmia - QTc: 387 == Nausea: Nausea resolved at this time. PRN Phenergan and Ondansetron. == Constipation: Multifactorial. Contributing factors may include pain medication, decreased activity, poor nutrition/fluid intake, pelvic tumor burden and disease progression. No BM since admission; BOWEL SOUNDS ACTIVE. Receiving Marta-Colace 1 tablet PO BID. PRN Milk of magnesia, Dulcolax suppository, Lactulose, and Sennosides are available as well. Patient refusing PRN medications * Palliative care will continue to follow this patient throughout her hospitalization to establish trust, assist with symptom management and clarification of medical treatment goals Attestation Attestation: To help prompt me to consider important information that might be impacting today's encounter and assessment, information from prior notes written by myself or my colleagues may have been "brought forward" into today's note. My signature on this note, however, is an attestation that I personally performed the exam, history, and/or decision-making noted today, and, unless otherwise indicated, the interactions with patient, family, and staff as well as the review of records all occurred today. I also attest that the listed assessment and stated plan reflect my best clinical judgment today based on the combination of historical information, prior notes, and today's exam/ interactions. When time spent is documented, it refers only to time spent today by the signer, or if indicated, combined time spent today by collaborating physician/nurse practitioner.
[2018-05-03] MEDS: Morphine Inj 4 MG/ML Vial IV.PUSH PRN (22:38)
[2018-05-04] MEDS: Methadone Liq 10 MG/10 ML UDC PO SCH ×2 (01:14→13:43)
[2018-05-04] MEDS: Dextrose 5% in Water Inj 1,000 ML IV.CONT SCH ×3 (01:14→13:07)
[2018-05-04 05:39] LABS: Hematocrit 24.5 % (35.0-46.0); Hemoglobin 8.1 gm/dL (11.6-15.3); Mean Corpuscular HGB Conc 33.1 % (32.0-36.0); Mean Corpuscular Hemoglobin 27.8 pg (27.0-34.0); Mean Platelet Volume 9.6 fL (7.0-11.0); Platelet Count 93 th/mm3 (150-450); Red Blood Count 2.91 mil/mm3 (4.00-5.30); Red Cell Distribution Width 15.6 % (11.6-17.2); White Blood Count 9.9 th/mm3 (4.0-11.0)
[2018-05-04 06:16] LABS: Albumin 1.3 g/dL (3.4-5.0); Anion Gap 10 meq/L (5-15); Aspartate Aminotransferase 237 U/L (15-37); Blood Urea Nitrogen 17 mg/dL (7-18); Calcium 8.2 mg/dL (8.5-10.1); Carbon Dioxide 29.1 meq/L (21.0-32.0); Chloride 104 meq/L (98-107); Glomerular Filtration Rate Greater Than 89 mL/min (>89); Glucose,Random 90 mg/dL (74-106); Magnesium 1.5 mg/dL (1.5-2.5); Potassium 3.5 meq/L (3.5-5.1); Sodium 143 meq/L (136-145)
[2018-05-04 06:17] LABS: Alanine Aminotransferase 48 U/L (10-53); Phosphorus 1.9 mg/dL (2.5-4.9)
[2018-05-04 06:19] LABS: Alkaline Phosphatase 234 U/L (45-117); Total Protein 4.5 g/dL (6.4-8.2)
[2018-05-04] MEDS: Morphine Sulfate Oral Liq 10 MG/0.5 ML Syringe PO PRN ×3 (08:22→16:03)
[2018-05-04] MEDS: Senna/Docusate Sodium 8.6/50 MG Tablet PO SCH ×2 (08:23→20:25)
--- NOTE | 2018-05-04 09:56 | P.PNIM ---
Subjective Interval history: Patient reports she is feeling okay today. Appetite is fair. Patient reports she was too tired to work with physical therapy. Physical Exam Vital signs: Vital Signs 05/03/18 12:00 05/03/18 16:00 05/03/18 16:40 Temperature 98.6 F Pulse Rate 104 H 103 H Respiratory Rate 18 18 16 Blood Pressure 147/82 H 155/86 H Pulse Oximetry 95 93 L 05/03/18 20:00 05/04/18 00:00 05/04/18 04:00 Temperature 99.0 F 100.0 F H 98.9 F Pulse Rate 101 H 98 H 95 H Respiratory Rate 16 16 16 Blood Pressure 131/75 147/84 H 133/82 Pulse Oximetry 93 L 96 96 05/04/18 08:00 Temperature 97.6 F Pulse Rate 87 Respiratory Rate 18 Blood Pressure 136/78 Pulse Oximetry 97 Intake & Output 05/03/18 05/04/18 05/04/18 18:59 06:59 18:59 Intake Total 1360 / 1360 1200 / 1200 Output Total 650 / 650 1100 / 1100 Balance 710 / 710 100 / 100 Weight 87 kg Intake: IV 1000 / 1000 1000 / 1000 D5W Inj 1,000 ML @ 100 mls/hr 1000 / 1000 1000 / 1000 IV.CONT .Q10H [facility] Rx#:[id number] Oral 360 / 360 200 / 200 Output: Urine Amount (Catheter) 200 / 200 Indwelling Urethral Catheter 200 / 200 Wound Drainage 650 / 650 900 / 900 Left Nephrostomy 300 / 300 450 / 450 right nephrostomy 350 / 350 450 / 450 Other: Date of Last Bowel Movement 04/25/18 04/18/18 04/25/18 Narrative: GENERAL: Appears comfortable. Awake and alert. Hematuria continues in Roa bag as before, minimal urine output. Nephrostomy in place with clear urine on the left and on the right. CARDIOVASCULAR: Regular rate and rhythm without murmurs, gallops, or rubs. RESPIRATORY: Breath sounds equal bilaterally. No accessory muscle use. GASTROINTESTINAL: Abdomen soft, tender to palpation diffusely. MUSCULOSKELETAL: No cyanosis, or edema. - Urinary Catheter Management Indwelling Urethral Catheter Cath placed during this visit: yes Reason for continuing: Gross Hematuria Insertion date: 04/25/18 Results - Labs CBC & Chem 7: 05/04/18 05:25 05/04/18 05:25 Laboratory Results - last 24 hr 05/04/18 05/04/18 05:25 05:25 WBC 9.9 RBC 2.91 L Hgb 8.1 L Hct 24.5 L MCV 84.0 MCH 27.8 MCHC 33.1 RDW 15.6 Plt Count 93 L MPV 9.6 Sodium 143 Potassium 3.5 Chloride 104 Carbon Dioxide 29.1 Anion Gap 10 BUN 17 Creatinine 0.65 Estimated GFR Greater than 89 Random Glucose 90 Calcium 8.2 L Phosphorus 1.9 L Magnesium 1.5 Total Bilirubin 0.4 AST 237 H ALT 48 Alkaline Phosphatase 234 H Total Protein 4.5 L Albumin 1.3 L Microbiology 04/28/18 16:40 Blood - Peripheral Aerobic Blood Culture - Final No growth in 5 days 04/28/18 16:40 Blood - Peripheral Anaerobic Blood Culture - Final QNS - See aerobic report. 04/28/18 16:35 Blood - Peripheral Aerobic Blood Culture - Final No growth in 5 days 04/28/18 16:35 Blood - Peripheral Anaerobic Blood Culture - Final QNS - See aerobic report. Assessment and Plan - Plan 67-year-old female with: Cervical cancer with metastatic disease: Invasive squamous cell carcinoma. Patient reports she has not previously had imaging done. T of the abdomen/ pelvis significant for retroperitoneal metastatic lymphadenopathy, metastatic disease of the visualized lung bases, metastatic lytic lesion of the right pubic bone with nondisplaced pathologic fracture and a large mass in the urinary bladder. The patient was made aware of her CT scan findings. 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 Status post surgery on . Appreciate Operations Manager Station/ONC, urology assistance. Continues with Roa.04/28. Bilateral nephrostomy tubes placed. - Radiation therapy ongoing -Renal functions normalized -Appreciate palliative care following and managing pain medications Abnormal urinalysis: Negative. Patient was put on empiric antibiotics. Leukocytosis improved. Urine culture negative. ID following. Antibiotics discontinued. Leukocytosis: Likely secondary to malignancy and obstructive uropathy. Infectious disease following. Patient treated empirically with vancomycin, Levaquin, and Diflucan. Leukocytosis improved. Antibiotics discontinued. Monitor off antibiotics per ID. Acute kidney injury secondary to obstructive uropathy: Much improved status post bilateral nephrostomy tubes. Improved. Continue to monitor IV fluid hydration Monitor renal function Continue to monitor. Nephrology and urology following. Hypernatremia: - Appreciate nephrology input. Resolved with IVF D5 free water. -DC IVF. Continue to monitor. Anemia secondary to blood loss: Ongoing blood loss from hematuria - Continue to monitor H&H. Transfuse for hemoglobin less than 8. Intractable abdominal pain: Pain better controlled with new regimen -Palliative care assisting with pain medications. Patient started on methadone. Roxanol and IV morphine as needed prophy : SCDs. Holding AC for now due to hematuria Discharge Planning: Plan to DC with home health. Need [employer] oncology clearance
--- NOTE | 2018-05-04 15:07 | P.DCO ---
- Physical Therapy Order: Evaluate and treat, Improve ambulation, Strength and gait training - Home Health Nursing Order: Medical education, Signs/symptoms of disease process, Medication education-adverse effect, Nursing assessment with vital signs, Roa catheter maintenance - Certification I have seen patient Karen Casanova on 05/04/18. My clinical findings support the need for the requested home health care services because: Limited mobility due to disease progression, Deconditioned with increased weakness, Limited ability to care for self I certify that my clinical findings support that this patient is homebound because: Unsteady gait/balance
--- NOTE | 2018-05-04 15:35 | P.PNPAL ---
Reason for Visit Reason for visit: a. To assist with evaluation and management of symptoms including: pain, nausea , constipation b. To assist medical decision maker(s) with: better understanding of current medical conditions; weighing benefits/burdens of medical treatment options; making medical treatment decisions. Subjective Subjective/Interval History: Patient seen and examined in room. Step-daughter and grand-daughter were at the bedside. Clinical data: * Afebrile, pulse 91, respirations 19, BP 147/82. * WBC 9.9, hemoglobin 8.1, hematocrit 24.5, platelets 93 * Sodium 143, potassium 3.5, chloride 104, carbon dioxide 29.1, glucose 90, calcium 8.2, phosphorus 1.9, magnesium 1.5 * BUN: 17, creatinine 0.65, creatinine >89 * Total bilirubin 0.4, AST 237, ALT 48, alkaline phosphatase 234 * Total protein 4.5, albumin 1.3 * 04/28/18 - blood cultures negative Patient reports overall pain has improved since addition of Methadone 5mg PO every 12 hours started 05/01/18. She states she can "feel the radiation" and complains of ongoing, intermittent "seedy" pain in her abdomen, perineum and lower back. She denies pain at the time of exam. Roxanol 5-10mg PO/SL is ordered every 3 hours PRN pain/SOB. IV Morphine 5mg IV is ordered q3 hours PRN for pain not relived by oral morphine. 24 hour PRN requirements = 10 mg oral morphine x 1; 5 mg IV morphine 1. Patient encouraged to ask for PRN medications before she is experiencing a pain crisis. Patient does not wish to make any adjustments in current pain regimen at this time. Patient still has not had a bowel movement. Patient is receiving Marta-Colace 1 tablet PO 2x daily. Several PRN medications are available but the patient refuses per nursing report. Encouraged patient/family to utilize PRN medications as ordered; discussed factors that are contributing to patient's constipation. Patient's appetite remains poor; her family states she is primarily drinking fluids. She has been drinking some bone breath. Encouraged patient to eat when she can, suggesting small frequent meals. Antiemetics are available for intermittent nausea; patient has been using ondansetron regularly. Health care surrogate designation form and living will are at the patient's bedside but have not been completed at this time. Advance Directives Living Will: Never completed Health Care Surrogate: Never completed Durable Power of Mushroom Sorter Grader: Never completed Objective Vital Signs: Vital Signs 05/03/18 16:00 05/03/18 16:40 05/03/18 20:00 Temperature 99.0 F Pulse Rate 103 H 101 H Respiratory Rate 18 16 16 Blood Pressure 155/86 H 131/75 Pulse Oximetry 93 L 93 L 05/04/18 00:00 05/04/18 04:00 05/04/18 08:00 Temperature 100.0 F H 98.9 F 97.6 F Pulse Rate 98 H 95 H 87 Respiratory Rate 16 16 18 Blood Pressure 147/84 H 133/82 136/78 Pulse Oximetry 96 96 97 05/04/18 11:16 05/04/18 12:55 Temperature 98 F Pulse Rate 91 H Respiratory Rate 18 18 Blood Pressure 139/77 Pulse Oximetry 94 L Intake & Output 05/03/18 05/04/18 05/04/18 18:59 06:59 18:59 Intake Total 1360 / 1360 1200 / 1200 1000 / 1000 Output Total 650 / 650 1100 / 1100 Balance 710 / 710 100 / 100 1000 / 1000 Weight 87 kg Intake: IV 1000 / 1000 1000 / 1000 1000 / 1000 D5W Inj 1,000 ML @ 100 mls/hr 1000 / 1000 1000 / 1000 1000 / 1000 IV.CONT .Q10H [facility] Rx#:[id number] Oral 360 / 360 200 / 200 Output: Urine Amount (Catheter) 200 / 200 Indwelling Urethral Catheter 200 / 200 Wound Drainage 650 / 650 900 / 900 Left Nephrostomy 300 / 300 450 / 450 right nephrostomy 350 / 350 450 / 450 Other: Date of Last Bowel Movement 04/25/18 04/18/18 04/25/18 Physical Exam: CONSTITUTIONAL/GENERAL: This is an adequately nourished patient, in no apparent distress. TUBES/LINES/DRAINS:left port, bilateral nephrostomy tubes, Roa, SCDs. SKIN: No jaundice, rashes, or lesions. Ecchymoses on upper extremities. No wounds seen anteriorly. Skin temperature appropriate. Not diaphoretic. ENT: Hearing grossly normal. Nose without bleeding or purulent drainage. Throat without visible erythema, exudates, masses, or lesions. CARDIOVASCULAR: Regular rate and rhythm without murmurs, gallops, or rubs. RESPIRATORY/CHEST: Symmetric, unlabored respirations. Clear to auscultation. Breath sounds equal bilaterally. GASTROINTESTINAL: Abdomen soft, mildly tender, nondistended. No guarding. Bowel sounds present. Bilateral nephrostomy tubes in place. GENITOURINARY: Without palpable bladder distension. Roa catheter in place. + Hematuria MUSCULOSKELETAL: Extremities without clubbing or cyanosis. 1+ pedal edema bilaterally. NEUROLOGICAL: Alert and awake. Irritable. Follows commands. Cognitively sharp. Moves all extremities. PSYCHIATRIC: + anxiety intermittently. No apparent hallucinations or other psychotic thought process. Diagnostic Tests Laboratory: Laboratory Results - last 72 hr 05/02/18 05/02/18 05/03/18 05:50 05:50 03:15 WBC 14.2 H 13.2 H RBC 3.11 L 3.06 L Hgb 8.5 L 8.3 L Hct 26.3 L 26.1 L MCV 84.6 85.5 MCH 27.4 27.3 MCHC 32.4 31.9 L RDW 16.1 15.8 Plt Count 104 L 98 L MPV 9.8 10.1 Sodium 150 H Potassium 3.7 Chloride 114 H Carbon Dioxide 28.8 Anion Gap 7 BUN 22 H Creatinine 0.84 Estimated GFR 68 L Random Glucose 101 Calcium 8.7 Phosphorus 2.2 L Magnesium 1.7 Total Bilirubin 0.4 AST 290 H ALT 54 H Alkaline Phosphatase 206 H Total Protein 4.8 L Albumin 1.5 L 05/03/18 05/04/18 05/04/18 03:15 05:25 05:25 WBC 9.9 RBC 2.91 L Hgb 8.1 L Hct 24.5 L MCV 84.0 MCH 27.8 MCHC 33.1 RDW 15.6 Plt Count 93 L MPV 9.6 Sodium 147 H 143 Potassium 3.8 3.5 Chloride 109 H 104 Carbon Dioxide 26.5 29.1 Anion Gap 12 10 BUN 23 H 17 Creatinine 1.04 H 0.65 Estimated GFR 53 L Greater than 89 Random Glucose 90 90 Calcium 8.3 L 8.2 L Phosphorus 2.1 L 1.9 L Magnesium 1.6 1.5 Total Bilirubin 0.4 0.4 AST 285 H 237 H ALT 54 H 48 Alkaline Phosphatase 226 H 234 H Total Protein 4.7 L 4.5 L Albumin 1.4 L 1.3 L Result Diagrams: 05/04/18 05:25 05/04/18 05:25 Microbiology: Microbiology 04/28/18 16:40 Aerobic Blood Culture - Final Blood - Peripheral No growth in 5 days Anaerobic Blood Culture - Final QNS - See aerobic report. 04/28/18 16:35 Aerobic Blood Culture - Final Blood - Peripheral No growth in 5 days Anaerobic Blood Culture - Final QNS - See aerobic report. Procedures: 04/24/18: Left sided port placement 04/25/18: Urethral dilatation, cystoscopy and attempted bilateral ureteral stent placement 04/28/18: Bilateral nephrostomy tube placement Assessment and Plan - Disease Oriented Problem List (1) Primary cervical cancer with metastasis to other site (2) Leukocytosis Comment: 05/01/2018: CBC trending downward at 15.1 (3) KALI (acute kidney injury) - Symptom Scale (1) Abdominal pain (2) Nausea 0-10 Scale: 3 Comment: = Ongoing nausea. = PRN Phenergan and Ondansetron. (3) Constipation 0-10 Scale: Unable to quantify Comment: =Receiving Marta-Colace 1 tablet PO BID. =PRN Milk of magnesia,Dulcolax suppository, Lactulose, and Sennosides are available as well. Pertinent Non-Medical Issues: Psychosocial: Patient is originally from [place], [place] but has lived in the [place] for many years. She has been for 4 years. She has 2 adult sons (Dion and Mark). Dion lives in [place], and Mark lives in [place] Spiritual: Spirituality/gnosticist is not important to the patient who refuses asphalt roller person visits Legal: Prefer to statutes, in the absence of written advanced directives healthcare proxy decision making would fall to the patient's 2 adult sons. Ethical issues impacting care: No known concerns at this time. Important Contacts: * Dion Garcia, son: [phone] * Mark, son: * Joseline, granddaughter: [phone] * SakinaMark landis's girlfriend (a nurse): [phone] * Kit, step daughter in law: . 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 Currently receiving palliative radiation. May consider chemotherapy if patient's functional status improves. She is at high risk for ongoing decline in complications. If the patient's medical treatment goals become comfort oriented, she would be hospice appropriate. Code Status: Full Code Plan: * FULL CODE * Per [place] statutes, in the absence of her advanced directives healthcare proxy decision making would fall to the patient's 2 adult sons (Dion and Mark) . Patient is considering completion of advanced directives, Living Will and Designation of Health Care Surrogate at bedside, not yet signed by patient. * Again discussed advanced directives. Healthcare designation form and living will were left at the patient's bedside for the patient and family to review. * Goals remain aggressive to continue to get radiation therapy, hopes to get strong enough to get chemotherapy and desires adequate pain control. Pleased with current pain control, has had improvement since addition of Methadone on . PRN Roxanol adequate to manage breakthrough pain at this time. Will monitor. * Symptom management: == Pain: Patient diagnosed with extensive squamous cell carcinoma of cervix with metastatic disease, appearance and ongoing intractable abdominal pain. Patient reports overall pain has improved since addition of Methadone 5mg PO every 12 hours started 05/01/18 (Methadone in moderate to high doses can prolong the QTc interval and increase the risk of potentially lethal torsades de points arrhythmia - QTc: 387) Patient reports overall pain has improved since addition of Methadone 5mg PO every 12 hours started 05/01/18. She states she can "feel the radiation" and complains of ongoing, intermittent "seedy" pain in her abdomen, perineum and lower back. She denies pain at the time of exam. Roxanol 5-10mg PO/SL is ordered every 3 hours PRN pain/SOB. IV Morphine 5mg IV is ordered q3 hours PRN for pain not relived by oral morphine. 24 hour PRN requirements = 10 mg oral morphine x 1; 5 mg IV morphine 1. Patient encouraged to ask for PRN medications before she is experiencing a pain crisis. Patient does not wish to make any adjustments in current pain regimen at this time. Rapid titration guidelines used for other opioids do not apply to methadone; in general, do not increase dosage more frequently than every few days. == Nausea:Ongoing intermittent nausea and vomiting reported. PRN Phenergan and Ondansetron. Patient has received 5 doses of ondansetron in the past 24 hours. May consider starting the patient on low dose dexamethasone if nausea continue; dexamethasone may also assist with pain management by reducing inflammation in the abdomen/pelvis. == Constipation: Multifactorial. Contributing factors may include pain medication, decreased activity, poor nutrition/fluid intake, pelvic tumor burden and disease progression. No BM since admission; bowel sounds active. Receiving Marta-Colace 1 tablet PO BID. PRN Milk of magnesia, Dulcolax suppository, Lactulose, and Sennosides are available as well. Patient refusing PRN medications. Encouraged patient to take PRN medications. * Palliative care will continue to follow this patient throughout her hospitalization to establish trust, assist with symptom management and clarification of medical treatment goals
[2018-05-04] MEDS ORDERED: Gadobutrol PF 10 MMOL/10 ML Vial (for RAD) IV.SIG ONE (17:15)
--- NOTE | 2018-05-04 17:47 | MR ---
EXAM DATE: 05/04/2018 5:40 PM EDT AGE/SEX: 67 years / Female INDICATIONS: Altered mental status. CLINICAL DATA: This is the patient's subsequent encounter. Patient reports that signs and symptoms h ave been present for 2 months and indicates a pain score of 0/10. MEDICAL/SURGICAL HISTORY: Carcinoma, breast. Carcinoma, cervical. Carcinoma, vulva. Tonsillec uriel. Lumpectomy. Wrist surgery. COMPARISON: No prior exams available for comparison. TECHNIQUE: Multiplanar, multisequence examination of the brain was performed without and with 8.5 ml Gadavist (gadobutrol) contrast as a single exam dose. FINDINGS: Cerebrum: The ventricles are normal for age. No evidence of midline shift, mass lesion, hemorrhage or acute infarction. No extraaxial fluid collections are seen. The pituitary gland and suprasellar cistern are normal in configuration. White Matter: No significant signal abnormalities are seen in the white matter. Posterior Fossa: The cerebellum and brainstem are intact. 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 The 4th ventricle is midline. The cerebellopontine angle is unremark able. The cerebellar tonsils are normal in position. Diffusion Imaging: No focal areas of restricted diffusion are seen. No evidence of acute infarction . Extracranial: The visualized portions of the orbits and paranasal sinuses are unremarkable. There is some nonspecific thickening and enhancement of the calvarium along the right frontal bone area. Post Contrast: No abnormal areas of parenchymal or dural enhancement. No evidence of blood-brain ba rrier breakdown. No enhancing mass occupying lesions within the brain. CONCLUSION: 1. 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 2. Otherwise, unremarkable MRI of the brain for patient's age. 3. Nonspecific thickening and enhancement involving the calvarium along the right frontal bone. This finding is nonspecific. It could represent hyperostosis frontalis interna. However, neoplastic disea se is not excluded. Therefore, recommend a CT scan of the brain for further evaluation. Electronically signed by: Jason Selby MD 05/04/2018 5:46 PM EDT
[2018-05-05] MEDS: Methadone Liq 10 MG/10 ML UDC PO SCH ×2 (03:12→13:31)
[2018-05-05] MEDS: Acetaminophen 325 MG Tablet PO PRN ×2 (05:08→15:42)
[2018-05-05 05:59] LABS: Hematocrit 26.4 % (35.0-46.0); Hemoglobin 8.6 gm/dL (11.6-15.3); Mean Corpuscular HGB Conc 32.5 % (32.0-36.0); Mean Corpuscular Hemoglobin 27.7 pg (27.0-34.0); Mean Corpuscular Volume 85.4 fL (80.0-100.0); Mean Platelet Volume 9.9 fL (7.0-11.0); Platelet Count 110 th/mm3 (150-450); Red Blood Count 3.09 mil/mm3 (4.00-5.30); Red Cell Distribution Width 16.1 % (11.6-17.2); White Blood Count 10.3 th/mm3 (4.0-11.0)
[2018-05-05 06:25] LABS: Calcium 8.6 mg/dL (8.5-10.1); Carbon Dioxide 30.9 meq/L (21.0-32.0); Potassium 3.9 meq/L (3.5-5.1)
--- NOTE | 2018-05-05 08:20 | P.PNONC ---
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 Patient tells me that she will work PT, "but not today". I reviewed MRI results with her but I am unsure how much she retained of our conversation. no family at bedside. Objective Vital Signs/Intake & Output: Vital Signs 05/04/18 11:16 05/04/18 12:55 05/04/18 15:59 Temperature 98 F 97.7 F Pulse Rate 91 H 101 H Respiratory Rate 18 18 18 Blood Pressure 139/77 157/81 H Pulse Oximetry 94 L 94 L 05/04/18 16:03 05/04/18 20:00 05/05/18 00:00 Temperature 98.8 F 97.7 F Pulse Rate 108 H 108 H Respiratory Rate 18 18 14 Blood Pressure 150/85 H 124/64 Pulse Oximetry 93 L 92 L 05/05/18 04:00 Temperature 100.9 F H Pulse Rate 106 H Respiratory Rate 16 Blood Pressure 114/60 Pulse Oximetry 93 L Intake & Output 05/04/18 05/05/18 05/05/18 18:59 06:59 18:59 Intake Total 1979 / 1979 1470 / 1470 Output Total 650 / 650 1070 / 1070 Balance 1330 / 1330 400 / 400 Weight 100.1 kg Intake: IV 1500 / 1500 500 / 500 D5W Inj 1,000 ML @ 100 mls/hr 1500 / 1500 IV.CONT .Q10H [facility] Rx#:[id number] Oral 480 / 480 120 / 120 Anesthesia Amount 850 / 850 Output: Urine 0 / 0 0 / 0 Estimated Blood Loss 30 / 30 Urine Amount (Catheter) 650 / 650 Indwelling Urethral Catheter 650 / 650 Wound Drainage 650 / 650 390 / 390 Left Nephrostomy 400 / 400 350 / 350 right nephrostomy 250 / 250 40 / 40 Other: # Voids 1 # Incontinent Voids 3 Date of Last Bowel Movement 04/25/18 04/25/18 # Bowel Movements 0 0 Result Diagrams: 05/05/18 05:00 05/05/18 05:00 Laboratory Results: Laboratory Results - last 24 hr 05/04/18 05/05/18 05/05/18 20:22 05:00 05:00 WBC 10.3 RBC 3.09 L Hgb 8.6 L Hct 26.4 L MCV 85.4 MCH 27.7 MCHC 32.5 RDW 16.1 Plt Count 110 L MPV 9.9 Sodium 142 Potassium 3.9 Chloride 103 Carbon Dioxide 30.9 Anion Gap 8 BUN 20 H Creatinine 0.76 Estimated GFR 76 L POC Glucose 94 Random Glucose 68 L Calcium 8.6 Culture Results: Microbiology 04/28/18 16:40 Aerobic Blood Culture - Final Blood - Peripheral No growth in 5 days Anaerobic Blood Culture - Final QNS - See aerobic report. 04/28/18 16:35 Aerobic Blood Culture - Final Blood - Peripheral No growth in 5 days Anaerobic Blood Culture - Final QNS - See aerobic report. Imaging Studies: Impressions Head MRI 05/04/18 00:00 CONCLUSION: 1. 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 2. Otherwise, unremarkable MRI of the brain for patient's age. 3. Nonspecific thickening and enhancement involving the calvarium along the right frontal bone. This finding is nonspecific. It could represent hyperostosis frontalis interna. However, neoplastic disease is not excluded. Therefore, recommend a CT scan of the brain for further evaluation. Medications: Active Medications Generic Name Dose Route Start Last Admin Trade Name Freq PRN Reason Stop Dose Admin Acetaminophen 650 mg 04/22/18 21:00 05/05/18 05:08 Tylenol PO 650 mg Q4H PRN Administration Temp > 100.4 Al Hydroxide/Mg Hydroxide 30 ml 04/22/18 21:00 05/02/18 10:23 Milk Of Magnesia Liq PO 30 ml Q12H PRN Administration Mild Constipation Belladonna Alkaloids/Opium 60 mg 04/29/18 20:31 05/01/18 00:24 B & O Supp RECTAL 60 mg Q6HR PRN Administration BLADDER SPASM Clonidine HCl 0.1 mg 04/24/18 15:37 05/01/18 20:42 Catapres PO 0.1 mg Q6H PRN Administration SBP>160, DBP>90 Lactulose 30 ml 04/22/18 21:00 05/01/18 09:10 Lactulose Liq PO 30 ml DAILY PRN Administration SEVERE CONSITIPATION Methadone HCl 5 mg 05/01/18 14:00 05/05/18 03:12 Methadone Liq PO 5 mg Q12H ALOK Administration Morphine Sulfate 5 mg 05/01/18 13:54 05/02/18 10:22 Roxanol Liq PO 5 mg Q3H PRN Administration SEE LABEL COMMENTS Morphine Sulfate 10 mg 05/01/18 13:57 05/04/18 16:03 Roxanol Liq PO 10 mg Q3H PRN Administration SEE LABEL COMMENTS Morphine Sulfate 5 mg 05/02/18 18:45 05/03/18 22:38 Morphine Inj IV.PUSH 5 mg Q3H PRN Administration PAIN SCALE 6 TO 10 Ondansetron HCl 4 mg 04/24/18 12:00 05/05/18 05:01 Zofran Inj IV.PUSH 4 mg Q4HR ALOK Administration Promethazine HCl 25 mg 04/24/18 10:47 05/04/18 18:11 Phenergan PO 25 mg Q6H PRN Administration NAUSEA OR VOMITING Senna/Docusate Sodium 1 tab 04/22/18 21:00 05/04/18 20:25 Marta-Colace PO Not Given BID ALOK Sodium Chloride 2 ml 04/22/18 17:26 04/24/18 01:38 Ns Flush IV.FLUSH 2 ml PRN PRN Administration FLUSH AFTER USING IV ACCESS Objective Remarks: GENERAL: Well-nourished, well-developed patient. SKIN: Warm and dry. HEAD: Normocephalic. EYES: No scleral icterus. No injection or drainage. CARDIOVASCULAR: Regular rate and rhythm without murmurs. RESPIRATORY: Breath sounds equal bilaterally. No accessory muscle use. EXTREMITIES: No cyanosis, or edema. MUSCULOSKELETAL: Adequate muscle tone. NEUROLOGICAL: No obvious focal deficit. Awake, alert Assessment/Plan (1) KALI (acute kidney injury) Code(s): N17.9 - Acute kidney failure, unspecified Status: Acute (2) Vaginal bleeding, abnormal Code(s): N93.9 - Abnormal uterine and vaginal bleeding, unspecified Status: Acute - Plan s/p EUA D/C with bx final pathology pending primary cervix vs. bladder Dr. Fulton to start radiation for pelvic tumor then consideration of IV chemo for metastatic disease once kidney function has improved. Roa in place, urology following creat improved, percutaneous nephrostomy tubes if needed for poor kidney function daily labs continue IVF and supportive care 04/28/18: patient declined overnight with lethargy and confusion worsening BUN/Creat, percutaneous nephrostomy tubes placed, with good urine output extensive conversation with her son Dion day #2 radiation any IV chemotherapy in the future will be based on patient's overall improved in performance status and kidney function daily labs IV hydration consideration of Palliative Care consult, will discuss again on Tuesday urology and nephrology following ID following, IV abx: Flagy and Levaquin, cultures ordered. 05/01/18: final pathology: SSC of cervix with mets patient improved today, verbal and oriented answering questions continue radiation as scheduled s/p percutaneous nephrostomy tubes, draining creat normalized 0.8 consideration of starting IV chemotherapy once patient's performance status has improved patient will most likely need rehab once she is recovered and discharged from hospital d/t deconditioning daily labs: hypernatremia, IVF D5 management per medicine team Palliative Care consulted to help with clarify goals, establish code status and health care surrogate 05/05/18: continue supportive care and encourage work with PT IR to evaluate patency of nephrostomy tube daily labs Palliative Care following continue radiation as scheduled, IV chemo on hold until improvement in performance status
[2018-05-05] MEDS: Senna/Docusate Sodium 8.6/50 MG Tablet PO SCH ×2 (09:40→23:18)
--- NOTE | 2018-05-05 11:39 | P.PNPAL ---
Reason for Visit Reason for visit: a. To assist with evaluation and management of symptoms including: pain, nausea , constipation b. To assist medical decision maker(s) with: better understanding of current medical conditions; weighing benefits/burdens of medical treatment options; making medical treatment decisions. Subjective Subjective/Interval History: Patient seen and examined in room. Family member, Mayra, was at bedside. Clinical data: * Febrile this morning with axillary temp of 100.9 * Pulse 101, respirations 18, BP 132/80; oxygen saturation 93% on room air * WBC 10.3, hemoglobin 8.6, hematocrit 26.4, platelets 110 * Sodium 142, potassium 3.9, chloride 103, carbon dioxide 30.9, glucose 68, calcium 8.6 * BUN: 20, creatinine 0.76, GFR 76 * 04/28/18 - blood cultures negative Patient reports overall pain has improved since addition of Methadone 5mg PO every 12 hours started 05/01/18. Currently reporting moderate to severe back pain described as aching. Roxanol 5-10mg PO/SL is ordered every 3 hours PRN pain /SOB. IV Morphine 5mg IV is ordered q3 hours PRN for pain not relived by oral morphine. 24 hour PRN requirements = 10 mg oral morphine x 2 (last given at 1600). Per nursing report, patient was extremely lethargic overnight requiring sternal rub on multiple occasions. Nursing is verbalizing concerns that the patient, whose goals remain aggressive, may become overly sedated with narcotics. Patient remains in FULL CODE. Palliative care discussed the risk and benefits of pain medication and trying to find a balance between adequate symptom management and sedation. Patient/family verbalize understanding. Pain medications will be given at the discretion of the nurse. Nurse also tells me the patient is refusing to work with physical therapy. I explained to patient/family that should the patient's functional status decline , she may not be a candidate for ongoing aggressive treatment. Patient verbalizes frustration stating, "It was one day. I just wanted to rest." Briefly discussed aggressive versus comfort focused goals as well as code status. The patient did not interact much during this conversation. Her eyes were closed, but she appeared to be listening to portions of the conversation. Patient's appetite remains poor and she has ongoing nausea. Her family states she is primarily drinking fluids. She has been drinking some bone breath. Encouraged patient to eat when she can, suggesting small frequent meals. She still has not has a bowel movement; patient received Marta-Colace this morning. PRN antiemetics and laxatives are ordered. Health care surrogate designation form and living will are at the patient's bedside but have not been completed at this time. Advance Directives Living Will: Never completed Health Care Surrogate: Never completed Durable Power of Forestry Hunter: Never completed Objective Vital Signs: Vital Signs 05/04/18 11:16 05/04/18 12:55 05/04/18 15:59 Temperature 98 F 97.7 F Pulse Rate 91 H 101 H Respiratory Rate 18 18 18 Blood Pressure 139/77 157/81 H Pulse Oximetry 94 L 94 L 05/04/18 16:03 05/04/18 20:00 05/05/18 00:00 Temperature 98.8 F 97.7 F Pulse Rate 108 H 108 H Respiratory Rate 18 18 14 Blood Pressure 150/85 H 124/64 Pulse Oximetry 93 L 92 L 05/05/18 04:00 05/05/18 09:21 Temperature 100.9 F H 97.6 F Pulse Rate 106 H 102 H Respiratory Rate 16 18 Blood Pressure 114/60 132/80 Pulse Oximetry 93 L 93 L Intake & Output 05/04/18 05/05/18 05/05/18 18:59 06:59 18:59 Intake Total 1979 / 1979 1470 / 1470 Output Total 650 / 650 1070 / 1070 Balance 1330 / 1330 400 / 400 Weight 100.1 kg Intake: IV 1500 / 1500 500 / 500 D5W Inj 1,000 ML @ 100 mls/hr 1500 / 1500 IV.CONT .Q10H [facility] Rx#:[id number] Oral 480 / 480 120 / 120 Anesthesia Amount 850 / 850 Output: Urine 0 / 0 0 / 0 Estimated Blood Loss 30 / 30 Urine Amount (Catheter) 650 / 650 Indwelling Urethral Catheter 650 / 650 Wound Drainage 650 / 650 390 / 390 Left Nephrostomy 400 / 400 350 / 350 right nephrostomy 250 / 250 40 / 40 Other: # Voids 1 # Incontinent Voids 3 Date of Last Bowel Movement 04/25/18 04/25/18 04/25/18 # Bowel Movements 0 0 Physical Exam: CONSTITUTIONAL/GENERAL: This is an adequately nourished patient, in no apparent distress. TUBES/LINES/DRAINS:left port, bilateral nephrostomy tubes, Roa, SCDs. SKIN: No jaundice, rashes, or lesions. Ecchymoses on upper extremities. No wounds seen anteriorly. Skin temperature appropriate. Not diaphoretic. ENT: Hearing grossly normal. Nose without bleeding or purulent drainage. Throat without visible erythema, exudates, masses, or lesions. CARDIOVASCULAR: Regular rate and rhythm without murmurs, gallops, or rubs. RESPIRATORY/CHEST: Symmetric, unlabored respirations. Clear to auscultation. Breath sounds equal bilaterally. GASTROINTESTINAL: Abdomen soft, mildly tender, nondistended. No guarding. Bowel sounds present. Bilateral nephrostomy tubes in place. GENITOURINARY: Without palpable bladder distension. Roa catheter in place. MUSCULOSKELETAL: Extremities without clubbing or cyanosis. 1+ pedal edema bilaterally. NEUROLOGICAL: Lethargic. Irritable. Answers some questions but appears to be sleeping during portions of exam. PSYCHIATRIC: + anxiety intermittently. No apparent hallucinations or other psychotic thought process. Diagnostic Tests Laboratory: Laboratory Results - last 72 hr 05/03/18 05/03/18 05/04/18 03:15 03:15 05:25 WBC 13.2 H 9.9 RBC 3.06 L 2.91 L Hgb 8.3 L 8.1 L Hct 26.1 L 24.5 L MCV 85.5 84.0 MCH 27.3 27.8 MCHC 31.9 L 33.1 RDW 15.8 15.6 Plt Count 98 L 93 L MPV 10.1 9.6 Sodium 147 H Potassium 3.8 Chloride 109 H Carbon Dioxide 26.5 Anion Gap 12 BUN 23 H Creatinine 1.04 H Estimated GFR 53 L POC Glucose Random Glucose 90 Calcium 8.3 L Phosphorus 2.1 L Magnesium 1.6 Total Bilirubin 0.4 AST 285 H ALT 54 H Alkaline Phosphatase 226 H Total Protein 4.7 L Albumin 1.4 L 05/04/18 05/04/18 05/05/18 05:25 20:22 05:00 WBC 10.3 RBC 3.09 L Hgb 8.6 L Hct 26.4 L MCV 85.4 MCH 27.7 MCHC 32.5 RDW 16.1 Plt Count 110 L MPV 9.9 Sodium 143 Potassium 3.5 Chloride 104 Carbon Dioxide 29.1 Anion Gap 10 BUN 17 Creatinine 0.65 Estimated GFR Greater than 89 POC Glucose 94 Random Glucose 90 Calcium 8.2 L Phosphorus 1.9 L Magnesium 1.5 Total Bilirubin 0.4 AST 237 H ALT 48 Alkaline Phosphatase 234 H Total Protein 4.5 L Albumin 1.3 L 05/05/18 05:00 WBC RBC Hgb Hct MCV MCH MCHC RDW Plt Count MPV Sodium 142 Potassium 3.9 Chloride 103 Carbon Dioxide 30.9 Anion Gap 8 BUN 20 H Creatinine 0.76 Estimated GFR 76 L POC Glucose Random Glucose 68 L Calcium 8.6 Phosphorus Magnesium Total Bilirubin AST ALT Alkaline Phosphatase Total Protein Albumin Result Diagrams: 05/05/18 05:00 05/05/18 05:00 Microbiology: Microbiology 04/28/18 16:40 Aerobic Blood Culture - Final Blood - Peripheral No growth in 5 days Anaerobic Blood Culture - Final QNS - See aerobic report. 04/28/18 16:35 Aerobic Blood Culture - Final Blood - Peripheral No growth in 5 days Anaerobic Blood Culture - Final QNS - See aerobic report. Imaging: Abdomen/Pelvis CT 04/22/18 17:26 CONCLUSION: 1. Enlarged uterus and cervix. 2. Retroperitoneal metastatic lymphadenopathy. 3. Metastatic disease of the visualized lung bases. 4. Metastatic lytic lesion of the right pubic bone with a nondisplaced pathologic fracture. 5. Large mass or blood/debris in the urinary bladder. 6. 17 mm hypodensity of the liver is probably benign. There has slight fatty infiltration. 7. Large gallstone without associated complication. Chest CT 04/23/18 00:00 CONCLUSION: 1. Diffuse bilateral lung metastatic disease. 2. Diffuse hilar and mediastinal adenopathy consistent with neoplastic disease. 3. Diffuse para-aortic adenopathy in the abdomen. Abdomen/Bladder Ultrasound 04/24/18 00:00 CONCLUSION: 1. Large lobular mass in the bladder of concern for bladder carcinoma. 2. Bilateral hydronephrosis. 3. The echogenicity kidneys is increased and equal to that of the liver decreasing medical renal disease. 4. The small mass in the left kidney seen on CT is not visualized. Port Line Insertion 04/24/18 00:00 CONCLUSION: 1. Uncomplicated ultrasound and fluoroscopic guided implanted central venous port catheter placement as described in detail above. The port was placed via the left internal jugular vein. An 8 Sinhala Power port was placed. Nephrostomy 04/28/18 00:00 CONCLUSION: 1. Uncomplicated bilateral nephrostomy tube placement as above. Head MRI 05/04/18 00:00 CONCLUSION: 1. 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 2. Otherwise, unremarkable MRI of the brain for patient's age. 3. Nonspecific thickening and enhancement involving the calvarium along the right frontal bone. This finding is nonspecific. It could represent hyperostosis frontalis interna. However, neoplastic disease is not excluded. Therefore, recommend a CT scan of the brain for further evaluation. Procedures: 04/24/18: Left sided port placement 04/25/18: Urethral dilatation, cystoscopy and attempted bilateral ureteral stent placement 04/28/18: Bilateral nephrostomy tube placement Assessment and Plan - Disease Oriented Problem List (1) Primary cervical cancer with metastasis to other site (2) Leukocytosis Comment: 05/01/2018: CBC trending downward at 15.1 (3) KALI (acute kidney injury) - Symptom Scale (1) Abdominal pain 0-10 Scale: 7 Comment: =05/01/18 Started patient on methadone 5mg PO q12 hours. =Rapid titration guidelines used for other opioids do not apply to methadone; in general, do not increase dosage more frequently than every 3 to 4 days. = Methadone in moderate to high doses can prolong the QTc interval and increase the risk of potentially lethal torsades de points arrhythmia QTc: 387 (2) Nausea Comment: = Intermittent nausea; denied at time of exam = PRN Phenergan and Ondansetron. (3) Constipation Pertinent Non-Medical Issues: Psychosocial: Patient is originally from [place], [place] but has lived in the [place] for many years. She has been for 4 years. She has 2 adult sons (Dion and Mark). Dion lives in [place], and Mark lives in [place] Spiritual: Spirituality/anabaptism is not important to the patient who refuses brim edge trimmer visits Legal: Prefer to statutes, in the absence of written advanced directives healthcare proxy decision making would fall to the patient's 2 adult sons. Ethical issues impacting care: No known concerns at this time. Important Contacts: * Dion Garcia, son: [phone] * Mark, son: * Joseline, granddaughter: [phone] * SakinaMark's girlfriend (a nurse): [phone] * Kit, step daughter in law: . 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 Currently receiving palliative radiation. May consider chemotherapy if patient's functional status improves. She is at high risk for ongoing decline in complications. If the patient's medical treatment goals become comfort oriented, she would be hospice appropriate. Code Status: Full Code Plan: * FULL CODE * Per [place] statutes, in the absence of her advanced directives healthcare proxy decision making would fall to the patient's 2 adult sons (Dion and Mark) . Patient is considering completion of advanced directives, Living Will and Designation of Health Care Surrogate at bedside, not yet signed by patient. * Again discussed advanced directives. Healthcare designation form and living will were left at the patient's bedside for the patient and family to review. * Goals remain aggressive to continue to get radiation therapy, hopes to get strong enough to get chemotherapy and desires adequate pain control. Pleased with current pain control, has had improvement since addition of Methadone on . PRN Roxanol adequate to manage breakthrough pain at this time. Will monitor. * Symptom management: == Pain:Patient dx with metastatic cervical cancer. History of abdominal, perineal and back pain. Patient reports overall pain has improved since addition of Methadone 5mg PO every 12 hours started 05/01/18. Currently reporting moderate to severe back pain described as aching. Roxanol 5-10mg PO/SL is ordered every 3 hours PRN pain/SOB. IV Morphine 5mg IV is ordered q3 hours PRN for pain not relived by oral morphine. 24 hour PRN requirements = 10 mg oral morphine x 2 (last given 05/04/18 at 1600). Per nursing report, patient was extremely lethargic overnight requiring sternal rub on multiple occasions. Discussed the risks of sedation and pain meds. Family understands pain medications will be given at the discretion of the nurse. ++Methadone in moderate to high doses can and increase the risk of potentially lethal torsades de points arrhythmia. QTc: 387 ++ Rapid titration guidelines used for other opioids do not apply to methadone; in general, do not increase dosage more frequently than every few days. Patient does not wish to make any changes in pain medication regimen at this time. == Nausea:Ongoing intermittent nausea and vomiting reported. PRN Phenergan and Ondansetron. May consider starting the patient on low dose dexamethasone if nausea continue; dexamethasone may also assist with pain management by reducing inflammation in the abdomen/pelvis. == Constipation: Multifactorial. Contributing factors may include pain medication, decreased activity, poor nutrition/fluid intake, pelvic tumor burden and disease progression. No BM since admission. Receiving Marta-Colace 1 tablet PO BID. PRN Milk of magnesia, Dulcolax suppository, Lactulose, and Sennosides are available as well. Patient refusing PRN medications. Encouraged patient to take PRN medications. == Debility: Nurse also tells me the patient is refused PT yesterday . I explained to patient/family that should her functional status decline, she may not be considered a candidate for ongoing aggressive treatment. Patient verbalizes understanding and states, "It was one day. I just wanted to rest." PT recommending home health at discharge. * Palliative care will continue to follow this patient throughout her hospitalization to establish trust, assist with symptom management and clarification of medical treatment goals Attestation Attestation: To help prompt me to consider important information that might be impacting today's encounter and assessment, information from prior notes written by myself or my colleagues may have been "brought forward" into today's note. My signature on this note, however, is an attestation that I personally performed the exam, history, and/or decision-making noted today, and, unless otherwise indicated, the interactions with patient, family, and staff as well as the review of records all occurred today. I also attest that the listed assessment and stated plan reflect my best clinical judgment today based on the combination of historical information, prior notes, and today's exam/ interactions. When time spent is documented, it refers only to time spent today by the signer, or if indicated, combined time spent today by collaborating physician/nurse practitioner.
--- NOTE | 2018-05-05 12:30 | P.PN ---
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 Right nephrostomy tube with increased output. Physical Exam Vital signs: Vital Signs 05/04/18 12:55 05/04/18 15:59 05/04/18 16:03 Temperature 97.7 F Pulse Rate 101 H Respiratory Rate 18 18 18 Blood Pressure 157/81 H Pulse Oximetry 94 L 05/04/18 20:00 05/05/18 00:00 05/05/18 04:00 Temperature 98.8 F 97.7 F 100.9 F H Pulse Rate 108 H 108 H 106 H Respiratory Rate 18 14 16 Blood Pressure 150/85 H 124/64 114/60 Pulse Oximetry 93 L 92 L 93 L 05/05/18 09:21 05/05/18 12:14 Temperature 97.6 F 100.3 F H Pulse Rate 102 H 107 H Respiratory Rate 18 18 Blood Pressure 132/80 137/69 Pulse Oximetry 93 L 93 L Intake & Output 05/04/18 05/05/18 05/05/18 18:59 06:59 18:59 Intake Total 1979 / 1979 1470 / 1470 Output Total 650 / 650 1070 / 1070 Balance 1330 / 1330 400 / 400 Weight 100.1 kg Intake: IV 1500 / 1500 500 / 500 D5W Inj 1,000 ML @ 100 mls/hr 1500 / 1500 IV.CONT .Q10H [facility] Rx#:[id number] Oral 480 / 480 120 / 120 Anesthesia Amount 850 / 850 Output: Urine 0 / 0 0 / 0 Estimated Blood Loss 30 / 30 Urine Amount (Catheter) 650 / 650 Indwelling Urethral Catheter 650 / 650 Wound Drainage 650 / 650 390 / 390 Left Nephrostomy 400 / 400 350 / 350 right nephrostomy 250 / 250 40 / 40 Other: # Voids 1 # Incontinent Voids 3 Date of Last Bowel Movement 04/25/18 04/25/18 04/25/18 # Bowel Movements 0 0 Narrative: GENERAL: Lethargic. CARDIOVASCULAR: Regular rate and rhythm without murmurs, gallops, or rubs. RESPIRATORY: Breath sounds equal bilaterally. No accessory muscle use. GASTROINTESTINAL: Abdomen soft, tender to palpation diffusely.Nephrostomy in place with clear urine on the left and on the right. MUSCULOSKELETAL: No cyanosis, or edema. - Urinary Catheter Management Indwelling Urethral Catheter Cath placed during this visit: yes Reason for continuing: Gross Hematuria Insertion date: 04/25/18 Results - Labs CBC & Chem 7: 05/05/18 05:00 05/05/18 05:00 Laboratory Results - last 24 hr 05/04/18 05/05/18 05/05/18 20:22 05:00 05:00 WBC 10.3 RBC 3.09 L Hgb 8.6 L Hct 26.4 L MCV 85.4 MCH 27.7 MCHC 32.5 RDW 16.1 Plt Count 110 L MPV 9.9 Sodium 142 Potassium 3.9 Chloride 103 Carbon Dioxide 30.9 Anion Gap 8 BUN 20 H Creatinine 0.76 Estimated GFR 76 L POC Glucose 94 Random Glucose 68 L Calcium 8.6 - Imaging Impressions Head MRI 05/04/18 00:00 CONCLUSION: 1. 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 2. Otherwise, unremarkable MRI of the brain for patient's age. 3. Nonspecific thickening and enhancement involving the calvarium along the right frontal bone. This finding is nonspecific. It could represent hyperostosis frontalis interna. However, neoplastic disease is not excluded. Therefore, recommend a CT scan of the brain for further evaluation. 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 Status post surgery on 04/25. Appreciate Wireline Field Operator/ONC, urology assistance. Continues with Roa.04/28. Bilateral nephrostomy tubes placed. - Radiation therapy ongoing however chemotherapy on hold pending improvement of renal function -Appreciate palliative care following and managing pain medications Abnormal urinalysis: Negative. Antibiotics discontinued. Leukocytosis: Resolved Acute kidney injury secondary to obstructive uropathy: status post bilateral nephrostomy tubes. May Have interventional radiology to look over right nephrostomy tube Nephrology and urology following. Hypernatremia: - Resolved post treatment with IVF D5 free water. Anemia secondary to blood loss - Continue to monitor H&H. Transfuse for hemoglobin less than 8. Intractable abdominal pain: -Pain better controlled with new regimen -Palliative care assisting with pain medications. -Patient started on methadone. Roxanol and IV morphine as needed prophy : SCDs. Holding AC for now due to hematuria
--- NOTE | 2018-05-05 14:19 | P.DIET ---
Nutritional Evaluation Type of nutrition evaluation: follow-up Nutrition consult regarding: Diet Evaluation (MDC for Poor PO Intake) Subjective Subjective Comments: Pt seen in her room w/ two family members at bedside. Pt states she's only eaten a few bites of watermelon and peaches this morning, nothing else. Pt states she doesn't feel hungry and is lacking the desire to even try to eat anything. She is drinking water. Pt continues to tell me "why does everyone keep asking about this, I don't want to eat". Pt has still not had a BM since . She is refusing all offers of PO intake that I try to provide her. Objective - Diagnosis Acute Kidney Injury, UTI, Cancer - Objective % IBW: 176 (TAA=733#) Body Weight Used for Calculations: Upper end of IBW (62.5kg) Energy Needs - Lower Range (kCal/kg): 28 Energy Needs - Upper Range (kCal/kg): 32 Lower Limit kCal/kg (kCals): 1,750 Upper Limit kCal/kg (kCals): 2,000 Lower Limit Protein Factor (Grams per Kg): 1.1 Upper Limit Protein Factor (Grams per Kg): 1.4 Lower Protein Needs (Protein): 69 Upper Protein Needs (Protein): 88 Fluid Factor (ml/kg): 30 Estimated Fluid Needs (ml): 1,875 Dietitian Reviewed in Medical Record: Current diet, Curent medications, Intake & Output, Labs Diet Order: Regular Oral Diet Intake Amount: Poor <50% Objective Comments: Meds: Zofran, Phenergan LBM 04/25 -> refusing stool softeners 04/27 XRT initiated, SCC arising from cervix, IV chemo on hold Assessment Assessment: Pt is now on a Regular diet, but continues to eat very poorly. Family and friends have been providing pt w/ a plethora of food options, but pt still refuses to eat. We discussed the importance of need nutrition and strength if she is to undergo IV chemo. Pt started to not participate in discussion further. She has declined any supplements or food items I provide on her trays. Discussed w/ step sister who is overwhelmed. We discussed high calorie/high protein food options that family could bring in. At this point, I would recommend enteral nutrition if goals continue to remain aggressive. Pt is not consuming much PO intake, besides water. She is at high nutritional risk 2/2 this and her continued refusal to try to eat. I will provide Mighty Shakes and Beneprotein TID in hopes pt will try these. She is not drinking the Ensure. Will continue to follow, but again at this time I recommend nutrition support if goals remain aggressive. Recommendations: 1. Recommend nutrition support if goals remain aggressive. Pt has not been eating for at least one week now. 2. Mighty Shakes and Beneprotein pkts TID. Dietitian to Monitor: Lab values, Supplement acceptance, Intake & Output, Diet tolerance, Weight change, PO Intake, Medical course
--- NOTE | 2018-05-05 16:44 | XR ---
EXAM DATE: 05/05/2018 4:27 PM EDT AGE/SEX: 67 years / Female INDICATIONS: Fever. CLINICAL DATA: This is the patient's initial encounter. Patient reports that signs and symptoms have been present for 1 day and indicates a pain score of 0/10. MEDICAL/SURGICAL HISTORY: Carcinoma, cervical. . Chemo port, left chest. COMPARISON: No prior exams available for comparison. FINDINGS: Left IJ [id number] is present with tip overlapping the expected region of the SVC. The right hemid iaphragm is elevated. Mild pulmonary edema is suspected. Slight cardiomegaly is present. CONCLUSION: Probable mild pulmonary edema. Pneumonia in right lung base is difficult to exclude. Electronically signed by: Harley Mcclellan MD 05/05/2018 4:42 PM EDT
[2018-05-05] MEDS: Morphine Sulfate Oral Liq 10 MG/0.5 ML Syringe PO PRN (23:00)
[2018-05-06] MEDS: Methadone Liq 10 MG/10 ML UDC PO SCH ×2 (01:12→13:36)
[2018-05-06] MEDS: Morphine Sulfate Oral Liq 10 MG/0.5 ML Syringe PO PRN ×5 (06:11→22:46)
--- NOTE | 2018-05-06 10:51 | P.PN ---
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 Right nephrostomy tube with increased output. May 06, 2018-patient seen and examined, she spiked times yesterday and overnight, currently afebrile. Not much of an appetite per Patient's son who is at the bedside. Physical Exam Vital signs: Vital Signs 05/05/18 12:14 05/05/18 15:34 05/05/18 16:00 Temperature 100.3 F H 101.7 F H Pulse Rate 107 H 106 H Respiratory Rate 18 18 18 Blood Pressure 137/69 127/77 Pulse Oximetry 93 L 98 05/05/18 18:48 05/05/18 20:00 05/06/18 00:00 Temperature 100.9 F H 99.4 F 99.2 F Pulse Rate 107 H 109 H Respiratory Rate 16 16 Blood Pressure 153/81 H 143/83 H Pulse Oximetry 95 94 L 05/06/18 03:53 05/06/18 08:45 Temperature 99.5 F 98.1 F Pulse Rate 101 H 115 H Respiratory Rate 16 16 Blood Pressure 135/72 160/87 H Pulse Oximetry 93 L 94 L Intake & Output 05/05/18 05/06/18 05/06/18 18:59 06:59 18:59 Intake Total 500 / 500 Output Total 750 / 750 550 / 550 Balance -250 / -250 -550 / -550 Weight 101 kg Intake: Oral 500 / 500 Output: Urine Amount (Catheter) 100 / 100 150 / 150 Indwelling Urethral Catheter 100 / 100 150 / 150 Wound Drainage 650 / 650 400 / 400 Left Nephrostomy 325 / 325 250 / 250 right nephrostomy 325 / 325 150 / 150 Other: Date of Last Bowel Movement 04/25/18 04/25/18 Narrative: GENERAL: Lethargic. CARDIOVASCULAR: Regular rate and rhythm without murmurs, gallops, or rubs. RESPIRATORY: Breath sounds equal bilaterally. No accessory muscle use. GASTROINTESTINAL: Abdomen soft, tender to palpation diffusely.Nephrostomy in place with clear urine on the left and on the right. MUSCULOSKELETAL: No cyanosis, or edema. - Urinary Catheter Management Indwelling Urethral Catheter Cath placed during this visit: yes Reason for continuing: Gross Hematuria Insertion date: 04/25/18 Results - Labs CBC & Chem 7: 05/05/18 05:00 05/05/18 05:00 Laboratory Results - last 24 hr 05/05/18 05/05/18 05/05/18 16:30 19:40 21:09 POC Glucose 72 Lactic Acid 3.1 H 3.1 H - Imaging Impressions Chest X-Ray 05/05/18 00:00 CONCLUSION: Probable mild pulmonary edema. Pneumonia in right lung base is difficult to exclude. 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 Status post surgery on 04/25. Appreciate Fire[employer] Electric Locomotive/ONC, urology assistance. Continues with Roa.04/28. Bilateral nephrostomy tubes placed. - Radiation therapy ongoing however chemotherapy on hold pending improvement of renal function -Appreciate palliative care following and managing pain medications Abnormal urinalysis: Negative. Antibiotics discontinued. Leukocytosis: Resolved Acute kidney injury secondary to obstructive uropathy: status post bilateral nephrostomy tubes. May Have interventional radiology to look over right nephrostomy tube Nephrology and urology following. Hypernatremia: - Resolved post treatment with IVF D5 free water. Anemia secondary to blood loss - Continue to monitor H&H. Transfuse for hemoglobin less than 8. Healthcare associated pneumonia -Patient has been spiking fever, and chest x-ray on May 05, 2018 with finding of Pneumonia in right lung base is difficult to exclude -Therefore will start patient on aztreonam 1 g IV every 12 hours and continue to monitor culture report Intractable abdominal pain: -Pain better controlled with new regimen -Palliative care assisting with pain medications. -Patient started on methadone. Roxanol and IV morphine as needed prophy : SCDs. Holding AC for now due to hematuria
[2018-05-06] MEDS: Senna/Docusate Sodium 8.6/50 MG Tablet PO SCH ×2 (14:02→21:54)
[2018-05-07] MEDS: Methadone Liq 10 MG/10 ML UDC PO SCH ×2 (03:28→15:07)
--- NOTE | 2018-05-07 10:58 | P.PN ---
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 Right nephrostomy tube with increased output. May 06, 2018-patient seen and examined, she spiked times yesterday and overnight, currently afebrile. Not much of an appetite per Patient's son who is at the bedside. May 07, 2018-patient seen and examined, afebrile 24 hours. Not wanting to do much. Not much of an appetite. Physical Exam Vital signs: Vital Signs 05/06/18 15:04 05/06/18 19:00 05/06/18 19:52 Temperature 98.4 F Pulse Rate 110 H 109 H Respiratory Rate 16 18 18 Blood Pressure 165/81 H 141/84 H Pulse Oximetry 96 97 05/06/18 23:15 05/07/18 00:00 05/07/18 03:33 Temperature 98.7 F 98.8 F Pulse Rate 111 H 114 H Respiratory Rate 16 18 16 Blood Pressure 131/92 H 153/93 H Pulse Oximetry 94 L 94 L 05/07/18 03:58 05/07/18 08:45 Temperature 98.4 F Pulse Rate 124 H Respiratory Rate 16 16 Blood Pressure 163/83 H Pulse Oximetry 92 L Intake & Output 05/06/18 05/07/18 05/07/18 18:59 06:59 18:59 Intake Total 340 / 340 100 / 100 Output Total 400 / 400 425 / 425 Balance -60 / -60 -325 / -325 Intake: IV 100 / 100 100 / 100 Azactam Inj 1,000 MG In NS Inj 100 / 100 100 / 100 100 ML @ 200 mls/hr IV.SIG Q12H [facility] Rx#:[id number] Oral 240 / 240 Output: Urine Amount (Catheter) 50 / 50 0 / 0 Indwelling Urethral Catheter 50 / 50 0 / 0 Wound Drainage 350 / 350 425 / 425 Left Nephrostomy 225 / 225 250 / 250 right nephrostomy 125 / 125 175 / 175 Other: Date of Last Bowel Movement 05/06/18 # Incontinent Bowel Movements 1 Narrative: GENERAL: NAD CARDIOVASCULAR: Regular rate and rhythm without murmurs, gallops, or rubs. RESPIRATORY: Breath sounds equal bilaterally. No accessory muscle use. GASTROINTESTINAL: Abdomen soft, tender to palpation diffusely.Nephrostomy in place with clear urine on the left and on the right. MUSCULOSKELETAL: No cyanosis, or edema. - Urinary Catheter Management Indwelling Urethral Catheter Cath placed during this visit: yes Reason for continuing: Gross Hematuria Insertion date: 04/25/18 Results - Labs CBC & Chem 7: 05/05/18 05:00 05/05/18 05:00 Microbiology 05/05/18 23:33 Blood - Peripheral Aerobic Blood Culture - Preliminary No growth in 1 day 05/05/18 23:33 Blood - Peripheral Anaerobic Blood Culture - Preliminary No growth in 1 day 05/05/18 16:30 Blood - Peripheral Aerobic Blood Culture - Preliminary No growth in 1 day 05/05/18 16:30 Blood - Peripheral Anaerobic Blood Culture - Preliminary No growth in 1 day Assessment and Plan - Plan 67-year-old female with: 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 Status post surgery on 04/25. Appreciate Verse Writer/ONC, urology assistance. Continues with Roa 04/28. Bilateral nephrostomy tubes placed. - Radiation therapy ongoing however chemotherapy on hold pending improvement of renal function -Appreciate palliative care following and managing pain medications -Check CT head to rule out metastases disease Abnormal urinalysis: Negative. Antibiotics discontinued. Leukocytosis: Resolved Acute kidney injury secondary to obstructive uropathy: status post bilateral nephrostomy tubes. May Have interventional radiology to look over right nephrostomy tube Nephrology and urology following. Hypernatremia: - Resolved post treatment with IVF D5 free water. Anemia secondary to blood loss - Continue to monitor H&H. Transfuse for hemoglobin less than 8. Healthcare associated pneumonia -Currently on aztreonam 1 g IV every 12 hours and continue to monitor culture report Intractable abdominal pain: -Pain better controlled with new regimen -Palliative care assisting with pain medications. -Patient started on methadone. Roxanol and IV morphine as needed prophy : SCDs. Holding AC for now due to hematuria
[2018-05-07] MEDS: Senna/Docusate Sodium 8.6/50 MG Tablet PO SCH ×2 (12:51→21:19)
[2018-05-07] MEDS: Morphine Sulfate Oral Liq 10 MG/0.5 ML Syringe PO PRN ×3 (13:08→21:25)
[2018-05-07] MEDS: Morphine Inj 4 MG/ML Vial IV.PUSH PRN (23:51)
[2018-05-08] MEDS: Methadone Liq 10 MG/10 ML UDC PO SCH ×2 (02:25→14:19)
[2018-05-08 06:04] LABS: Baso # (Auto) 0.1 th/mm3 (0.0-0.2); Baso % (Auto) 1.3 % (0.0-2.0); Eos # (Auto) 0.4 th/mm3 (0.0-0.4); Eos % (Auto) 3.9 % (0.0-4.0); Hematocrit 25.6 % (35.0-46.0); Hemoglobin 8.3 gm/dL (11.6-15.3); Lymph # (Auto) 0.6 th/mm3 (1.0-4.8); Lymph % (Auto) 5.4 % (9.0-44.0); Mean Corpuscular HGB Conc 32.5 % (32.0-36.0); Mean Corpuscular Volume 86.2 fL (80.0-100.0); Mean Platelet Volume 9.4 fL (7.0-11.0); Mono # (Auto) 0.7 th/mm3 (0.0-0.9); Mono % (Auto) 6.9 % (0.0-8.0); Neut # (Auto) 8.6 th/mm3 (1.8-7.7); Neut % (Auto) 82.5 % (16.0-70.0); Platelet Count 127 th/mm3 (150-450); Red Blood Count 2.97 mil/mm3 (4.00-5.30); White Blood Count 10.5 th/mm3 (4.0-11.0)
[2018-05-08 06:52] LABS: Alanine Aminotransferase 61 U/L (10-53); Albumin 1.3 g/dL (3.4-5.0); Anion Gap 10 meq/L (5-15); Aspartate Aminotransferase 405 U/L (15-37); Blood Urea Nitrogen 24 mg/dL (7-18); Calcium 8.6 mg/dL (8.5-10.1); Carbon Dioxide 31.3 meq/L (21.0-32.0); Chloride 104 meq/L (98-107); Glomerular Filtration Rate 65 mL/min (>89); Glucose,Random 75 mg/dL (74-106); Sodium 145 meq/L (136-145)
[2018-05-08 06:54] LABS: Alkaline Phosphatase 286 U/L (45-117); Total Protein 4.7 g/dL (6.4-8.2)
[2018-05-08] MEDS: Senna/Docusate Sodium 8.6/50 MG Tablet PO SCH ×2 (08:32→20:10)
[2018-05-08] MEDS: Morphine Sulfate Oral Liq 10 MG/0.5 ML Syringe PO PRN ×3 (08:33→20:02)
--- NOTE | 2018-05-08 09:41 | P.PN ---
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 Right nephrostomy tube with increased output. May 06, 2018-patient seen and examined, she spiked times yesterday and overnight, currently afebrile. Not much of an appetite per Patient's son who is at the bedside. May 07, 2018-patient seen and examined, afebrile 24 hours. Not wanting to do much. Not much of an appetite. May 08, 2018-patient seen and examined, much more alert and oriented today. Patient is refusing head CT. Physical Exam Vital signs: Vital Signs 05/07/18 11:14 05/07/18 16:00 05/07/18 20:00 Temperature 98.8 F 98.7 F 98.4 F Pulse Rate 119 H 118 H 115 H Respiratory Rate 20 20 18 Blood Pressure 147/81 H 152/82 H 139/76 Pulse Oximetry 92 L 93 L 95 05/07/18 21:10 05/07/18 22:02 05/07/18 23:51 Temperature Pulse Rate 104 H Respiratory Rate 18 18 18 Blood Pressure 138/80 Pulse Oximetry 95 05/08/18 05:05 05/08/18 08:35 Temperature 98.1 F 98.7 F Pulse Rate 110 H 112 H Respiratory Rate 16 20 Blood Pressure 140/71 148/86 H Pulse Oximetry 95 96 Intake & Output 05/07/18 05/08/18 05/08/18 18:59 06:59 18:59 Intake Total 100 / 100 360 / 360 Output Total 250 / 250 500 / 500 Balance -150 / -150 -140 / -140 Weight 101 kg Intake: IV 100 / 100 110 / 110 Azactam Inj 1,000 MG In NS Inj 100 / 100 110 / 110 100 ML @ 200 mls/hr IV.SIG Q12H [facility] Rx#:[id number] Oral 250 / 250 Output: Urine Amount (Catheter) 250 / 250 Indwelling Urethral Catheter 250 / 250 Wound Drainage 250 / 250 250 / 250 Left Nephrostomy 175 / 175 150 / 150 right nephrostomy 75 / 75 100 / 100 Other: Date of Last Bowel Movement 05/07/18 05/07/18 05/07/18 # Bowel Movements 2 Narrative: GENERAL: NAD CARDIOVASCULAR: Regular rate and rhythm without murmurs, gallops, or rubs. RESPIRATORY: Breath sounds equal bilaterally. No accessory muscle use. GASTROINTESTINAL: Abdomen soft, tender to palpation diffusely.Nephrostomy in place with clear urine on the left and on the right. MUSCULOSKELETAL: No cyanosis, or edema. - Urinary Catheter Management Indwelling Urethral Catheter Cath placed during this visit: yes Reason for continuing: Gross Hematuria Insertion date: 04/25/18 Results - Labs CBC & Chem 7: 05/08/18 05:15 05/08/18 05:15 Laboratory Results - last 24 hr 05/08/18 05/08/18 05:15 05:15 WBC 10.5 RBC 2.97 L Hgb 8.3 L Hct 25.6 L MCV 86.2 MCH 28.0 MCHC 32.5 RDW 17.0 Plt Count 127 L MPV 9.4 Neut % (Auto) 82.5 H Lymph % (Auto) 5.4 L Mcdonald % (Auto) 6.9 Eos % (Auto) 3.9 Baso % (Auto) 1.3 Neut # (Auto) 8.6 H Lymph # (Auto) 0.6 L Mcdonald # (Auto) 0.7 Eos # (Auto) 0.4 Baso # (Auto) 0.1 WBC Differential . Differential Comment Auto diff final Sodium 145 Potassium 4.0 Chloride 104 Carbon Dioxide 31.3 Anion Gap 10 BUN 24 H Creatinine 0.87 Estimated GFR 65 L Random Glucose 75 Calcium 8.6 Total Bilirubin 0.6 AST 405 H ALT 61 H Alkaline Phosphatase 286 H Total Protein 4.7 L Albumin 1.3 L Microbiology 05/05/18 23:33 Blood - Peripheral Aerobic Blood Culture - Preliminary No growth in 2 days 05/05/18 23:33 Blood - Peripheral Anaerobic Blood Culture - Preliminary No growth in 2 days 05/05/18 16:30 Blood - Peripheral Aerobic Blood Culture - Preliminary No growth in 2 days 05/05/18 16:30 Blood - Peripheral Anaerobic Blood Culture - Preliminary No growth in 2 days Assessment and Plan - Plan 67-year-old female with: 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 Status post surgery on 04/25. Appreciate Petroleum Products Sales Representative/ONC, urology assistance. Continues with Roa 04/28. Bilateral nephrostomy tubes placed. - Radiation therapy ongoing however chemotherapy on hold pending improvement of renal function -Appreciate palliative care following and managing pain medications -Check CT head to rule out metastases disease today May 08, 2018 Abnormal urinalysis: Negative. Antibiotics discontinued. Leukocytosis: Resolved Acute kidney injury secondary to obstructive uropathy: status post bilateral nephrostomy tubes. Nephrology and urology following. Hypernatremia: - Resolved post treatment with IVF D5 free water. Anemia secondary to blood loss - Continue to monitor H&H. Transfuse for hemoglobin less than 8. Healthcare associated pneumonia -Currently on aztreonam 1 g IV every 12 hours and continue to monitor culture report Intractable abdominal pain: -Pain better controlled with new regimen -Palliative care assisting with pain medications. -Patient started on methadone. Roxanol and IV morphine as needed prophy : SCDs. Holding AC for now due to hematuria
--- NOTE | 2018-05-08 15:49 | P.PNPAL ---
Reason for Visit Reason for visit: a. To assist with evaluation and management of symptoms including: pain, nausea , constipation. debility b. To assist medical decision maker(s) with: better understanding of current medical conditions; weighing benefits/burdens of medical treatment options; making medical treatment decisions. Subjective Subjective/Interval History: Patient seen and examined in room. Step-daughter and step grand-daughter at bedside. Clinical data: * Afebrile, tachycardic, respirations 16, BP 141/85 * WBC 10.5, hemoglobin 8.3, hematocrit 25.6, platelets 127, neutrophils 82.5% * Sodium 145, potassium 4.0, chloride 104, carbon dioxide 31.3, glucose 75, calcium 8.6 * BUN: 24, creatinine 0.87, GFR 65 * Total bilirubin: 0.6, AST 405, ALT 61, alkaline phosphatase 286 * Total protein: 4.7, albumin 1.3 * 05/05/18 - blood cultures no growth in 3 days * 05/05/18-chest x-ray showing probable mild pulmonary edema; pneumonia in right lung base is difficult to exclude Patient presents lying in bed with intermittent grimacing and shaking her right foot. Step-daughter is concerned she is anxious and is requesting benzodiazepines, but the patient's 2 adult sons feel that their mother is being overly sedated. Patient arouses briefly to verbal stimuli. When asked if she is painful the patient states, "It's much better now." and closes her eyes. Overall pain has improved since addition of Methadone 5mg PO every 12 hours started 05/01/18. Roxanol 5-10mg PO/SL is ordered every 3 hours PRN pain/SOB. IV Morphine 5mg IV is ordered q3 hours PRN for pain not relived by oral morphine. 24 hour PRN requirements = 5mg oral morphine x 5 and 5mg IV morphine x 1. Nausea and constipation are well managed with current orders. She intermittently responds to questions with brief answers. It is difficult to determine if the patient has insight related to her medical conditions because she will not engage in conversation. Spoke to the patient's sons (Dion and Mark) via telephone. Dion feels the patient has been in "a fog" since she was started on methadone; he and his brother requests the patient be weaned off the methadone, even if it results in increased pain, to see if his mother can be alert enough to verbalized her medical treatment goals. They do not want medications that will increase patient's sedation at this time. Will decrease methadone to 2.5 mg PO q12 hours. No changes will be made in PRN medications. Palliative care is attempting to coordinate a family meeting with the patient's 2 sons to discuss patient medical condition, overall prognosis and medical treatment goals. Advance Directives Living Will: Never completed Health Care Surrogate: Never completed Durable Power of Business Analytics Intern: Never completed Objective Vital Signs: Vital Signs 05/07/18 16:00 05/07/18 20:00 05/07/18 21:10 Temperature 98.7 F 98.4 F Pulse Rate 118 H 115 H Respiratory Rate 20 18 18 Blood Pressure 152/82 H 139/76 Pulse Oximetry 93 L 95 05/07/18 22:02 05/07/18 23:51 05/08/18 05:05 Temperature 98.1 F Pulse Rate 104 H 110 H Respiratory Rate 18 18 16 Blood Pressure 138/80 140/71 Pulse Oximetry 95 95 05/08/18 08:35 05/08/18 11:49 Temperature 98.7 F 98.3 F Pulse Rate 112 H 115 H Respiratory Rate 20 16 Blood Pressure 148/86 H 141/85 H Pulse Oximetry 96 94 L Intake & Output 05/07/18 05/08/18 05/08/18 18:59 06:59 18:59 Intake Total 100 / 100 360 / 360 110 / 110 Output Total 250 / 250 500 / 500 Balance -150 / -150 -140 / -140 110 / 110 Weight 101 kg Intake: IV 100 / 100 110 / 110 110 / 110 Azactam Inj 1,000 MG In NS Inj 100 / 100 110 / 110 110 / 110 100 ML @ 200 mls/hr IV.SIG Q12H [facility] Rx#:[id number] Oral 250 / 250 Output: Urine Amount (Catheter) 250 / 250 Indwelling Urethral Catheter 250 / 250 Wound Drainage 250 / 250 250 / 250 Left Nephrostomy 175 / 175 150 / 150 right nephrostomy 75 / 75 100 / 100 Other: Date of Last Bowel Movement 05/07/18 05/07/18 05/07/18 # Bowel Movements 2 Physical Exam: CONSTITUTIONAL/GENERAL: This is an adequately nourished patient, in no apparent distress. TUBES/LINES/DRAINS:left port, bilateral nephrostomy tubes, Roa, SCDs. SKIN: No jaundice, rashes, or lesions. Ecchymoses on upper extremities. No wounds seen anteriorly. Skin temperature appropriate. Not diaphoretic. ENT: Hearing grossly normal. Nose without bleeding or purulent drainage. Throat without visible erythema, exudates, masses, or lesions. CARDIOVASCULAR: Regular rate and rhythm without murmurs, gallops, or rubs. RESPIRATORY/CHEST: Symmetric, unlabored respirations. Clear to auscultation. Breath sounds equal bilaterally. GASTROINTESTINAL: Abdomen soft, mildly tender, nondistended. No guarding. Bowel sounds present. Bilateral nephrostomy tubes in place. GENITOURINARY: Without palpable bladder distension. Roa catheter in place. MUSCULOSKELETAL: Extremities without clubbing or cyanosis. 1+ pedal edema bilaterally. NEUROLOGICAL: Lethargic. Irritable. Does not engage. PSYCHIATRIC: No anxiety or agitation. No apparent hallucinations or other psychotic thought process. Diagnostic Tests Laboratory: Laboratory Results - last 72 hr 05/05/18 05/05/18 05/05/18 16:30 19:40 21:09 WBC RBC Hgb Hct MCV MCH MCHC RDW Plt Count MPV Neut % (Auto) Lymph % (Auto) [place] % (Auto) Eos % (Auto) Baso % (Auto) Neut # (Auto) Lymph # (Auto) [place] # (Auto) Eos # (Auto) Baso # (Auto) WBC Differential Differential Comment Sodium Potassium Chloride Carbon Dioxide Anion Gap BUN Creatinine Estimated GFR POC Glucose 72 Random Glucose Lactic Acid 3.1 H 3.1 H Calcium Total Bilirubin AST ALT Alkaline Phosphatase Total Protein Albumin 05/08/18 05/08/18 05:15 05:15 WBC 10.5 RBC 2.97 L Hgb 8.3 L Hct 25.6 L MCV 86.2 MCH 28.0 MCHC 32.5 RDW 17.0 Plt Count 127 L MPV 9.4 Neut % (Auto) 82.5 H Lymph % (Auto) 5.4 L [place] % (Auto) 6.9 Eos % (Auto) 3.9 Baso % (Auto) 1.3 Neut # (Auto) 8.6 H Lymph # (Auto) 0.6 L [place] # (Auto) 0.7 Eos # (Auto) 0.4 Baso # (Auto) 0.1 WBC Differential . Differential Comment Auto diff final Sodium 145 Potassium 4.0 Chloride 104 Carbon Dioxide 31.3 Anion Gap 10 BUN 24 H Creatinine 0.87 Estimated GFR 65 L POC Glucose Random Glucose 75 Lactic Acid Calcium 8.6 Total Bilirubin 0.6 AST 405 H ALT 61 H Alkaline Phosphatase 286 H Total Protein 4.7 L Albumin 1.3 L Result Diagrams: 05/08/18 05:15 05/08/18 05:15 Microbiology: Microbiology 05/05/18 23:33 Aerobic Blood Culture - Preliminary Blood - Peripheral No growth in 3 days Anaerobic Blood Culture - Preliminary No growth in 3 days 05/05/18 16:30 Aerobic Blood Culture - Preliminary Blood - Peripheral No growth in 3 days Anaerobic Blood Culture - Preliminary No growth in 3 days Imaging: Abdomen/Pelvis CT 04/22/18 17:26 CONCLUSION: 1. Enlarged uterus and cervix. 2. Retroperitoneal metastatic lymphadenopathy. 3. Metastatic disease of the visualized lung bases. 4. Metastatic lytic lesion of the right pubic bone with a nondisplaced pathologic fracture. 5. Large mass or blood/debris in the urinary bladder. 6. 17 mm hypodensity of the liver is probably benign. There has slight fatty infiltration. 7. Large gallstone without associated complication. Chest CT 04/23/18 00:00 CONCLUSION: 1. Diffuse bilateral lung metastatic disease. 2. Diffuse hilar and mediastinal adenopathy consistent with neoplastic disease. 3. Diffuse para-aortic adenopathy in the abdomen. Abdomen/Bladder Ultrasound 04/24/18 00:00 CONCLUSION: 1. Large lobular mass in the bladder of concern for bladder carcinoma. 2. Bilateral hydronephrosis. 3. The echogenicity kidneys is increased and equal to that of the liver decreasing medical renal disease. 4. The small mass in the left kidney seen on CT is not visualized. Port Line Insertion 04/24/18 00:00 CONCLUSION: 1. Uncomplicated ultrasound and fluoroscopic guided implanted central venous port catheter placement as described in detail above. The port was placed via the left internal jugular vein. An 8 [place] Power port was placed. Nephrostomy 04/28/18 00:00 CONCLUSION: 1. Uncomplicated bilateral nephrostomy tube placement as above. Head MRI 05/04/18 00:00 CONCLUSION: 1. 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 2. Otherwise, unremarkable MRI of the brain for patient's age. 3. Nonspecific thickening and enhancement involving the calvarium along the right frontal bone. This finding is nonspecific. It could represent hyperostosis frontalis interna. However, neoplastic disease is not excluded. Therefore, recommend a CT scan of the brain for further evaluation. Chest X-Ray 05/05/18 00:00 CONCLUSION: Probable mild pulmonary edema. Pneumonia in right lung base is difficult to exclude. Procedures: 04/24/18: Left sided port placement 04/25/18: Urethral dilatation, cystoscopy and attempted bilateral ureteral stent placement 04/28/18: Bilateral nephrostomy tube placement Assessment and Plan - Disease Oriented Problem List (1) Primary cervical cancer with metastasis to other site (2) Leukocytosis Comment: 05/01/2018: CBC trending downward at 15.1 (3) KALI (acute kidney injury) - Symptom Scale (1) Abdominal pain Comment: =05/01/18 Started patient on methadone 5mg PO q12 hours. =Rapid titration guidelines used for other opioids do not apply to methadone; in general, do not increase dosage more frequently than every 3 to 4 days. = Methadone in moderate to high doses can prolong the QTc interval and increase the risk of potentially lethal torsades de points arrhythmia QTc: 387 (2) Nausea Comment: = Intermittent nausea; denied at time of exam = PRN Phenergan and Ondansetron. (3) Constipation Comment: =Receiving Marta-Colace 1 tablet PO BID. =PRN Milk of magnesia,Dulcolax suppository, Lactulose, and Sennosides are available as well. Encouraged patient to utilize PRN meds. Pertinent Non-Medical Issues: Psychosocial: Patient is originally from [place], [place] but has lived in the [place] for many years. She has been for 4 years. She has 2 adult sons (Dion and Mark). 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 Ethical issues impacting care: No known concerns at this time. Important Contacts: * Dion Garcia, son: [phone] * Mark, son: * Joseline, granddaughter: [phone] * Sakina Mark's girlfriend (a nurse): [phone] * bree Nino daughter in law: . 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 Currently receiving palliative radiation. May consider chemotherapy if patient's functional status improves. She is at high risk for ongoing decline in complications. If the patient's medical treatment goals become comfort oriented, she would be hospice appropriate. Code Status: Full Code Plan: * FULL CODE * Per [place] statutes, in the absence of her advanced directives healthcare proxy decision making would fall to the patient's 2 adult sons (Dion and Mark) . Patient is considering completion of advanced directives, Living Will and Designation of Health Care Surrogate at bedside, not yet signed by patient. * Again discussed advanced directives. Healthcare designation form and living will were left at the patient's bedside for the patient and family to review. * Goals remain aggressive to continue to get radiation therapy, hopes to get strong enough to get chemotherapy and desires adequate pain control. Pleased with current pain control, has had improvement since addition of Methadone on . PRN Roxanol adequate to manage breakthrough pain at this time. Will monitor. * Symptom management: == Pain:Patient dx with metastatic cervical cancer. History of abdominal, perineal and back pain. Patient presents lying in bed with her eyes and face relaxed. Intermittent grimacing and shaking of her right foot is noted. Patient arouses briefly to verbal stimuli. When asked if she is painful the patient states, "It's much better now." and closes her eyes. Overall pain has improved since addition of Methadone 5mg PO every 12 hours started . Roxanol 5-10mg PO/SL is ordered every 3 hours PRN pain/SOB. IV Morphine 5mg IV is ordered q3 hours PRN for pain not relived by oral morphine. 24 hour PRN requirements = 5mg oral morphine x 5 and 5mg IV morphine x 1. 05/08/18: Patient 's sons feel the patient has been in a "fog" since she was started on methadone and have requested she be weaned off the medication even if it means she has increased pain. Will decrease methadone to 2.5 mg every 12 hours ATC. == Nausea: Nausea resolved at this time. PRN Phenergan and Ondansetron. May consider starting the patient on low dose dexamethasone if nausea continue; dexamethasone may also assist with pain management by reducing inflammation in the abdomen/pelvis. == Constipation: Multifactorial. Contributing factors may include pain medication, decreased activity, poor nutrition/fluid intake, pelvic tumor burden and disease progression. No BM since admission. Receiving Marta-Colace 1 tablet PO BID. PRN Milk of magnesia, Dulcolax suppository, Lactulose, and Sennosides are available as well. LBM: 05/08/18 == Debility: Nurse also tells me the patient is refused PT yesterday . I explained to patient/family that should her functional status decline, she may not be considered a candidate for ongoing aggressive treatment. Patient verbalizes understanding and states, "It was one day. I just wanted to rest." PT recommending home health at discharge. * Palliative care will continue to follow this patient throughout her hospitalization to establish trust, assist with symptom management and clarification of medical treatment goals Attestation Attestation: To help prompt me to consider important information that might be impacting today's encounter and assessment, information from prior notes written by myself or my colleagues may have been "brought forward" into today's note. My signature on this note, however, is an attestation that I personally performed the exam, history, and/or decision-making noted today, and, unless otherwise indicated, the interactions with patient, family, and staff as well as the review of records all occurred today. I also attest that the listed assessment and stated plan reflect my best clinical judgment today based on the combination of historical information, prior notes, and today's exam/ interactions. When time spent is documented, it refers only to time spent today by the signer, or if indicated, combined time spent today by collaborating physician/nurse practitioner.
[2018-05-08] MEDS: Acetaminophen 325 MG Tablet PO PRN (18:54)
[2018-05-09] MEDS ORDERED: Methadone Liq 10 MG/10 ML UDC PO SCH (02:00)
[2018-05-09] MEDS: Morphine Sulfate Oral Liq 10 MG/0.5 ML Syringe PO PRN ×4 (04:35→20:21)
[2018-05-09] MEDS: Morphine Inj 4 MG/ML Vial IV.PUSH PRN (06:18)
[2018-05-09] MEDS: Acetaminophen 325 MG Tablet PO PRN (06:37)
--- NOTE | 2018-05-09 09:20 | MB ---
cc: Irma Worley MD DATE: 05/09/2018 I saw Linda Casanova on rounds this morning. Her physical performance status has declined gradually during this hospitalization, and her mental status changes have progressed. Her son (Dion Garcia) was at bedside, and I spoke with her and him for approximately 30 minutes, reviewing the findings in her case to date, trying to answer questions, and expressing our concerns, as well as hearing his concerns. 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 The ongoing treatment with radiation has been to try to suppress the tumor, reduce the pain, and control bleeding, as well as alleviate obstruction to the ureters that led to renal failure. She has now had percutaneous nephrostomies in place, and her BUN and creatinine have normalized. Despite this, her mental status has continued to decline. Family members' observation was that it is possible her mental status worsened when she started on methadone and other medication to control her pain, and/or anxiety, and the request is made that we hold the methadone and actually hold any narcotics or anxiolytics today to what extent her mental status may change, as these medications clear her system. I expressed my concerns about her ability to recover from all that is going on, even if she were strong enough to complete the recommended treatment of radiation to the pelvis and the recommended plan of [place] chemotherapy (at the present time, she is not strong enough for this) that would control the pelvic disease for a period of time; however, there is still evidence of metastatic disease with abnormal lymph nodes and nodules within the lungs, all of which would require systemic treatment, and at the present time, she is neither mentally or physically strong enough to consider such. I have recommended that they meet with hospice organization for education to learn what resources are available, both in the hospital, at home, and at the care center, and to get more information to try to help make difficult decisions regarding her overall care. To what extent she may improve her or may show some return to her baseline functioning is unknown, but I expressed concern about the improbability of any prolonged recovery, and it worth considering maximizing palliative care, as opposed to continued efforts at aggressive treatment. However, this decision is hers and the family. At the present time, she is unable to contribute actively in this decision making. More discussion ensued. Questions were answered. She was grateful for the time spent in discussion. She asked that I call her [id number] and she had called yesterday. So after this, I returned a call to her [id number], Sakina Alfaro, and I spoke with her for approximately 10 minutes, outlining the issues as summarized above. At the end of our conversation, they were in favor of hospice consultation and we agreed to hold all of the potentially mental status changing medications throughout the day to reassess. Irma Worley MD KLM/rh , 08:51 AM , 09:01 AM
--- NOTE | 2018-05-09 09:46 | P.PN ---
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 Right nephrostomy tube with increased output. May 06, 2018-patient seen and examined, she spiked times yesterday and overnight, currently afebrile. Not much of an appetite per Patient's son who is at the bedside. May 07, 2018-patient seen and examined, afebrile 24 hours. Not wanting to do much. Not much of an appetite. May 08, 2018-patient seen and examined, much more alert and oriented today. Patient is refusing head CT. May 09, 2018-patient seen and examined, T-max 102.2 and patient is currently febrile. Physical Exam Vital signs: Vital Signs 05/08/18 11:49 05/08/18 17:40 05/08/18 20:00 Temperature 98.3 F 102.2 F H 99.2 F Pulse Rate 115 H 125 H 119 H Respiratory Rate 16 20 16 Blood Pressure 141/85 H 134/83 156/85 H Pulse Oximetry 94 L 96 96 05/08/18 20:15 05/09/18 00:00 05/09/18 04:00 Temperature 99.1 F 100.1 F H Pulse Rate 120 H 126 H Respiratory Rate 18 18 16 Blood Pressure 158/80 H 159/79 H Pulse Oximetry 94 L 93 L 05/09/18 06:36 Temperature Pulse Rate Respiratory Rate 18 Blood Pressure Pulse Oximetry Intake & Output 05/08/18 05/09/18 05/09/18 18:59 06:59 18:59 Intake Total 360 / 360 470 / 470 Output Total 500 / 500 450 / 450 Balance -140 / -140 20 / 20 Weight 87 kg Intake: IV 110 / 110 110 / 110 Azactam Inj 1,000 MG In NS Inj 110 / 110 110 / 110 100 ML @ 200 mls/hr IV.SIG Q12H [facility] Rx#:[id number] Oral 250 / 250 360 / 360 Output: Urine Amount (Catheter) 300 / 300 300 / 300 Indwelling Urethral Catheter 300 / 300 300 / 300 Wound Drainage 200 / 200 150 / 150 Left Nephrostomy 175 / 175 100 / 100 right nephrostomy 25 / 25 50 / 50 Other: Date of Last Bowel Movement 05/07/18 05/07/18 # Bowel Movements 1 Narrative: GENERAL: NAD CARDIOVASCULAR: Regular rate and rhythm without murmurs, gallops, or rubs. RESPIRATORY: Breath sounds equal bilaterally. No accessory muscle use. GASTROINTESTINAL: Abdomen soft, tender to palpation diffusely.Nephrostomy in place with clear urine on the left and on the right. MUSCULOSKELETAL: No cyanosis, or edema. - Urinary Catheter Management Indwelling Urethral Catheter Cath placed during this visit: yes Reason for continuing: Gross Hematuria Insertion date: 04/25/18 Results - Labs CBC & Chem 7: 05/08/18 05:15 05/08/18 05:15 Microbiology 05/05/18 23:33 Blood - Peripheral Aerobic Blood Culture - Preliminary No growth in 3 days 05/05/18 23:33 Blood - Peripheral Anaerobic Blood Culture - Preliminary No growth in 3 days 05/05/18 16:30 Blood - Peripheral Aerobic Blood Culture - Preliminary No growth in 3 days 05/05/18 16:30 Blood - Peripheral Anaerobic Blood Culture - Preliminary No growth in 3 days Assessment and Plan - Plan 67-year-old female with: Invasive squamous cell carcinoma of the cervix with metastasis 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 Status post surgery on 04/25. Appreciate [employer]gartners Helper/ONC, urology assistance. Continues with Roa 04/28. Bilateral nephrostomy tubes placed. - Radiation therapy ongoing however chemotherapy on hold pending improvement of renal function -Appreciate palliative care following and managing pain medications -Check CT head to rule out metastases disease today May 08, 2018 Abnormal urinalysis: Negative. Antibiotics discontinued. Leukocytosis: Resolved Acute kidney injury secondary to obstructive uropathy: status post bilateral nephrostomy tubes. Nephrology and urology following. Hypernatremia: - Resolved post treatment with IVF D5 free water. Anemia secondary to blood loss - Continue to monitor H&H. Transfuse for hemoglobin less than 8. Healthcare associated pneumonia -Currently on aztreonam 1 g IV every 12 hours and continue to monitor culture report Consult infectious disease specialist Intractable abdominal pain: -Pain better controlled with new regimen -Palliative care assisting with pain medications. -Patient started on methadone. Roxanol and IV morphine as needed prophy : SCDs. Holding AC for now due to hematuria
[2018-05-09] MEDS: Senna/Docusate Sodium 8.6/50 MG Tablet PO SCH ×2 (09:52→20:24)
--- NOTE | 2018-05-09 10:08 | P.PNPAL ---
Palliative care received calls from patient's son, Dion. Spoke with him to schedule family meeting. Dion states family was able to meet with Dr. Worley this morning. Dion reports family is going to be meeting with hospice at 730pm tonight. Palliative care will remain available as needed throughout hospitalization.
[2018-05-09] MEDS ORDERED: Morphine Sulfate Oral Liq 10 MG/0.5 ML Syringe PO PRN (10:45)
--- NOTE | 2018-05-09 11:09 | P.PNPAL ---
Reason for Visit Reason for visit: a. To assist with evaluation and management of symptoms including: pain, nausea , constipation. debility b. To assist medical decision maker(s) with: better understanding of current medical conditions; weighing benefits/burdens of medical treatment options; making medical treatment decisions. Subjective Subjective/Interval History: Patient seen and examined in room. Step bree grand-daughter at bedside. I also met with dion one of his son and health care surrogate. Pt has a TMax of 102.2 this past 24 hour. Current temp is 98.6 this morning. Pt is overall lethargic and painful, with grimicing and shaking of her foot. She is overall fatigued and lethargic, still requires prn short acting morphine. Dion has met with DR. Worley this morning. Endorse they will met with hospice this evening and most likely will sign. We spoke about pt's course in the hospital and pain management. We discuss the difficulty in finding that balance in preventing a pain crisis vs , having pt more alert. I told him that probably we are reaching the point where pt is either more sleepy but comfortable, or awake, and painful. He acknowledges that and see that pt is at that point, and remains in pain. We spoke about methadone and the reason it was picked as a long acting. Son feel its not working well for her, and we will stop methadone. He does want pt's prn to increase for breakthrough, as pt still is in pain. He understands the need for long acting, and was asking for fentanyl, preferably , this evening for hospice. He was amenable to start fentanyl patch at 7:00 pm tonight. He and family will meet with Hospice, anticipated time this evening. Family/Friend Interactions: see above. Advance Directives Living Will: Never completed Health Care Surrogate: Never completed Durable Power of Military Technician: Never completed Objective Vital Signs: Vital Signs 05/08/18 11:49 05/08/18 17:40 05/08/18 20:00 Temperature 98.3 F 102.2 F H 99.2 F Pulse Rate 115 H 125 H 119 H Respiratory Rate 16 20 16 Blood Pressure 141/85 H 134/83 156/85 H Pulse Oximetry 94 L 96 96 05/08/18 20:15 05/09/18 00:00 05/09/18 04:00 Temperature 99.1 F 100.1 F H Pulse Rate 120 H 126 H Respiratory Rate 18 18 16 Blood Pressure 158/80 H 159/79 H Pulse Oximetry 94 L 93 L 05/09/18 06:36 05/09/18 08:00 Temperature 98.6 F Pulse Rate 108 H Respiratory Rate 18 18 Blood Pressure 160/89 H Pulse Oximetry 100 Intake & Output 05/08/18 05/09/18 05/09/18 18:59 06:59 18:59 Intake Total 360 / 360 470 / 470 Output Total 500 / 500 450 / 450 Balance -140 / -140 20 / 20 Weight 87 kg Intake: IV 110 / 110 110 / 110 Azactam Inj 1,000 MG In NS Inj 110 / 110 110 / 110 100 ML @ 200 mls/hr IV.SIG Q12H ALOK Rx#:[id number] Oral 250 / 250 360 / 360 Output: Urine Amount (Catheter) 300 / 300 300 / 300 Indwelling Urethral Catheter 300 / 300 300 / 300 Wound Drainage 200 / 200 150 / 150 Left Nephrostomy 175 / 175 100 / 100 right nephrostomy 25 / 25 50 / 50 Other: Date of Last Bowel Movement 05/07/18 05/07/18 # Bowel Movements 1 Physical Exam: CONSTITUTIONAL/GENERAL: This is an adequately nourished patient, griaces at times. TUBES/LINES/DRAINS:left port, bilateral nephrostomy tubes, Roa, SCDs. SKIN: No jaundice, rashes, or lesions. Ecchymoses on upper extremities. No wounds seen anteriorly. Skin temperature appropriate. Not diaphoretic. ENT: Hearing grossly normal. Nose without bleeding or purulent drainage. Throat without visible erythema, exudates, masses, or lesions. CARDIOVASCULAR: Regular rate and rhythm without murmurs, gallops, or rubs. RESPIRATORY/CHEST: Symmetric, unlabored respirations. Clear to auscultation. Breath sounds equal bilaterally. GASTROINTESTINAL: Abdomen soft, mildly tender, nondistended. No guarding. Bowel sounds present. Bilateral nephrostomy tubes in place. GENITOURINARY: Without palpable bladder distension. Roa catheter in place. MUSCULOSKELETAL: Extremities without clubbing or cyanosis. 1+ pedal edema bilaterally. NEUROLOGICAL: Lethargic. Irritable. Does not engage. PSYCHIATRIC: No anxiety or agitation. No apparent hallucinations or other psychotic thought process. Diagnostic Tests Laboratory: Laboratory Results - last 72 hr 05/08/18 05/08/18 05:15 05:15 WBC 10.5 RBC 2.97 L Hgb 8.3 L Hct 25.6 L MCV 86.2 MCH 28.0 MCHC 32.5 RDW 17.0 Plt Count 127 L MPV 9.4 Neut % (Auto) 82.5 H Lymph % (Auto) 5.4 L [place] % (Auto) 6.9 Eos % (Auto) 3.9 Baso % (Auto) 1.3 Neut # (Auto) 8.6 H Lymph # (Auto) 0.6 L [place] # (Auto) 0.7 Eos # (Auto) 0.4 Baso # (Auto) 0.1 WBC Differential . Differential Comment Auto diff final Sodium 145 Potassium 4.0 Chloride 104 Carbon Dioxide 31.3 Anion Gap 10 BUN 24 H Creatinine 0.87 Estimated GFR 65 L Random Glucose 75 Calcium 8.6 Total Bilirubin 0.6 AST 405 H ALT 61 H Alkaline Phosphatase 286 H Total Protein 4.7 L Albumin 1.3 L Result Diagrams: 05/08/18 05:15 05/08/18 05:15 Microbiology: Microbiology 05/05/18 23:33 Aerobic Blood Culture - Preliminary Blood - Peripheral No growth in 3 days Anaerobic Blood Culture - Preliminary No growth in 3 days 05/05/18 16:30 Aerobic Blood Culture - Preliminary Blood - Peripheral No growth in 3 days Anaerobic Blood Culture - Preliminary No growth in 3 days Procedures: 04/24/18: Left sided port placement 04/25/18: Urethral dilatation, cystoscopy and attempted bilateral ureteral stent placement 04/28/18: Bilateral nephrostomy tube placement Assessment and Plan - Disease Oriented Problem List (1) Primary cervical cancer with metastasis to other site (2) Leukocytosis Comment: 05/01/2018: CBC trending downward at 15.1 (3) KALI (acute kidney injury) - Symptom Scale (1) Abdominal pain 0-10 Scale: Unable to quantify Comment: =05/01/18 Started patient on methadone 5mg PO q12 hours. =Rapid titration guidelines used for other opioids do not apply to methadone; in general, do not increase dosage more frequently than every 3 to 4 days. = Methadone in moderate to high doses can prolong the QTc interval and increase the risk of potentially lethal torsades de points arrhythmia QTc: 387 (2) Nausea 0-10 Scale: Unable to quantify Comment: = Intermittent nausea; denied at time of exam = PRN Phenergan and Ondansetron. (3) Constipation 0-10 Scale: Unable to quantify Comment: =Receiving Marta-Colace 1 tablet PO BID. =PRN Milk of magnesia,Dulcolax suppository, Lactulose, and Sennosides are available as well. Encouraged patient to utilize PRN meds. Pertinent Non-Medical Issues: Psychosocial: Patient is originally from [place], [place] but has lived in the [place] for many years. She has been for 4 years. She has 2 adult sons (Dion and Mark). Dion lives in [place], and Mark lives in [place] Spiritual: Spirituality/advent is not important to the patient who refuses sugar controller visits Legal: Prefer to statutes, in the absence of written advanced directives healthcare proxy decision making would fall to the patient's 2 adult sons. Ethical issues impacting care: No known concerns at this time. Important Contacts: * Dion Garcia, son: [phone] * Mark, son: * Joseline, granddaughter: [phone] * SakinaMark's girlfriend (a nurse): [phone] * Kit, step daughter in law: . 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 Functional status declining and not really a candidate for treatment. She is at high risk for ongoing decline in complications. She would be hospice appropriate if goals were comfort oriented. Code Status: Full Code Plan: * Code status- did not address this visit. Sons will speak with hospice tonight. * Capacity- pt is not capacitated to make medical decisions. * Per [place] statutes, in the absence of her advanced directives healthcare proxy decision making would fall to the patient's 2 adult sons (Dion and Mark) . Patient is considering completion of advanced directives, Living Will and Designation of Health Care Surrogate at bedside, not yet signed by patient. * Again discussed advanced directives.- pt could not fill out advance directives Goals of Treatment: Pt is overall lethargic and painful, with grimicing and shaking of her foot. She is overall fatigued and lethargic, still requires prn short acting morphine. Dion has met with DR. Worley this morning. Endorse they will met with hospice this evening and most likely will sign. We spoke about pt's course in the hospital and pain management. We discuss the difficulty in finding that balance in preventing a pain crisis vs , having pt more alert. I told him that probably we are reaching the point where pt is either more sleepy but comfortable, or awake, and painful. He acknowledges that and see that pt is at that point, and remains in pain. We spoke about methadone and the reason it was picked as a long acting. Son feel its not working well for her, and we will stop methadone. He does want pt's prn to increase for breakthrough, as pt still is in pain. He understands the need for long acting, and was asking for fentanyl, preferably , this evening for hospice. He was amenable to start fentanyl patch at 7:00 pm tonight. He and family will meet with Hospice, anticipated time this evening. . * Symptom management: == Pain:Patient dx with metastatic cervical cancer. History of abdominal, perineal and back pain. Grimacing, in pain, shaking leg at times. Will d/c methadone. Start fentanyl tonight. Son ask for prn morphine and roxanol to increase. == Nausea: Nausea resolved at this time. PRN Phenergan and Ondansetron. May consider starting the patient on low dose dexamethasone if nausea continue; dexamethasone may also assist with pain management by reducing inflammation in the abdomen/pelvis. == Constipation: Multifactorial. Contributing factors may include pain medication, decreased activity, poor nutrition/fluid intake, pelvic tumor burden and disease progression. No BM since admission. Receiving Marta-Colace 1 tablet PO BID. PRN Milk of magnesia, Dulcolax suppository, Lactulose, and Sennosides are available as well. LBM: 05/08/18 == Debility: Nurse also tells me the patient is refused PT yesterday . I explained to patient/family that should her functional status decline, she may not be considered a candidate for ongoing aggressive treatment. Patient verbalizes understanding and states, "It was one day. I just wanted to rest." PT recommending home health at discharge. * Palliative care will continue to follow this patient throughout her hospitalization to establish trust, assist with symptom management and clarification of medical treatment goals
[2018-05-09] MEDS ORDERED: Naloxone Inj 0.4 MG/ML Vial IV.PUSH PRN (13:06)
[2018-05-09] MEDS ORDERED: Morphine Sulfate Inj 8 MG/ML Vial IV.PUSH PRN (13:15)
[2018-05-09] MEDS ORDERED: LORazepam 0.5 MG Tablet PO PRN (21:59)
[2018-05-10] MEDS: Morphine Sulfate Oral Liq 10 MG/0.5 ML Syringe PO PRN ×3 (00:24→14:39)
[2018-05-10] MEDS ORDERED: Acetaminophen 650 MG Supp RECTAL PRN (05:02)
--- NOTE | 2018-05-10 08:43 | P.PNADD ---
Addendum to Inpatient Note Reason for Addendum: Additional Documentation Additional information: Called urgently to the bedside for a patient who was in extremis. family had met last evening and signed DNR and hospice paperwork, but there was no physician signature on document. I spoke with son and medical decision maker and re-confirmed intentions for DNR and hospice. updated son who was coming to the hospital. signed DNR paperwork which is consistent with patient and family' s wishes.
[2018-05-10] MEDS: Senna/Docusate Sodium 8.6/50 MG Tablet PO SCH (10:19)
--- NOTE | 2018-05-10 12:07 | P.PN ---
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 Right nephrostomy tube with increased output. May 06, 2018-patient seen and examined, she spiked times yesterday and overnight, currently afebrile. Not much of an appetite per Patient's son who is at the bedside. May 07, 2018-patient seen and examined, afebrile 24 hours. Not wanting to do much. Not much of an appetite. May 08, 2018-patient seen and examined, much more alert and oriented today. Patient is refusing head CT. May 09, 2018-patient seen and examined, T-max 102.2 and patient is currently febrile. May 10, 2018-patient seen and examined, lethargic. She is fact deteriorating previous DNR was made. Waiting for discharge to hospice Physical Exam Vital signs: Vital Signs 05/09/18 12:27 05/09/18 12:51 05/09/18 16:07 Temperature 100.9 F H 99.6 F Pulse Rate 130 H 128 H Respiratory Rate 20 20 20 Blood Pressure 136/70 120/71 Pulse Oximetry 96 92 L 05/09/18 20:00 05/10/18 00:00 05/10/18 01:46 Temperature 101 F H 97.8 F Pulse Rate 129 H 127 H Respiratory Rate 20 19 18 Blood Pressure 126/77 110/64 Pulse Oximetry 96 98 05/10/18 04:00 05/10/18 05:45 05/10/18 08:00 Temperature 102.1 F H 100.7 F H 101.9 F H Pulse Rate 130 H 110 H Respiratory Rate 18 24 Blood Pressure 100/51 L 78/38 L Pulse Oximetry 92 L 05/10/18 09:29 Temperature Pulse Rate Respiratory Rate Blood Pressure Pulse Oximetry 94 L Intake & Output 05/09/18 05/10/18 05/10/18 18:59 06:59 18:59 Intake Total 210 / 210 300 / 300 100 / 100 Output Total 225 / 225 345 / 345 Balance -15 / -15 -45 / -45 100 / 100 Weight 87 kg Intake: IV 200 / 200 300 / 300 100 / 100 Ofirmev Inj 1,000 mg In 100 ml 100 / 100 200 / 200 100 / 100 @ 400 mls/hr IV.SIG Q6H ALOK Rx# :[id number] Azactam Inj 1,000 MG In NS Inj 100 / 100 100 / 100 100 ML @ 200 mls/hr IV.SIG Q12H ALOK Rx#:[id number] Oral Output: Urine 225 / 225 Urine Amount (Catheter) 150 / 150 Indwelling Urethral Catheter 150 / 150 Wound Drainage 195 / 195 Left Nephrostomy 130 / 130 right nephrostomy 65 / 65 Other: Date of Last Bowel Movement 05/08/18 05/09/18 # Bowel Movements 2 Narrative: GENERAL: lethargic CARDIOVASCULAR: Regular rate and rhythm without murmurs, gallops, or rubs. RESPIRATORY: Breath sounds decrease bilaterally. No accessory muscle use. GASTROINTESTINAL: Abdomen soft, tender to palpation diffusely.Nephrostomy in place with clear urine on the left and on the right. MUSCULOSKELETAL: No cyanosis, or edema. - Urinary Catheter Management Indwelling Urethral Catheter Cath placed during this visit: yes Reason for continuing: Gross Hematuria Insertion date: 04/25/18 Results - Labs CBC & Chem 7: 05/08/18 05:15 05/08/18 05:15 Microbiology 05/05/18 23:33 Blood - Peripheral Aerobic Blood Culture - Final No growth in 5 days 05/05/18 23:33 Blood - Peripheral Anaerobic Blood Culture - Final No growth in 5 days 05/05/18 16:30 Blood - Peripheral Aerobic Blood Culture - Final No growth in 5 days 05/05/18 16:30 Blood - Peripheral Anaerobic Blood Culture - Final No growth in 5 days - Procedures see reports Assessment and Plan - Plan 67-year-old female with: Invasive squamous cell carcinoma of the cervix with metastasis SUPERINTENDENT STATIONS oncology following, appreciate recommendations. Status post surgery on 04/25. Appreciate Mud Cleaner Operator/ONC, urology assistance. Continues with Roa 04/28. Bilateral nephrostomy tubes placed. - Radiation therapy ongoing however chemotherapy on hold pending improvement of renal function -Patient condition is fast deteriorating, she will be discharged to hospice Abnormal urinalysis: Negative. Antibiotics discontinued. Leukocytosis: Resolved Acute kidney injury secondary to obstructive uropathy: status post bilateral nephrostomy tubes. Nephrology and urology following. Hypernatremia: - Resolved post treatment with IVF D5 free water. Anemia secondary to blood loss - Continue to monitor H&H. Transfuse for hemoglobin less than 8. Healthcare associated pneumonia -Currently on aztreonam 1 g IV every 12 hours and continue to monitor culture report Intractable abdominal pain: -Pain better controlled with new regimen -Palliative care assisting with pain medications. -Patient started on methadone. Roxanol and IV morphine as needed prophy : SCDs. Holding AC for now due to hematuria Will discharge patient to hospice today May 10, 2018
--- NOTE | 2018-05-10 12:09 | P.DS ---
Date of admission: 04/22/18 21:01 Primary care physician: UNKNOWN Anticipated date of discharge: 05/10/18 Brief History from admission: 67-year-old female with a known history of cervical cancer presents to the emergency department for the evaluation of pelvic pain and vaginal bleeding. The patient reports she had a D&C with her lift builder whole at which time she was diagnosed with cervical cancer. She reports she has been trying to see Dr. Worley however has been unable to do so secondary to issues with referrals. The patient reports that she has started to have nausea and vomiting over the past several days and last bowel movement was 5 days ago. She denies any fevers or chills. No chest pain or shortness of breath. Severe abdominal/ pelvic pain. No diarrhea. No lateralizing signs/symptoms. The patient reports low back pain for the last 2-3 days. DS: Summary Hospital Course: Prior to the discharge to hospice, patient was treated for: Invasive squamous cell carcinoma of the cervix with metastasis COMPONENT LAB TECH oncology following, appreciate recommendations. Status post surgery on 04/25. Appreciate Calender Runner/ONC, urology assistance. Continues with Roa 04/28. Bilateral nephrostomy tubes placed. - Radiation therapy ongoing however chemotherapy on hold pending improvement of renal function Abnormal urinalysis: Negative. Antibiotics discontinued. Leukocytosis: Resolved Acute kidney injury secondary to obstructive uropathy: status post bilateral nephrostomy tubes. Nephrology and urology following. Hypernatremia: - Resolved post treatment with IVF D5 free water. Anemia secondary to blood loss - Continue to monitor H&H. Transfuse for hemoglobin less than 8. Healthcare associated pneumonia -She was treated with aztreonam 1 g IV every 12 hours Intractable abdominal pain: -Pain better controlled with new regimen -Palliative care assisting with pain medications. -Patient started on methadone. Roxanol and IV morphine as needed prophy : SCDs. Holding AC for now due to hematuria - Time Spent with Patient Total time spent providing and/or coordinating discharge services: Greater than 30 minutes - Quality: VTE Deep Vein Thrombosis/Pulmonary Embolism Present on Admission: No Exam Vital signs: Vital Signs 05/09/18 12:27 05/09/18 12:51 05/09/18 16:07 Temperature 100.9 F H 99.6 F Pulse Rate 130 H 128 H Respiratory Rate 20 20 20 Blood Pressure 136/70 120/71 Pulse Oximetry 96 92 L 05/09/18 20:00 05/10/18 00:00 05/10/18 01:46 Temperature 101 F H 97.8 F Pulse Rate 129 H 127 H Respiratory Rate 20 19 18 Blood Pressure 126/77 110/64 Pulse Oximetry 96 98 05/10/18 04:00 05/10/18 05:45 05/10/18 08:00 Temperature 102.1 F H 100.7 F H 101.9 F H Pulse Rate 130 H 110 H Respiratory Rate 18 24 Blood Pressure 100/51 L 78/38 L Pulse Oximetry 92 L 05/10/18 09:29 Temperature Pulse Rate Respiratory Rate Blood Pressure Pulse Oximetry 94 L Intake & Output 05/09/18 05/10/18 05/10/18 18:59 06:59 18:59 Intake Total 210 / 210 300 / 300 100 / 100 Output Total 225 / 225 345 / 345 Balance -15 / -15 -45 / -45 100 / 100 Weight 87 kg Intake: IV 200 / 200 300 / 300 100 / 100 Ofirmev Inj 1,000 mg In 100 ml 100 / 100 200 / 200 100 / 100 @ 400 mls/hr IV.SIG Q6H ALOK Rx# :[id number] Azactam Inj 1,000 MG In NS Inj 100 / 100 100 / 100 100 ML @ 200 mls/hr IV.SIG Q12H ALOK Rx#:[id number] Oral 10 / 10 Output: Urine 225 / 225 Urine Amount (Catheter) 150 / 150 Indwelling Urethral Catheter 150 / 150 Wound Drainage 195 / 195 Left Nephrostomy 130 / 130 right nephrostomy 65 / 65 Other: Date of Last Bowel Movement 05/08/18 05/09/18 # Bowel Movements 2 Narrative: GENERAL: Lethargic SKIN: Warm and dry. HEAD: Normocephalic. EYES: No scleral icterus. No injection or drainage. NECK: Supple, trachea midline. No JVD or lymphadenopathy. CARDIOVASCULAR: Regular rate and rhythm without murmurs, gallops, or rubs. RESPIRATORY: Breath sounds decrease bilaterally. No accessory muscle use. GASTROINTESTINAL: Abdomen soft, non-tender, nondistended. MUSCULOSKELETAL: No cyanosis, or edema. BACK: Nontender without obvious deformity. No CVA tenderness. Results Procedures completed during hospitalization: see reports Completed studies during hospitalization: Pending at discharge 04/25/18 17:01 Surgical [PTH] Routine - Impressions ITS Impressions Abdomen/Pelvis CT 04/22/18 17:26 CONCLUSION: 1. Enlarged uterus and cervix. 2. Retroperitoneal metastatic lymphadenopathy. 3. Metastatic disease of the visualized lung bases. 4. Metastatic lytic lesion of the right pubic bone with a nondisplaced pathologic fracture. 5. Large mass or blood/debris in the urinary bladder. 6. 17 mm hypodensity of the liver is probably benign. There has slight fatty infiltration. 7. Large gallstone without associated complication. Chest CT 04/23/18 00:00 CONCLUSION: 1. Diffuse bilateral lung metastatic disease. 2. Diffuse hilar and mediastinal adenopathy consistent with neoplastic disease. 3. Diffuse para-aortic adenopathy in the abdomen. Abdomen/Bladder Ultrasound 04/24/18 00:00 CONCLUSION: 1. Large lobular mass in the bladder of concern for bladder carcinoma. 2. Bilateral hydronephrosis. 3. The echogenicity kidneys is increased and equal to that of the liver decreasing medical renal disease. 4. The small mass in the left kidney seen on CT is not visualized. Port Line Insertion 04/24/18 00:00 CONCLUSION: 1. Uncomplicated ultrasound and fluoroscopic guided implanted central venous port catheter placement as described in detail above. The port was placed via the left internal jugular vein. An 8 [employer] port was placed. Nephrostomy 04/28/18 00:00 CONCLUSION: 1. Uncomplicated bilateral nephrostomy tube placement as above. Head MRI 05/04/18 00:00 CONCLUSION: 1. 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 2. Otherwise, unremarkable MRI of the brain for patient's age. 3. Nonspecific thickening and enhancement involving the calvarium along the right frontal bone. This finding is nonspecific. It could represent hyperostosis frontalis interna. However, neoplastic disease is not excluded. Therefore, recommend a CT scan of the brain for further evaluation. Chest X-Ray 05/05/18 00:00 CONCLUSION: Probable mild pulmonary edema. Pneumonia in right lung base is difficult to exclude. Discharge Plan - Discharge Disposition Patient Disposition: [facility] Hospice/Med Facility - Discharge Condition Condition: Critical - Discharge Order Discharge Orders: Discharge Order (Routine); Ordered 05/10/18 Ordered By: Ismael Gregory - Physicians Team Primary Care Provider: UNKNOWN, Attending Provider: Ismael Gregory Other Providers: Ubaldoa,aSra ; Rishi Stout MD ; Irma Worley MD ; Martínez Dumont MD ; Ulises Clemons MD ; Mei Griffith MD ; Jordin Hewitt MD
[2018-05-10] MEDS ORDERED: Morphine Inj 4 MG/ML Vial IV.PUSH PRN (15:15)
== END 2018-05-10 16:47 | disposition hospice, inpatient (51) ==
LOC: NEPC 16:20 → NEDA 21:01 → HCIN 04-23 01:03
PROVIDERS: ADMIT Hospitalist; ATTEND Hospitalist